=== PATIENT | female | born 1995 | race Caucasian/White ===

== ENCOUNTER → 2020-01-31 12:11 | Outpatient (CLI) | payer BC, SELFPAY ==
[2020-01-31 14:08] LABS: Hematocrit 45.3 % (37-47); Hemoglobin 14.6 g/dL (12.0-15.0); Mean Corp Hgb Conc 32.2 g/dL (32-36); Mean Corpuscular Hgb 28.2 pg (27.0-32.0); Mean Corpuscular Volume 87.6 fL (81-99); Mean Platelet Vol. 10.7 fl (6.2-12.0); Platelet Count 358 K/mm3 (150-450); RBC Distribution Width CV 11.7 % (11.6-14.6); RBC Distribution Width SD 37.4 fl (35.1-43.9); Red Blood Count 5.17 M/mm3 (4.2-5.4); White Blood Count 8.2 K/mm3 (4.4-11.0)
[2020-01-31 14:34] LABS: ALB/GLOB Ratio 1.1 RATIO (0.9-2.4); AST(SGOT) 19 U/L (15-37); Alanine Aminotransfer ALT/SGPT 30 U/L (13-56); Albumin, Serum 3.9 g/dL (3.2-5.0); Alkaline Phosphatase 112 U/L (45-117); Anion Gap 7 (5-15); BUN 16 mg/dL (7-18); BUN/Creat Ratio 21.1 RATIO (10-20); Chloride 108 mmol/L (98-107); Cholesterol 179 mg/dL (200); Creatinine, Serum 0.76 mg/dL (0.55-1.02); EST Glomerular Filtration Rate 100 mL/min (>60); Est Glom Filt Rate - Afr Amer 121 mL/min (>60); Globulin 3.7 g/dL (2.2-4.2); Glucose 90 mg/dL (74-106); High Density Lipoprotein 44 mg/dL; Potassium 4.1 mmol/L (3.5-5.1); Protein, Total 7.6 g/dL (6.4-8.2); Sodium Level 139 mmol/L (136-145); Thyroid Stim Hormone (TSH) 2.23 uIU/mL (0.358-3.74); Triglycerides 155 mg/dL; Very Low Density Lipoprotein 31 mg/dL (5-40)
== END ==
PROVIDERS: PCP Nurse Practitioner Primary Care; Referring Provider Family Medicine; Visit Provider Family Medicine
DX: N92.1 Excessive and frequent menstruation with irregular cycle (principal); E88.81 Metabolic syndrome and other insulin resistance
CPT/HCPCS: 36415; 80053; 80061; 84443; 85027

== ENCOUNTER → 2021-07-30 09:56 | Outpatient (CLI) | payer OTHER, SELFPAY ==
[2021-07-30 11:27] LABS: Cholesterol 162 mg/dL (200); Glucose 105 mg/dL (74-106); High Density Lipoprotein 45 mg/dL; Thyroid Stim Hormone (TSH) 2.03 uIU/mL (0.358-3.74); Triglycerides 247 mg/dL; Very Low Density Lipoprotein 49 mg/dL (5-40)
== END ==
PROVIDERS: PCP Nurse Practitioner Primary Care; Referring Provider Nurse Practitioner Primary Care; Visit Provider Nurse Practitioner Primary Care
DX: Z00.00 Encounter for general adult medical examination without abnormal findings (principal); R63.5 Abnormal weight gain
CPT/HCPCS: 36415; 80061; 82947; 84443

== ENCOUNTER 2021-12-02 17:00 | Outpatient (RCR) | payer OTHER, SELFPAY | END 2021-12-02 23:59 | LOC: NS 17:00 | PROVIDERS: PCP Nurse Practitioner Primary Care; Referring Provider Nurse Practitioner Primary Care; Visit Provider Nurse Practitioner Primary Care | DX: Z71.3 Dietary counseling and surveillance (principal); E66.9 Obesity, unspecified; Z68.41 Body mass index [BMI] 40.0-44.9, adult | CPT/HCPCS: 97802; 97803 ==

== ENCOUNTER 2021-12-30 10:00 | Outpatient (RCR) | payer OTHER, SELFPAY | END 2022-01-02 23:59 | LOC: NS 10:00 | PROVIDERS: PCP Nurse Practitioner Primary Care; Referring Provider Nurse Practitioner Primary Care; Visit Provider Nurse Practitioner Primary Care | DX: Z71.3 Dietary counseling and surveillance (principal); E66.9 Obesity, unspecified; Z68.41 Body mass index [BMI] 40.0-44.9, adult | CPT/HCPCS: 97803 ==

== ENCOUNTER → 2022-07-30 | Outpatient (CLI) | payer OTHER, SELFPAY ==
[2022-08-01 11:09] LABS: Chlamydia By Nucleic Acid AMP Negative (Negative)
[2022-08-01 14:55] LABS: Gonococcus By Nucleic Acid AMP Negative (Negative)
[2022-08-14 16:01] LABS: HPV Reflexed? NOT INDICATED
== END | disposition home or self-care (01) ==
LOC: LABSPEC 11:07
PROVIDERS: PCP Nurse Practitioner Primary Care; Visit Provider Student in an Organized Health Care Education/Training Program
DX: Z12.4 Encounter for screening for malignant neoplasm of cervix (principal); Z11.3 Encounter for screening for infections with a predominantly sexual mode of transmission
CPT/HCPCS: 87491; 87591; 88175; G0145

== ENCOUNTER → 2024-02-15 | Outpatient (CLI) | payer OTHER, SELFPAY ==
[2024-02-15 09:31] LABS: Absolute Lymphocyte Count 3.69 X10^3/uL (0.83-4.51); Absolute Neutrophil Count 6.8 X10^3/uL (2.0-7.7); Basophil# 0.08 X10^3/uL; Basophil% 0.7 % (0-1); Eosinophils% 2.6 % (0-5); Hemoglobin 15.1 g/dL (12.0-15.0); Lymphocyte # 3.69 X10^3/ul (0.83-4.51); Mean Corp Hgb Conc 32.1 g/dL (32-36); Mean Corpuscular Hgb 28.2 pg (27.0-32.0); Mean Corpuscular Volume 87.7 fL (81-99); Monocyte# 0.56 X10^3/uL; Monocyte% 4.9 % (0-10); NRBC Flagged by Analyzer 0 % (0-5); Neutrophil # 6.82 X10^3/uL (2.7-7.7); Neutrophil % 59.1 % (47-70); Platelet Count 351 K/mm3 (150-450); RBC Distribution Width CV 11.8 % (11.6-14.6); RBC Distribution Width SD 37.3 fl (35.1-43.9); Red Blood Count 5.36 M/mm3 (4.2-5.4); White Blood Count 11.5 K/mm3 (4.4-11.0)
[2024-02-15 10:12] LABS: AST(SGOT) 16 U/L (15-37); Alanine Aminotransfer ALT/SGPT 25 U/L (13-56); Albumin, Serum 3.9 g/dL (3.2-5.0); Alkaline Phosphatase 110 U/L (45-117); Anion Gap 7 (5-15); BUN 13 mg/dL (7-18); BUN/Creat Ratio 18.3 RATIO (10-20); Calcium,Total 9.1 mg/dL (8.5-10.1); Chloride 106 mmol/L (98-107); Cholesterol 191 mg/dL (200); Creatinine, Serum 0.71 mg/dL (0.55-1.02); EST Glomerular Filtration Rate 104 mL/min (>60); Est Glom Filt Rate - Afr Amer 126 mL/min (>60); Glucose 104 mg/dL (74-106); High Density Lipoprotein 49 mg/dL; Potassium 4.2 mmol/L (3.5-5.1); Protein, Total 7.9 g/dL (6.4-8.2); Sodium Level 136 mmol/L (136-145); Thyroid Stim Hormone (TSH) 1.57 uIU/mL (0.358-3.74); Triglycerides 250 mg/dL; Very Low Density Lipoprotein 50 mg/dL (5-40)
[2024-02-15 17:30] LABS: Vitamin B12 368 pg/mL (211-911); Vitamin D,25 Hydroxy 32.2 ng/mL
[2024-02-19 10:09] LABS: Deamidated Gliadin IgA 21 units (0-19); Deamidated Gliadin IgG 5 units (0-19); Endomysial Antibody IgA Negative (Negative); Immunoglobulin A 110 mg/dL (87-352); Testosterone, Free 2.09 ng/dL (0.10-0.85); Testosterone, Total 55 ng/dL (13-71); t-Transglutaminase IgA <2 U/mL (0-3)
== END | disposition home or self-care (01) ==
PROVIDERS: PCP Nurse Practitioner; Referring Provider Nurse Practitioner; Visit Provider Nurse Practitioner
DX: Z00.00 Encounter for general adult medical examination without abnormal findings (principal); N92.6 Irregular menstruation, unspecified; L65.9 Nonscarring hair loss, unspecified; K58.9 Irritable bowel syndrome, unspecified
CPT/HCPCS: 36415; 80053; 80061; 82306; 82607; 82627; 82784; 83516; 84402; 84403; 84439; 84443; 85025; 86255; 82626

== ENCOUNTER → 2024-03-21 | Outpatient (CLI) | payer OTHER, SELFPAY ==
[2024-03-21 13:07] LABS: hCG Titer Quant., Serum 3 mIU/mL (1-3)
== END | disposition home or self-care (01) ==
LOC: LAB 12:14
PROVIDERS: PCP Nurse Practitioner; Referring Provider Obstetrics & Gynecology; Visit Provider Obstetrics & Gynecology
DX: Z34.90 Encounter for supervision of normal pregnancy, unspecified, unspecified trimester (principal); N92.6 Irregular menstruation, unspecified; Z3A.00 Weeks of gestation of pregnancy not specified
CPT/HCPCS: 36415; 84702

== ENCOUNTER → 2024-03-23 | Outpatient (CLI) | payer OTHER, SELFPAY ==
[2024-03-23 13:42] LABS: hCG Titer Quant., Serum < 1 mIU/mL (1-3)
== END | disposition home or self-care (01) ==
LOC: LAB 11:41
PROVIDERS: PCP Nurse Practitioner; Visit Provider Obstetrics & Gynecology
DX: Z34.90 Encounter for supervision of normal pregnancy, unspecified, unspecified trimester (principal)
CPT/HCPCS: 36415; 84702

== ENCOUNTER → 2024-04-11 | Outpatient (CLI) | payer OTHER, SELFPAY ==
[2024-04-11 16:53] LABS: Hemoglobin A1c 5.3 % (3.8-5.6)
[2024-04-13 04:07] LABS: PROGESTERONE <0.1 ng/mL (.)
== END | disposition home or self-care (01) ==
LOC: LAB 14:45
PROVIDERS: PCP Nurse Practitioner; Referring Provider Nurse Practitioner Women's Health; Visit Provider Nurse Practitioner Women's Health
DX: E28.2 Polycystic ovarian syndrome (principal)
CPT/HCPCS: 36415; 83036; 84144

== ENCOUNTER → 2024-06-16 | Outpatient (CLI) | payer OTHER, SELFPAY ==
[2024-06-16 10:13] LABS: hCG Titer Quant., Serum 2396 mIU/mL (1-3)
== END | disposition home or self-care (01) ==
PROVIDERS: PCP Nurse Practitioner; Referring Provider Nurse Practitioner Women's Health; Visit Provider Nurse Practitioner Women's Health
DX: N92.6 Irregular menstruation, unspecified (principal)
CPT/HCPCS: 36415; 84702

== ENCOUNTER → 2024-06-22 | Outpatient (CLI) | payer OTHER, SELFPAY ==
[2024-06-22 13:15] LABS: hCG Titer Quant., Serum 9986 mIU/mL (1-3)
== END | disposition home or self-care (01) ==
LOC: LAB 11:58
PROVIDERS: PCP Nurse Practitioner; Referring Provider Nurse Practitioner Women's Health; Visit Provider Nurse Practitioner Women's Health
DX: N97.9 Female infertility, unspecified (principal); N91.2 Amenorrhea, unspecified
CPT/HCPCS: 36415; 84443; 84702

== ENCOUNTER → 2024-07-04 | Outpatient (CLI) | payer OTHER, SELFPAY ==
[2024-07-07 06:10] LABS: Chlamydia By Nucleic Acid AMP Negative (Negative); Gonococcus By Nucleic Acid AMP Negative (Negative)
== END | disposition home or self-care (01) ==
LOC: LABSPEC 17:05
PROVIDERS: Referring Provider Obstetrics & Gynecology; Visit Provider Obstetrics & Gynecology
DX: O99.210 Obesity complicating pregnancy, unspecified trimester (principal); Z3A.00 Weeks of gestation of pregnancy not specified
CPT/HCPCS: 87086; 87491; 87591

== ENCOUNTER → 2024-08-01 | Outpatient (CLI) | payer OTHER, SELFPAY ==
[2024-08-01 15:38] LABS: Absolute Lymphocyte Count 3.77 X10^3/uL (0.83-4.51); Absolute Neutrophil Count 7.2 X10^3/uL (2.0-7.7); Basophil# 0.06 X10^3/uL; Basophil% 0.5 % (0-1); Eosinophil# 0.17 X10^3/uL; Eosinophils% 1.4 % (0-5); Hematocrit 37.3 % (37-47); Hemoglobin 12.3 g/dL (12.0-15.0); Lymphocyte # 3.77 X10^3/ul (0.83-4.51); Lymphocyte % 31.3 % (19-41); Mean Corpuscular Hgb 27.7 pg (27.0-32.0); Mean Platelet Vol. 11.1 fl (6.2-12.0); Monocyte# 0.79 X10^3/uL; Monocyte% 6.6 % (0-10); NRBC Flagged by Analyzer 0 % (0-5); Neutrophil # 7.19 X10^3/uL (2.7-7.7); Neutrophil % 59.7 % (47-70); Platelet Count 342 K/mm3 (150-450); RBC Distribution Width CV 11.7 % (11.6-14.6); RBC Distribution Width SD 35.6 fl (35.1-43.9); Red Blood Count 4.44 M/mm3 (4.2-5.4)
[2024-08-01 15:53] LABS: Erythrocyte Sedimentation Rate 15 mm/hr (0-30)
[2024-08-01 16:09] LABS: AST(SGOT) 6 U/L (15-37); Alanine Aminotransfer ALT/SGPT 17 U/L (13-56); Albumin, Serum 3.6 g/dL (3.2-5.0); Alkaline Phosphatase 74 U/L (45-117); Anion Gap 11 (5-15); BUN 9 mg/dL (7-18); BUN/Creat Ratio 15.8 RATIO (10-20); CRP 7.41 mg/L (0.0-3.0); Chloride 105 mmol/L (98-107); Creatinine, Serum 0.57 mg/dL (0.55-1.02); EST Glomerular Filtration Rate 134 mL/min (>60); Est Glom Filt Rate - Afr Amer 163 mL/min (>60); Globulin 3.7 g/dL (2.2-4.2); Glucose 67 mg/dL (74-106); LDH 147 U/L (84-246); Potassium 3.5 mmol/L (3.5-5.1); Protein, Total 7.3 g/dL (6.4-8.2); Sodium Level 137 mmol/L (136-145)
[2024-08-01 16:47] LABS: HIV - WCH Non-Reactive (Nonreactive); Hepatitis B Surface Antigen Non-Reactive (Nonreactive); Hepatitis C Antibody Non-Reactive (Nonreactive); Rubella IgG Reactive (Nonreactive); Syphilis Antibodies Non-reactive
--- OUTSIDE RECORDS SUMMARY | 2024-08-01 17:14 | XMS RPT_ITS | CCD ---
Author Organization [facility] Care Team Providers Care Hotel Staff Member Name Role Phone Jonathan Red Unavailable Unavailable Kumar Peace Unavailable Unavailable Problems Problem Classification Problem Date Documented Da te Episodic/Chronic Acute and chronic tonsillitis (1 source) Chronic tonsillitis Onset: 09-16-2017 Chronic Unclassified (1 source) Unknown / UNK(Unknown) Onset: 09-16-2017 Results Test Name Value Interpretation Reference Range Facility [facility] 05-05-[address] Positive [facility] Comment on above: Result Comment: This immune status assay detects antibody to Varicella Zostervirus. Interpret results in conjunction with clinical history. Positive: Reactive for antibodies to Varicella IgG. If clinically indicated, order Varicella IGM to rule out recent infection. Equivocal: Equivocal for antibodies to Varicella IgG. Suggest repeat testing in 10-14 days. Negative: Non-reactive for antibodies to Varicella IgG.Sera will be held 4-6 weeks if further testing is required. Performed By: #### H BSAB, VARIS ####[place] [address] HBSABon 05-04-2018 Hep B Surf Ab 0.0 mIU/mL [facility] Comment on above: Result Comment: Anti-HBs Interpretation: 0 to <5.0 mIU/mL Negative Patient is considered to be not immune to infection with HBV. >/= 5.0 and <12.0 mIU/mL Equivocal Unable to determine if anti-HBs is present at levels consistent with immunity. Patient's immune status should be further assessed by considering other clinical information or retesting another sample drawn at a later time. >/= 12.0 mIU/mL Positive Patient is considered to be immune to infection with HBV. It has not been determined what the clinical significance is for values greater than or equal to 12.0 mIU/mL, other than the individual is considered to be immune to HBV infection. Performed By: #### H BSAB, VARIS ####[place] [address] Bella 09-16-2017 OPERATIVE REPORT Normal [facility] [place] DATE OF SERVICE: 09/16/2017PREOPERATIVE DIAGNOSIS: Chronic tonsillitis.POSTOPERATIVE DIAGNOSIS: Chronic tonsillitis.OPERATION: Tonsillectomy.SURGEON: Jonathan Red MDANESTHESIA: General endotracheal.INDICATION: The patient is a 22-year-old with a history of chronic tonsillitisrefractory to appropriate treatment, presents for surgery.OPERATIVE FINDINGS: The patient had 3+ cryptic tonsils.PROCEDURE: The patient was brought to the operating theater and placed in the supineposition on the operating room table and general endotracheal anesthesia was induced.The patient was placed in the Tamara position. A Samantha-Duncan mouth gag was insertedand provided excellent exposure. The soft palate was palpated and there was noclefting. The tonsillar pillars were injected with a total of 5 mL of 0.25% plainMarcaine. The tonsils were then resected in a superior to inferior fashion along theplane of the tonsillar capsule using the Bovie suction cauterization device.Excellent hemostasis was maintained throughout by cauterizing blood vessels as theywere encountered. The patient tolerated the procedure well without complication.Estimated blood loss was 10 mL. The patient was allowed to awaken, was extubated,and was transferred to recovery in stable condition. Alexandro Red [facility]ka/[id number]: 09/16/2017 07:57DT: 09/16/2017 08:31SSI File#: [id number] #: [id number]/Reviewed by09/17/17 0706 [id number] [facility] PATIENT NAME: BALTAZAR BLANCO [id number] Meyer [facility] REC #: [id number], [place] [address] DATE:DISCHARGE DATE:OPERATIVE REPORT ATTENDING PHY: Jonathan Red MD [facility] [place] SURGon 09-16-2017 SURG Patient: BALTAZAR BLANCO L SPECIMEN: [id number] Collection Date: 09/16/17 Received: 09/16/17 Status: ROLO Anderson DrInocencia: Jonathan Red MD Ph# Othr. Dr.: Kumar Peace Material for Examination: A LEFT AND RIGHT TONSIL PRE-OP DIAGNOSIS: CHRONIC TONSILLITIS POST-OP DIAGNOSIS: SAME SURGICAL PROCEDURE: TONSILLECTOMY DIAGNOSIS A. Bilateral tonsils; tonsillectomy: Enlarged bilateral tonsils with lymphoid follicular hyperplasia.GROSS DESCRIPTION The specimen is received in formalin labeled with the patient's name, ID, and designatedleft and right tonsils, are 2 chacon-pink oval shaped portions of tissue grossly consistentwith tonsils, 3.0 x 2.5 x 2.0 cm and 3.5 x 2.6 x 1.8 cm. Each has a focally pitted surface.Cut section reveals chacon-pink crypts. No additional tissue is identified. Representativesections are submitted in cassettes A1 and A2.MICROSCOPIC DESCRIPTION Two Altaf stained slides examined.COPIES TO: Kumar Peace Darrell R MDSigned Verified/Reviewed by DAKOTA CHEN 09/17/17 This dictation was created using voice recognition software. Phonetic and/or minor grammatical errors may exist. [facility] NAME: BALTAZAR BLANCO Pathology and Laboratory Medicine UNIT#: [id number] LOC: [facility] Telephone Operator Chief: Sherry Mcdonnell M.D. [id number] ROOM/BED: [facility] : 89 AGE/SEX: 22/F [place].Jonathan Simeon MD END OF REPORT Normal [facility] URINE PREGNANCYon 09-16-2017 UR HCG QUAL Negative Normal NEGATIVE [facility] Comment on above: Order Comment: Dexter: M Performed By: #### L [id number] ####[facility] [id number] [place], [place] [address]Qq# [phone] UR SPEC GRAV 1.021 Normal 1.005-1.03 0 [facility] Comment on above: Order Comment: Dexter: M Performed By: #### L [id number] ####[facility] [id number] [place], [place] [address]Oy# [phone] Encounters Encounter Date Encounter Type Care Provider Facility Start: 09-16-2017 Evaluation and manag ement of inpatient Jonathan Red Facility:[facility] Payers Date Payer Category Payer Unknown [id number] Summary Purpose Family History No Family History Records FoundNo Family History Records Found Advance Directives No Advanced Directives Records FoundNo Advanced Directives Records Found Additional Source Comments INFORMATION SOURCE (unrecogn ized section and content) DATE CREATED AUTHOR 03/30/2018 [facility]ter [place] DATE CREATED AUTHOR AUTHOR'S ORGANIZ ATION 05/05/2018 [facility] FOR RECORDS PERTAINING TO PATIENTS WHO ARE OR HAVE BEEN ENROLLED IN A CHEMICAL DEPENDENCY/SUBSTANCEABUSE PROGRAM, SOME INFORMATION MAY BE OMITTED. This clinical summary was aggregated from multiple sources. Caution should be exercised in using it in the provision of clinical care. This summary normalizes information from multiple sources, and as a consequence, information in this document may materially change the coding, format and clinical context of patient data. In addition, data may be omitted in some cases. CLINICAL DECISIONS SHOULD BE BASED ON THE PRIMARY CLINICAL RECORDS. [facility]. provides no warranty or guarantee of the accuracy or completeness of information in this document.
[2024-08-06 16:08] LABS: ACCA 8 units (0-90); ALCA 16 units (0-60); AMCA 37 units (0-100); Albumin 3.7 g/dL (2.9-4.4); Alpha-1-Globulins 0.3 g/dL (0.0-0.4); Alpha-2-Globulins 0.8 g/dL (0.4-1.0); Cytoplasmic Ab (C-ANCA) <1:20 titer (Neg:<1:20); Endomysial Antibody IgA Negative (Negative); Gamma Globulin 0.7 g/dL (0.4-1.8); Immunoglobulin A 87 mg/dL (87-352); Immunoglobulin E 12 IU/mL (6-495); Immunoglobulin G 791 mg/dL (586-1602); Immunoglobulin M 77 mg/dL (26-217); PROEL- TOTAL PROTEIN 6.6 g/dL (6.0-8.5); Perinuclear Ab (P-ANCA) <1:20 titer (Neg:<1:20); gASCA 4 units (0-50); t-Transglutaminase IgA <2 U/mL (0-3)
[2024-08-07 08:07] LABS: Anti-Centromere B Ab <0.2 AI (0.0-0.9); Anti-Chromatin <0.2 AI (0.0-0.9); Anti-Jo <0.2 AI (0.0-0.9); Anti-Scleroderma-70 AB <0.2 AI (0.0-0.9); Anti-dsDNA Ab 1 IU/mL (0-9); Beef <0.10 kU/L (Class 0); Chocolate <0.10 kU/L (Class 0); Codfish <0.10 kU/L (Class 0); Corn <0.10 kU/L (Class 0); Egg, Whole <0.10 kU/L (Class 0); Milk (Cow) <0.10 kU/L (Class 0); Mussels <0.10 kU/L (Class 0); Peanut <0.10 kU/L (Class 0); Pork <0.10 kU/L (Class 0); RNP Ab <0.2 AI (0.0-0.9); SJOGREN'S Anti-SS-A test < 0.2 AI (0.0-0.9); SJOGREN'S Anti-SS-B test < 0.2 AI (0.0-0.9); Salmon <0.10 kU/L (Class 0); Shrimp <0.10 kU/L (Class 0); Smith Ab <0.2 AI (0.0-0.9); Soybean <0.10 kU/L (Class 0); Tuna <0.10 kU/L (Class 0); Wheat <0.10 kU/L (Class 0)
== END | disposition home or self-care (01) ==
LOC: LAB 13:37
PROVIDERS: Obstetrics & Gynecology; PCP Nurse Practitioner
DX: O99.619 Diseases of the digestive system complicating pregnancy, unspecified trimester (principal); K58.0 Irritable bowel syndrome with diarrhea; O99.210 Obesity complicating pregnancy, unspecified trimester; Z3A.00 Weeks of gestation of pregnancy not specified
CPT/HCPCS: 36415; 80053; 82784; 82785; 83036; 83516; 83615; 84165; 85025; 85652; 86003; 86005; 86036; 86037; 86140; 86225; 86235; 86255; 86334; 86671; 86703; 86762; 86780; 86803; 86850; 86900; 86901; 87340

== ENCOUNTER → 2024-09-23 | Outpatient (CLI) | payer OTHER, SELFPAY ==
--- NOTE | 2024-09-23 08:02 | US_ITS ---
EXAM: US SECOND OR THIRD TRIMESTER , DETAILED ANATOMIC EXAMINATION CLINICAL INDICATION: anatomy TECHNIQUE: Real-time obstetrical ultrasound of the maternal pelvis and a second or third trimester with image documentation and detailed anatomic examination. COMPARISON: No relevant prior studies available. FINDINGS: FETUS: Single live intrauterine . HEART RATE: heart rate: 145 bpm. HEART RHYTHM: Normal. PRESENTATION: Cephalic. PLACENTA: Placenta is anterior with no previa or other abnormality. Central placenta cord insertion. AMNIOTIC FLUID: The amount of amniotic fluid is within normal limits for the gestational age. OSBALDO not measured. ANATOMY: Normal sonographic appearance of the intracranial structures, facial structures, four-chamber heart, diaphragm, stomach, abdominal wall, cord insertion, three-vessel cord, kidneys, bladder, spine, upper and lower extremities. BIOMETRICS GESTATIONAL AGE: Gestational age by ultrasound: 19 weeks 5 days, ALAYNA 02/12/2025. Gestational age by LMP: 20 weeks 6 days, ALAYNA 02/04/2025. ALAYNA: See above. EFW: Estimated weight: 348 g. BPD: 4.6 cm, 20 weeks 0 days. HC: 17.5 cm, 20 weeks 0 days. AC: 13.4 cm, 20 weeks 4 days. FL: 3.3 cm, 20 weeks 1 day. MATERNAL: UTERUS: Unremarkable. No myometrial mass. CERVIX: Cervix measures 4.5 cm in length. ADNEXA: Unremarkable. No mass. FREE FLUID: No free fluid. US/OB Anatomy w/ Transvaginal IMPRESSION: Single live intrauterine measuring 19 weeks 5 days with no significant abnormalities identified. Unremarkable anatomic survey. Electronically Signed: Daryl Cummings MD at 0:08 EST ,
== END | disposition home or self-care (01) ==
LOC: OPUS 08:02
PROVIDERS: PCP Nurse Practitioner; Referring Provider Obstetrics & Gynecology; Visit Provider Obstetrics & Gynecology
DX: Z34.90 Encounter for supervision of normal pregnancy, unspecified, unspecified trimester (principal)
CPT/HCPCS: 76805; 76817

== ENCOUNTER → 2024-10-24 | Outpatient (CLI) | payer OTHER, SELFPAY ==
[2024-10-24 17:10] LABS: Protein, Urine (Random) < 6.0 mg/dL (<11.9)
== END | disposition home or self-care (01) ==
PROVIDERS: PCP Nurse Practitioner; Referring Provider Advanced Practice Midwife; Visit Provider Advanced Practice Midwife
DX: R03.0 Elevated blood-pressure reading, without diagnosis of hypertension (principal)
CPT/HCPCS: 82570; 84156

== ENCOUNTER → 2024-10-24 | Outpatient (CLI) | payer OTHER, SELFPAY ==
[2024-10-24 12:28] LABS: Absolute Lymphocyte Count 2.91 X10^3/uL (0.83-4.51); Absolute Neutrophil Count 10.3 X10^3/uL (2.0-7.7); Basophil# 0.08 X10^3/uL; Basophil% 0.6 % (0-1); Eosinophil# 0.12 X10^3/uL; Eosinophils% 0.8 % (0-5); Hematocrit 39.8 % (37-47); Hemoglobin 12.9 g/dL (12.0-15.0); Lymphocyte # 2.91 X10^3/ul (0.83-4.51); Lymphocyte % 20.2 % (19-41); Mean Corp Hgb Conc 32.4 g/dL (32-36); Mean Corpuscular Hgb 28.1 pg (27.0-32.0); Mean Corpuscular Volume 86.7 fL (81-99); Mean Platelet Vol. 10.5 fl (6.2-12.0); Monocyte# 0.75 X10^3/uL; Monocyte% 5.2 % (0-10); NRBC Flagged by Analyzer 0 % (0-5); Neutrophil # 10.34 X10^3/uL (2.7-7.7); Neutrophil % 71.9 % (47-70); Platelet Count 318 K/mm3 (150-450); RBC Distribution Width CV 12.5 % (11.6-14.6); RBC Distribution Width SD 39.3 fl (35.1-43.9); Red Blood Count 4.59 M/mm3 (4.2-5.4); White Blood Count 14.4 K/mm3 (4.4-11.0)
[2024-10-24 13:13] LABS: ALB/GLOB Ratio 0.8 RATIO (0.9-2.4); AST(SGOT) 8 U/L (15-37); Alanine Aminotransfer ALT/SGPT 12 U/L (13-56); Albumin, Serum 3.3 g/dL (3.2-5.0); Alkaline Phosphatase 85 U/L (45-117); Anion Gap 6 (5-15); BUN 7 mg/dL (7-18); BUN/Creat Ratio 14.4 RATIO (10-20); Calcium,Total 9.3 mg/dL (8.5-10.1); Chloride 107 mmol/L (98-107); Creatinine, Serum 0.49 mg/dL (0.55-1.02); EST Glomerular Filtration Rate 161 mL/min (>60); Est Glom Filt Rate - Afr Amer 194 mL/min (>60); Globulin 3.9 g/dL (2.2-4.2); Glucose 78 mg/dL (74-106); Potassium 3.8 mmol/L (3.5-5.1); Protein, Total 7.2 g/dL (6.4-8.2); Sodium Level 137 mmol/L (136-145)
[2024-10-24 13:33] LABS: Syphilis Antibodies Non-reactive
== END | disposition home or self-care (01) ==
LOC: BWCLAB 12:04
PROVIDERS: Obstetrics & Gynecology; PCP Nurse Practitioner; Referring Provider Advanced Practice Midwife; Visit Provider Advanced Practice Midwife
DX: O26.899 Other specified pregnancy related conditions, unspecified trimester (principal); R03.0 Elevated blood-pressure reading, without diagnosis of hypertension; Z3A.00 Weeks of gestation of pregnancy not specified
CPT/HCPCS: 36415; 80053; 85025; 86780

== ENCOUNTER → 2024-11-15 | Outpatient (CLI) | payer OTHER, SELFPAY ==
[2024-11-15 12:40] LABS: Absolute Lymphocyte Count 2.26 X10^3/uL (0.83-4.51); Absolute Neutrophil Count 8.6 X10^3/uL (2.0-7.7); Basophil# 0.05 X10^3/uL; Basophil% 0.4 % (0-1); Eosinophil# 0.13 X10^3/uL; Eosinophils% 1.1 % (0-5); Hematocrit 36.9 % (37-47); Hemoglobin 12.2 g/dL (12.0-15.0); Lymphocyte # 2.26 X10^3/ul (0.83-4.51); Lymphocyte % 18.6 % (19-41); Mean Corp Hgb Conc 33.1 g/dL (32-36); Mean Corpuscular Volume 84.8 fL (81-99); Monocyte# 0.62 X10^3/uL; Monocyte% 5.1 % (0-10); NRBC Flagged by Analyzer 0 % (0-5); Neutrophil # 8.62 X10^3/uL (2.7-7.7); Neutrophil % 71.1 % (47-70); Platelet Count 303 K/mm3 (150-450); RBC Distribution Width CV 12.7 % (11.6-14.6); RBC Distribution Width SD 38.8 fl (35.1-43.9); Red Blood Count 4.35 M/mm3 (4.2-5.4); White Blood Count 12.1 K/mm3 (4.4-11.0)
[2024-11-15 13:56] LABS: Glucose Challenge Gest 1H 50g 141 mg/dL (70-140)
[2024-11-15 15:49] LABS: Syphilis Antibodies Non-reactive
[2024-11-16 03:22] LABS: HIV - WCH Non-Reactive (Nonreactive)
== END | disposition home or self-care (01) ==
LOC: LAB 10:26
PROVIDERS: Nurse Practitioner Women's Health; Referring Provider Obstetrics & Gynecology; Visit Provider Obstetrics & Gynecology
DX: O09.90 Supervision of high risk pregnancy, unspecified, unspecified trimester (principal); Z3A.00 Weeks of gestation of pregnancy not specified; Z13.1 Encounter for screening for diabetes mellitus
CPT/HCPCS: 36415; 82950; 85025; 86703; 86780

== ENCOUNTER → 2024-11-21 | Outpatient (CLI) | payer OTHER, SELFPAY ==
[2024-11-21 07:47] LABS: Glucose GTT-Gestation. Fasting 92 mg/dL (<105)
[2024-11-21 08:33] LABS: Glucose GTT-Gestational 1 Hr 190 mg/dL (<190)
[2024-11-21 10:19] LABS: Glucose GTT-Gestational 2 Hr 118 mg/dL (<165)
[2024-11-21 10:30] LABS: Glucose GTT-Gestational 3 Hr 57 L (<145)
== END | disposition home or self-care (01) ==
PROVIDERS: Referring Provider Obstetrics & Gynecology; Visit Provider Obstetrics & Gynecology
DX: O99.810 Abnormal glucose complicating pregnancy (principal); Z3A.00 Weeks of gestation of pregnancy not specified
CPT/HCPCS: 36415; 82951; 82952

== ENCOUNTER → 2024-11-28 | Outpatient (CLI) | payer OTHER, SELFPAY ==
[2024-11-28 09:45] LABS: Absolute Lymphocyte Count 2.48 X10^3/uL (0.83-4.51); Absolute Neutrophil Count 9.7 X10^3/uL (2.0-7.7); Basophil# 0.04 X10^3/uL; Basophil% 0.3 % (0-1); Eosinophil# 0.09 X10^3/uL; Eosinophils% 0.7 % (0-5); Hematocrit 38.9 % (37-47); Hemoglobin 12.5 g/dL (12.0-15.0); Lymphocyte # 2.48 X10^3/ul (0.83-4.51); Lymphocyte % 18.8 % (19-41); Mean Corp Hgb Conc 32.1 g/dL (32-36); Mean Corpuscular Volume 87.2 fL (81-99); Mean Platelet Vol. 10.8 fl (6.2-12.0); Monocyte# 0.65 X10^3/uL; Monocyte% 4.9 % (0-10); NRBC Flagged by Analyzer 0 % (0-5); Neutrophil # 9.73 X10^3/uL (2.7-7.7); Neutrophil % 73.9 % (47-70); Platelet Count 292 K/mm3 (150-450); RBC Distribution Width CV 12.8 % (11.6-14.6); RBC Distribution Width SD 40.5 fl (35.1-43.9); Red Blood Count 4.46 M/mm3 (4.2-5.4); White Blood Count 13.2 K/mm3 (4.4-11.0)
[2024-11-28 10:03] LABS: ALB/GLOB Ratio 0.7 RATIO (0.9-2.4); AST(SGOT) 12 U/L (15-37); Alanine Aminotransfer ALT/SGPT 13 U/L (13-56); Albumin, Serum 3.1 g/dL (3.2-5.0); Alkaline Phosphatase 93 U/L (45-117); Anion Gap 8 (5-15); BUN 7 mg/dL (7-18); Calcium,Total 9.5 mg/dL (8.5-10.1); Chloride 104 mmol/L (98-107); EST Glomerular Filtration Rate 106 mL/min (>60); Est Glom Filt Rate - Afr Amer 128 mL/min (>60); Globulin 4.2 g/dL (2.2-4.2); Glucose 90 mg/dL (74-106); Potassium 4.5 mmol/L (3.5-5.1); Protein, Total 7.3 g/dL (6.4-8.2); Sodium Level 138 mmol/L (136-145)
[2024-11-28 10:19] LABS: Protein, Urine (Random) 20.4 mg/dL (<11.9); Protein:Creat Ratio 185 mg/g CRE (0-200)
== END | disposition home or self-care (01) ==
LOC: BWCLAB 09:23
PROVIDERS: Referring Provider Obstetrics & Gynecology; Visit Provider Obstetrics & Gynecology
DX: R03.0 Elevated blood-pressure reading, without diagnosis of hypertension (principal)
CPT/HCPCS: 36415; 80053; 82570; 84156; 85025

== ENCOUNTER 2024-12-13 09:25 | Outpatient (CLI) | payer OTHER, SELFPAY ==
[2024-12-13] VITALS (14 sets, daily range): BP systolic 127–150; BP diastolic 60–88; PULSE 88–116; RESP 16; TEMP 37; O2SAT 98; BMI 42.8
--- NOTE | 2024-12-13 09:56 | OB.TRI.HP_ITS ---
HPI - General HPI Narrative BALTAZAR BLANCO, is a 29 y/o @ 32 weeks 3 days who presents to L&D due to finding today on ultrasound of oligohydramnios. The overall percentile is normal at 18 and AC is 20gth%. She denies loss of fluid or contractions. Her blood pressure is slightly elevated, however she is crying and upset due to the news. Plan given to nurse to obtain PIH labs, ROM +, start fluids, and celestone. FINDINGS Number: 1 Position: Vertex Placental Position: Anterior Placental Abnormalities: None. DIMENSIONS: Biparietal Diameter: 7.6 cm: 30 weeks and 2 days: 3rd percentile/ Head Circumference: 28 cm: 30 weeks and 5 days: 0.8 percentile/ Abdominal Circumference: 27.3 cm: 31 weeks and 3 days: 20 percentile/ Femur Length: 6.2 cm: 32 weeks and 2 days: 34 percentile/ ESTIMATED WEIGHT: 1795 g plus/minus 269 g ESTIMATED WEIGHT PERCENTILE (24+ weeks): 18 ESTIMATED GESTATIONAL AGE: Baseline: 32 weeks and 3 days By Ultrasound: 31 weeks and 0 days ESTIMATED DATE OF DELIVERY: Baseline: February 04, 2025 By Ultrasound: February 14, 2025 BIOPHYSICAL ASSESSMENT: Amniotic Fluid Volume: Decreased Amniotic Fluid Index: 4.3 (8-24 cm normal range) Cardiac Motion: 145 beats per minute (average) Trunk and Limb Motion: Present. MATERNAL ANATOMY: Adnexa: Neither maternal ovary is successfully identified. US/OB Limited With Biometrics IMPRESSION: Single live intrauterine gestation with a mean gestational age of 31 weeks. Decreased amniotic fluid as well as amniotic fluid index. IUGR should be ruled out. The results were communicated to the referring physician. Maternal Data Information ALAYNA Calculator Estimated Delivery Date Method Current WG Current Estimate 02/04/25 LMP (Certain) 32w 3d Other Estimates 02/09/25 Ultrasound #1 31w 5d PFSH PFSH Medical History Irritable bowel syndrome Irregular menses Chemical Early stage of Asthma Home Medications ?Medication ?Instructions ?Recorded ?Last Taken ?Type aspirin 81 mg tablet,delayed 81 mg PO DAILY 12/13/24 U nknown History release doxylamine succinate 25 mg tablet 25 mg PO QHS PRN sle ep 12/13/24 12/12/24 History (Unisom (doxylamine)) omega-3 900 mg-dha 360 mg-epa 455 2 cap PO DAILY 12/1312/12/24 History mg-fish oil 1,000 mg capsule (Fish Oil) vit no.95-ferrous 1 tab PO DAILY 12/13/24 Unk nown History fumarate 28 mg-folic acid 800 mcg tablet ( Formula) Allergy/AdvReac Type Severity Reaction Status Date / Time No Known Allergies Allergy Verified 12/13/24 10:26 Family History Grandmother Breast cancer Paternal Alzheimer's dementia Maternal Father High cholesterol TIA (transient ischemic attack) Grandfather Parkinsons disease Paternal Surgical History S/P tonsillectomy Social History adopted: No household members: spouse current occupational status: employed current occupation: [employer] pets and animals: Yes pets and animals: dog(s) history of recent travel: Yes ([place] in september) out of state: No out of country: Yes sexually active: Yes Smoking Status: Never smoker alcohol intake: current alcohol intake frequency: other details: once a month - Not while substance use type: does not use well-balanced diet: about half the time caffeine: Yes Type: coffee Number of servings: 1 eating out: 1-3 times/week during the past year weight has: remained stable what type of physical activity do you participate in: walking frequency: 1-2 times per week duration: 30-45 minutes/day yossi/samaritan: Tenriism seatbelt use: always do you feel safe at home: Yes additional social history: - Soraida History 2 Elective abortions Hx Para 0 Spontaneous abortions 1 Hx # Term Pregnancies Ectopic pregnancies Hx # Pregnancies Multiple births # of living children 0 Past Pregnancies Del. Date Name GA/Weeks Outcome Route Bth Weight Infant Gen Labor Lgth Anesthesia Del Locatn Provider FOB 03/21/24 chemical Visit Details Expected Delivery Route/Plan Labor Preferences- CB/BF classes: encouraged labor support person: Soraida labor intervention preferences: [] pain management options preferred: epidural cut cord/dad catch: yes : yes PP control planned: discussed discussed possible routes of delivery and associated risks: [] special requests: [] Plans Covid status: [] Flu vaccine: [] Tdap vaccine: [] Rhogam: na LARC form signed: yes Problem list reviewed and updated with the most current plan of care details and appropriate orders placed. Relevant counseling for the gestational age provided. Continue routine care and follow up unless otherwise noted in visit notes/problem list details OB Flowsheet Initial Weight: Not Recorded Date -?-?-?-?-?-?-?-?-?-?-?-?- EGA Weight BP Urine Prot -?-?-?-?-?-?-?-?-?-?-?-?- Glucose FHR FuHt Pres Dilation -?-?-?-?-?-?-?-?-?-?-?-?- Effaced St Visit Note 07/04/24 -?-?-?-?-?-?-?-?-?-?-?-?- 9w 2d 300 lb 4 oz 136/94 -?-?-?-?-?-?-?-?-?-?-?-?- 171 -?-?-?-?-?-?-?-?-?-?-?-?- JV- CRL 1.89 and off slightly from LMP however, unable to capture the entire CRL so will not chanege the due date. rpt scan next visit. declines NIPT. patient works here. 08/04/24 -?-?-?-?-?-?-?-?-?-?-?--?- 13w 5d 292 lb 139/75 Negative -?-?-?-?-?-?-?-?-?-?-?-?- Negative 150 -?-?-?-?-?-?-?-?-?-?-?-?- SM- no vb crmapi ng 08/29/24 -?-?-?-?-?-?-?-?-?-?-?-?- 17w 2d 292 lb 134/82 Negative -?-?-?-?-?-?-?-?-?-?-?-?- Negative 160 -?-?-?-?-?-?-?-?-?-?-?-?- SM- no vb crmapi ng 09/26/24 -?-?-?-?-?-?-?-?-?-?-?-?- 21w 2d 296 lb 137/83 Negative -?-?-?-?-?-?-?-?-?-?-?-?- Negative 145 -?-?-?-?-?-?-?-?-?-?-?-?- SM- no vb lof go od fm 10/24/24 -?-?-?-?-?-?-?-?-?-?-?-?- 25w 2d 303 lb 2 oz 142/92 139/83 Negative -?-?-?-?-?-?-?-?-?-?-?-?- Negative 155 -?-?-?-?-?-?-?-?-?-?-?-?- KW- no vb/lof/ct x. elsi 28 week labs next week. Elevated BP today may need to start htn med if continue to be elevated. baseline pre e labs today KW- no vb/lof/ctx. elsi 2 8 week labs next visit. Elevated BP today may need to start htn med if continue to be elevated. baseline pre e labs today 11/15/24 -?-?-?-?-?-?-?-?-?-?-?-?- 28w 3d 306 lb 6 oz 130/74 Nega tive -?-?-?-?-?-?-?-?-?-?-?-?- Negative 146 29 -?-?-?-?-?-?-?-?-?-?-?-?- -No VB, LOF. G samuel . Denies concerns. 28 wk labs. [facility] 11/28/24 -?-?-?-?-?-?-?-?-?-?-?-?- 30w 2d 308 lb 135/89 -?-?-?-?-?-?-?-?-?-?-?-?- 155 31 -?-?-?-?-?-?-?-?-?-?-?-?- KW- no vb/crampi ng. good fm. Has had ALBERT all weekend. Took BP at work and was elevated. Pre e labs sent. second BP was patients normal pressures. denies BV/dizziness, RUQ pain or swelling 12/02/24 -?-?-?-?-?-?-?-?-?-?-?-?- 30w 6d 311 lb 6 oz 137/85 Nega tive -?-?-?-?-?-?-?-?-?-?-?-?- Negative 145 31 -?-?-?-?-?-?-?-?-?-?-?-?- KW- no vb/lof/ct x. good fm. headache is better. labs reviewed. 12/13/24 -?-?-?-?-?-?-?-?-?-?-?-?- 32w 3d 309 lb 6 oz 149/89 -?-?-?-?-?-?-?-?-?-?-?-?- -?-?-?-?-?-?-?-?-?-?-?-?- Phone call from US with oligohydramnios and IUGR. To for further eval with Dr Oliva Assessment & Plan (1) Oligohydramnios: QUALIFIERS: Fetus number: single or unspecified fetus Trimester: third trimester Qualified Code(s): O41.03X0 - Oligohydramnios, third trimester, not applicable or unspecified (2) Abnormal glucose in , antepartum: COMMENT: nl 3 hour (3) Elevated BP without diagnosis of hypertension: COMMENT: 10/24/24 Pre E labs nl (4) Obesity affecting : QUALIFIERS: Trimester: third trimester Obesity type affecting : unspecified obesity Qualified Code(s): O99.213 - Obesity complicating , third trimester COMMENT: BMI 41 HgbA1c nl. plan weekly NSTs after 34 and growth US 32 and 36. (5) Supervision of high-risk : QUALIFIERS: Trimester: third trimester Qualified Code(s): O09.93 - Supervision of high risk , unspecified, third trimester COMMENT: PRR, , ALAYNA 02/04/25, Soraida (6) : QUALIFIERS: Weeks of gestation: 32 weeks Qualified Code(s): Z3A.32 - 32 weeks gestation of COMMENT: discussed NIPT, ntd, & carrier testing- declined. nl anatomy PLAN: Plan plan is to observe over night tonight with IV hydration. give second dose of celestone tomorrow at 24 hour annie and repeat the OSBALDO tomorrow if still low, will consult with MFM.
[2024-12-13] MEDS: Lactated Ringers 1,000 ML 999 ML IV (10:15)
[2024-12-13 10:39] LABS: Absolute Lymphocyte Count 2.02 X10^3/uL (0.83-4.51); Absolute Neutrophil Count 8.9 X10^3/uL (2.0-7.7); Basophil# 0.06 X10^3/uL; Basophil% 0.5 % (0-1); Eosinophils% 0.9 % (0-5); Hematocrit 37.2 % (37-47); Hemoglobin 12.4 g/dL (12.0-15.0); Lymphocyte # 2.02 X10^3/ul (0.83-4.51); Lymphocyte % 17.3 % (19-41); Mean Corp Hgb Conc 33.3 g/dL (32-36); Mean Corpuscular Hgb 28.2 pg (27.0-32.0); Mean Corpuscular Volume 84.7 fL (81-99); Mean Platelet Vol. 10.7 fl (6.2-12.0); Monocyte# 0.48 X10^3/uL; Monocyte% 4.1 % (0-10); NRBC Flagged by Analyzer 0 % (0-5); Neutrophil # 8.87 X10^3/uL (2.7-7.7); Neutrophil % 75.8 % (47-70); Platelet Count 288 K/mm3 (150-450); RBC Distribution Width CV 12.9 % (11.6-14.6); RBC Distribution Width SD 39.8 fl (35.1-43.9); Red Blood Count 4.39 M/mm3 (4.2-5.4); White Blood Count 11.7 K/mm3 (4.4-11.0)
[2024-12-13] MEDS: Betamethasone/Betamethasone 30 MG/5 ML Vial 12 MG IM (10:46)
[2024-12-13 11:00] LABS: ROM Internal Control Test YES-OK TO RESULT pt. (Internal QC); ROM Patient Test Negative (Negative); Record Kit Lot#, ROM+ K2871
[2024-12-13 11:47] LABS: Protein, Urine (Random) 10.5 mg/dL (0.0-12.0); Protein:Creat Ratio 165 mg/g CRE (0-200)
[2024-12-13 11:52] LABS: Syphilis Antibodies Nonreactive (Nonreactive)
[2024-12-13 12:01] LABS: Creatinine, Serum 0.46 mg/dL (0.70-1.20); EST Glomerular Filtration Rate 133 (>60); Estimated Creatinine Clearance 282.41 ml/min (50-250)
[2024-12-13] MEDS: Acetaminophen 500 MG Tablet 1000 MG PO (13:09)
[2024-12-13 15:10] LABS: ALB/GLOB Ratio 1.4 RATIO (0.9-2.4); AST(SGOT) 12 U/L (<=31); Alanine Aminotransfer ALT/SGPT 9 U/L (<=34); Alkaline Phosphatase 99 U/L (35-104); Anion Gap 16 (5-15); BUN 8 mg/dL (4-19); Calcium,Total 9.2 mg/dL (7.6-11.0); Carbon Dioxide 17.7 mmol/L (21.0-32.0); Chloride 103 mmol/L (98-108); Creatinine, Serum 0.58 mg/dL (0.70-1.20); EST Glomerular Filtration Rate 126 (>60); Estimated Creatinine Clearance 223.98 ml/min (50-250); Globulin 2.9 g/dL (2.2-4.2); Glucose 113 mg/dL (70-99); Potassium 3.7 mmol/L (3.3-5.1); Protein, Total 6.9 g/dL (5.9-8.4); Sodium Level 136 mmol/L (133-145); Total Bilirubin < 0.15 mg/dL (0.00-1.30)
--- NOTE | 2024-12-14 06:30 | US_ITS ---
PROCEDURE: OB LIMITED (NO BIOMETRICS) REASON FOR EXAM: Oligohydramnios. COMPARISON: Comparison is made with prior study dated December 13, 2024. FINDINGS Number: 1 Position: Vertex Placental Position: Anterior and not low-lying. Placental Abnormalities: None. BIOPHYSICAL ASSESSMENT: Amniotic Fluid Volume: Oligohydramnios. Small pocket of fluid is seen in the left lower quadrant. Amniotic fluid index measures 2.6 cm. Amniotic Fluid Index: 2.6 cm (8-24 cm normal range) Cardiac Motion: 140 beats per minute (average) US/OB Limited (No Biometrics) IMPRESSION: Oligohydramnios. Amniotic fluid index measures 2.6 cm. The results were communicated to the referring physician. Reading Location: [place] [address]
[2024-12-14 06:37] VITALS: BP 139/77; PULSE 108; RESP 16; TEMP 37.1; O2SAT 98
[2024-12-14 06:38] VITALS: PULSE 107; O2SAT 98
[2024-12-14 06:39] VITALS: BP 139/77; PULSE 105
[2024-12-14 07:54] VITALS: BP 125/56; PULSE 96
--- NOTE | 2024-12-14 10:15 | US_ITS ---
PROCEDURE: BIOPHYSICAL PROF W/O NON STRES REASON FOR EXAM: OLIGO TECHNIQUE: Biophysical profile was obtained. COMPARISON: Comparison is made with prior study done yesterday. FINDINGS: position: Cephalic heart rate: 164 beats per minute Largest fluid pocket measures 3.18 cm: Amniotic Fluid index: 4.8 Biophysical profile: Breathing movements: 2 Gross body movements: 2 tone: 2 amniotic fluid volume: 0 Total score: 6/8 US/Biophysical Prof W/O Non Stres IMPRESSION: Biophysical profile score of 6/8 Oligohydramnios. Reading Location: [facility]
[2024-12-14] MEDS: Betamethasone/Betamethasone 30 MG/5 ML Vial 12 MG IM (10:19)
[2024-12-14 10:24] VITALS: BP 134/70; PULSE 101
[2024-12-14] MEDS: Lactated Ringers 1,000 ML 999 ML IV (11:50)
== END 2024-12-14 12:57 | disposition home or self-care (01) ==
LOC: WPOUT 09:30 → WP 09:30
PROVIDERS: PCP Nurse Practitioner; Referring Provider Obstetrics & Gynecology; Visit Provider Obstetrics & Gynecology
DX: O41.03X0 Oligohydramnios, third trimester, not applicable or unspecified (principal); Z3A.32 32 weeks gestation of pregnancy; O99.810 Abnormal glucose complicating pregnancy; O99.891 Other specified diseases and conditions complicating pregnancy; R03.0 Elevated blood-pressure reading, without diagnosis of hypertension; O99.213 Obesity complicating pregnancy, third trimester; O09.93 Supervision of high risk pregnancy, unspecified, third trimester
CPT/HCPCS: 96372; 96360; 96361; 36415; 59025; 59050; 76815; 76819; 80053; 82565; 82570; 84112; 84156; 85025; 86780; 86850; 86900; 86901; 99221; G0378; J0702

== ENCOUNTER → 2024-12-13 | Outpatient (CLI) | payer OTHER, SELFPAY ==
--- NOTE | 2024-12-13 07:59 | US_ITS ---
PROCEDURE: OB LIMITED WITH BIOMETRICS REASON FOR EXAM: GROWTH COMPARISON: Comparison is made with prior study dated September 23, 2024. FINDINGS Number: 1 Position: Vertex Placental Position: Anterior Placental Abnormalities: None. DIMENSIONS: Biparietal Diameter: 7.6 cm: 30 weeks and 2 days: 3rd percentile/ Head Circumference: 28 cm: 30 weeks and 5 days: 0.8 percentile/ Abdominal Circumference: 27.3 cm: 31 weeks and 3 days: 20 percentile/ Femur Length: 6.2 cm: 32 weeks and 2 days: 34 percentile/ ESTIMATED WEIGHT: 1795 g plus/minus 269 g ESTIMATED WEIGHT PERCENTILE (24+ weeks): 18 ESTIMATED GESTATIONAL AGE: Baseline: 32 weeks and 3 days By Ultrasound: 31 weeks and 0 days ESTIMATED DATE OF DELIVERY: Baseline: February 04, 2025 By Ultrasound: February 14, 2025 BIOPHYSICAL ASSESSMENT: Amniotic Fluid Volume: Decreased Amniotic Fluid Index: 4.3 (8-24 cm normal range) Cardiac Motion: 145 beats per minute (average) Trunk and Limb Motion: Present. MATERNAL ANATOMY: Adnexa: Neither maternal ovary is successfully identified. US/OB Limited With Biometrics IMPRESSION: Single live intrauterine gestation with a mean gestational age of 31 weeks. Decreased amniotic fluid as well as amniotic fluid index. IUGR should be ruled out. The results were communicated to the referring physician. Reading Location: [place] [address]
== END | disposition home or self-care (01) ==
PROVIDERS: PCP Nurse Practitioner; Referring Provider Obstetrics & Gynecology; Visit Provider Obstetrics & Gynecology
DX: O99.213 Obesity complicating pregnancy, third trimester (principal); Z3A.32 32 weeks gestation of pregnancy
CPT/HCPCS: 76816

== ENCOUNTER 2024-12-20 11:59 | Outpatient (CLI) | payer OTHER, SELFPAY ==
--- NOTE | 2024-12-20 12:02 | US_ITS ---
EXAM: US Second or Third Trimester , Transabdominal CLINICAL INDICATION: WELL BEING TECHNIQUE: Real-time transabdominal obstetrical ultrasound of the maternal pelvis and a second or third trimester with image documentation. COMPARISON: No relevant prior studies available. FINDINGS: FETUS: age 33 weeks and 3 days gestation. GENDER: Female gender. HEART RATE: heart rate 147 beats per minute. PRESENTATION: Cephalic presentation. PLACENTA: Placenta is not low lying anterior. No abruption. AMNIOTIC FLUID: OSBALDO 7.7. movement 0. Gross body movement 2. tone 0. Amniotic fluid 2. BPP 4/8. FREE FLUID: Largest pocket fluid is 3.2 cm. US/Biophysical Prof W/O Non Stres IMPRESSION: BPP 4/8. Reading Location: [facility]
[2024-12-20 13:08] VITALS: BP 110/67; PULSE 110; RESP 18; TEMP 36.3; O2SAT 97
[2024-12-20 13:33] VITALS: BMI 42.8
--- NOTE | 2024-12-20 16:41 | OB.TRI.HP_ITS ---
HPI - General HPI Narrative BALTAZAR BLANCO, is a 29 y/o @ 33 weeks 3 days who presents to L&D after was found to have a biophysical profile of 4/8. NST is reactive and she is being admitted for observation and continuous monitoring with the plan to repeat the bpp tomorrow. Maternal Data Information ALAYNA Calculator Estimated Delivery Date Method Current WG Current Estimate 02/04/25 LMP (Certain) 33w 3d Other Estimates 02/09/25 Ultrasound #1 32w 5d PFSH [facility], [facility] Medical History Irritable bowel syndrome Irregular menses Chemical Early stage of Asthma Home Medications ?Medication ?Instructions ?Recorded ?Last Taken ?Type aspirin 81 mg tablet,delayed 81 mg PO DAILY 12/13/24 0 12/19/24 10:00 History release omega-3 900 mg-dha 360 mg-epa 455 2 cap PO DAILY 12/1312/12/24 History mg-fish oil 1,000 mg capsule (Fish Oil) vit no.95-ferrous 1 tab PO DAILY 12/13/24 10:00 History fumarate 28 mg-folic acid 800 mcg tablet ( Formula) Allergy/AdvReac Type Severity Reaction Status Date / Time No Known Allergies Allergy Verified 12/20/24 13:33 Family History Grandmother Breast cancer Paternal Alzheimer's dementia Maternal Father High cholesterol TIA (transient ischemic attack) Grandfather Parkinsons disease Paternal Surgical History S/P tonsillectomy Social History adopted: No household members: spouse current occupational status: employed current occupation: [employer] pets and animals: Yes pets and animals: dog(s) history of recent travel: Yes ([place] in september) out of state: No out of country: Yes sexually active: Yes Smoking Status: Never smoker alcohol intake: current alcohol intake frequency: other details: once a month - Not while substance use type: does not use well-balanced diet: about half the time caffeine: Yes Type: coffee Number of servings: 1 eating out: 1-3 times/week during the past year weight has: remained stable what type of physical activity do you participate in: walking frequency: 1-2 times per week duration: 30-45 minutes/day yossi/yazidi: Episcopal seatbelt use: always do you feel safe at home: Yes additional social history: - Soraida History 2 Elective abortions Hx Para 0 Spontaneous abortions 1 Hx # Term Pregnancies Ectopic pregnancies Hx # Pregnancies Multiple births # of living children 0 Past Pregnancies Del. Date Name GA/Weeks Outcome Route Bth Weight Infant Gen Labor Lgth Anesthesia Del Locatn Provider FOB 03/21/24 chemical Visit Details Expected Delivery Route/Plan Labor Preferences- CB/BF classes: encouraged labor support person: Soraida labor intervention preferences: [] pain management options preferred: epidural cut cord/dad catch: yes : yes PP control planned: discussed discussed possible routes of delivery and associated risks: [] special requests: [] Plans Covid status: [] Flu vaccine: [] Tdap vaccine: [] Rhogam: na LARC form signed: yes Problem list reviewed and updated with the most current plan of care details and appropriate orders placed. Relevant counseling for the gestational age provided. Continue routine care and follow up unless otherwise noted in visit notes/problem list details OB Flowsheet Initial Weight: Not Recorded Date -?-?-?-?-?-?-?-?-?-?-?-?- EGA Weight BP Urine Prot -?-?-?-?-?-?-?-?-?-?-?-?- Glucose FHR FuHt Pres Dilation -?-?-?-?-?-?-?-?-?-?-?-?- Effaced St Visit Note 07/04/24 -?-?-?-?-?-?-?-?-?-?-?-?- 9w 2d 300 lb 4 oz 136/94 -?-?-?-?-?-?-?-?-?-?-?-?- 171 -?-?-?-?-?-?-?-?-?-?-?-?- JV- CRL 1.89 and off slightly from LMP however, unable to capture the entire CRL so will not chanege the due date. rpt scan next visit. declines NIPT. patient works here. 08/04/24 -?-?-?-?-?-?-?-?-?-?-?-?- 13w 5d 292 lb 139/75 Negative -?-?-?-?-?-?-?-?-?-?-?-?- Negative 150 -?-?-?-?-?-?-?-?-?-?-?-?- SM- no vb crmapi ng 08/29/24 -?-?-?-?-?-?-?-?-?-?-?-?- 17w 2d 292 lb 134/82 Negative -?-?-?-?-?--?-?-?-?-?-?-?- Negative 160 -?-?-?-?-?-?-?-?-?-?-?-?- SM- no vb crmapi 09/26/24 -?-?-?-?-?-?-?-?-?-?-?-?- 21w 2d 296 lb 137/83 Negative -?-?-?-?-?-?-?-?-?-?-?-?- Negative 145 -?-?-?-?-?-?-?-?-?-?-?-?- SM- no vb lof go od fm 10/24/24 -?-?-?-?-?-?-?-?-?-?-?-?- 25w 2d 303 lb 2 oz 142/92 139/83 Negative -?-?-?-?-?-?-?-?-?-?-?-?- Negative 155 -?-?-?-?-?-?-?-?-?-?-?-?- KW- no vb/lof/ct x. good fm 28 week labs next week. Elevated BP today may need to start htn med if continue to be elevated. baseline pre e labs today KW- no vb/lof/ctx. good fm 2 8 week labs next visit. Elevated BP today may need to start htn med if continue to be elevated. baseline pre e labs today 11/15/24 -?-?-?-?-?-?-?-?-?-?-?-?- 28w 3d 306 lb 6 oz 130/74 Nega tive -?-?-?-?-?-?-?-?-?-?-?-?- Negative 146 29 -?-?-?-?-?-?-?-?-?-?-?-?- MH-No VB, LOF. G ood FM. Denies concerns. 28 wk labs. [facility] 11/28/24 -?-?-?-?-?-?-?-?-?-?-?-?- 30w 2d 308 lb 135/89 -?-?-?-?-?-?-?-?-?-?-?-?- 155 31 -?-?-?-?-?-?-?-?-?-?-?-?- KW- no vb/crampi ng. good fm. Has had ALBERT all weekend. Took BP at work and was elevated. Pre e labs sent. second BP was patients normal pressures. denies BV/dizziness, RUQ pain or swelling 12/02/24 -?-?-?-?-?-?-?-?-?-?-?-?- 30w 6d 311 lb 6 oz 137/85 Nega tive -?-?-?-?-?-?-?-?-?-?-?-?- Negative 145 31 -?-?-?-?-?-?-?-?-?-?-?-?- KW- no vb/lof/ct x. good fm. headache is better. labs reviewed. 12/13/24 -?-?-?-?-?-?-?-?-?-?-?-?- 32w 3d 309 lb 6 oz 149/89 -?-?-?-?-?-?-?-?-?-?-?-?- -?-?-?-?-?-?-?-?-?-?-?-?- [place] with oligohydramnios and IUGR. To for further eval with Dr Pérez Constitutional Constitutional: Reports systems reviewed and no addt'l complaints, except as documented Gastrointestinal Gastrointestinal: Denies bloating, constipation, cramping, diarrhea, nausea or vomiting Genitourinary Genitourinary: Reports other Details: Denies vaginal odor, vaginal bleeding, or vaginal discharge ; Denies difficulty urinating or flank pain Physical Exam HEENT normocephalic Resp normal respiratory effort and normal air movement no CVA tenderness Extremity normal to inspection General Extremity: edema bilateral (trace ) NST FHR Rate Baby A Baseline: 150 Variability:: Moderate Accelerations:: 15 x 15 Decelerations:: None NST Reactive:: Yes FHR Category:: Category I Assessment & Plan (1) Abnormal test: COMMENT: bpp 01/10- admit over night for continuous monitoring and repeat the bpp in the morning. OSBALDO now 7 (2) Oligohydramnios: QUALIFIERS: Fetus number: single or unspecified fetus Trimester: third trimester Qualified Code(s): O41.03X0 - Oligohydramnios, third trimester, not applicable or unspecified (3) Abnormal glucose in , antepartum: COMMENT: nl 3 hour (4) Elevated BP without diagnosis of hypertension: COMMENT: 10/24/24 Pre E labs nl (5) Obesity affecting : QUALIFIERS: Trimester: third trimester Obesity type affecting : unspecified obesity Qualified Code(s): O99.213 - Obesity complicating , third trimester COMMENT: BMI 41 HgbA1c nl. plan weekly NSTs after 34 and growth US 32 and 36. (6) Supervision of high-risk : QUALIFIERS: Trimester: third trimester Qualified Code(s): O09.93 - Supervision of high risk , unspecified, third trimester COMMENT: PRR, , ALAYNA 02/04/25, Soraida (7) : QUALIFIERS: Weeks of gestation: 32 weeks Qualified Code(s): Z3A.32 - 32 weeks gestation of COMMENT: discussed NIPT, ntd, & carrier testing- declined. nl anatomy Charges/Coding Multi Select Codes Visit Charges Office Visit/Consults: 19864 OV L3 Est 20min Urinary/Genital Urinary/Genital CPT Codes: 70725-99 non-stress test Interp
[2024-12-20 19:25] VITALS: BP 146/76; PULSE 99; RESP 16; TEMP 36; O2SAT 97
[2024-12-20 23:43] VITALS: RESP 16; TEMP 36.5
[2024-12-20 23:44] VITALS: BP 128/60; PULSE 97; O2SAT 97
[2024-12-21 04:21] VITALS: BP 110/53; PULSE 97; RESP 16; TEMP 35.9; O2SAT 96
--- NOTE | 2024-12-21 08:00 | US_ITS ---
PROCEDURE: BIOPHYSICAL PROF W/O NON STRES REASON FOR EXAM: OLIGO, PRIOR 4/8 BPP ON 12/20/24 TECHNIQUE: Biophysical profile examination was performed. COMPARISON: Comparison is made with prior study done on December 20, 2024. FINDINGS: age by previous ultrasound: 32 weeks and 1 day position: Cephalic heart rate: 145 beats per minute Largest amniotic fluid pocket: 4.3 cm Amniotic fluid index: 7.44 Placenta location: Anterior and not low-lying. Biophysical profile: Breathing movements 0 Gross body movements: 2 tone: 2 Amniotic fluid volume: 2 Total score: 6/8 US/Biophysical Prof W/O Non Stres IMPRESSION: Biophysical profile score: 6/8 Reading Location: [facility]
[2024-12-21 08:47] VITALS: BP 115/56; PULSE 94; RESP 16; TEMP 36.3
--- NOTE | 2024-12-21 10:05 | OB.TRI.HP_ITS ---
HPI - General HPI Narrative no vb lof goo dfm n oreuglar ctx ovenright, repea tbpp today Maternal Data Information ALAYNA Calculator Estimated Delivery Date Method Current WG Current Estimate 02/04/25 LMP (Certain) 33w 4d Other Estimates 02/09/25 Ultrasound #1 32w 6d PFSH PFS Medical History Irritable bowel syndrome Irregular menses Chemical Early stage of Asthma Home Medications ?Medication ?Instructions ?Recorded ?Last Taken ?Type aspirin 81 mg tablet,delayed 81 mg PO DAILY 12/13/24 0 12/19/24 10:00 History release omega-3 900 mg-dha 360 mg-epa 455 2 cap PO DAILY 12/1312/12/24 History mg-fish oil 1,000 mg capsule (Fish Oil) vit no.95-ferrous 1 tab PO DAILY 12/13/24 10:00 History fumarate 28 mg-folic acid 800 mcg tablet ( Formula) Allergy/AdvReac Type Severity Reaction Status Date / Time No Known Allergies Allergy Verified 12/20/24 13:33 Family History Grandmother Breast cancer Paternal Alzheimer's dementia Maternal Father High cholesterol TIA (transient ischemic attack) Grandfather Parkinsons disease Paternal Surgical History S/P tonsillectomy Social History adopted: No household members: spouse current occupational status: employed current occupation: [employer] pets and animals: Yes pets and animals: dog(s) history of recent travel: Yes ([place] in september) out of state: No out of country: Yes sexually active: Yes Smoking Status: Never smoker alcohol intake: current alcohol intake frequency: other details: once a month - Not while substance use type: does not use well-balanced diet: about half the time caffeine: Yes Type: coffee Number of servings: 1 eating out: 1-3 times/week during the past year weight has: remained stable what type of physical activity do you participate in: walking frequency: 1-2 times per week duration: 30-45 minutes/day yossi/synagogue: Mosque seatbelt use: always do you feel safe at home: Yes additional social history: - Soraida History 2 Elective abortions Hx Para 0 Spontaneous abortions 1 Hx # Term Pregnancies Ectopic pregnancies Hx # Pregnancies Multiple births # of living children 0 Past Pregnancies Del. Date Name GA/Weeks Outcome Route Bth Weight Gen Labor Lgth Anesthesia Del Neda Provider FOB 03/21/24 chemical Visit Details Expected Delivery Route/Plan Labor Preferences- CB/BF classes: encouraged labor support person: Soraida labor intervention preferences: [] pain management options preferred: epidural cut cord/dad catch: yes : yes PP control planned: discussed discussed possible routes of delivery and associated risks: [] special requests: [] Plans Covid status: [] Flu vaccine: [] Tdap vaccine: [] Rhogam: na LARC form signed: yes Problem list reviewed and updated with the most current plan of care details and appropriate orders placed. Relevant counseling for the gestational age provided. Continue routine care and follow up unless otherwise noted in visit notes/problem list details OB Flowsheet Initial Weight: Not Recorded Date -?-?-?-?-?-?-?-?-?-?-?-?- EGA Weight BP Urine Prot -?-?-?-?-?-?-?-?-?--?-?-?- Glucose FHR FuHt Pres Dilation -?-?-?-?-?-?-?-?-?-?-?-?- Effaced St Visit Note 07/04/24 -?-?-?-?-?-?-?-?-?-?-?-?- 9w 2d 300 lb 4 oz 136/94 -?-?-?-?-?-?-?-?-?-?-?-?- 171 -?-?-?-?-?-?-?-?-?-?-?-?- JV- CRL 1.89 and off slightly from LMP however, unable to capture the entire CRL so will not chanege the due date. rpt scan next visit. declines NIPT. patient works here. 08/04/24 -?-?-?-?-?-?-?-?-?-?-?-?- 13w 5d 292 lb 139/75 Negative -?-?-?-?-?-?-?-?-?-?-?-?- Negative 150 -?-?-?-?-?-?-?-?-?-?-?-?- SM- no vb crmapi 08/29/24 -?-?-?-?-?-?-?-?-?-?-?-?- 17w 2d 292 lb 134/82 Negative -?-?-?-?-?-?-?-?-?-?-?-?- Negative 160 -?-?-?-?-?-?-?-?-?-?-?-?- SM- no vb crmapi 09/26/24 -?-?-?-?-?-?-?-?-?-?-?-?- 21w 2d 296 lb 137/83 Negative -?-?-?-?-?-?-?-?-?-?-?-?- Negative 145 -?-?-?-?-?-?-?-?-?-?-?-?- SM- no vb lof go od fm 10/24/24 -?-?-?-?-?-?-?-?-?-?-?-?- 25w 2d 303 lb 2 oz 142/92 139/83 Negative -?-?-?-?-?-?-?-?-?-?-?-?- Negative 155 -?-?-?-?-?-?-?-?-?-?-?-?- KW- no vb/lof/ct x. good fm 28 week labs next week. Elevated BP today may need to start htn med if continue to be elevated. baseline pre e labs today KW- no vb/lof/ctx. good fm 2 8 week labs next visit. Elevated BP today may need to start htn med if continue to be elevated. baseline pre e labs today 11/15/24 -?-?-?-?-?-?-?-?-?-?-?-?- 28w 3d 306 lb 6 oz 130/74 Nega tive -?-?-?-?-?-?-?-?-?-?-?-?- Negative 146 29 -?-?-?-?-?-?-?-?-?-?-?-?- MH-No VB, LOF. G ood FM. Denies concerns. 28 wk labs. [facility] 11/28/24 -?-?-?-?-?-?-?-?-?-?-?-?- 30w 2d 308 lb 135/89 -?-?-?-?-?-?-?-?-?-?-?-?- 155 31 -?-?-?-?-?-?-?-?-?-?-?-?- KW- no vb/crampi ng. good fm. Has had ALBERT all weekend. Took BP at work and was elevated. Pre e labs sent. second BP was patients normal pressures. denies BV/dizziness, RUQ pain or swelling 12/02/24 -?-?-?-?-?-?-?-?-?-?-?-?- 30w 6d 311 lb 6 oz 137/85 Nega tive -?-?-?-?-?-?-?-?-?-?-?-?- Negative 145 31 -?-?-?-?-?-?-?-?-?-?-?-?- KW- no vb/lof/ct x. good fm. headache is better. labs reviewed. 12/13/24 -?-?-?-?-?-?-?-?-?-?-?-?- 32w 3d 309 lb 6 oz 149/89 -?-?-?-?-?-?-?-?-?-?-?-?- -?-?-?-?-?-?-?-?-?-?-?-?- [place] with oligohydramnios and IUGR. To for further eval with Dr Pérez Constitutional Constitutional: Reports systems reviewed and no addt'l complaints, except as documented Gastrointestinal Gastrointestinal: Denies bloating, constipation, cramping, diarrhea, nausea or vomiting Genitourinary Genitourinary: Reports other Details: Denies vaginal odor, vaginal bleeding, or vaginal discharge ; Denies difficulty urinating or flank pain Physical Exam HEENT normocephalic Resp normal respiratory effort and normal air movement no CVA tenderness Extremity normal to inspection General Extremity: edema bilateral (trace ) NST FHR Rate Baby A Baseline: 150 Variability:: Moderate Accelerations:: 15 x 15 Decelerations:: None NST Reactive:: Yes FHR Category:: Category I Assessment & Plan (1) Abnormal test: COMMENT: initial bpp 6/10 no 8/10 2 off for breathing, reassuring tracing overnight (2) Oligohydramnios: QUALIFIERS: Fetus number: single or unspecified fetus Trimester: third trimester Qualified Code(s): O41.03X0 - Oligohydramnios, third trimester, not applicable or unspecified (3) Abnormal glucose in , antepartum: COMMENT: nl 3 hour (4) Elevated BP without diagnosis of hypertension: COMMENT: 10/24/24 Pre E labs nl (5) Obesity affecting : QUALIFIERS: Obesity type affecting : unspecified obesity Trimester: third trimester Qualified Code(s): O99.213 - Obesity complicating , third trimester COMMENT: BMI 41 HgbA1c nl. plan weekly NSTs after 34 and growth US 32 and 36. (6) Supervision of high-risk : QUALIFIERS: Trimester: third trimester Qualified Code(s): O09.93 - Supervision of high risk , unspecified, third trimester COMMENT: PRR, , ALAYNA 02/04/25, Soraida (7) : QUALIFIERS: Weeks of gestation: 32 weeks Qualified Code(s): Z3A.32 - 32 weeks gestation of COMMENT: discussed NIPT, ntd, & carrier testing- declined. nl anatomy PLAN: Plan reassuring testing, dafne arriola counts fu in office end of the week Charges/Coding Multi Select Codes Visit Charges Office Visit/Consults: 62013 OV L3 Est 20min Urinary/Genital Urinary/Genital CPT Codes: 11375-47 non-stress test Interp
== END 2024-12-21 10:10 | disposition home or self-care (01) ==
LOC: US 12:00 → WPOUT 13:01 → WP 13:04
PROVIDERS: PCP Nurse Practitioner; Referring Provider Obstetrics & Gynecology; Visit Provider Obstetrics & Gynecology
DX: O28.9 Unspecified abnormal findings on antenatal screening of mother (principal); Z3A.33 33 weeks gestation of pregnancy
CPT/HCPCS: 59025; 59050; 76819; 99221; G0378

== ENCOUNTER → 2024-12-23 | Outpatient (CLI) | payer OTHER, SELFPAY ==
--- NOTE | 2024-12-23 12:35 | US_ITS ---
EXAM: BIOPHYSICAL PROF W/O NON STRES (USBIOWO) 12/23/2024 CLINICAL HISTORY: WELL BEING. Reportedly 33 weeks and 6 days by previously established dates with ALAYNA 02/04/2025. COMPARISON: 12/21/2024 TECHNIQUE: A limited transabdominal obstetrical ultrasound was performed to determine biophysical profile. FINDINGS: A single intrauterine gestational sac is identified. Breathing movement: 2 Gross Body movement: 2 Tone: 2 Qualitative Amniotic Fluid: 2 Amniotic Fluid Index: 12 (normal 5-25), deepest vertical pocket 3.7 (normal 2-8). presentation: Cephalic. heart rate: Present, 158 bpm. Placenta: Anterior. US/Biophysical Prof W/O Non Stres IMPRESSION: 1. Biophysical Profile Score of 8 out of a possible 8. 2. Additional description as above. Reading Location: [id number]
== END | disposition home or self-care (01) ==
LOC: US 12:34
PROVIDERS: PCP Nurse Practitioner; Referring Provider Obstetrics & Gynecology; Visit Provider Obstetrics & Gynecology
DX: O41.03X0 Oligohydramnios, third trimester, not applicable or unspecified (principal); O09.93 Supervision of high risk pregnancy, unspecified, third trimester; Z3A.00 Weeks of gestation of pregnancy not specified
CPT/HCPCS: 76819

== ENCOUNTER 2024-12-27 12:16 | Outpatient (CLI) | payer OTHER, SELFPAY ==
--- NOTE | 2024-12-27 12:30 | US_ITS ---
EXAM: US biophysical prof without nonstress CLINICAL HISTORY: well-being COMPARISON: 12/23/2024 TECHNIQUE: Limited OB US for biophysical prof without nonstress FINDINGS: Single live intrauterine age by LMP 34 weeks 3 days, ALAYNA by LMP 02/04/2025. Presentation is cephalic. heart rate 160 beats per minute. OSBALDO 5.4 cm at the lower limits, previously 12 cm. Largest fluid pocket 5.4 cm, previously 3.7 cm. Anterior grade 2 placenta. Not low-lying. Breathing movements: 2/2 Gross body movements: 2/2 tone: 2/2 Amniotic fluid volume: 2/2 US/Biophysical Prof W/O Non Stres IMPRESSION: Single live intrauterine as above. Amniotic fluid now is at the lowe r limits at 5.4 cm, previously 12 cm. Biophysical profile 05/12. Reading Location: [id number]
[2024-12-27 14:21] VITALS: BP 130/66; PULSE 106
[2024-12-27 14:22] VITALS: PULSE 88; O2SAT 98
[2024-12-27 14:23] VITALS: RESP 15; TEMP 37.7; O2SAT 98
--- NOTE | 2024-12-27 14:48 | OB.TRI.HP_ITS ---
HPI - General HPI Narrative BALTAZAR BLANCO, is a 29 F who presents to L&D for an nst due to finding of oligohydramnios (deepest pocket of 5.35 cm.) She denies loss of fluid, vaginal bleeding, or dec fm. Maternal Data Information ALAYNA Calculator Estimated Delivery Date Method Current WG Current Estimate 02/04/25 LMP (Certain) 34w 3d Other Estimates 02/09/25 Ultrasound #1 33w 5d PFSH PFSH Medical History Irritable bowel syndrome Irregular menses Chemical Early stage of Asthma Home Medications ?Medication ?Instructions ?Recorded ?Last Taken ?Type aspirin 81 mg tablet,delayed 81 mg PO DAILY 12/13/24 0 12/19/24 10:00 History release omega-3 900 mg-dha 360 mg-epa 455 2 cap PO DAILY 12/1312/12/24 History mg-fish oil 1,000 mg capsule (Fish Oil) vit no.95-ferrous 1 tab PO DAILY 12/13/24 10:00 History fumarate 28 mg-folic acid 800 mcg tablet ( Formula) Allergy/AdvReac Type Severity Reaction Status Date / Time No Known Allergies Allergy Verified 12/20/24 13:33 Family History Grandmother Breast cancer Paternal Alzheimer's dementia Maternal Father High cholesterol TIA (transient ischemic attack) Grandfather Parkinsons disease Paternal Surgical History S/P tonsillectomy Social History adopted: No household members: spouse current occupational status: employed current occupation: [employer] pets and animals: Yes pets and animals: dog(s) history of recent travel: Yes ([place] in september) out of state: No out of country: Yes sexually active: Yes Smoking Status: Never smoker alcohol intake: current alcohol intake frequency: other details: once a month - Not while substance use type: does not use well-balanced diet: about half the time caffeine: Yes Type: coffee Number of servings: 1 eating out: 1-3 times/week during the past year weight has: remained stable what type of physical activity do you participate in: walking frequency: 1-2 times per week duration: 30-45 minutes/day yossi/gnosticism: Gnosticism seatbelt use: always do you feel safe at home: Yes additional social history: - Soraida History 2 Elective abortions Hx Para 0 Spontaneous abortions 1 Hx # Term Pregnancies Ectopic pregnancies Hx # Pregnancies Multiple births # of living children 0 Past Pregnancies Del. Date Name GA/Weeks Outcome Route Bth Weight [facility] Visit Details Expected Delivery Route/Plan Labor Preferences- CB/BF classes: encouraged labor support person: Soraida labor intervention preferences: [] pain management options preferred: epidural cut cord/dad catch: yes : yes PP control planned: discussed discussed possible routes of delivery and associated risks: [] special requests: [] Plans Covid status: [] Flu vaccine: [] Tdap vaccine: [] Rhogam: na LARC form signed: yes Problem list reviewed and updated with the most current plan of care details and appropriate orders placed. Relevant counseling for the gestational age provided. Continue routine care and follow up unless otherwise noted in visit notes/problem list details OB Flowsheet Initial Weight: Not Recorded Date -?-?-?-?-?-?-?-?-?-?-?-?- EGA Weight BP Urine Prot -?-?-?-?-?-?-?-?-?-?-?-?- Glucose FHR FuHt Pres Dilation -?-?-?-?-?-?-?-?-?-?-?-?- Effaced St Visit Note 07/04/24 -?-?-?-?-?-?-?-?-?-?-?-?- 9w 2d 300 lb 4 oz 136/94 -?-?-?-?-?-?-?-?-?-?-?-?- 171 -?-?-?-?-?-?-?-?-?-?-?-?- JV- CRL 1.89 and off slightly from LMP however, unable to capture the entire CRL so will not chanege the due date. rpt scan next visit. declines NIPT. patient works here. 08/04/24 -?-?-?-?-?-?-?-?-?-?-?-?- 13w 5d 292 lb 139/75 Negative -?-?-?-?-?-?-?-?-?-?-?-?- Negative 150 -?-?-?-?-?-?-?-?-?-?-?-?- SM- no vb crmapi 08/29/24 -?-?-?-?-?-?-?-?-?-?-?-?- 17w 2d 292 lb 134/82 Negative -?-?-?-?-?-?-?-?-?-?-?-?- Negative 160 -?-?-?-?-?-?-?-?-?-?-?-?- SM- no vb crmapi 09/26/24 -?-?-?-?-?-?-?-?-?-?-?-?- 21w 2d 296 lb 137/83 Negative -?-?-?-?-?-?-?-?-?-?-?-?- Negative 145 -?-?-?-?-?-?-?-?-?-?-?-?- SM- no vb lof go od fm 10/24/24 -?-?-?-?-?-?-?-?-?-?-?-?- 25w 2d 303 lb 2 oz 142/92 139/83 Negative -?-?-?-?-?-?-?-?-?-?-?-?- Negative 155 -?-?-?-?-?-?-?-?-?-?-?-?- KW- no vb/lof/ct x. good fm 28 week labs next week. Elevated BP today may need to start htn med if continue to be elevated. baseline pre e labs today KW- no vb/lof/ctx. good fm 2 8 week labs next visit. Elevated BP today may need to start htn med if continue to be elevated. baseline pre e labs today 11/15/24 -?-?-?-?-?-?-?-?-?-?-?-?- 28w 3d 306 lb 6 oz 130/74 Nega tive -?-?-?-?-?-?-?-?-?-?-?-?- Negative 146 29 -?-?-?-?-?-?-?-?-?-?-?-?- MH-No VB, LOF. G ood FM. Denies concerns. 28 wk labs. [facility] 11/28/24 -?-?-?-?-?-?-?-?-?-?-?-?- 30w 2d 308 lb 135/89 -?-?-?-?-?-?-?-?-?-?-?-?- 155 31 -?-?-?-?-?-?-?-?-?-?-?-?- KW- no vb/crampi ng. good fm. Has had ALBERT all weekend. Took BP at work and was elevated. Pre e labs sent. second BP was patients normal pressures. denies BV/dizziness, RUQ pain or swelling 12/02/24 -?-?-?-?-?-?-?-?-?-?-?-?- 30w 6d 311 lb 6 oz 137/85 Nega tive -?-?-?-?-?-?-?-?-?-?-?-?- Negative 145 31 -?-?-?-?-?-?-?-?-?-?-?-?- KW- no vb/lof/ct x. good fm. headache is better. labs reviewed. 12/13/24 -?-?-?-?-?-?-?-?-?-?-?-?- 32w 3d 309 lb 6 oz 149/89 -?-?-?-?-?-?-?-?-?-?-?-?- -?-?-?-?-?-?-?-?-?-?-?-?- [place] with oligohydramnios and IUGR. To for further eval with Dr Pérez Constitutional Constitutional: Reports systems reviewed and no addt'l complaints, except as documented Gastrointestinal Gastrointestinal: Denies bloating, constipation, cramping, diarrhea, nausea or vomiting Genitourinary Genitourinary: Reports other Details: Denies vaginal odor, vaginal bleeding, or vaginal discharge ; Denies difficulty urinating or flank pain Physical Exam HEENT normocephalic Resp normal respiratory effort and normal air movement no CVA tenderness Extremity normal to inspection General Extremity: edema bilateral (trace ) NST FHR Rate Baby A Baseline: 140 Variability:: Moderate Accelerations:: 15 x 15 Decelerations:: None NST Reactive:: Yes FHR Category:: Category I Assessment & Plan (1) Abnormal test: COMMENT: initial bpp 6/10 no 8/10 2 off for breathing, reassuring tracing overnight (2) Abnormal glucose in , antepartum: COMMENT: nl 3 hour (3) Oligohydramnios: QUALIFIERS: Fetus number: single or unspecified fetus Trimester: third trimester Qualified Code(s): O41.03X0 - Oligohydramnios, third trimester, not applicable or unspecified COMMENT: deliver at 36 weeks PLAN: return to office for an nst continue bpp's on tuesdays and fridays and delivery at 36 weeks (4) Elevated BP without diagnosis of hypertension: COMMENT: 10/24/24 Pre E labs nl (5) Obesity affecting : QUALIFIERS: Trimester: third trimester Obesity type affecting : unspecified obesity Qualified Code(s): O99.213 - Obesity complicating , third trimester COMMENT: BMI 41 HgbA1c nl. plan weekly NSTs after 34 and growth US 32 and 36. (6) Supervision of high-risk : QUALIFIERS: Trimester: third trimester Qualified Code(s): O09.93 - Supervision of high risk , unspecified, third trimester COMMENT: PRR, , ALAYNA 02/04/25, Soraida (7) : QUALIFIERS: Weeks of gestation: 32 weeks Qualified Code(s): Z3A.32 - 32 weeks gestation of COMMENT: discussed NIPT, ntd, & carrier testing- declined. nl anatomy Charges/Coding Multi Select Codes Visit Charges Office Visit/Consults: 98066 OV L3 Est 20min Urinary/Genital Urinary/Genital CPT Codes: 81748-81 non-stress test Interp
== END 2024-12-27 15:13 | disposition home or self-care (01) ==
LOC: OPUS 12:29 → WPOUT 13:54 → WP 13:54
PROVIDERS: PCP Nurse Practitioner; Referring Provider Obstetrics & Gynecology; Visit Provider Obstetrics & Gynecology
DX: O41.03X0 Oligohydramnios, third trimester, not applicable or unspecified (principal); O99.213 Obesity complicating pregnancy, third trimester; Z3A.32 32 weeks gestation of pregnancy
CPT/HCPCS: 59050; 76819; 99221; G0378

== ENCOUNTER → 2024-12-30 | Outpatient (CLI) | payer OTHER, SELFPAY ==
--- NOTE | 2024-12-30 11:34 | US_ITS ---
PROCEDURE: BIOPHYSICAL PROF W/O NON STRES 12/30/2024 REASON FOR EXAM: WELL BEING TECHNIQUE: biophysical profile was performed. COMPARISON: Comparison is made with prior study dated December 27, 2024. FINDINGS: position: Cephalic heart rate: 148 beats per minute Amniotic fluid: Within normal limits. Largest fluid pocket: 2.4 cm x 3.3 cm. Amniotic Fluid index: 5 5.2 cm. Placenta location: Anterior and not low-lying. Placental grade: 2 Age by LMP: 34 weeks and 6 days. Biophysical profile: Breathing movements: 2 Gross body movements: 2 tone: 2 Amniotic fluid volume: 2 Total score: 8/8 US/Biophysical Prof W/O Non Stres IMPRESSION: biophysical profile score of 8/8. Reading Location: [id number]
== END | disposition home or self-care (01) ==
LOC: US 11:33
PROVIDERS: PCP Nurse Practitioner; Referring Provider Obstetrics & Gynecology; Visit Provider Obstetrics & Gynecology
DX: O41.03X0 Oligohydramnios, third trimester, not applicable or unspecified (principal); O09.93 Supervision of high risk pregnancy, unspecified, third trimester; Z3A.00 Weeks of gestation of pregnancy not specified
CPT/HCPCS: 76819; 87081

== ENCOUNTER → 2025-01-03 | Outpatient (CLI) | payer OTHER, SELFPAY ==
--- NOTE | 2025-01-03 12:33 | US_ITS ---
PROCEDURE: BIOPHYSICAL PROF W/O NON STRES 01/03/2025 REASON FOR EXAM: WELL BEING TECHNIQUE: Biophysical profile examination was performed. COMPARISON: Comparison is made with prior study dated December 22, 2024. FINDINGS: position: Cephalic heart rate: 158 beats per minute. Amniotic fluid: Within normal limits. Largest fluid pocket: 4.4 cm. Amniotic fluid index 8 Placenta location is anterior and not low-lying. Placental grade: 2 Biophysical profile: Breathing movements: 2 Gross body movements: 2 tone: 2 amniotic fluid volume: 2 Total score: 8/8 US/Biophysical Prof W/O Non Stres IMPRESSION: Biophysical profile score of 8/8 Reading Location: [facility]
== END | disposition home or self-care (01) ==
LOC: OPUS 12:32
PROVIDERS: PCP Nurse Practitioner; Referring Provider Obstetrics & Gynecology; Visit Provider Obstetrics & Gynecology
DX: O41.03X0 Oligohydramnios, third trimester, not applicable or unspecified (principal); O09.93 Supervision of high risk pregnancy, unspecified, third trimester; Z3A.00 Weeks of gestation of pregnancy not specified
CPT/HCPCS: 76819

== ENCOUNTER 2025-01-06 09:01 | Outpatient (CLI) | payer OTHER, SELFPAY ==
--- NOTE | 2025-01-06 09:04 | US_ITS ---
PROCEDURE: BIOPHYSICAL PROF W/O NON STRES 01/06/2025 REASON FOR EXAM: WELL BEING TECHNIQUE: Biophysical profile. COMPARISON: Comparison is made with prior study dated January 03, 2025. FINDINGS: position: Cephalic heart rate: 152 beats per minute Amniotic fluid: Oligohydramnios. Largest fluid pocket: 2.9 cm Amniotic fluid index: 5.52 Placenta location: Anterior and not low-lying. Placental grade 2 Age by LMP: 35 weeks and 5 days. Biophysical profile: Breathing movements: 0 Gross body movements: 2 tone: 2 amniotic fluid volume: 2 Total score: 6/8. US/Biophysical Prof W/O Non Stres IMPRESSION: Biophysical profile score of 6/8. Results were called to the referring physici an. Reading Location: [facility]
[2025-01-06 10:23] VITALS: BMI 43.7
[2025-01-06 10:34] VITALS: BP 140/73; PULSE 93; RESP 17; TEMP 36.6
[2025-01-06 10:35] VITALS: O2SAT 99
--- NOTE | 2025-01-06 10:39 | OB.TRI.HP_ITS ---
HPI - General General Chief Complaint: abnormal test HPI Narrative BALTAZAR BLANCO, is a 29 F who presents at 35.6 for 6/8 BPP 2 off for breathing. known oligohydramnios, Maternal Data Information ALAYNA Calculator Estimated Delivery Date Method Current WG Current Estimate 02/04/25 LMP (Certain) 35w 6d Other Estimates 02/09/25 Ultrasound #1 35w 1d Final ALAYNA: 01/06/25 Gestational age: 35.6 PFSH PFSH Medical History Irritable bowel syndrome Irregular menses Chemical Early stage of Asthma Home Medications ?Medication ?Instructions ?Recorded ?Last Taken ?Type aspirin 81 mg tablet,delayed 81 mg PO DAILY 12/13/24 0 01/04/25 History release vit no.95-ferrous 1 tab PO DAILY 12/13/2412/27 History fumarate 28 mg-folic acid 800 mcg tablet ( Formula) Allergy/AdvReac Type Severity Reaction Status Date / Time No Known Allergies Allergy Verified 01/06/25 10:28 Family History Grandmother Breast cancer Paternal Alzheimer's dementia Maternal Father High cholesterol TIA (transient ischemic attack) Grandfather Parkinsons disease Paternal Surgical History S/P tonsillectomy Social History adopted: No household members: spouse current occupational status: employed current occupation: [employer] pets and animals: Yes pets and animals: dog(s) history of recent travel: Yes ([place] in september) out of state: No out of country: Yes sexually active: Yes Smoking Status: Never smoker alcohol intake: current alcohol intake frequency: other details: once a month - Not while substance use type: does not use well-balanced diet: about half the time caffeine: Yes Type: coffee Number of servings: 1 eating out: 1-3 times/week during the past year weight has: remained stable what type of physical activity do you participate in: walking frequency: 1-2 times per week duration: 30-45 minutes/day yossi/mormonism: Yazidism seatbelt use: always do you feel safe at home: Yes additional social history: - Kameryn History 2 Elective abortions Hx Para 0 Spontaneous abortions 1 Hx # Term Pregnancies Ectopic pregnancies Hx # Pregnancies Multiple births # of living children 0 Past Pregnancies Del. Date Name GA/Weeks Outcome Route Bth Weight Infant Gen Labor Lgth Anesthesia Del Neda Provider FOB 03/21/24 chemical Visit Details Expected Delivery Route/Plan Labor Preferences- CB/BF classes: encouraged labor support person: Soraida labor intervention preferences: [] pain management options preferred: epidural cut cord/dad catch: yes : yes PP control planned: discussed discussed possible routes of delivery and associated risks: [] special requests: [] Plans Covid status: [] Flu vaccine: [] Tdap vaccine: [] Rhogam: na LARC form signed: yes Problem list reviewed and updated with the most current plan of care details and appropriate orders placed. Relevant counseling for the gestational age provided. Continue routine care and follow up unless otherwise noted in visit notes/problem list details OB Flowsheet Initial Weight: Not Recorded Date -?-?-?-?-?-?-?-?-?-?-?-?- EGA Weight BP Urine Prot -?-?-?-?-?-?-?-?-?-?-?-?- Glucose FHR FuHt Pres Dilation -?-?-?-?-?-?-?-?-?-?-?-?- Effaced St Visit Note 07/04/24 -?-?-?-?-?-?-?-?-?-?-?-?- 9w 2d 300 lb 4 oz 136/94 -?-?-?-?-?-?-?-?-?-?-?-?- 171 -?-?-?-?-?-?-?-?-?-?-?-?- JV- CRL 1.89 and off slightly from LMP however, unable to capture the entire CRL so will not chanege the due date. rpt scan next visit. declines NIPT. patient works here. 08/04/24 -?-?-?-?-?-?-?-?-?-?-?-?- 13w 5d 292 lb 139/75 Negative -?-?-?-?-?-?-?-?-?-?-?-?- Negative 150 -?-?-?-?-?-?-?-?-?-?-?-?- SM- no vb crmapi ng 08/29/24 -?-?-?-?-?-?-?-?-?-?-?-?- 17w 2d 292 lb 134/82 Negative -?-?-?-?-?-?-?-?-?-?-?-?- Negative 160 -?-?-?-?-?-?-?-?-?-?-?-?- SM- no vb crmapi ng 09/26/24 -?-?-?-?-?-?-?-?-?-?-?-?- 21w 2d 296 lb 137/83 Negative -?-?-?-?-?-?-?-?-?-?-?-?- Negative 145 -?-?-?-?-?-?-?-?-?-?-?-?- SM- no vb lof go od fm 10/24/24 -?-?-?-?-?-?-?-?-?-?-?-?- 25w 2d 303 lb 2 oz 142/92 139/83 Negative -?-?-?-?-?-?-?-?-?-?-?-?- Negative 155 -?-?-?-?-?-?-?-?-?-?-?-?- KW- no vb/lof/ct x. good 28 week labs next week. Elevated BP today may need to start htn med if continue to be elevated. baseline pre e labs today KW- no vb/lof/ctx. good 2 8 week labs next visit. Elevated BP today may need to start htn med if continue to be elevated. baseline pre e labs today 11/15/24 -?-?-?-?-?-?-?-?-?-?-?-?- 28w 3d 306 lb 6 oz 130/74 Nega tive -?-?-?-?-?-?-?-?-?-?-?-?- Negative 146 29 -?-?-?-?-?-?-?-?-?-?-?-?- MH-No VB, LOF. G ood FM. Denies concerns[facility]?-?-?-?-?-?-?-?-?-?-?-?- 30w 2d 308 lb 135/89 -?-?-?-?-?-?-?-?-?-?-?-?- 155 31 -?-?-?-?-?-?-?-?-?-?-?-?- KW- no vb/crampi ng. good fm. Has had ALBERT all weekend. Took BP at work and was elevated. Pre e labs sent. second BP was patients normal pressures. denies BV/dizziness, RUQ pain or swelling 12/02/24 -?-?-?-?-?-?-?-?-?-?-?-?- 30w 6d 311 lb 6 oz 137/85 Nega tive -?-?-?-?-?-?-?-?-?-?-?-?- Negative 145 31 -?-?-?-?-?-?-?-?-?-?-?-?- KW- no vb/lof/ct x. good fm. headache is better. labs reviewed. 12/13/24 -?-?-?-?-?-?-?-?-?-?-?-?- 32w 3d 309 lb 6 oz 149/89 -?-?-?-?-?-?-?-?-?-?-?-?- -?-?-?-?-?-?-?-?-?-?-?-?- Phone call from [place] with oligohydramnios and IUGR. To for further eval with Dr Oliva 12/29/24 -?-?-?-?-?-?-?-?-?-?-?-?- 34w 5d 310 lb 2 oz 134/76 Nega tive -?-?-?-?-?-?-?-?-?-?-?-?- Negative 150 -?-?-?-?-?-?-?-?-?-?-?-?- MH-NST only reac tive. Has BPP tomorrow 12/30/24 -?-?-?-?-?-?-?-?-?-?-?-?- 34w 6d 310 lb 8 oz 139/84 Nega tive -?-?-?-?-?-?-?-?-?-?-?-?- Negative 155 -?-?-?-?-?-?-?-?-?-?-?-?- JV- oligo persis ts. planning 36 week IOL. continue close monitoring. bpp was technically 8/8 due to osbaldo of 5.22 and normal movement, tone, etc. JV- oligo persists. planning 36 week IOL. GBS collected. continue close monitoring. bpp was technically 8/8 due to osbaldo of 5.22 and normal movement, tone, etc. 01/02/25 -?-?-?-?-?-?-?-?-?-?-?-?- 35w 2d 312 lb 8 oz 124/75 Nega tive -?-?-?-?-?-?-?-?-?-?-?-?- Negative 145 Cephalic 0 -?-?-?-?-?-?-?-?-?-?-?-?- KW- reactive NST . good fm. BPPs tues and fri this week. IOL for sat at 7pm. Physical Exam Const alert, oriented x3 and no apparent distress Resp normal respiratory effort, normal air movement, no retractions and no use of accessory muscles GI soft to palpation and non-tender Inspection: Palpation: soft Rectal Exam: deferred Extremity normal to inspection and full ROM NST FHR Rate Baby A Baseline: 130 Variability:: Moderate Accelerations:: 15 x 15 Decelerations:: None NST Reactive:: Yes FHR Category:: Category I Assessment & Plan (1) Abnormal test: COMMENT: initial bpp 6/10 no 8/10 2 off for breathing, reassuring tracing. plans iol tomorrow. PLAN: Plan Patient presents for triage evaluation secondary to 6/8 BPP, reactive nst. OSBALDO 5.5 today on us with MVP>2. FHT: Moderate variability reactive no decelerations category I tracing [place]: irreg Contractions Assessment and plan: Reactive NST, reassuring maternal and status patient discharged to home to follow-up tomorrow for IOL. See problem list details for additional plan information. c/w Dr. caballero concures with plan of care Charges/Coding Visit Charges Office Visits / Consults: 09179 OV L3 Est 20min Procedures Urinary/Genital 52xxx-59xxx: 52128-25 non-stress test Interp
== END 2025-01-06 11:02 | disposition home or self-care (01) ==
LOC: OPUS 09:01 → WPOUT 10:22 → WP 10:22
PROVIDERS: PCP Nurse Practitioner; Referring Provider Registered Nurse; Visit Provider Registered Nurse
DX: O41.03X0 Oligohydramnios, third trimester, not applicable or unspecified (principal); Z3A.35 35 weeks gestation of pregnancy
CPT/HCPCS: 59025; 59050; 76819; 99221; G0378

== ENCOUNTER 2025-01-07 19:17 | Inpatient (IN) | payer OTHER, SELFPAY ==
[2025-01-07 19:28] VITALS: PULSE 117; O2SAT 97
[2025-01-07 19:32] VITALS: BP 139/80; PULSE 118; RESP 16; TEMP 37.1
[2025-01-07 19:47] VITALS: BMI 44.0
[2025-01-07 20:19] LABS: Absolute Lymphocyte Count 2.61 X10^3/uL (0.83-4.51); Absolute Neutrophil Count 8.2 X10^3/uL (2.0-7.7); Basophil# 0.04 X10^3/uL; Basophil% 0.3 % (0-1); Eosinophil# 0.23 X10^3/uL; Eosinophils% 1.9 % (0-5); Hemoglobin 11.7 g/dL (12.0-15.0); Lymphocyte # 2.61 X10^3/ul (0.83-4.51); Lymphocyte % 21.6 % (19-41); Mean Corp Hgb Conc 33.4 g/dL (32-36); Mean Corpuscular Hgb 28.2 pg (27.0-32.0); Mean Corpuscular Volume 84.3 fL (81-99); Mean Platelet Vol. 12.4 fl (6.2-12.0); Monocyte# 0.92 X10^3/uL; Monocyte% 7.6 % (0-10); NRBC Flagged by Analyzer 0 % (0-5); Neutrophil # 8.19 X10^3/uL (2.7-7.7); Neutrophil % 67.6 % (47-70); POSITIVE COUNT YES; Platelet Count 173 K/mm3 (150-450); RBC Distribution Width CV 13.2 % (11.6-14.6); RBC Distribution Width SD 40.1 fl (35.1-43.9); Red Blood Count 4.15 M/mm3 (4.2-5.4); White Blood Count 12.1 K/mm3 (4.4-11.0)
[2025-01-07 20:37] LABS: Differential Indicated SCAN CRITERIA MET
[2025-01-07 20:38] LABS: Platelet Estimate ADEQUATE (ADEQ); Red Cell Morphology NORM C+C NORMAL (NORM C&C)
[2025-01-07 20:50] LABS: Syphilis Antibodies Nonreactive (Nonreactive)
[2025-01-07] MEDS: miSOPROStol 25 MCG TABLET VAGINAL (21:25)
[2025-01-07 21:29] VITALS: RESP 16; TEMP 36.9
[2025-01-07 21:30] VITALS: BP 172/81; PULSE 95
[2025-01-07 21:32] VITALS: BP 128/71; PULSE 100
[2025-01-08] VITALS (8 sets, daily range): BP systolic 118–157; BP diastolic 54–90; PULSE 90–106; RESP 14–16; TEMP 36.2–36.6; O2SAT 90–98
[2025-01-08] MEDS: miSOPROStol 25 MCG TABLET VAGINAL ×4 (01:47→14:42)
--- NOTE | 2025-01-08 08:10 | HP.PCM.OB_ITS ---
HPI - General General Date of Admission: 01/07/25 Date of Service: 01/07/25 HPI Narrative BALTAZAR BLANCO, is a 29 F who presents at 36 weeks for IOL secondary to known oligohydramnios, OSBALDO yesterday 5.5. Maternal Data Information ALAYNA Calculator Estimated Delivery Date Method Current WG Current Estimate 02/04/25 LMP (Certain) 36w 1d Other Estimates 02/09/25 Ultrasound #1 35w 3d PFSH PFS Medical History (Updated 01/08/25 @ 08:19 by Bella Berumen CNM) PCOS (polycystic ovarian syndrome) Oligohydramnios Chemical Early stage of Asthma Irritable bowel syndrome Irregular menses Home Medications ?Medication ?Instructions ?Recorded ?Last Taken ?Type aspirin 81 mg tablet,delayed 81 mg PO DAILY 12/13/24 01/04/25 History release vit no.95-ferrous 1 tab PO DAILY 01/05/25 History fumarate 28 mg-folic acid 800 mcg tablet ( Formula) Allergy/AdvReac Type Severity Reaction Status Date / Time No Known Allergies Allergy Verified 01/07/25 20:05 Family History Grandmother Breast cancer Paternal Alzheimer's dementia Maternal Father High cholesterol TIA (transient ischemic attack) Grandfather Parkinsons disease Paternal Surgical History S/P tonsillectomy Social History adopted: No household members: spouse current occupational status: employed current occupation: [employer] pets and animals: Yes pets and animals: dog(s) history of recent travel: Yes ([place] in september) out of state: No out of country: Yes sexually active: Yes Smoking Status: Never smoker alcohol intake: current alcohol intake frequency: other details: once a month - Not while substance use type: does not use well-balanced diet: about half the time caffeine: Yes Type: coffee Number of servings: 1 eating out: 1-3 times/week during the past year weight has: remained stable what type of physical activity do you participate in: walking frequency: 1-2 times per week duration: 30-45 minutes/day yossi/samaritan: Jewish seatbelt use: always do you feel safe at home: Yes additional social history: - Soraida History 2 Elective abortions Hx Para 0 Spontaneous abortions 1 Hx # Term Pregnancies Ectopic pregnancies Hx # Pregnancies Multiple births # of living children 0 Past Pregnancies Del. Date Name GA/Weeks Outcome Route Bth Weight Infant Gen Labor Lgth Anesthesia Del Chologulshan Provider FOB 03/21/24 chemical Visit Details Expected Delivery Route/Plan Labor Preferences- CB/BF classes: encouraged labor support person: Soraida labor intervention preferences: [] pain management options preferred: epidural cut cord/dad catch: yes : yes PP control planned: discussed discussed possible routes of delivery and associated risks: [] special requests: [] Plans Covid status: [] Flu vaccine: [] Tdap vaccine: [] Rhogam: na LARC form signed: yes Problem list reviewed and updated with the most current plan of care details and appropriate orders placed. Relevant counseling for the gestational age provided. Continue routine care and follow up unless otherwise noted in visit notes/problem list details OB Flowsheet Initial Weight: Not Recorded Date -?-?-?-?-?-?-?-?-?-?-?-?- EGA Weight BP Urine Prot -?-?-?-?-?-?-?-?-?-?-?-?- Glucose FHR FuHt Pres Dilation -?-?-?-?-?-?-?-?-?-?-?-?- Effaced St Visit Note 07/04/24 -?-?-?-?-?-?-?-?-?-?-?-?- 9w 2d 300 lb 4 oz 136/94 -?-?-?-?-?-?-?-?-?-?-?-?- 171 -?-?-?-?-?-?-?-?-?-?-?-?- JV- CRL 1.89 and off slightly from LMP however, unable to capture the entire CRL so will not chanege the due date. rpt scan next visit. declines NIPT. patient works here. 08/04/24 -?-?-?-?-?-?-?-?-?-?-?-?- 13w 5d 292 lb 139/75 Negative -?-?-?-?-?-?-?-?-?-?-?-?- Negative 150 -?-?-?-?-?-?-?-?-?-?-?-?- SM- no vb crmapi ng 08/29/24 -?-?-?-?-?-?-?-?-?-?-?-?- 17w 2d 292 lb 134/82 Negative -?-?-?-?-?-?-?-?-?-?-?-?- Negative 160 -?-?-?-?-?-?-?-?-?-?-?-?- SM- no vb crmapi ng 09/26/24 -?-?-?-?-?-?-?-?-?-?-?-?- 21w 2d 296 lb 137/83 Negative -?-?-?-?-?-?-?-?-?-?-?-?- Negative 145 -?-?-?-?-?-?-?-?-?-?-?-?- SM- no vb lof go od fm 10/24/24 -?-?-?-?-?-?-?-?-?-?-?-?- 25w 2d 303 lb 2 oz 142/92 139/83 Negative -?-?-?-?-?-?-?-?-?-?-?-?- Negative 155 -?-?-?-?-?-?-?-?-?-?-?-?- KW- no vb/lof/ct x. good fm 28 week labs next week. Elevated BP today may need to start htn med if continue to be elevated. baseline pre e labs today KW- no vb/lof/ctx. good fm 2 8 week labs next visit. Elevated BP today may need to start htn med if continue to be elevated. baseline pre e labs today 11/15/24 -?-?-?-?-?-?-?-?-?-?-?-?- 28w 3d 306 lb 6 oz 130/74 Nega tive -?-?-?-?-?-?-?-?-?-?-?-?- Negative 146 29 -?-?-?-?-?-?-?-?-?-?-?-?- MH-No VB, LOF. G ood FM. Denies concerns. 28 wk labs. [facility] 11/28/24 -?-?-?-?-?-?-?-?-?-?-?-?- 30w 2d 308 lb 135/89 -?-?-?-?-?-?-?-?-?-?-?-?- 155 31 -?-?-?-?-?-?-?-?-?-?-?-?- KW- no vb/crampi ng. good fm. Has had ALBERT all weekend. Took BP at work and was elevated. Pre e labs sent. second BP was patients normal pressures. denies BV/dizziness, RUQ pain or swelling 12/02/24 -?-?-?-?-?-?-?-?-?-?-?-?- 30w 6d 311 lb 6 oz 137/85 Nega tive -?-?-?-?-?-?-?-?-?-?-?-?- Negative 145 31 -?-?-?-?-?-?-?-?-?-?-?-?- KW- no vb/lof/ct x. good fm. headache is better. labs reviewed. 12/13/24 -?-?-?-?-?-?-?-?-?-?-?-?- 32w 3d 309 lb 6 oz 149/89 -?-?-?-?-?-?-?-?-?-?-?-?- -?-?-?-?-?-?-?-?-?-?-?-?- [place] with oligohydramnios and IUGR. To for further eval with Dr Oliva 12/29/24 -?-?-?-?-?-?-?-?-?-?-?-?- 34w 5d 310 lb 2 oz 134/76 Nega tive -?-?-?-?-?-?-?-?-?-?-?-?- Negative 150 -?-?-?-?-?-?-?-?-?-?-?-?- MH-NST only reac tive. Has BPP tomorrow 12/30/24 -?-?-?-?-?-?-?-?-?-?-?-?- 34w 6d 310 lb 8 oz 139/84 Nega tive -?-?-?-?-?-?-?-?-?-?-?-?- Negative 155 -?-?-?-?-?-?-?-?-?-?-?-?- JV- oligo persis ts. planning 36 week IOL. continue close monitoring. bpp was technically 8/8 due to osbaldo of 5.22 and normal movement, tone, etc. JV- oligo persists. planning 36 week IOL. GBS collected. continue close monitoring. bpp was technically 8/8 due to osbaldo of 5.22 and normal movement, tone, etc. 01/02/25 -?-?-?-?-?-?-?-?-?-?-?-?- 35w 2d 312 lb 8 oz 124/75 Nega tive -?-?-?-?-?-?-?-?-?-?-?-?- Negative 145 Cephalic 0 -?-?-?-?-?-?-?-?-?-?-?-?- KW- reactive NST . good fm. BPPs tues and fri this week. IOL for sat at 7pm. NST FHR Rate Baby A Baseline: 150 Variability:: Moderate Accelerations:: 15 x 15 Decelerations:: None NST Reactive:: Yes FHR Category:: Category I Vital Signs Vital Signs Vital Signs: 01/07/25 19:28 01/07/25 19:28 01/07/25 19:32 Temperature Temperature Source Pulse Rate 117 H Respiratory Rate Blood Pressure 139/80 H BP Systolic 139 BP Diastolic 80 Pulse Ox 97 01/07/25 19:32 01/07/25 19:32 01/07/25 19:32 Temperature Temperature Source Temporal Pulse Rate 118 H Respiratory Rate 16 Blood Pressure BP Systolic BP Diastolic Pulse Ox 01/07/25 19:32 01/07/25 21:29 01/07/25 21:29 Temperature 98.8 F Temperature Source Temporal Pulse Rate Respiratory Rate 16 Blood Pressure BP Systolic BP Diastolic Pulse Ox 01/07/25 21:29 01/07/25 21:30 01/07/25 21:30 Temperature 98.4 F Temperature Source Pulse Rate 95 Respiratory Rate Blood Pressure 172/81 H BP Systolic 172 BP Diastolic 81 Pulse Ox 01/07/25 21:32 01/07/25 21:32 01/08/25 01:47 Temperature Temperature Source Pulse Rate 100 Respiratory Rate Blood Pressure 128/71 H 133/59 H BP Systolic 128 133 BP Diastolic 71 59 Pulse Ox 01/08/25 01:47 01/08/25 01:47 01/08/25 01:47 Temperature 97.8 F Temperature Source Temporal Pulse Rate 91 Respiratory Rate Blood Pressure BP Systolic BP Diastolic Pulse Ox 01/08/25 05:53 01/08/25 05:53 01/08/25 05:53 Temperature Temperature Source Temporal Pulse Rate 90 Respiratory Rate Blood Pressure 121/54 H BP Systolic 121 BP Diastolic 54 Pulse Ox 01/08/25 05:53 01/08/25 05:53 01/08/25 07:19 Temperature 97.7 F L Temperature Source Pulse Rate Respiratory Rate 16 Blood Pressure BP Systolic BP Diastolic Pulse Ox 90 01/08/25 07:19 01/08/25 07:19 01/08/25 07:19 Temperature Temperature Source Pulse Rate 91 Respiratory Rate Blood Pressure 119/68 BP Systolic 119 BP Diastolic 68 Pulse Ox 98 Weight Weight: 316 lb Body Mass Index (BMI) 44.0 Physical Exam Const alert, oriented x3 and no apparent distress General Appearance: cooperative, comfortable and well kempt Orientation / Consciousness: awake and oriented to person Exam Limitations: no limitations HEENT normocephalic Neck full ROM Chest inspection of chest normal Resp normal respiratory effort, normal air movement and no retractions Effort and Inspection: able to speak in complete sentences and symmetric chest movement Cardio regular rate Peripheral Pulses: pulses 2+ throughout GI normal to inspection, nondistended, normoactive bowel sounds Inspection: gravid no CVA tenderness and appearance of the vagina normal External Female Exam: normal appearance of the urethra; Negative for external lesion OB / External & Speculum: external exam normal Manual OB Exam: estimated gestational size appropriate and presentation cephalic Uterus Palpation: Negative for uterus tender Extremity normal to inspection Skin no rashes or lesions noted Neuro deep tendon reflexes 2+ bilaterally and gait normal Motor Exam: strength 5/5 throughout and clonus absent Psych Activity / Motor Behavior: appropriate eye contact Speech: normal speech Labs Labs Labs: Blood Type AB POSITIVE Antibody Screen NEGATIVE Hct 35.0 % (37-47) L Hgb 11.7 g/dL (12.0-15.0) L Obstetrics Ultrasound Syphilis Total Ab Nonreactive (Nonreactive) Rubella IgG Antibody Reactive (Nonreactive) Hep Bs Antigen Non-Reactive (Nonreactive) Hepatitis C Antibody Non-Reactive (Nonreactive) Chlamydia DNA (FIORDALIZA) Negative (Negative) N.gonorrhoeae DNA (FIORDALIZA) Negative (Negative) HIV 1&2 Antibody Non-Reactive (Nonreactive) Glucose 1 Hr 50 gm 141 mg/dL (70-140) H Gest Glucose Tolerance MG/DL Assessment & Plan (1) Oligohydramnios: QUALIFIERS: Fetus number: single or unspecified fetus Trimester: third trimester Qualified Code(s): O41.03X0 - Oligohydramnios, third trimester, not applicable or unspecified COMMENT: deliver at 36 weeks (2) Obesity affecting : QUALIFIERS: Trimester: third trimester Obesity type affecting : unspecified obesity Qualified Code(s): O99.213 - Obesity complicating , third trimester COMMENT: BMI 41 HgbA1c nl. plan weekly NSTs after 34 and growth US 32 and 36. (3) Supervision of high-risk : QUALIFIERS: Trimester: third trimester Qualified Code(s): O09.93 - Supervision of high risk , unspecified, third trimester COMMENT: PRR, , ALAYNA 02/04/25, Soraida (4) : QUALIFIERS: Weeks of gestation: 35 weeks Qualified Code(s): Z3A.35 - 35 weeks gestation of COMMENT: discussed NIPT, ntd, & carrier testing- declined. nl anatomy (5) Encounter for induction of labor: COMMENT: cytotec, plan kennedy bulb/pit once able PLAN: Plan Patient presents IOL, plan management for with cytotec/pitocin/AROM. Pain management: plans epidural. GBS negative. Management of any complications: none I have reviewed the [facility] and made any clinically relevant updates. updated on admission, exam and poc. agrees with care.
--- NOTE | 2025-01-08 14:16 | PCM.PN.CNM ---
Subjective Subjective occ cramping with cytotec but not uncomfortable. Objective Data Objective Data Vital Signs: Vital Signs Temp Pulse Resp BP Pulse Ox 97.3 F L 98 14 127/59 H 97 01/08/25 10:26 01/08/25 10:27 01/08/25 10:26 01/08/25 10:27 01/08/25 10:26 Weight: 316 lb Body Mass Index (BMI) 44.0 Lab / Micro Data 01/07/25 19:50 Labs: Laboratory Results - last 24 hr 01/07/25 19:50: WBC 12.1 H, RBC 4.15 L, Hgb 11.7 L, Hct 35.0 L, MCV 84.3, MCH 28.2, MCHC 33.4, RDW Std Deviation 40.1, RDW Coeff of Nori 13.2, Plt Count 173, MPV 12.4 H, Immature Gran % (Auto) 1.000 H, Neut % (Auto) 67.6, Lymph % (Auto) 21.6, [place] % (Auto) 7.6, Eos % (Auto) 1.9, Baso % (Auto) 0.3, Absolute Neuts (auto) 8.2 H, Absolute Lymphs (auto) 2.61, Nucleated RBC % 0, Platelet Estimate ADEQUATE, RBC Morphology NORM C+C, Syphilis Total Ab Nonreactive, Blood Type AB POSITIVE, Antibody Screen NEGATIVE Physical Exam Const alert and oriented x3 Resp normal respiratory effort and normal air movement GI normal to inspection, nondistended, normoactive bowel sounds Manual OB Exam: presentation cephalic, dilated 0.5, effaced 20-30, station -3 and other posterior Skin no rashes or lesions noted NST FHR Rate Baby A Baseline: 150 Variability:: Moderate Accelerations:: 15 x 15 Decelerations:: None NST Reactive:: Yes FHR Category:: Category I Uterine Activity:: q4 Assessment & Plan (1) Encounter for induction of labor: COMMENT: cytotec, plan kennedy bulb/pit once able (2) Oligohydramnios: QUALIFIERS: Fetus number: single or unspecified fetus Trimester: third trimester Qualified Code(s): O41.03X0 - Oligohydramnios, third trimester, not applicable or unspecified COMMENT: deliver at 36 weeks PLAN: Plan called to bedside to confirm presentation as monitoring baby has changed to LUQ. bedside ultrasound confirms vertex presentation. current tracing: FHT: Moderate variability reactive no decelerations category I tracing [place]: q3 Contractions reviewed tracing abnormalities since last note: A/P: continue cytotec per protocol plan kennedy once able
[2025-01-08] MEDS: 0.9% Saline Lock 10 ML Syringe IV (14:42)
[2025-01-08] MEDS: miSOPROStol 50 MCG TABLET VAGINAL (20:09)
--- NOTE | 2025-01-08 22:54 | PCM.PN.BLA ---
Progress Note fb placed without difficulty 1-2 cm dilated fht cat I
[2025-01-08] MEDS: 0.9% Normal Saline Single 100 ML IV.SOLN. INTRA-UTER (23:03)
[2025-01-09] VITALS (55 sets, daily range): BP systolic 108–173; BP diastolic 52–104; PULSE 85–127; RESP 16–18; TEMP 36.1–37.1; O2SAT 97–99
[2025-01-09] MEDS: Lactated Ringers 1,000 ML 50 ML IV (03:07)
[2025-01-09] MEDS: Oxytocin 15 Units/NS 250ml 15 UNITS/250 ML IV.SOLN 2 UNITS IV (03:07)
--- NOTE | 2025-01-09 07:58 | PCM.PN.BLA ---
Progress Note Coping well with contractions-desires epidural when painful current tracing: FHT: 145 Moderate variability reactive no decelerations category I tracing, fse placed with ROM [place]: 2-3 minute Contractions IUPC inserted with AROM Membranes:AROM at 0750- clear SVE:5/70/-2 A/P: Continue with position changes Titrate pitocin per protocol Epidural per anesthesia GBS neg Anticipate Dr Priest aware of above assessment and agrees with plan of care Assessment & Plan Assessment/Plan (1) Encounter for induction of labor: (2) Abnormal test: (3) Oligohydramnios: QUALIFIERS: Fetus number: single or unspecified fetus Trimester: third trimester Qualified Code(s): O41.03X0 - Oligohydramnios, third trimester, not applicable or unspecified (4) Abnormal glucose in , antepartum: (5) Elevated BP without diagnosis of hypertension: (6) Obesity affecting : QUALIFIERS: Trimester: third trimester Obesity type affecting : unspecified obesity Qualified Code(s): O99.213 - Obesity complicating , third trimester (7) Supervision of high-risk : QUALIFIERS: Trimester: third trimester Qualified Code(s): O09.93 - Supervision of high risk , unspecified, third trimester (8) : QUALIFIERS: Weeks of gestation: 35 weeks Qualified Code(s): Z3A.35 - 35 weeks gestation of Multi Select Codes Urinary/Genital Urinary/Genital CPT Codes: No Charge
[2025-01-09] MEDS: Lactated Ringers 1,000 ML 999 ML IV (08:30)
[2025-01-09] MEDS: fentaNYL-bupivacaine (epidural) 100 ML BAG EPIDURAL ×2 (09:16→13:06)
[2025-01-09] MEDS: LACTATED RINGERS 500 ML 999 ML IV (10:22)
[2025-01-09] MEDS: Amnioinfusion- 0.9% NS 1,000 ML IV.SOLN. 1 ML INTRA-UTER (11:00)
--- NOTE | 2025-01-09 12:19 | PN_ITS ---
Progress Note comfortable with epidural current tracing: FHT: 140 Moderate variability reactive occasional late/variable decelerations category II tracing [place]: 3-4 minute Contractions Membranes:remains clear SVE:/ reviewed tracing abnormalities since last note: collaboration with Dr Oliva at this time for Cat II FHT tracing. A/P: Continue with position changes Titrate pitocin per protocol Epidural per anesthesia GBS neg Anticipate Dr Priest aware of above assessment and agrees with plan of care Multi Select Codes Urinary/Genital Urinary/Genital CPT Codes: No Charge
[2025-01-09] MEDS: Lactated Ringers 1,000 ML 200 ML IV (14:27)
--- NOTE | 2025-01-09 16:00 | OB.VAGDELI_ITS ---
Assessment & Plan (1) Vaginal delivery: COMMENT: KW IOL 36.2 Oligo Girl Rajan (2) Encounter for induction of labor: COMMENT: cytotec, plan kennedy bulb/pit once able (3) Abnormal test: COMMENT: initial bpp 6/10 no 8/10 2 off for breathing, reassuring tracing. plans iol tomorrow. (4) Oligohydramnios: QUALIFIERS: Fetus number: single or unspecified fetus Trimester: third trimester Qualified Code(s): O41.03X0 - Oligohydramnios, third trimester, not applicable or unspecified COMMENT: deliver at 36 weeks (5) Abnormal glucose in , antepartum: COMMENT: nl 3 hour (6) Elevated BP without diagnosis of hypertension: COMMENT: 10/24/24 Pre E labs nl (7) Obesity affecting : QUALIFIERS: Trimester: third trimester Obesity type affecting : unspecified obesity Qualified Code(s): O99.213 - Obesity complicating , third trimester COMMENT: BMI 41 HgbA1c nl. plan weekly NSTs after 34 and growth US 32 and 36. (8) Supervision of high-risk : QUALIFIERS: Trimester: third trimester Qualified Code(s): O09.93 - Supervision of high risk , unspecified, third trimester COMMENT: PRR, , ALAYNA 02/04/25, Soraida (9) : QUALIFIERS: Weeks of gestation: 35 weeks Qualified Code(s): Z3A.35 - 35 weeks gestation of COMMENT: discussed NIPT, ntd, & carrier testing- declined. nl anatomy Maternal Data Information ALAYNA Calculator Estimated Delivery Date Method Current WG Current Estimate 02/04/25 LMP (Certain) 36w 2d Other Estimates 02/09/25 Ultrasound #1 35w 4d Final ALAYNA: 02/04/25 Final ALAYNA Source: US >20 weeks Gestational age: 36.2 Vaginal Delivery Maternal Presentation Maternal Presentation: Medically Indicated Induction Maternal Presentation: Presented to unit for induction of labor for persistent oligohydramnios. Cytotec/kennedy bulb/pitocin/AROM. Type of Induction: Pitocin, Kennedy Bulb and Cytotec Medical Reason for Induction: Compromise: list: (oligohydramnios) Vaginal Delivery Information Procedure Performed: Spontaneous Vaginal Delivery Surgeon/Practitioner: Sariah Cobb Date of Procedure: 01/09/25 Pre-Procedure Diagnosis: see problem list Post-Procedure Diagnosis: same Type of anesthesia: Epidural Estimated Blood Loss: 200 Time of Delivery: 15:40 Findings Description of procedure: Progressed well to 10cm dilated and made steady progress with effective maternal pushing. Delivered the head in LOP presentation. The head was delivered atraumatically and a loose nuchal cord was identified and delivered through. The anterior and posterior shoulders delivered without complication followed by the rest of the infant and the infant was placed on the maternal abdomen. Delayed cord clamping was employed for approximately 2 minutes. Cord was clamped and cut and gentle traction was applied to the cord and the placenta delivered spontaneously. Immediately following, it was noted to be intact with a 3 vessel cord. Uterine bleeding stable. The perineum and vagina were inspected and noted to have a small second degree laceration which was repaired with 3-0 Vicryl in the usual fashion. EBL was 200cc. Patient and tolerated delivery well. Apgars 8/9. Placenta sent for pathology. Dr Espinosa notified of vaginal delivery and orders reviewed. Physician agrees with current plan of care. Presentation: Vertex Amniotic Membrane Rupture Type: Artificial Amniotic Fluid Description: Clear Placental Delivery Description: Spontaneous Placenta Disposition: [facility] Specimen collected: No Cord Vessel Description: 3 Vessels Cord Entanglement: Around neck x 1, loose Cord Gases: ABG and VBG A Gender: Female (1 minute): 8 (5 minute): 9 Delayed Cord Clamping: Yes Community Services Coordinator physical ther: No Post Vaginal Deli Medications given after delivery: IV Pitocin Episiotomy Description: None Laceration: 2nd degree Complication Complications: No Multi Select Codes Urinary/Genital Urinary/Genital CPT Codes: 35304 Vaginal Delivery [facility]
--- NOTE | 2025-01-09 16:06 | DCINST_ITS ---
Discharge Instructions Diet Discharge Diet: No restrictions DC O2, CPAP, BIPAP needs Home O2 Discharge instructions: No Dressing / Incision Discharge Activity: Return to Normal Activity May resume sexual activity in: 6-8 weeks Dressing / Incision Call your doctor if you observe: Fever of 101 or Higher, Coldness, Increased Pain, Numbness or Tingling, Change in Color, Inability to urinate, Inability to have a bowel movement, Using more than 1 pad per hour, Shortness of breath, Dizziness, Fainting spells, Swelling in the ankles, Chest pain, Increased p alpitations (irregular heartbeat), Calf discomfort and Uncontrolled pain Follow Up Care Please Follow Up With: Sariah Cobb CNM When: Please call the office to schedule your follow up appointment in 6 weeks. If you had high blood pressure please call to schedule an appointment in 2 weeks. Test Results: Test results from this visit will be discussed in further detail at your follow- up appointment, if applicable. Discharge Plan Admission Admit Date/Time: 01/07/25 19:17 Attending Provider: Sariah Cobb Primary Care Provider: Chelita Cosby Discharge Orders/Prescriptions Prescriptions: No Action PNV cmb#95-ferrous fumarate-FA [ Formula] 28 mg iron- 800 mcg tablet 1 tab PO DAILY aspirin 81 mg tablet,delayed release (DR/EC) 81 mg PO DAILY Referrals / Follow Up: Chelita Cosby NP-C [Primary Care Provider] -
[2025-01-09] MEDS: Oxytocin 15 Units/NS 250ml 15 UNITS/250 ML IV.SOLN 83 UNITS IV (16:16)
--- NOTE | 2025-01-09 17:35 | PLAC_PTH ---
PATIENT: BALTAZAR BLANCO LOC: [facility] U#:[id number] AGE/SX: 29/F ROOM: WP015 RE01/07/[address]: Sariah Cobb CNM : 1995 BED: 1 DIS: 01/11/2025 SPEC #: [id number] RECD: 01/10/25 08:41 STATUS: ROLO REJake #: [id number] OXANA: 01/09/25 17:[address]: Sariah Cobb DEPT: SURGICAL PATHOLOGY RECD BY: Jesús Ponce ENTERED: 01/10/25 08:41 SP TYPE: PLACENTA OTHR DR: Chelita Cosby, CAKE CUTTER MACHINE-Se Tissues: A - Placenta, NOS Procedures: Surgery Specimen Level V HEADER OPERATION: Delivery PRE-OP DIAGNOSIS: Oligohydramnios TISSUE SUBMITTED: A- Placenta MICROSCOPIC DIAGNOSIS A. Elizondo placenta (434 grams): * Three vessel umbilical cord without acute inflammation. * Unremarkable membranes. * Mature chorionic villi with early acute chorionitis (inflammation of the chorionic plate). MICROSCOPIC DESCRIPTION Slides are reviewed. GROSS DESCRIPTION A. Received in formalin in a container labeled with the patient's name, date of , and with no further designation is a 20.0 x 12.5 x 2.0 cm elizondo and discoid placenta with a trimmed weight of 434 g. The white-flannery, eccentrically located umbilical cord exhibits 3 vessels and is 45 cm in length by 1 cm in diameter. The flannery-upton membranes are partially stripped with a 100% marginal insertion point. The surface is blue-upton with prominent vasculature. The maternal surface displays red-flannery cotyledons that appear complete with a moderate amount of easily removed blood clot material. Serial sections reveal spongy, red-flannery cut surfaces. Roller Skates Assembler sections:A1. Umbilical cord and membrane rollA2. Full-thickness sectionA 3. Full-thickness sectionA4. Full-thickness section [facility] 01-10-2025 CPT:00580
[2025-01-09 17:36] LABS: Pathology Specimen OB SEE PATHOLOGY REPORT
[2025-01-09] MEDS: Ibuprofen 600 MG Tablet PO (23:31)
[2025-01-10] MEDS: Acetaminophen 500 MG Tablet 1000 MG PO ×2 (03:10→16:22)
[2025-01-10 03:57] VITALS: BP 119/55; PULSE 90; RESP 16; TEMP 36.6
[2025-01-10 07:47] VITALS: BP 98/51; PULSE 89
[2025-01-10 07:52] VITALS: BP 98/51; PULSE 89; RESP 16; TEMP 36.1
--- NOTE | 2025-01-10 12:57 | PN.OBGYN_ITS ---
Subjective Subjective Patient doing well without complaints. Tolerating PO. Ambulating and voiding without difficulty. feeding well. Denies chest pain, shortness of breath, calf pain/swelling, fevers, chills, lightheadedness. Objective Data Objective Data Vital Signs: Vital Signs Temp Pulse Resp BP Pulse Ox O2 Del Method 97.0 F L 89 16 98/51 L 97 Room Air 01/10/25 07:52 01/10/25 07:52 01/10/25 07:52 01/10/25 07:52 01/09/25 16:00 01/10/25 07:52 Oxygen Delivery Method Room Air Weight: 316 lb Body Mass Index (BMI) 44.0 Intake & Output: Intake and Output for Last 24 Hours 01/08/25 01/09/25 01/10/25 23:59 23:59 23:59 Intake Total 2742.57 / 2742.57 Output Total 600 / 600 Balance 2142.57 / 2142.57 Lab / Micro Data 01/07/25 19:50 ROS Constitutional Constitutional: Reports systems reviewed and no addt'l complaints, except as documented Cardiovascular Cardiovascular: Reports systems reviewed and no addt'l complaints, except as documented Respiratory/Chest Respiratory/Chest: Reports systems reviewed and no addt'l complaints, except as documented Gastrointestinal Gastrointestinal: Reports systems reviewed and no addt'l complaints, except as documented Physical Exam Const alert, oriented x3 and no apparent distress HEENT Head and Scalp: atraumatic Resp normal respiratory effort GI soft to palpation and non-tender Bimanual Exam - Vag & Uterus: uterus non-tender Uterus Palpation: uterus fundus firm (below Umbilicus) Assessment & Plan (1) Vaginal delivery: COMMENT: KW IOL 36.2 [place] [facility] PLAN: Plan s/p PPD # 1 1. routine post delivery care 2. breast feeding- support given 3. rh positive 4. rubella immune
[2025-01-10 13:11] VITALS: BP 113/57; PULSE 100; PULSE 99; RESP 16; O2SAT 98; O2SAT 99
[2025-01-10] MEDS: Ibuprofen 600 MG Tablet PO ×2 (13:13→21:07)
[2025-01-10 19:57] VITALS: BP 143/75; PULSE 94; PULSE 97; RESP 16; TEMP 36.4; O2SAT 98
[2025-01-11 01:02] VITALS: BP 144/73; BP 155/79; PULSE 105; PULSE 94; RESP 16; TEMP 36.4; O2SAT 98
[2025-01-11 01:03] VITALS: BP 144/73; PULSE 93
[2025-01-11 08:02] VITALS: BP 136/83; PULSE 90; RESP 17; TEMP 36.6
--- NOTE | 2025-01-11 08:13 | PN.OBGYN_ITS ---
Subjective Subjective Patient doing well without complaints. Tolerating PO. Ambulating and voiding without difficulty. Feeding well. Denies chest pain, shortness of breath, calf pain/swelling, fevers, chills, lightheadedness. Objective Data Objective Data Vital Signs: Vital Signs Temp Pulse Resp BP Pulse Ox O2 Del Method 97.9 F 90 17 136/83 H 98 Room Air 01/11/25 08:02 01/11/25 08:02 01/11/25 08:02 01/11/25 08:02 01/11/25 01:02 01/11/25 08:02 Oxygen Delivery Method Room Air Weight: 316 lb Body Mass Index (BMI) 44.0 Intake & Output: Intake and Output for Last 24 Hours 01/09/25 01/10/25 01/11/25 23:59 23:59 23:59 Intake Total 2742.57 / 2742.57 Output Total 600 / 600 Balance 2142.57 / 2142.57 Lab / Micro Data 01/07/25 19:50 Physical Exam Const alert and oriented x3 HEENT normocephalic Eyes PERRL Neck full ROM Resp normal respiratory effort GI soft to palpation GI Narrative: FF below U Assessment & Plan (1) Vaginal delivery: COMMENT: KW IOL 36.2 [place] [facility] PLAN: Plan s/p PPD # 1 1. routine post delivery care 2. breast feeding- support given 3. rh positive 4. rubella immune 5. home today
--- NOTE | 2025-01-17 10:56 | NURSING ---
Follow up phone call made, patient states she is doing well. Denies any headaches, visual changes, or baby blues. Patient states she is trying to latch the baby a few times a day but mostly pumping and feeding. Pumping every 2-3 hours. States bleeding is getting better and is not a lot. Denies any questions or concerns at this time.
== END 2025-01-11 12:45 | disposition home or self-care (01) | DRG 805 ==
PROVIDERS: Registered Nurse; Admitting Provider Advanced Practice Midwife; PCP Nurse Practitioner; Visit Provider Advanced Practice Midwife
DX: O41.03X0 Oligohydramnios, third trimester, not applicable or unspecified (principal); Z37.0 Single live birth; O60.14X0 Preterm labor third trimester with preterm delivery third trimester, not applicable or unspecified; O99.214 Obesity complicating childbirth; O69.81X0 Labor and delivery complicated by cord around neck, without compression, not applicable or unspecified; O70.1 Second degree perineal laceration during delivery; O26.893 Other specified pregnancy related conditions, third trimester; R03.0 Elevated blood-pressure reading, without diagnosis of hypertension; O76 Abnormality in fetal heart rate and rhythm complicating labor and delivery; Z3A.36 36 weeks gestation of pregnancy; Z79.82 Long term (current) use of aspirin
CPT/HCPCS: 59025; 59050; 85025; 86780; 86850; 86900; 86901; 88307; 99221; A4216; G0378

== ENCOUNTER → 2025-05-02 | Outpatient (CLI) | payer OTHER, SELFPAY | END | disposition home or self-care (01) | LOC: LABSPEC 12:14 | PROVIDERS: PCP Nurse Practitioner; Visit Provider Nurse Practitioner Women's Health | DX: N89.8 Other specified noninflammatory disorders of vagina (principal) | CPT/HCPCS: 87070; 87205 ==

== ENCOUNTER → 2025-07-07 | Outpatient (CLI) | payer OTHER, SELFPAY ==
--- NOTE | 2025-07-07 07:32 | US_ITS ---
PROCEDURE: ABDOMEN LIMITED 07/07/2025 REASON FOR EXAM: UPPER ABD PAIN TECHNIQUE: Procedure Code: USABDL Modality: US Procedure: ABDOMEN LIMITED COMPARISON: None FINDINGS: Liver: Diffusely echogenic suggesting fatty infiltration. Hepatomegaly. The liver measures 19.5 cm. Focal fatty sparing adjacent to the gallbladder fossa. Gallbladder: There is a 1 cm x 0.7 cm x 0.6 cm calculus adherent to the gallbladder wall. Findings suggestive of adenomyomatosis of the gallbladder. Common bile duct: Normal measuring 5.2 mm. . Pancreas: Visualized portions are unremarkable. The distal body and tail are obscured by bowel gas. Other: Visualized portions of the right kidney are unremarkable. No right upper quadrant ascites. US/Abdomen Limited IMPRESSION: Hepatomegaly and fatty infiltration of the liver. Solitary gallstone adherent to the gallbladder wall suggestive of adenomyomatos is. Reading Location: [id number]
--- OUTSIDE RECORDS SUMMARY | 2025-07-07 07:35 | XMS RPT_ITS | CCD ---
Author Organization [facility] Care Team Providers Care Supervisor Television Chassis Repair Name Role Phone Jonathan Red Unavailable Unavailable Kumar Peace Unavailable Unavailable John SEASONING MIXER, SEASONING MIXER-C Ara Primary Care Provider [phone] John SEASONING MIXER, SEASONING MIXER-C Ara Referring Provider [phone] Dr. Kumar Nixon Attending Provider Unavailable Primary Care Provider UnavailTHELMA Abraham Admitting Unavailable THELMA TA Attending Unavailable PATEL DIAZ Consulting Unavailable BELKIS PACHECO Referring Unavailable Harjeet SEASONING MIXER-C, Clarissa Primary Care Provider Harjeet SEASONING MIXER-C, Clarissa Referring Provider [phone] Dr. Belkis Pacheco MD Attending Provider Dr. Belkis Pacheco MD Referring Provider [phone] Sariah Cobb CNM Attending Provider [phone] Sariah Cobb CNM Referring Provider [phone] CLARISSA COSBY Primary Care Provider Chary CASTLE-CKavya Attending Provider HARJEET CLARISSA Primary Care Provider UnavailDr. Nenita Miranda DO Attending Provider Dr. Nenita Oliva DO Referring Provider Harjeet SEASONING MIXER-C, Clarissa Primary Care Provider Harjeet SEASONING MIXER-C, Clarissa Referring Provider [phone] Dr. Belkis Pacheco MD Attending Provider Stefania JARRELL, Dr. Tamayo Referring Provider [phone] Sariah Cobb CNM Attending Provider [phone] Sariah Cobb CNM Referring Provider [phone] FERULLO, CLARISSA Primary Care Provider [phone] [place] SEASONING MIXER-C, Kavya Attending Provider [facility] James Kwok [facility], Dr. Gutierres Attending Provider James Kwok DO, Dr. Gutierres Referring Provider James Kwok DO, Dr. Gutierres Other Provider [phone] Stefania JARRELL, Dr. Tamayo Other Provider [phone] Ferullo SEASONING MIXER-C, Clarissa Primary Care Provider Stefania JARRELL, Dr. Tamayo Attending Provider Ferullo SEASONING MIXER-C, Clarissa Referring Provider [phone] Ata CNM, Bella Attending Provider Berumen CNM, Bella Referring Provider Berumen CNM, Bella Other Provider [phone] Berumen CNM, Bella Admit Provider [phone] Sariah Cobb CNM Admit Provider [phone] Berumen CNM, Bella Admit Provider Reza ROSALESM, Sariah Other Provider Ferullo SEASONING MIXER-C, Clraissa Primary Care Provider Ferullo SEASONING MIXER-C, Clarissa Referring Provider [phone] Stefania JARRELL, Dr. Tamayo Attending Provider Dr. Belkis Pacheco MD Referring Provider Ferullo SEASONING MIXER-C, Clarissa Primary Care Provider Ferullo SEASONING MIXER-C, Clarissa Referring Provider [phone] Sariah Cobb CNM Attending Provider Stefania JARRELL, Dr. Tamayo Attending Provider Stefania JARRELL, Dr. Tamayo Referring Provider Stefania JARRELL, Dr. Tamayo Other Provider [phone] Chary SEASONING MIXER-C, Kavya Attending Provider [phone] Ferullo SEASONING MIXER-C, Clarissa Primary Care Provider Reza CNM, Sariah Attending Provider [phone] Ata CNM, Bella Attending Provider [phone] Ata CNM, Bella Other Provider [phone] Stefania JARRELL, Dr. Tamayo Attending Provider Stefania JARRELL, Dr. Tamayo Referring Provider [phone] Stefania JARRELL, Dr. Tamayo Other Provider [phone] Ferullo SEASONING MIXER-C, Clarissa Referring Provider [phone] Bella Berumen Attending Unavailable Ata, Bella Referring Unavailable DeweyanthonyBelkis Consulting Unavailable Ferullo, Clarissa Primary Care Unavailable Vande Velde, Nenita Referring Unavailabl e Ferullo, Clarissa Primary Care Unavailable Vande Velde, Nenita Attending Unavailabl e Marcanthony, Belkis Referring Unavailable Marcanthony, Belkis Attending Unavailable Ferullo, Clarissa Primary Care Unavailable Marcanthony, Belkis Referring Unavailable Vande Velde, Nenita Attending Unavailabl e Ferullo, Clarissa Primary Care Unavailable Sariah Cobb Admitting Unavailable Sariah Cobb Attending Unavailable Ferullo, Clarissa Primary Care Unavailable Marcanthony, Belkis Referring Unavailable Marcanthony, Belkis Attending Unavailable Ferullo, Clarissa Primary Care Unavailable Marcanthony, Belkis Referring Unavailable Marcanthony, Belkis Attending Unavailable Ferullo, Clarissa Primary Care Unavailable Ferullo, Clarissa Primary Care Unavailable Marcanthony, Belkis Attending Unavailable Marcanthony, Belkis Referring Unavailable Vande Velde, Nenita Attending Unavailabl e Vande Velde, Nenita Referring Unavailabl e Marcanthony, Belkis Referring Unavailable Marcanthony, Belkis Attending Unavailable Ferullo, Clarissa Primary Care Unavailable JONES, ERNESTO Primary Care Unavailable Marcanthony, Belkis Attending Unavailable MarcanthonyBelkis Referring Unavailable Sariah Cobb Referring Unavailable Sariah Cobb Attending Unavailable Ferullo, Clarissa Primary Care Unavailable Sariah Cobb Referring Unavailable Sariah Cobb Attending Unavailable Ferullo, Clarissa Primary Care Unavailable CharyKavya Attending Unavailable Ferullo, Clarissa Primary Care Unavailable Vande Velde, Nenita Referring Unavailabl e Vande Velde, Nenita Attending Unavailabl e Ferullo, Clarissa Primary Care Unavailable Marcanthony, Belkis Attending Unavailable Marcanthony, Belkis Referring Unavailable Pierre, Latisha Referring Unavailable Ferullo, Clarissa Primary Care Unavailable Christy Pierreher Attending Unavailable Marcanthony, Belkis Referring Unavailable Marcanthony, Belkis Attending Unavailable Ferullo, Clarissa Primary Care Unavailable Marcanthony, Belkis Referring Unavailable Marcanthony, Belkis Attending Unavailable Ferullo, Clarissa Primary Care Unavailable Marcanthony, Belkis Referring Unavailable Marcanthony, Belkis Attending Unavailable Ferullo, Clarissa Primary Care Unavailable JONES, ERNESTO Primary Care Unavailable DeweyanthBelkis farris Attending Unavailable MarcanthonyBelkis Referring Unavailable Ferullo, Clarissa Referring Unavailable Sariah Cobb Attending Unavailable Ferullo, Clarissa Primary Care Unavailable CharyKavya Attending Unavailable Ferullo, Clarissa Primary Care Unavailable Ferullo, Clarissa Referring Unavailable SalemKavya Attending Unavailable Ferullo, Clarissa Primary Care Unavailable Ferullo, Clarissa Referring Unavailable Ferullo, Clarissa Primary Care Unavailable Vande Nenita Kwok Attending Unavailabl e Ferullo, Clarissa Referring Unavailable Ferullo, Clarissa Referring Unavailable Vande Nenita Kwok Attending Unavailabl e Sariah Cobb Attending Unavailable Ferullo, Clarissa Primary Care Unavailable Ferullo, Clarissa Referring Unavailable Ferullo, Clarissa Referring Unavailable Ferullo, Clarissa Primary Care Unavailable SalemKavya Attending Unavailable Ferullo, Clarissa Referring Unavailable Sariah Cobb Attending Unavailable Ferullo, Clarissa Primary Care Unavailable Ferullo, Clarissa Primary Care Unavailable MarcanthonyBelkis Attending Unavailable Ferullo, Clarissa Referring Unavailable Ferullo, Clarissa Primary Care Unavailable Ferullo, Clarissa Referring Unavailable MarcBelkis hanks Attending Unavailable Sariah Cobb Consulting Unavailable Sariah Cobb Admitting Unavailable Ferullo, Clarissa Primary Care Unavailable Marcanthony, Belkis Attending Unavailable Sariah Cobb Attending Unavailable Berumen, Bella Consulting Unavailable Berumen, Bella Admitting Unavailable Vande Velde, Nenita Consulting Unavailabl e Ferullo, Clarissa Primary Care Unavailable MarcBelkis hanks Referring Unavailable Belkis Pacheco Attending Unavailable Vande Velde, Nenita Consulting Unavailabl e Ferullo, Clarissa Primary Care Unavailable Vande Rissa, Nenita Attending Unavailabl e Belkis Pacheco Referring Unavailable BerumenBella Attending Unavailable Kavya Diez Attending Unavailable Ferullo, Clarissa Primary Care Unavailable Belkis Pacheco Consulting Unavailable Marcanthony, Belkis Referring Unavailable Vande Velde, Nenita Consulting Unavailabl e Vande Velde, Nenita Referring Unavailabl e Vande Velde, Nenita Attending Unavailabl e Ferullo, Clarissa Primary Care Unavailable Ferullo, Clarissa Primary Care Unavailable James Kwok, Nenita Attending Unavailabl e Belkis Pacheco Consulting Unavailable Belkis Pacheco Referring Unavailable Berumen, Bella Referring Unavailable Berumen, Bella Attending Unavailable Ferullo, Clarissa Primary Care Unavailable Belkis Pacheco Consulting Unavailable Berumen, Bella Consulting Unavailable Kavya Diez Attending Unavailable Latisha Pierre Attending Unavailable Ferullo, Clarissa Referring Unavailable JONES, ERNESTO Primary Care Unavailable Kavya Diez Attending Unavailable Ferullo, Clarissa Referring Unavailable Sariah Cobb Attending Unavailable Sariah Cobb Attending Unavailable JONES, ENRESTO Primary Care Unavailable Ferullo, Clarissa Referring Unavailable Kirsten Rossi Referring Unavailable Ferullo, Clarissa Primary Care Unavailable EduardoKirsten Lawson Attending Unavailable Ferullo, Clarissa Primary Care Unavailable Belkis Pacheco Attending Unavailable Ferullo, Clarissa Referring Unavailable Medications Current Medications Medication Drug Class(es) Dates Sig (Normalized) Sig (Original) Lactobacillus Combination No.8 3 billion cell capsule (3 sources) Start: 02-20-2025 Lactobacillus Combination No.8 3 billion cell capsule Active NMA PO February 20, 2025 12:00am omega-3 acid ethyl esters (group home) 1000 mg oral capsule (2 sources) omega-3 acid eth yl esters (Lovaza) 1 g capsule Take 1 g by mouth daily. Active 27-1 MG tablet (2 sources) take 1 tablet by mouth once daily 27-1 MG tablet Take 1 tablet by mouth daily. Active Completed/Discontinued Medications Medication Drug Class(es) Dates Sig (Normalized) Sig (Original) acetaminophen 325 mg oral tablet (2 sources) Start: 12-14-2024 End: 12-16-2024 take 1 tablet by mouth every four hours as needed for pain 650 mg, Oral, Every 4 hours PRN, mild pain (1-3), Fever GREATER than 100.5 F (38 C), Starting on Thu12/14/24 at 1445, Maximum dose of acetaminophen is 4000 mg from all sources in 24 hours. aspirin 81 mg delayed release oral tablet (16 sources) Platelet Aggregation Inhibitor, Nonsteroidal Anti-inflammatory Drug Start: 12-14-2024 End: 12-16-2024 take 162 mg by mouth once daily 162 mg, Oral, Daily, First dose on Thu12/14/24 at 1515, Do not crush, chew, or split. Start: 12-13-2024 End: 02-20-2025 take 1 tablet by mouth once daily Aspirin 81 mg tablet,delayed release (DR/EC) Discontinued 81 mg PO DAILY December 13, 2024 12:00am February 20, 2025 10:51am calcium chloride 0.0014 meq/ml / potassium chloride 0.004 meq/ml / sodium chloride 0.103 meq/ml / sodium lactate 0.028 meq/ml injectable solution (2 sources) Start: 12-14-2024 End: 12-15-2024 take 75 mL intravenously every hour 75 mL/hr, IntraVENous, Continuous, Starting on Thu12/14/24 at 1600 cholecalciferol 0.125 mg oral capsule (13 sources) Vitamin D Start: 04-11-2024 End: 12-13-2024 take 1 capsule by mouth once daily Cholecalciferol (Vitamin D3) 125 mcg (5,000 unit) capsule Discontinued 125 ug PO DAILY April 11, 2024 12:00am December 13, 2024 10:30am dicloxacillin 500 mg oral capsule (3 sources) Penicillin-class Antibacterial Start: 01-28-2025 End: 02-02-2025 take 1 capsule by mouth every six hours Dicloxacillin 500 mg capsule Discontinued 500 mg PO EVERY 6 HOURS 20 5 0 January 28, 2025 12:00am February 01, 2025 12:00am February 02, 2025 12:10am doxylamine succinate 25 mg oral tablet (12 sources) Start: 12-13-2024 End: 12-20-2024 take 1 tablet by mouth at bedtime as needed Doxylamine Succinate (Unisom (Doxylamine)) 25 mg tablet Discontinued 25 mg PO AT BEDTIME as needed for sleep December 13, 2024 12:00am December 20, 2024 1:33pm takes 1/2 tab lidocaine 0.04 mg/mg medicated patch (2 sources) Antiarrhythmic, Amide Local Anesthetic Start: 12-14-2024 End: 12-16-2024 apply 1 dose transdermal route once daily, then apply 1 dose transdermal route every twelve hours 1 patch, TransDERmal, Administer over 12 Hours, Daily, First dose on Thu12/14/24 at 1615, Apply patch to affected area. Patch may remain in place for up to 12 hours in any 24 hour period. yonatan cedillo multivitamin (13 sources) Start: 02-01-2024 End: 12-13-2024 yonatan cedillo multivitamin Discontinued PO February 01, 2024 12:00am December 13, 2024 10:27am one daily in the AM Start: 02-01-2024 yonatan cedillo mult ivitamin Active PO January 31, 2024 11:00pm one daily in the AM Yonatan Cedillo Vitamin (13 sources) Start: 02-01-2024 End: 12-13-2024 Yonatan Cedillo Vitamin Discontinued PO February 01, 2024 12:00am December 13, 2024 10:27am one daily in the morning Start: 02-01-2024 Yonatan Cedillo Pren atal Vitamin Active PO January 31, 2024 11:00pm one daily in the morning medroxyPROGESTERone acetate 10 mg oral tablet (13 sources) Progestin Start: 04-27-2024 End: 05-07-2024 take 1 tablet by mouth once daily Medroxyprogesterone 10 mg tablet Discontinued 10 mg PO daily 10 10 0 April 27, 2024 12:00am May 06, 2024 12:00am May 07, 2024 12:08am metFORMIN hydrochloride 500 mg oral tablet (13 sources) Biguanide Start: 04-19-2024 End: 12-13-2024 take 1 tablet by mouth three times daily Metformin 500 mg tablet Discontinued 500 mg PO THREE TIMES A DAY 45 3 April 19, 2024 12:00am December 13, 2024 10:29am metroNIDAZOLE (1 source) Nitroimidazole Antimicrobial Start: 05-02-2025 End: 05-07-2025 Metronidazole 0.75 % (37.5mg/5 gram) gel Discontinued 1 NMA VAGINAL DAILY 70 5 0 May 02, 2025 12:00am May 06, 2025 12:00am May 07, 2025 12:08am multimineral Yonatan Cedillo (13 sources) Start: 02-01-2024 End: 12-13-2024 multimineral Yonatan Cedillo Discontinued PO February 01, 2024 12:00am December 13, 2024 10:27am one daily at night Start: 02-01-2024 multimineral Johan Cedillo Active PO January 31, 2024 11:00pm one daily at night [place] 3-Plt-Qrr-Fish Oil (Fi sh Oil) 900 mg-360 mg- 455 mg-1,000 mg capsule (12 sources) Start: 12-13-2024 End: 01-06-2025 [place] 7-Gie-Way-Fish Oil (Fi sh Oil) 900 mg-360 mg- 455 mg-1,000 mg capsule Discontinued 2 NMA PO DAILY December 13, 2024 12:00am January 06, 2025 10:29am Start: 12-13-2024 [place] 3-Dha-Ep a-Fish Oil (Fish Oil) 900 mg-360 mg- 455 mg- 1,000 mg capsule Active 2 NMA PO DAILY December 13, 2024 12:00am ondansetron ODT (Zofran-ODT) disintegrating tablet 4 mg (2 sources) Start: 12-14-2024 End: 12-16-2024 take 1 tablet by mouth every eight hours as needed for nausea and vomiting ondansetron ODT (Zofran-ODT) disintegrating tablet 4 mg Pnv Cmb#95-Ferrous Fumarate-Fa ( Formula) 28 mg iron- 800 mcg tablet (12 sources) Start: 12-13-2024 End: 02-20-2025 Pnv Cmb#95-Ferrous Fumarate-Fa ( Formula) 28 mg iron- 800 mcg tablet Discontinued 1 {tbl} PO DAILY December 13, 2024 12:00am February 20, 2025 10:51am Start: 12-13-2024 End: 02-20-2025 Pnv Cmb#95-Ferrous Fumarate- Fa ( Formula) 28 mg iron- 800 mcg tablet Discontinued 1 {tbl} PO DAILY December 13, 2024 12:00am February 20, 2025 10:51am Start: 12-13-2024 Pnv Cmb#95-Leanna ina Fumarate-Fa ( Formula) 28 mg iron- 800 mcg tablet Active 1 {tbl} PO DAILY December 13, 2024 12:00am vitamin tablet (2 sources) Start: 12-14-2024 End: 12-16-2024 take 1 tablet by mouth once daily 1 tablet, Oral, Daily, First dose on Thu12/14/24 at 1515 promethazine hydrochloride 12.5 mg oral tablet (13 sources) Phenothiazine Start: 07-20-2024 End: 12-13-2024 take 1 tablet by mouth every six hours as needed for nausea and vomiting Promethazine 12.5 mg tablet Discontinued 12.5 mg PO EVERY 6 HOURS as needed for nausea and vomiting 30 July 20, 2024 12:00am December 13, 2024 10:28am rifAXIMin 550 mg oral tablet (13 sources) Rifamycin Antibacterial Start: 07-15-2024 End: 08-29-2024 take 1 tablet by mouth three times daily Rifaximin 550 mg tablet Discontinued 550 mg PO THREE TIMES A DAY 42 July 15, 2024 12:00am August 29, 2024 2:44pm IBS-D 5 ml sodium chloride 9 mg/ml injection (6 sources) Start: 12-14-2024 End: 12-16-2024 10 mL, IntraVENous, Every 12 hours scheduled (2 times per day), First dose on Thu12/14/24 at 2100 Start: 12-14-2024 End: 12-16-2024 Start: 12-14-2024 End: 12-16-2024 Problems Active Problems Problem Classification Problem Date Documented Da te Episodic/Chronic Abdominal pain (1 source) Upper abdominal pain, unspecified; Translations: [Upper abdominal pain, unspecified] Onset: 06-28-2025 Episodic Acute and chronic tonsillitis (1 source) Chronic tonsillitis Onset: 09-16-2017 Chronic Menstrual disorders (13 sources) Irregular periods; Translations: [Irregular menstruation, unspecified] 07-04-2024 Chronic Other circulatory disease (20 sources) Elevated blood-pressure reading without diagnosis of hypertension; Translations: [Elevated blood-pressure reading, without diagnosis of hypertension] 11-15-2024 Episodic Comment on above: 10/24/24 Pre E labs n l Other complications of (20 sources) Maternal obesity complicating , childbirth and the puerperium, antepartum; Translations: [Obesity complicating , unspecified trimester] 11-15-2024 Chronic Comment on above: BMI [address] an weekly NSTs after 34 and growth US 32 and 36. Other complications of (2 sources) Obesity complicating , unspecified trimester; Translations: [Obesity complicating , unspecified trimester] Onset: 10-24-2024 Chronic Other complications of (2 sources) Obesity complicating , third trimester; Translations: [Obesity complicating , third trimester] Onset: 01-02-2025 Chronic Other complications of (20 sources) High risk ; Translations: [Supervision of high risk , unspecified, unspecified trimester] 11-15-2024 Episodic Comment on above: PRR, , ALAYNA 02/04, Soraida Other complications of (20 sources) data - finding; Translations: [Unspecified abnormal findings on screening of mother] 12-20-2024 Episodic Comment on above: bpp 4/8- admit over night for continuous monitoring and repeat the bpp in the morning. RAMSEY now 7 initial bpp 6/10 no 8/10 2 off for breathing, reassuring tracing overnight initial bpp 6/10 no 8/10 2 off for breathing, reassuring tracing. plans iol tomorrow. Other endocrine disorders (13 sources) Polycystic ovary syndrome; Translations: [Polycystic ovarian syndrome] 08-04-2024 Chronic Other female genital disorders (2 sources) Vaginal odor; Translations: [Other specified noninflammatory disorders of vagina] 05-02-2025 Episodic Other female genital disorders (1 source) Other specified noninflammatory disorders of vagina; Translations: [Other specified noninflammatory disorders of vagina] Onset: 05-08-2025 Episodic Other gastrointestinal disorders (13 sources) Irritable bowel syndrome with diarrhea; Translations: [Irritable bowel syndrome with diarrhea] 08-04-2024 Chronic Other gastrointestinal disorders (13 sources) Irritable bowel syndrome; Translations: [Irritable bowel syndrome without diarrhea] 08-04-2024 Chronic Comment on above: diarrhea, food rando m diarrhea couple times a daycramping Other gastrointestinal disorders (1 source) Irritable bowel syndrome with diarrhea; Translations: [Irritable bowel syndrome with diarrhea] Onset: 07-15-2024 Chronic Other nutritional; endocrine; and metabolic disorders (13 sources) Obesity; Translations: [Obesity, unspecified] 06-28-2024 Chronic Other skin disorders (13 sources) Loss of hair; Translations: [Nonscarring hair loss, unspecified] 08-04-2024 Episodic Residual codes; unclassified (13 sources) Family history of breast cancer; Translations: [Family history of malignant neoplasm of breast] 08-04-2024 Episodic Comment on above: Paternal Grandmother Unclassified (1 source) Unknown / UNK(Unknown) Onset: 09-16-2017 Past or Other Problems Problem Classification Problem Date Documented Da te Episodic/Chronic Diabetes or abnormal glucose tolerance complicating ; childbirth; or the puerperium (20 sources) Impaired glucose tolerance in ; Translations: [Abnormal glucose complicating ] Onset: 01-02-2025 11-21-2024 Episodic Comment on above: nl 3 hour Other circulatory disease (2 sources) Elevated blood-pressure reading, without diagnosis of hypertension; Translations: [Elevated blood-pressure reading, without diagnosis of hypertension] Onset: 01-02-2025 Episodic Other complications of (2 sources) Supervision of high risk , unspecified, third trimester; Translations: [Supervision of high risk , unspecified, third trimester] Onset: 12-30-2024 Episodic Other complications of (2 sources) Unspecified abnormal findings on screening of mother; Translations: [Unspecified abnormal findings on screening of mother] Onset: 12-30-2024 Episodic Other complications of (1 source) Other abnormal findings on screening of mother; Translations: [Other abnormal findings on screening of mother] Onset: 01-13-2025 Episodic Other complications of (1 source) Supervision of high risk , unspecified, unspecified trimester; Translations: [Supervision of high risk , unspecified, unspecified trimester] Onset: 11-30-2024 Episodic Other complications of (1 source) Other specified related conditions, unspecified trimester; Translations: [Other specified related conditions, unspecified trimester] Onset: 11-13-2024 Episodic Other complications of (1 source) Diseases of the digestive system complicating , unspecified trimester; Translations: [Diseases of the digestive system complicating , unspecified trimester] Onset: 08-21-2024 Episodic Other and delivery including normal (20 sources) Early stage of ; Translations: [Encounter for supervision of normal , unspecified, unspecified trimester] Onset: 10-20-2024 06-21-2024 Episodic Comment on above: LMP 04/30/24. HCG shelby nt today. Rpt 1 week when returns from vacation discussed NIPT, ntd, & carrier testing- declined. nl anatomy cytotec, plan modi bulb/pit once able KW IOL 36[facility] Polyhydramnios and other problems of amniotic cavity (20 sources) Oligohydramnios; Translations: [Oligohydramnios, third trimester, not applicable or unspecified] Onset: 12-14-2024 12-15-2024 Episodic Comment on above: deliver at 36 weeks Residual codes; unclassified (1 source) 35 weeks gestation of ; Translations: [35 weeks gestation of ] Onset: 01-18-2025 Episodic Residual codes; unclassified (1 source) 34 weeks gestation of ; Translations: [34 weeks gestation of ] Onset: 12-30-2024 Episodic Residual codes; unclassified (1 source) 32 weeks gestation of ; Translations: [32 weeks gestation of ] Onset: 01-02-2025 Episodic Residual codes; unclassified (1 source) 30 weeks gestation of ; Translations: [30 weeks gestation of ] Onset: 12-02-2024 Episodic Residual codes; unclassified (1 source) 25 weeks gestation of ; Translations: [25 weeks gestation of ] Onset: 10-24-2024 Episodic Residual codes; unclassified (1 source) 21 weeks gestation of ; Translations: [21 weeks gestation of ] Onset: 09-26-2024 Episodic Residual codes; unclassified (1 source) 17 weeks gestation of ; Translations: [17 weeks gestation of ] Onset: 08-29-2024 Episodic Results Test Name Value Interpretation Reference Range Facility Genital Culture Comprehensiv ramos 05-04-2025 VAC Reason for Exam: vag inal discharge No yeast, Neisseria or beta-hemolytic Streptococcus isolated. G. vaginalis (Presumptive) Amount Growth 3+ Normal [facility] Comment on above: Performed By: #### M 100.3200, M100.1999 ####[facility] [id number] [place], [place], [id number] Genital cultureOrdered By: Johan Diez on 05-02-2025 Source specific culture G. vaginalis (Presumptive) Abnormal [facility] Gram Stainon 05-02-2025 GS Reason for Exam: vag inal discharge Gram Stain 4+ Gram variable marino No Gram negative diplococci 1+ Clue Cells Score = 8 Interpretation: 0-3 Normal, 4-6 Intermediate, 7-10 Positive BV Normal [facility] Comment on above: Performed By: #### M 100.3200, M100.1999 ####[facility] [id number] 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 Spec OB SEE PATHOLOGY REPORT Normal [facility] Comment on above: Order Comment: Inter face Comments:Placenta to lab for studiesSend Results To: LabSend Specimen For (Specify): Studies @ [facility] Lab:RoutineTime of Procedure: 1540Date of Procedure: 01/09/25Reason specimen being sent to pathology (Hx/complications):oligohydramniosType of specimen: PlacentaType of procedure performed: Other Result Comment: Spec imen submitted to Anatomical Pathology Department fortesting. Performed By: #### L 350.1800 ####[facility] [address] [place], [place], [phone] Surgery Specimen Level Von 0 01-09-2025 Surgery Specimen Level V Normal [facility] Comment on above: Performed By: #### P SUV ####[facility] [address] [place], [place], [phone] H AND P Exam - OB/GYNon -0 H&P Exam - SUPERANNUATION CLERK Normal [facility] Absolute lymphocyte countOrd ered By: Bella Berumen on 01-07-2025 Lymphocytes Auto (Unsp spec) [#/Vol] 2.61 10*3/uL 0.83-4.51 [facility] Absolute neutrophil countOrd ered By: Bellaivy Berumen on 01-07-2025 Neutrophils (Bld) [#/Vol] 8.2 10*3/uL High 2.0-7.7 [facility] Automated lymphocyte count a s percentage of total leukocytesOrdered By: Bella Berumen on 01-07-2025 Lymphocytes/100 WBC Auto (Unsp spec) 21.6 % 19-41 [facility] Basophil percentageOrdered B y: Bella Berumen on 01-07-2025 Basophils/100 WBC (Bld) 0.3 % 0-1 [facility] CBC W/Diff, Automatedon -0 PLT EST ADEQUATE Normal ADEQ [facility] Comment on above: Performed By: #### L 100.0100, BTS ####[facility] [address] [place], [place], [phone] RED CELL MORPH NORM C+C Normal NORM C C [facility] Comment on above: Performed By: #### L 100.0100, BTS ####[facility] [address] [place], [address] Eosinophil percentageOrdered By: Bella Berumen on 01-07-2025 Eosinophils/100 WBC (Bld) 1.9 % 0-5 [facility] Erythrocyte distribution wid th (RBC) [Ratio]Ordered By: Bella Berumen on 01-07-2025 Erythrocyte distribution width (RBC) [Entitic vol] 40.1 fL 35.1-43.9 [facility] Erythrocyte distribution wid th ratioOrdered By: Bella Berumen on 01-07-2025 Erythrocyte distribution width (RBC) [Ratio] 13.2 % 11.6-14.6 [facility] Erythrocyte distribution wid th standard deviationOrdered By: Bella Berumen on 01-07-2025 Erythrocyte distribution width (RBC) [Ratio] 40.1 fl 35.1-43.9 [facility] Erythrocyte morphology asses smentOrdered By: Bella Berumen on 01-07-2025 RBC morphology finding Nom (Bld) NORM C+C NORMAL NORM C&C [facility] Hematocrit Auto (Bld) [Volum e fraction]Ordered By: Bella Berumen on 01-07-2025 Hematocrit (Bld) [Volume fraction] 35.0 % Low 37-47 [facility] Hemoglobin measurementOrdere d By: Bella Berumen on 01-07-2025 Hemoglobin (Bld) [Mass/Vol] 11.7 g/dL Low 12.0-15.0 [facility] Immature granulocytes/100 WB C Auto (Bld)Ordered By: Bella Berumen on 01-07-2025 Immature granulocytes/100 WBC (Bld) 1.000 % High 0.0-0.9 [facility] Comment on above: IG% - Immature Granu locytes (promyelocytes, myelocytes and metamyelocytes) > 1% indicates that a LEFT SHIFT is Present. Lymphocytes Auto (Unsp spec) [#/Vol]Ordered By: Bella Berumen on 01-07-2025 Lymphocytes (Bld) [#/Vol] 2.61 10*3/uL 0.83-4.51 [facility] Lymphocytes/100 WBC Auto (Un sp spec)Ordered By: Bella Berumen on 01-07-2025 Lymphocytes/100 WBC (Bld) 21.6 % 19-41 [facility] MCV (mean corpuscular volume ) determinationOrdered By: Bella Berumen on 01-07-2025 MCV (RBC) [Entitic vol] 84.3 fL 81-99 [facility] Mean corpuscular hemoglobin (MCH) determinationOrdered By: Bella Berumen on 01-07-2025 MCH (RBC) [Entitic mass] 28.2 pg 27.0-32.0 [facility] Mean corpuscular hemoglobin concentration (MCHC) determinationOrdered By: Bella Berumen on 01-07-2025 MCHC (RBC) [Mass/Vol] 33.4 g/dL 32-36 [facility] Mean platelet volume determi nationOrdered By: Bella Berumen on 01-07-2025 Platelet mean volume (Bld) [Entitic vol] 12.4 fL High 6.2-12.0 [facility] Monocyte percentageOrdered B y: Bella Berumen on 01-07-2025 Monocytes/100 WBC (Bld) 7.6 % 0-10 [facility] Neutrophil percentageOrdered By: Bella Berumen on 01-07-2025 Neutrophils/100 WBC (Bld) 67.6 % 47-70 [facility] Nucleated red blood cell per centageOrdered By: Bella Berumen on 01-07-2025 Nucleated RBC/100 WBC (Bld) [Ratio] 0 % 0-5 [facility] Platelet countOrdered By: Sarah Berumen on 01-07-2025 Platelets (Bld) [#/Vol] 173 10*3/uL 150-450 [facility] Platelet estimateOrdered By: Bella Berumen on 01-07-2025 Platelets LM Ql (Bld) ADEQUATE ADEQ [facility] Platelets LM Ql (Bld)Ordered By: Bella Berumen on 01-07-2025 Platelet Estimate [facility] RBC Auto (Bld) [#/Vol]Ordere d By: Bella Berumen on 01-07-2025 RBC (Bld) [#/Vol] 4.15 10*6/uL Low 4.2-5.[address] [facility] RBC morphology finding Nom ( Bld)Ordered By: Bella Berumen on 01-07-2025 Red Blood Cell Morphology NORM C+C NORMAL NORM C&C [facility] Syphilis Antibodieson 2024 Syphilis Abs Non-Reactive Normal Nonreactive [facility] Comment on above: Performed By: #### L 509.8002 ####[facility] [address] [place], [place], [phone] T. pallidum abOrdered By: Sarah Berumen on 01-07-2025 Syphilis Total Antibody Non-Reactive Nonreactive [facility] Type AND Screenon 01-07-2025 Ab SCREEN GEL Negative Normal [facility] Comment on above: Order Comment: Labor Performed By: #### L 100.0100, BTS ####[facility] [address] [place], [place], [phone] White blood cell (WBC) count Ordered By: Bella Berumen on 01-07-2025 WBC (Bld) [#/Vol] 12.1 10*3/uL High 4.4-11.[address] [facility] Biophysical Prof W/O Non Str eson 01-06-2025 Biophysical Prof W/O Non Stres Normal [facility] OB Triage Physician Noteon 0 01-06-2025 OB Triage Physician Note Normal [facility] Biophysical Prof W/O Non Str eson 01-03-2025 Biophysical Prof W/O Non Stres Normal [facility] Laboratory - Chemistry and C hemistry - challengeOrdered By: Sariah Cobb on 01-02-2025 Glucose Ql (U) Negative [facility] Laboratory - UrinalysisOrder ed By: Sariah Cobb on 01-02-2025 Protein Ql (U) Negative [facility] [employer]aire[employer] Office Visit Reporton 01-02-2025 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 B) on 01-02-2025 ANGELITA Group B Beta Streptococcus is not isolated. Normal [facility] Comment on above: Performed By: #### M 100.3400 ####[facility] [address] 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 [facility] Group B Streptococcus Culture Group B Beta Streptococcus is not isolated. 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 Office Visit Report Normal [facility] Biophysical Prof W/O Non Str eson 12-27-2024 Biophysical Prof W/O Non Stres Normal [facility] OB Triage Physician Noteon 0 12-27-2024 OB Triage Physician Note Normal [facility] Biophysical Prof W/O Non Str eson 12-23-2024 Biophysical Prof W/O Non Stres Normal [facility] Biophysical Prof W/O Non Str eson 12-21-2024 Biophysical Prof W/O Non Stres Normal [facility] OB Triage Physician Noteon 0 12-21-2024 OB Triage Physician Note Normal [facility] Biophysical Prof W/O Non Str eson 12-20-2024 Biophysical Prof W/O Non Stres Normal [facility] OB Triage Physician Noteon 0 12-20-2024 OB Triage Physician Note Normal [facility] Bacteria identified Cx Nom ( U)Ordered By: Batsheva Melgar on 12-16-2024 Interpretation and review of laboratory results Normal [facility] Biophysical profile.anthony dy movement USon 12-16-2024 1. Tse live intrauterine at 32w 6d. 2. The amniotic fluid index is 5.7cm, which is within normal limits. 3. [facility] 05/12. RECOMMENDATIONS Follow up as clinically indicated. Ultrasound is not diagnostic for aneuploidy and will not detect all structural abnormalities, even if multiple exams are performed during a given . Normal ultrasound findings do not guarantee normal outcomes. [facility] OBSTETRICS REPORT (Signed Final 12/16/2024 02:07 pm) PATIENT INFO: ID #: [id number] : [birth year] (29 yrs)(F) Name: BALTAZAR BLANCO Visit Date: 12/16/2024 09:00 am PERFORMED BY: Attending: Vianca Howell DO FACOG Performed By: Tracey Burk Referred By: THELMA TA DO Location: [facility] IP Visit Type: Inpatient - Hospital SERVICE(S) PROVIDED: RUBÉN w/damaris NST 87288 INDICATIONS: Oligohydramnios Obesity VITAL SIGNS: Weight (lb): 309 Height: 5'11 BMI: 43.09 EVALUATION: Num Of Fetuses: 1 Heart Rate(bpm): 163 Cardiac Activity: Regular rhythm Lie: Longitudinal Presentation: Cephalic Placenta: Anterior Amniotic Fluid RAMSEY FV: Within normal limits RAMSEY Sum(cm) %Tile Largest Pocket(cm) 5.7 < 3 3.2 RUQ(cm) RLQ(cm) LUQ(cm) LLQ(cm) 3.2 2.5 0 0 Comment: 2x2 present BIOPHYSICAL EVALUATION: Amniotic F.V: Within normal limits F. Tone: Observed F. Movement: Observed Score: 05/12 F. Breathing: Observed BIOMETRY: GESTATIONAL AGE: Clinical ALAYNA: 32w 6d ALAYNA: 02/04/25 Best: 32w 6d Det. By: Clinical ALAYNA ALAYNA: 02/04/25 Vianca Howell DO, FACOG Electronically Signed Final Report 12/16/2024 02:07 pm [facility] Vianca Howell DO - 12/16/2024 OBSTETRICS REPORT (Signed Final 12/16/2024 02:07 pm) PATIENT INFO: ID #: [id number] : [birth year] (29 yrs)(F) Name: BALTAZAR BLNACO Visit Date: 12/16/2024 09:00 am PERFORMED BY: Attending: Vianca Howell DO, FACOG Performed By: Tracey Burk Referred By: THELMA TA DO Location: [facility] IP Visit Type: Inpatient - Hospital SERVICE(S) PROVIDED: RUBÉN w/out NST 91506 INDICATIONS: Oligohydramnios Obesity VITAL SIGNS: Weight (lb): 309 Height: 5'11 BMI: 43.09 EVALUATION: Num Of Fetuses: 1 Heart Rate(bpm): 163 Cardiac Activity: Regular rhythm Lie: Longitudinal Presentation: Cephalic Placenta: Anterior Amniotic Fluid RAMSEY FV: Within normal limits RAMSEY Sum(cm) %Tile Largest Pocket(cm) 5.7 < 3 3.2 RUQ(cm) RLQ(cm) LUQ(cm) LLQ(cm) 3.2 2.5 0 0 Comment: 2x2 present BIOPHYSICAL EVALUATION: Amniotic F.V: Within normal limits F. Tone: Observed F. Movement: Observed Score: 8/8 F. Breathing: Observed BIOMETRY: GESTATIONAL AGE: Clinical ALAYNA: 32w 6d ALAYNA: 02/04/25 Best: 32w 6d Det. By: Clinical ALAYNA ALAYNA: 02/04/25 Vianca Howell DO, FACOG Electronically Signed Final Report 12/16/2024 02:07 pm IMPRESSION: 1. Tse live intrauterine at 32w 6d. 2. The amniotic fluid index is 5.7cm, which is within normal limits. 3. [facility] 05/12. RECOMMENDATIONS Follow up as clinically indicated. Ultrasound is not diagnostic for aneuploidy and will not detect all structural abnormalities, even if multiple exams are performed during a given . Normal ultrasound findings do not guarantee normal outcomes. [facility] Radiology Study observation (narrative) [facility] Laboratory - Microbiology an d Antimicrobial susceptibilityOrdered By: Batsheva Melgar on 12-16-2024 Bacteria identified Cx Nom (U) Normal urogenital sriram present [facility] Progress Noteon 12-16-2024 Progress Note Nutrition rescreen completed. Chart reviewed. Patient to be monitored and followed by the diet orthotics technician. MICHELLE Dinero Normal [facility] Progress Note ----- ----- Attestation signed by Vianca Howell DO at 12/16/2024 4:42 PM Hospital Care (Present): I was present with the [facility] resident during my history and exam. I discussed the case with the resident and agree with the findings and plan as documented in the resident's note. 29 y.o. yo at 32w6d hospital day 2 with: Patient Active Problem List Diagnosis Oligohydramnios, third trimester, not applicable or unspecified Hx CHTN, one mild range since admission, the rest were <140/90. Medication not indicated at this time. Improved RAMSEY 5.7cm, DVP 3.2cm. FHR tracing reassuring. Recommend outpt management with twice weekly testing including RAMSEY, daily kick counts. Return precautions reviewed (DVP < 2cm, LOF, VB, decreased movement). Chart review and preparation: 10 minutes. Face to face: 10 minutes. Documentation and care coordination: 10 minutes. Total time spent on patient care today: 30 minutes. ----- Maternal Medicine Service Resident Progress Note 12/16/2024 6:30 AM 12/14/2024 Hospital Day: 3 Baltazar Muhammadadelaida, 29 y.o. 32w6d Patient has been seen and examined. Pt doing well with no complaints this am. Positive movement Positive vaginal bleeding Positive LOF Negative Contractions Vitals: 12/15/24 0900 12/15/24 1212 12/15/24 1617 12/15/242021 BP: 129/61 115/62 122/71 Pulse: 80 98 80 83 Resp: 18 18 17 Temp: 36.6 ?C (97.8 ?F) 36.3 ?C (97.4 ?F) 36.7 ?C (98 ?F) TempSrc: Temporal Temporal Oral SpO2: 97% 97% Weight: Height: FHT: 150, moderate variability Accels: present Decels: absent Contractions: none Physical Exam: Gen: NAD, resting comfortably in bed HEENT: Normocephalic, Atraumatic Resp: No increased WOB, no respiratory distress Card: Regular rate Medications: Current Facility-Administered Medications Medication Dose Route Frequency Provider Last Rate Last Admin acetaminophen (Tylenol) tablet 650 mg 650 mg Oral q4h PRN Lucy Eller DO 650 mg at 12/14/24 1628 aspirin EC tablet 162 mg 162 mg Oral Daily Lucy Nwagwu, DO 162 mg at 12/15/24927 Lidocaine 4 % patch 1 patch 1 patch TransDERmal Daily Lucy Nwagwu, DO 1 patch at 12/15/24927 ondansetron ODT (Zofran-ODT) disintegrating tablet 4 mg 4 mg Oral q8h PRN Lucy Artwu, DO Or ondansetron (Zofran) injection 4 mg 4 mg IntraVENous q6h PRN Lucy Artwu, DO vitamin tablet 1 tablet Oral Daily Lucy Nwagwu, DO 1 tablet at 12/15/24927 sodium chloride 0.9 % infusion 5-250 mL/hr IntraVENous PRN Lucy Artwu, DO sodium chloride 0.9% (NS) flush 10 mL 10 mL IntraVENous 2 times per day Lucy Srinivasanu, DO 10 mL at 12/15/242021 sodium chloride 0.9% (NS) flush 10 mL 10 mL IntraVENous PRN Lucy Artwu, DO Assessment/Plan: Baltazar Blanco is a 29 y.o. female 32w6d Oligohydramnios - Transported from OSH secondary to new onset oligohydramnios - Patient was noted to have RAMSEY of 4.0 with negative ROM exam on 12/13 - Patient then had repeat RAMSEY 12/14 noted to have RAMSEY 2.6cm - Growth (12/13): 1795g +/- 269g , RAMSEY 4.3 - BPP (12/14): BPP 6/8 off for fluid. RAMSEY 4.8; Repeat RAMSEY 2.6cm - Repeat ROM exam in triage noted to be negative for pooling, ferning, and nitrazine - Patient admitted for Oligohydramnios - Growth/Anatomy/BPP (12/15): 1893 gm 4 lb 3 oz 38 % 46%, RAMSEY 4.9, DVP 2.8cm - S/P BMZ for lung protection on 12/13-12/14 - Plan for repeat RAMSEY this AM - Monitoring 1hr TID - NICU consult placed cHTN - Several elevated Bps upon review of appt before 20 weeks - BP mild range on 12/13 - Baseline PreE labs obtained on 12/13 WNL - PReE labs negative on admission - BP NT overnight - Asymptomatic Abnormal Glucose - Failed 1 hr, passed 3 hr Hx PCOS - Was on metformin, currently not taking Asthma - Childhood - No history of hospitalizations or intubations Maternal Obesity - BMI 42 - SCDs ordered IUP @ 32w6d - Dating by 9w2 US - Cephalic on 12/14 - Monitoring:CEFM - Diet:General - BMZ x2 on 12/12 - 12/13 Further plan pending d/w attending. Lucy Eller DO 12/16/2024, 6:30 AM [facility] BIOP[facility]ICAL PROFILE WO NON STRESS TESTINGon 12-16-2024 US BIOPHYSICAL PROFILE WO NON STRESS TESTING OBSTETRICS REPORT (Signed Final 12/16/2024 02:07 pm) PATIENT INFO: ID #: [id number] : [birth year] (29 yrs)(F) Name: BATLAZAR BLANCO Visit Date: 12/16/2024 09:00 am PERFORMED BY: Attending: Vianca Howell DO FACOG Performed By: Tracey Burk Referred By: THELMA TA DO Location: [facility] IP Visit Type: Inpatient - Hospital SERVICE(S) PROVIDED: RUBÉN w/out NST 35664 INDICATIONS: Oligohydramnios Obesity VITAL SIGNS: Weight (lb): 309 Height: 5'11 BMI: 43.09 EVALUATION: Num Of Fetuses: 1 Heart Rate(bpm): 163 Cardiac Activity: Regular rhythm Lie: Longitudinal Presentation: Cephalic Placenta: Anterior Amniotic Fluid RAMSEY FV: Within normal limits RAMSEY Sum(cm) %Tile Largest Pocket(cm) 5.7 < 3 3.2 RUQ(cm) RLQ(cm) LUQ(cm) LLQ(cm) 3.2 2.5 0 0 Comment: 2x2 present BIOPHYSICAL EVALUATION: Amniotic F.V: Within normal limits F. Tone: Observed F. Movement: Observed Score: 8/8 F. Breathing: Observed BIOMETRY: GESTATIONAL AGE: Clinical ALAYNA: 32w 6d ALAYNA: 02/04/25 Best: 32w 6d Det. By: Clinical ALAYNA ALAYNA: 02/04/25 Vianca Howell DO, FACOG Electronically Signed Final Report 12/16/2024 02:07 pm IMPRESSION: 1. Tse live intrauterine at 32w 6d. 2. The amniotic fluid index is 5.7cm, which is within normal limits. 3. [facility] 05/12. RECOMMENDATIONS Follow up as clinically indicated. Ultrasound is not diagnostic for aneuploidy and will not detect all structural abnormalities, even if multiple exams are performed during a given . Normal ultrasound findings do not guarantee normal outcomes. Normal [facility] [id number] 12-15-2024 [id number] Date: 12/15/2024 Name: Baltazar Blanco : 1995 [facility] Information [place] Patient Information Primary Caregiver: Self Accompanied by/Relationship: S/O;Family Marital Status: Support System: SO/Family Muslim/Cultural Factors: Yarsani Activities of Daily Living Communication: See demographics Living Arrangements Current Residence: Private residence Lives With: S/O; Family Support System: S/O; Family Income Information Income Source: Employed Financial Resource Strain How hard is it for you to pay for the very basics like food, housing, medical care and heating? N/A Housing Stability In the last 12 months, was there a time when you did not have a steady place to sleep or slept in a custodial (including now)? No Transportation Needs Has the lack of Transportation kept you from medical appointments? No In the past 12 months, has the lack of transportation kept you from meetings, work, or from getting things needed for daily living? No Food Insecurity Within the past 12 months, have you worried that your food would run out before you got the money to buy more? No Stress Do you feel stress - tense, restless, nervous, or anxious, or unable to sleep at night because you mind is troubled all the time? Mood stable Referral To Financial Resources: N/A Community Resources: PNU folder given upon admission to PNU Unit Social Work: N/A CLP: N/A Medical Information 29 year old admitted for oligohydramnios at 32/4 weeks. Transport Chronic hypertension Discharge Plan Home or Community Resources: PNU Admission folder given upon admission to unit Equipment: N/A Education Given: PNU admit folder and see Education Tab Additional Information: N/A Mental Health Services: N/A Developmental Delay: N/A Children's Services: N/A [facility] No Panel Informationon 12-15 1. Tse live intrauterine at 32w 5d. 2. The estimated weight (EFW) is 1893 grams, which is at the 38% for this gestational age. The AC measures at 46%. Normal HC within 2SD of the mean. 3. Oligohydramnios with amniotic fluid index of 4.9cm. Normal DVP 2.8cm. 4. BPP 8/8 . RECOMMENDATIONS See inpatient chart. Repeat RAMSEY tomorrow. Ultrasound is not diagnostic for aneuploidy and will not detect all structural abnormalities, even if multiple exams are performed during a given . Normal ultrasound findings do not guarantee normal outcomes. [facility] OBSTETRICS REPORT (Signed Final 12/15/2024 11:16 am) PATIENT INFO: ID #: [id number] : [birth year] (29 yrs)(F) Name: BALTAZAR BLANCO Visit Date: 12/15/2024 09:50 am PERFORMED BY: Attending: Vianca Howell DO FACOG Performed By: Bhavya Howell RDNJ Referred By: THELMA TA DO Location: [facility] IP Visit Type: Inpatient - Hospital SERVICE(S) PROVIDED: US Level II complete (Targeted OB) 24713 BPP w/out NST 47835 INDICATIONS: Oligohydramnios, third trimester O41.03X0 Maternal obesity, third trimester O99.213 VITAL SIGNS: Weight (lb): 309 Height: 5'11 BMI: 43.09 EVALUATION: Num Of Fetuses: 1 Heart Rate(bpm): 147 Cardiac Activity: Regular rhythm Lie: Longitudinal Presentation: Cephalic Placenta: Anterior Amniotic Fluid RAMSEY FV: Oligohydramnios RAMSEY Sum(cm) %Tile Largest Pocket(cm) 4.9 < 3 2.8 RUQ(cm) RLQ(cm) LUQ(cm) LLQ(cm) 0 2.8 0 2.1 BIOPHYSICAL EVALUATION: Amniotic F.V: Within normal limits F. Tone: Observed F. Movement: Observed Score: 05/12 F. Breathing: Observed BIOMETRY: BPD: 74.7 mm G.Age: 30w 0d < 1 % OFD: 103.1 mm HC: 284.1 mm G.Age: 31w 1d 1 % AC: 285.6 mm G.Age: 32w 4d 46 % FL: 61.9 mm G.Age: 32w 1d 22 % HUM: 56.6 mm G.Age: 32w 6d 60 % LV: 5.87 mm TIB: 56.6 mm G.Age: 33w 1d 68 % CI: 72.5 % 70 - 86 FL/HC: 21.8 % 19.9 - 21.5 HC/AC: 0.99 0.96 - 1.11 FL/BPD: 82.9 % 71 - 87 FL/AC: 21.7 % 20 - 24 Est. FW: 1893 gm 4 lb 3 oz 38 % GESTATIONAL AGE: Clinical ALAYNA: 32w 5d ALAYNA: 02/04/25 U/S Today: 31w 3d ALAYNA: 02/13/25 Best: 32w 5d Det. By: Clinical ALAYNA ALAYNA: 02/04/25 TARGETED ANATOMY: Central Nervous System Calvarium/Cranial V.: Normal appearance Intracranial Alexsandra: Normal appearance Cavum: Normal appearance Parenchyma: Normal appearance Lateral Ventricles: Normal appearance Choroid Plexus: Normal appearance Cereb./Vermis: Normal appearance Cisterna Magna: Normal appearance Corpus Callosum: Normal appearance Midline Falx: Normal appearance Spine Cervical: Suboptimal views Thoracic: Suboptimal views Lumbar: Suboptimal views Sacral: Suboptimal views Shape/Curvature: Suboptimal views Head/Neck Face: Normal appearance Lips: Suboptimal views Neck: Suboptimal views Nuchal Fold: Suboptimal views Nasal Bone: Suboptimal views Palate: Suboptimal views Profile: Suboptimal views Orbits/Eyes: Normal appearance Mandible: Suboptimal views Maxilla: Suboptimal views Thorax Thoracic Contour: Normal appearance Lungs: Normal appearance 4 Chamber View: Suboptimal views Cardiac Activity: Normal Cardiac Rhythm: Normal Cardiac Situs: Normal appearance Rt Outflow Tract: Normal appearance Lt Outflow Tract: Normal appearance Aortic Arch: Suboptimal views Ductal Arch: Suboptimal views SVC: Suboptimal Views Interventr. Septum: Suboptimal views Cardiac Ridott: Suboptimal views Diaphragm: Normal appearance 3 Vessel View: Suboptimal views 3 V Trachea View: Suboptimal views IVC: (more content not included)... [facility] Vianca Howell DO - 12/15/2024 OBSTETRICS REPORT (Signed Final 12/15/2024 11:16 am) PATIENT INFO: ID #: [id number] : [birth year] (29 yrs)(F) Name: BALTAZAR BLANCO Visit Date: 12/15/2024 09:50 am PERFORMED BY: Attending: Vianca Howell DO, FACOG Performed By: Bhavya Howell RDMS Referred By: THELMA TA DO Location: [facility] IP Visit Type: Inpatient - Hospital SERVICE(S) PROVIDED: Level II complete (Targeted OB) 66421 BPP w/out NST 04673 INDICATIONS: Oligohydramnios, third trimester O41.03X0 Maternal obesity, third trimester O99.213 VITAL SIGNS: Weight (lb): 309 Height: 5'11 BMI: 43.09 EVALUATION: Num Of Fetuses: 1 Heart Rate(bpm): 147 Cardiac Activity: Regular rhythm Lie: Longitudinal Presentation: Cephalic Placenta: Anterior Amniotic Fluid RAMSEY FV: Oligohydramnios RAMSEY Sum(cm) %Tile Largest Pocket(cm) 4.9 < 3 2.8 RUQ(cm) RLQ(cm) LUQ(cm) LLQ(cm) 0 2.8 0 2.1 BIOPHYSICAL EVALUATION: Amniotic F.V: Within normal limits F. Tone: Observed F. Movement: Observed Score: 8/8 F. Breathing: Observed BIOMETRY: BPD: 74.7 mm G.Age: 30w 0d < 1 % OFD: 103.1 mm HC: 284.1 mm G.Age: 31w 1d 1 % AC: 285.6 mm G.Age: 32w 4d 46 % FL: 61.9 mm G.Age: 32w 1d 22 % HUM: 56.6 mm G.Age: 32w 6d 60 % LV: 5.87 mm TIB: 56.6 mm G.Age: 33w 1d 68 % CI: 72.5 % 70 - 86 FL/HC: 21.8 % 19.9 - 21.5 HC/AC: 0.99 0.96 - 1.11 FL/BPD: 82.9 % 71 - 87 FL/AC: 21.7 % 20 - 24 Est. FW: 1893 gm 4 lb 3 oz 38 % GESTATIONAL AGE: Clinical ALAYNA: 32w 5d ALAYNA: 02/04/25 U/S Today: 31w 3d ALAYNA: 02/13/25 Best: 32w 5d Det. By: Clinical ALAYNA ALAYNA: 02/04/25 TARGETED ANATOMY: Central Nervous System Calvarium/Cranial V.: Normal appearance Intracranial Alexsandra: Normal appearance Cavum: Normal appearance Parenchyma: Normal appearance Lateral Ventricles: Normal appearance Choroid Plexus: Normal appearance Cereb./Vermis: Normal appearance Cisterna Magna: Normal appearance Corpus Callosum: Normal appearance Midline Falx: Normal appearance Spine Cervical: Suboptimal views Thoracic: Suboptimal views Lumbar: Suboptimal views Sacral: Suboptimal views Shape/Curvature: Suboptimal views Head/Neck Face: Normal appearance Lips: Suboptimal views Neck: Suboptimal views Nuchal Fold: Suboptimal views Nasal Bone: Suboptimal views Palate: Suboptimal views Profile: Suboptimal views Orbits/Eyes: Normal appearance Mandible: Suboptimal views Maxilla: Suboptimal views Thorax Thoracic Contour: Normal appearance Lungs: Normal appearance 4 Chamber View: Suboptimal views Cardiac Activity: Normal Cardiac Rhythm: Normal Cardiac Situs: Normal appearance Rt Outflow Tract: Normal appearance Lt Outflow Tract: Normal appearance Aortic Arch: Suboptimal views Ductal Arch: Suboptimal views SVC: Suboptimal Views Interventr. Septum: Suboptimal views Cardiac Ridott: Suboptimal views Diaphragm: Normal appearance 3 Vessel View: Suboptimal views 3 V Trachea View: Suboptimal views IVC: Suboptimal View Crossing: Suboptimal views Abdomen Ventral Wall: Normal appearance Cord Insertion: Normal appearance Situs: Normal appearance Stomach: Normal appearance Liver: Normal appearance Gallbladder: Normal appearance Lt Kidney: Normal appearance Rt Kidney: Normal appearance Bladder: Normal appearance Bowel: Normal appearance Extremities Lt Humerus: Suboptimal views Rt Humerus: Normal appearance Lt Forearm: Suboptimal views Rt Forearm: Normal appearance Lt Hand: Normal appearance Rt Hand: Suboptimal views Lt Femur: Normal appearance Rt Femur: Normal appearance Lt Lower Leg: Normal appearance Rt Lower Leg: Normal appearance Lt Foot: Suboptimal views Rt Foot: Suboptimal views Other Umbilical Cord: Normal 3-vessel Genitalia: Suboptimal views Comment: Renal arteries - Normal appearance Bilateral ankles - Sub-optimal views (more content not included)... [facility] Study observation (narrative) [facility] Progress Noteon 12-15-2024 Progress Note ----- ----- Attestation signed by Vianca Howell DO at 12/15/2024 4:23 PM Hospital Care (Present): I was present with the [facility] resident during my history and exam. I discussed the case with the resident and agree with the findings and plan as documented in the resident's note. 29 y.o. yo at 32w5d hospital day 1 with: Patient Active Problem List Diagnosis Oligohydramnios, third trimester, not applicable or unspecified DVP> 2 cm. FHR reassuring. Plan for 1 hour FHR TID. Repeat RAMSEY tomorrow. If DVP > 2 cm and FHR remains reassuring, plan to dc to home with twice weekly outpt follow-up. IF no 2cm DVP or FHR concerns, will continue inpt management. Chart review and preparation: 10 minutes. Face to face: 13 minutes. Documentation and care coordination: 10 minutes. Total time spent on patient care today: 33 minutes. ----- Maternal Medicine Service Resident Progress Note 12/15/2024 6:19 AM 12/14/2024 Hospital Day: 2 Baltazar Francis, 29 y.o. 32w5d Patient has been seen and examined. Pt is doing well this AM with no concerns. Positive movement Negative vaginal bleeding Negative LOF Negative Contractions Vitals: 12/14/24202812/14/24 2100 12/14/24 2200 12/14/24 2300 BP: 133/70 Pulse: 88 93 88 85 Resp: 16 Temp: 37.2 ?C (99 ?F) TempSrc: Temporal SpO2: 100% Weight: Height: Tracing reviewed from 9065-9370 FHT: 140, moderate variability Accels: present Decels: absent Contractions: none Physical Exam: Gen: NAD HEENT: Normocephalic, Atraumatic, EOMI, MMM Resp: Equal chest rise bilaterally Abd: soft, gravid, NTND, no rebound, no guarding. No fundal tenderness Ext: No LE edema, no calf tenderness or swelling Medications: Current Facility-Administered Medications Medication Dose Route Frequency Provider Last Rate Last Admin acetaminophen (Tylenol) tablet 650 mg 650 mg Oral q4h PRN Lucy Nwnelsonwu, DO 650 mg at 12/14/24 1628 aspirin EC tablet 162 mg 162 mg Oral Daily Lucy Nwnelsonwu, DO 162 mg at 12/14/24 1628 lactated Ringer's infusion 75 mL/hr IntraVENous Continuous Lucy Srinivasanu, DO 75 mL/hr at 12/14/24 1658 75 mL/hr at 12/14/24 1658 Lidocaine 4 % patch 1 patch 1 patch TransDERmal Daily Lucy Nwagwu, DO 1 patch at 12/14/24 1629 ondansetron ODT (Zofran-ODT) disintegrating tablet 4 mg 4 mg Oral q8h PRN Lucy Artwu, DO Or ondansetron (Zofran) injection 4 mg 4 mg IntraVENous q6h PRN Lucy Nwagwu, DO vitamin tablet 1 tablet Oral Daily Lucy Nwagwu, DO 1 tablet at 12/14/24 1627 sodium chloride 0.9 % infusion 5-250 mL/hr IntraVENous PRN Lucy Artwu, DO sodium chloride 0.9% (NS) flush 10 mL 10 mL IntraVENous 2 times per day Lucy Srinivasanu, DO sodium chloride 0.9% (NS) flush 10 mL 10 mL IntraVENous PRN Lucy Artwu, DO Assessment/Plan: Baltazar Blanco is a 29 y.o. female 32w5d Oligohydramnios - Transported from OSH secondary to new onset oligohydramnios - Patient was noted to have RAMSEY of 4.0 with negative ROM exam on 12/13 - Patient then had repeat RAMSEY 12/14 noted to have RAMSEY 2.6cm - Growth (12/13): 1795g +/- 269g , RAMSEY 4.3 - BPP (12/14): BPP 6/8 off for fluid. RAMSEY 4.8; Repeat RAMSEY 2.6cm - Repeat ROM exam in triage noted to be negative for pooling, ferning, and nitrazine - Patient admitted for Oligohydramnios - Plan for formal anatomy, growth, BPP on 12/15 - Patient to be on CEFM; consider descalating this AM - S/P BMZ for lung protection on 12/13-12/14 - NICU consult placed cHTN - Several elevated Bps upon review of appt before 20 weeks - BP mild range on 12/13 - Baseline PreE labs obtained on 12/13 WNL - PReE labs negative on admission - BP NT overnight - Asymptomatic Abnormal Glucose - Failed 1 hr, passed 3 hr Hx PCOS - Was on metformin, currently not taking Asthma - Childhood - No history of hospitalizations or intubations Maternal Obesity - BMI 42 - SCDs ordered IUP @ 32w5d - Dating by 9w2d US - Cephalic on 12/14 - Monitoring:CEFM - Diet:General - BMZ x2 on 12/12 - 12/13 Further plan pending d/w attending. Sasha Barcenas DO 12/15/2024, 6:19 AM Normal [facility] [employer] [facility] S. agalactiae DNA FIORDALIZA+probe Ql (Unsp spec)on 12-15-2024 Group B Strep Screen Not detected Not Detected [facility] Interpretation and review of laboratory results Normal [facility] Methodology: real-ti me PCR [facility] US BIOPHYSICAL PROFILE WO NON STRESS TESTINGon 12-15-2024 US BIOPHYSICAL PROFILE WO NON STRESS TESTING OBSTETRICS REPORT (Signed Final 12/15/2024 11:16 am) PATIENT INFO: ID #: [id number] : [birth year] (29 yrs)(F) Name: BALTAZAR BLANCO Visit Date: 12/15/2024 09:50 am PERFORMED BY: Attending: Vianca Howell DO FACOG Performed By: Bhavya Howell RDMS Referred By: THELMA TA DO Location: [facility] IP Visit Type: Inpatient - Hospital SERVICE(S) PROVIDED: Level II complete (Targeted OB) 93673 BPP w/out NST 35449 INDICATIONS: Oligohydramnios, third trimester O41.03X0 Maternal obesity, third trimester O99.213 VITAL SIGNS: Weight (lb): 309 Height: 5'11 BMI: 43.09 EVALUATION: Num Of Fetuses: 1 Heart Rate(bpm): 147 Cardiac Activity: Regular rhythm Lie: Longitudinal Presentation: Cephalic Placenta: Anterior Amniotic Fluid RAMSEY FV: Oligohydramnios RAMSEY Sum(cm) %Tile Largest Pocket(cm) 4.9 < 3 2.8 RUQ(cm) RLQ(cm) LUQ(cm) LLQ(cm) 0 2.8 0 2.1 BIOPHYSICAL EVALUATION: Amniotic F.V: Within normal limits F. Tone: Observed F. Movement: Observed Score: 8/8 F. Breathing: Observed BIOMETRY: BPD: 74.7 mm G.Age: 30w 0d < 1 % OFD: 103.1 mm HC: 284.1 mm G.Age: 31w 1d 1 % AC: 285.6 mm G.Age: 32w 4d 46 % FL: 61.9 mm G.Age: 32w 1d 22 % HUM: 56.6 mm G.Age: 32w 6d 60 % LV: 5.87 mm TIB: 56.6 mm G.Age: 33w 1d 68 % CI: 72.5 % 70 - 86 FL/HC: 21.8 % 19.9 - 21.5 HC/AC: 0.99 0.96 - 1.11 FL/BPD: 82.9 % 71 - 87 FL/AC: 21.7 % 20 - 24 Est. FW: 1893 gm 4 lb 3 oz 38 % GESTATIONAL AGE: Clinical ALAYNA: 32w 5d ALAYNA: 02/04/25 U/S Today: 31w 3d ALAYNA: 02/13/25 Best: 32w 5d Det. By: Clinical ALAYNA ALAYNA: 02/04/25 TARGETED ANATOMY: Central Nervous System Calvarium/Cranial V.: Normal appearance Intracranial Alexsandra: Normal appearance Cavum: Normal appearance Parenchyma: Normal appearance Lateral Ventricles: Normal appearance Choroid Plexus: Normal appearance Cereb./Vermis: Normal appearance Cisterna Magna: Normal appearance Corpus Callosum: Normal appearance Midline Falx: Normal appearance Spine Cervical: Suboptimal views Thoracic: Suboptimal views Lumbar: Suboptimal views Sacral: Suboptimal views Shape/Curvature: Suboptimal views Head/Neck Face: Normal appearance Lips: Suboptimal views Neck: Suboptimal views Nuchal Fold: Suboptimal views Nasal Bone: Suboptimal views Palate: Suboptimal views Profile: Suboptimal views Orbits/Eyes: Normal appearance Mandible: Suboptimal views Maxilla: Suboptimal views Thorax Thoracic Contour: Normal appearance Lungs: Normal appearance 4 Chamber View: Suboptimal views Cardiac Activity: Normal Cardiac Rhythm: Normal Cardiac Situs: Normal appearance Rt Outflow Tract: Normal appearance Lt Outflow Tract: Normal appearance Aortic Arch: Suboptimal views Ductal Arch: Suboptimal views SVC: Suboptimal Views Interventr. Septum: Suboptimal views Cardiac Ridott: Suboptimal views Diaphragm: Normal appearance 3 Vessel View: Suboptimal views 3 V Trachea View: Suboptimal views IVC: Suboptimal View Crossing: Suboptimal views Abdomen Ventral Wall: Normal appearance Cord Insertion: Normal appearance Situs: Normal appearance Stomach: Normal appearance Liver: Normal appearance Gallbladder: Normal appearance Lt Kidney: Normal appearance Rt Kidney: Normal appearance Bladder: Normal appearance Bowel: Normal appearance Extremities Lt Humerus: Suboptimal views Rt Humerus: Normal appearance Lt Forearm: Suboptimal views Rt Forearm: Normal appearance Lt Hand: Normal appearance Rt Hand: Suboptimal views Lt Femur: Normal appearance Rt Femur: Normal appearance Lt Lower Leg: Normal appearance Rt Lower Leg: Normal appearance Lt Foot: Suboptimal views Rt Foot: Suboptimal views Other Umbilical Cord: Normal 3-vessel Genitalia: Suboptimal views Comment: Renal arteries - Normal appearance Bilateral ankles - Sub-optimal views Vianca Howell DO, FACOG Electronically Signed Final Report 12/15/2024 11:16 am -- (more content not included)... [facility] US OB DETAIL ANATOMY T RANSABDOMINALon 12-15-2024 US OB DETAIL ANATOMY TRANSABDOMINAL OBSTETRICS REPORT (Signed Final 12/15/2024 11:16 am) PATIENT INFO: ID #: [id number] : [birth year] (29 yrs)(F) Name: BALTAZAR BLANCO Visit Date: 12/15/2024 09:50 am PERFORMED BY: Attending: Vianca Howell DO FACOG Performed By: Bhavya Howell RDMS Referred By: THELMA TA DO Location: [facility] IP Visit Type: Inpatient - Hospital SERVICE(S) PROVIDED: Level II complete (Targeted OB) 90334 BP w/out NST 12396 INDICATIONS: Oligohydramnios, third trimester O41.03X0 Maternal obesity, third trimester O99.213 VITAL SIGNS: Weight (lb): 309 Height: 5'11 BMI: 43.09 EVALUATION: Num Of Fetuses: 1 Heart Rate(bpm): 147 Cardiac Activity: Regular rhythm Lie: Longitudinal Presentation: Cephalic Placenta: Anterior Amniotic Fluid RAMSEY FV: Oligohydramnios RAMSEY Sum(cm) %Tile Largest Pocket(cm) 4.9 < 3 2.8 RUQ(cm) RLQ(cm) LUQ(cm) LLQ(cm) 0 2.8 0 2.1 BIOPHYSICAL EVALUATION: Amniotic F.V: Within normal limits F. Tone: Observed F. Movement: Observed Score: 05/12 F. Breathing: Observed BIOMETRY: BPD: 74.7 mm G.Age: 30w 0d < 1 % OFD: 103.1 mm HC: 284.1 mm G.Age: 31w 1d 1 % AC: 285.6 mm G.Age: 32w 4d 46 % FL: 61.9 mm G.Age: 32w 1d 22 % HUM: 56.6 mm G.Age: 32w 6d 60 % LV: 5.87 mm TIB: 56.6 mm G.Age: 33w 1d 68 % CI: 72.5 % 70 - 86 FL/HC: 21.8 % 19.9 - 21.5 HC/AC: 0.99 0.96 - 1.11 FL/BPD: 82.9 % 71 - 87 FL/AC: 21.7 % 20 - 24 Est. FW: 1893 gm 4 lb 3 oz 38 % GESTATIONAL AGE: Clinical ALAYNA: 32w 5d ALAYNA: 02/04/25 U/S Today: 31w 3d ALAYNA: 02/13/25 Best: 32w 5d Det. By: Clinical ALAYNA ALAYNA: 02/04/25 TARGETED ANATOMY: Central Nervous System Calvarium/Cranial V.: Normal appearance Intracranial Alexsandra: Normal appearance Cavum: Normal appearance Parenchyma: Normal appearance Lateral Ventricles: Normal appearance Choroid Plexus: Normal appearance Cereb./Vermis: Normal appearance Cisterna Magna: Normal appearance Corpus Callosum: Normal appearance Midline Falx: Normal appearance Spine Cervical: Suboptimal views Thoracic: Suboptimal views Lumbar: Suboptimal views Sacral: Suboptimal views Shape/Curvature: Suboptimal views Head/Neck Face: Normal appearance Lips: Suboptimal views Neck: Suboptimal views Nuchal Fold: Suboptimal views Nasal Bone: Suboptimal views Palate: Suboptimal views Profile: Suboptimal views Orbits/Eyes: Normal appearance Mandible: Suboptimal views Maxilla: Suboptimal views Thorax Thoracic Contour: Normal appearance Lungs: Normal appearance 4 Chamber View: Suboptimal views Cardiac Activity: Normal Cardiac Rhythm: Normal Cardiac Situs: Normal appearance Rt Outflow Tract: Normal appearance Lt Outflow Tract: Normal appearance Aortic Arch: Suboptimal views Ductal Arch: Suboptimal views SVC: Suboptimal Views Interventr. Septum: Suboptimal views Cardiac Ridott: Suboptimal views Diaphragm: Normal appearance 3 Vessel View: Suboptimal views 3 V Trachea View: Suboptimal views IVC: Suboptimal View Crossing: Suboptimal views Abdomen Ventral Wall: Normal appearance Cord Insertion: Normal appearance Situs: Normal appearance Stomach: Normal appearance Liver: Normal appearance Gallbladder: Normal appearance Lt Kidney: Normal appearance Rt Kidney: Normal appearance Bladder: Normal appearance Bowel: Normal appearance Extremities Lt Humerus: Suboptimal views Rt Humerus: Normal appearance Lt Forearm: Suboptimal views Rt Forearm: Normal appearance Lt Hand: Normal appearance Rt Hand: Suboptimal views Lt Femur: Normal appearance Rt Femur: Normal appearance Lt Lower Leg: Normal appearance Rt Lower Leg: Normal appearance Lt Foot: Suboptimal views Rt Foot: Suboptimal views Other Umbilical Cord: Normal 3-vessel Genitalia: Suboptimal views Comment: Renal arteries - Normal appearance Bilateral ankles - Sub-optimal views Vianca Howell DO, FACOG Electronically Signed Final Report 12/15/2024 11:16 am -- (more content not included)... Normal [facility] ABO and Rh group Confirm Nom (Bld)on 12-14-2024 ABO group Nom (Bld) AB [facility] D Ag Ql (RBC) Positive [facility] BLOOD TYPE AND SCREEN GELon 12-14-2024 ABO GROUPING AB Normal [facility] Comment on above: Order Comment: HOLD. Specimen is valid for 3 days - nurse to verify valid specimen Performed By: #### L [id number] ####Accessioner: BERENICE CRAIG ([id number])[facility] ([address] RH TYPE IN BLOOD Positive Normal [facility] Comment on above: Order Comment: HOLD. Specimen is valid for 3 days - nurse to verify valid specimen Performed By: #### L [id number] ####Accessioner: BERENICE CRAIG ([id number])[facility] BLOOD [facility] ([facility])[address] [place] [address] Bacterial vaginosis and vagi nitis rRNA panel Probe (Vag fld)on 12-14-2024 Bacterial vaginosis Ql (Vag fld) [Interp] Detected Abnormal Not Detected [facility] C. glabrata DNA FIORDALIZA+probe Ql (Vag fld) Not detected Not Detected [facility] Himanshu sp DNA FIORDALIZA+probe Ql (Vag fld) Not detected Not Detected [facility] Interpretation and review of laboratory results Abnormal [facility] T. vaginalis DNA FIORDALIZA+probe Ql (Vag fld) Not detected Not Detected [facility] Methodology: real-ti me PCR A negative result does not preclude a possible infection. This assay can detect the Himanshu species C. albicans, C. tropicalis, C. parapsilosis, and C. dubliniensis but does not differentiate among them. The assay also detects C. glabrata and C. krusei, but does not differentiate between them. Results should be interpreted in conjunction with other clinical data. This test has not been validated for use with specimens collected by patients at home. This test is intended for medical purposes only and is not valid for the evaluation of suspected sexual abuse or for other forensic purposes. [facility] Biophysical Prof W/O Non Str eson 12-14-2024 Biophysical Prof W/O Non Stres Normal [facility] Blood type and Crossmatch pa meghana (Bld)on 12-14-2024 ABO group Nom (Bld) AB [facility] Blood group antibody screen GEL Ql Negative [facility] D Ag Ql (RBC) Positive [facility] CBC (HEMOGRAM)on 12-14-2024 Erythrocyte distribution width (RBC) [Ratio] 12.9 % Normal 11.5-15.0 [facility] Comment on above: Performed By: #### L [id number] ####Accessioner: BERENICE CRAIG ([id number])[address] Hematocrit (Bld) [Volume fraction] 32.8 % Low 35.0-47.0 [facility] Comment on above: Performed By: #### L [id number] ####Accessioner: BERENICE CRAIG ([id number])[address] Hemoglobin (Bld) [Mass/Vol] 11.0 g/dL Low 11.7-16.0 [facility] Comment on above: Performed By: #### L [id number] ####Accessioner: BERENICE CRAIG ([id number])[facility])[address] [place] [address] MCH (RBC) [Entitic mass] 28.1 pg Normal 26.0-34.0 [facility] Comment on above: Performed By: #### L [id number] ####Accessioner: BERENICE CRAIG ([id number])[facility] ([facility])[address] [place] [address] MCHC 33.5 % Normal 30.5-36.0 [facility] Comment on above: Performed By: #### L [id number] ####Accessioner: BERENICE CRAIG ([id number])[facility] ([facility])[address] [place] [address] MCV (RBC) [Entitic vol] 83.7 fL Normal 77.0-99.0 [facility] Comment on above: Performed By: #### L [id number] ####Accessioner: BERENICE CRAIG ([id number])[facility])[address] [place] [address] Platelet mean volume (Bld) [Entitic vol] 11.1 fL Normal 9.0-12.7 [facility] Comment on above: Performed By: #### L [id number] ####Accessioner: BERENICE CRAIG ([id number])[facility] ([facility])[address] [place] [address] Platelets (Bld) [#/Vol] 272 10*3/uL Normal 140-440 [facility] Comment on above: Performed By: #### L [id number] ####Accessioner: BERENICE CRAIG ([id number])[facility])[address] [place] [address] RBC (Bld) [#/Vol] 3.92 10*6/uL Normal 3.80-5.20 [facility] Comment on above: Performed By: #### L [id number] ####Accessioner: BERENICE CRAIG ([id number])[facility])[address] [place] [address] WBC (Bld) [#/Vol] 15.5 10*3/uL High 3.6-10.7 [facility] Comment on above: Performed By: #### L [id number] ####Accessioner: BERENICE CRAIG ([id number])[facility] ([facility])[address] [place] [address] CBC panel Auto (Bld)on 12-14 Erythrocyte distribution width (RBC) [Ratio] 12.9 % 11.5 - 15.0 % [facility] Hematocrit (Bld) [Volume fraction] 32.8 % Low 35.0 - 47.0 % [facility] Hemoglobin (Bld) [Mass/Vol] 11 g/dL Low 11.7 - 16.0 g/dL [facility] Interpretation and review of laboratory results Abnormal [facility] MCH (RBC) [Entitic mass] 28.1 pg 26.0 - 34.0 pg [facility] MCHC (RBC) [Mass/Vol] 33.5 % 30.5 - 36.0 % [facility] MCV (RBC) [Entitic vol] 83.7 fL 77.0 - 99.0 fL [facility] Platelet mean volume (Bld) [Entitic vol] 11.1 fL 9.0 - 12.7 fL [facility] Platelets (Bld) [#/Vol] 272 10*3/uL 140 - 440 10*3/uL [facility] RBC (Bld) [#/Vol] 3.92 10*6/uL 3.80 - 5.2 0 10*6/uL [facility] WBC (Bld) [#/Vol] 15.5 10*3/uL High 3.6 - 10.7 10*3/uL [facility] CHLAMYDIA/GONORRHEAon 2024 CHLAMYDIA/GONORRHEA NEISSERIA GONORRHOEA E DNA PROBE Reference Not Detected Not Detected CHLAMYDIA TRACHOMATIS DNA PROBE Reference Not Detected Not Detected ORDER COMMENTS: Methodology: real-time PCR This test is intended for medical purposes only and is not intended for the evaluation of suspected sexual abuse or for other forensic purposes. In certain contexts, culture may be required to meet applicable laws and regulations for diagnosis of C. trachomatis and N. gonorrhoeae infections. Per 2014 CDC recommmendations, this test does not include confirmation of positive results by an alternative nucleic acid target. A negative result does not exclude the possibility of infection. A result of invalid indicates that a new specimen should be collected if clinically indicated. Normal [facility] Comment on above: Performed By: #### L [id number], [id number] #### Accessioner: BERENICE CRAIG ([id number]) [facility]) [address] [place] [address] COMPREHENSIVE METABOLIC PANE Esvin 12-14-2024 Albumin [Mass/Vol] 3.2 g/dL Low 3.5-5.0 [facility] Comment on above: Performed By: #### L [id number] ####Accessioner: BERENICE CRAIG ([id number])[facility] ([facility])[address] [place] [address] ALP [Catalytic activity/Vol] 85 U/L Normal 40-150 [facility] Comment on above: Performed By: #### L [id number] ####Accessioner: BERENICE CRAIG ([id number])[facility])[address] [place] [address] ALT [Catalytic activity/Vol] 8 U/L Normal <30 [facility] Comment on above: Performed By: #### L [id number] ####Accessioner: BERENICE CRAIG ([id number])[facility] ([facility])[address] [place] [address] Anion gap [Moles/Vol] 9 mmol/L Normal 3-13 [facility] Comment on above: Performed By: #### L AB17 ####Accessioner: BERENICE CRAIG ([id number])[facility])[address] [place] [address] AST [Catalytic activity/Vol] 13 U/L Normal <34 [facility] Comment on above: Performed By: #### L [id number] ####Accessioner: BERENICE CRAIG ([id number])[facility])[address] [place] [address] Bilirubin [Mass/Vol] 0.1 mg/dL Normal <1.2 [facility] Comment on above: Performed By: #### L AB17 ####Accessioner: BERENICE CRAIG ([id number])[facility] [place] [address] Calcium [Mass/Vol] 8.8 mg/dL Normal 8.4-10.2 [facility] Comment on above: Performed By: #### L AB17 ####Accessioner: BERENICE CRAIG ([id number])[facility] [place] [address] Chloride [Moles/Vol] 108 mmol/L High 98-107 [facility] Comment on above: Performed By: #### L AB17 ####Accessioner: BERENICE CRAIG ([id number])[facility] ([facility])[address] [place] [address] CO2 [Moles/Vol] 19 mmol/L Low 22-29 [facility] Comment on above: Performed By: #### L AB17 ####Accessioner: BERENICE CRAIG ([id number])[facility] ([facility])[address] [place] [address] Creatinine [Mass/Vol] 0.58 mg/dL Normal 0.57-1.11 [facility] Comment on above: Performed By: #### L AB17 ####Accessioner: BERENICE CRAIG ([id number])[facility])[address] [place] [address] GLOMERULAR FILTRATION RATE ML/MIN/1.73 SQ M.PREDICTED >90.0 Normal >60.0 [facility] Comment on above: Result Comment: Calc ulation based on the Chronic Kidney Disease Epidemiology Collaboration (CKD-EPI) equation refit without adjustment for race Performed By: #### L AB17 ####Accessioner: BERENICE CRAIG ([id number])[facility] ([facility])[address] [place] [address] [place] Glucose [Mass/Vol] 130 mg/dL High 74-100 [facility] Comment on above: Performed By: #### L AB17 ####Accessioner: BERENICE CRAIG ([id number])[facility] ([facility])[address] [place] [address] Potassium [Moles/Vol] 3.8 mmol/L Normal 3.5-5.1 [facility] Comment on above: Result Comment: [facility] potassium values may be up to 0.5 mmol/L lower than serum values. Performed By: #### L AB17 ####Accessioner: BERENICE CRAIG ([id number])[facility] ([facility])[address] [place] [address] Protein [Mass/Vol] 6.2 g/dL Low 6.4-8.3 [facility] Comment on above: Performed By: #### L AB17 ####Accessioner: BERENICE CRAIG ([id number])[facility])[address] [place] [address] Sodium [Moles/Vol] 136 mmol/L Normal 136-145 [facility] Comment on above: Performed By: #### L AB17 ####Accessioner: BERENICE CRAIG ([id number])[facility])[address] [place] [address] Urea nitrogen [Mass/Vol] 9 mg/dL Normal 8-21 [facility] Comment on above: Performed By: #### L AB17 ####Accessioner: BERENICE CRAIG ([id number])[facility])[address] [place] [address] CREATININE, URINE, RANDOMon 12-14-2024 CREATININE, URINE 66.5 mg/dL Normal 47.0-110.0 [facility] Comment on above: Result Comment: LYNDA Bain COMMENTS: Concentration is based on a daily urine output of 1.5 L. Performed By: #### L [id number], [id number] ####Accessioner: BERENICE CRAIG ([id number])[facility])[address] [place] [address] Comprehensive metabolic 1998 panelon 12-14-2024 Albumin [Mass/Vol] 3.2 g/dL Low 3.5 - 5.0 g/dL [facility] ALP [Catalytic activity/Vol] 85 U/L 40 - 150 U/L [facility] ALT [Catalytic activity/Vol] 8 U/L NINF - 30 U/L [facility] Anion gap [Moles/Vol] 9 mmol/L 3 - 13 mmol/L [facility] AST [Catalytic activity/Vol] 13 U/L NINF - 34 U/L [facility] Bilirubin [Mass/Vol] 0.1 mg/dL NINF - 1.2 mg/dL [facility] Calcium [Mass/Vol] 8.8 mg/dL 8.4 - 10. 2 mg/dL [facility] Chloride [Moles/Vol] 108 mmol/L High 98 - 10 7 mmol/L [facility] CO2 [Moles/Vol] 19 mmol/L Low 22 - 29 mmol/L [facility] Creatinine [Mass/Vol] 0.58 mg/dL 0.57 - 1.11 mg/dL [facility] GFR/1.73 sq M.predicted (S/P/Bld) [Vol rate/Area] - PINF [facility] Comment on above: Calculation based on the Chronic Kidney Disease Epidemiology Collaboration (CKD-EPI) equation refit without adjustment for race Glucose [Mass/Vol] 130 mg/dL High 74 - 100 mg/dL [facility] Interpretation and review of laboratory results Abnormal [facility] Potassium [Moles/Vol] 3.8 mmol/L 3.5 - 5.1 mmol/L [facility] Comment on above: Plasma potassium yovany ues may be up to 0.5 mmol/L lower than serum values. Protein [Mass/Vol] 6.2 g/dL Low 6.4 - 8.3 g/dL [facility] Sodium [Moles/Vol] 136 mmol/L 136 - 145 mmol/L [facility] Urea nitrogen [Mass/Vol] 9 mg/dL 8 - 21 mg/dL [facility] Creatinine (U) [Mass/Vol]on 12-14-2024 Concentration is bas ed on a daily urine output of 1.5 L. [facility] GROUP B STREP SCREEN BY PCRo n 12-14-2024 GROUP B STREP SCREEN BY PCR GROUP B STREP SCREEN BY PCR Reference Not Detected Not Detected ORDER COMMENTS: Methodology: real-time PCR Normal [facility] Comment on above: Performed By: #### L [id number] ####Accessioner: BERENICE CRAIG ([id number])[facility] ([address] Laboratory - Urinalysison Protein (U) [Mass/Vol] 12 mg/dL NINF - 14 mg/dL [facility] N. gonorrhoeae DNA FIORDALIZA+probe Ql (Cervical mucus)on 12-14-2024 C. trachomatis DNA FIORDALIZA+probe Ql (Unsp spec) Not detected Not Detected [facility] Interpretation and review of laboratory results Normal [facility] N gonorrhoeae, DNA Probe Not detected Not Detected [facility] Methodology: real-ti me PCR This test is intended for medical purposes only and is not intended for the evaluation of suspected sexual abuse or for other forensic purposes. In certain contexts, culture may be required to meet applicable laws and regulations for diagnosis of C. trachomatis and N. gonorrhoeae infections. Per 2014 CDC recommmendations, this test does not include confirmation of positive results by an alternative nucleic acid target. A negative result does not exclude the possibility of infection. A result of invalid indicates that a new specimen should be collected if clinically indicated. [facility] No Panel Informationon 12-14 Extra Tube Hold for add-ons. [facility] Comment on above: Auto resulted. [facility] CREATININE, URINE 66.5 mg/dL 47.0 - 110 .0 mg/dL [facility] Interpretation and review of laboratory results Normal [facility] FERN PATTERN Fern pattern absent [facility] Interpretation and review of laboratory results Normal [facility] Interpretation and review of laboratory results Normal [facility] Nitrazine Paper Test POC Negative [facility] POC Nitrazine Lot Number [id number] [facility] OB Limited (No Biometrics)on 12-14-2024 OB Limited (No Biometrics) Normal [facility] PROTEIN, URINE, RANDOMon Protein (U) [Mass/Vol] 12 mg/dL Normal <14 [facility] Comment on above: Performed By: #### L [id number], [id number] ####Accessioner: BERENICE CRAIG ([id number])[facility] ([facility])[address] [place] [address] Progress Noteon 12-14-2024 Progress Note Department of Obstet rics and Gynecology Labor and Delivery Triage Note CHIEF COMPLAINT: Oligo HISTORY OF PRESENT ILLNESS: The patient is a 30 y.o. 32w4d. OB History 1 Para Term AB Living SAB IAB Ectopic Multiple Live Births Patient seen in triage for Oligohydramnios diagnosed on 12/13. Patient sent in for a direct admit. She was seen in OB triage first to rule out PPROM. Denies ongoing leakage of fluid, DFM, vaginal bleeding. Estimated Due Date: Estimated Date of Delivery: 02/04/25 REVIEW OF SYSTEMS: Pertinent items are noted in HPI. APPEARANCE: Pain: no PHYSICAL EXAM: Vital Signs: VS wnl-reviewed/Respirations normal effort Vitals: 12/14/24 1427 BP: 117/79 Pulse: 100 Resp: 16 Temp: 37 ?C (98.6 ?F) TempSrc: Oral SpO2: 97% Weight: (!) 309 lb (140 kg) Height: 5' 11 (1.803 m) Speculum Exam: no pooling of fluid seen, Nitrizine test is negative, Ferning test is negative heart rate: Category I Cervix: visually closed Membranes: Intact BSUS: vertex presentation IMPRESSION: Oligohydramnios DISCUSSED WITH C PROVIDER: Dr. Howell DISPOSITION: Admit to L&D [facility] T. vaginalis DNA FIORDALIZA+probe Q l (Genital specimen)on 12-14-2024 Interpretation and review of laboratory results Normal [facility] Trichomonas vaginalis Not detected Not Detected [facility] Methodology: real-ti me PCR A negative result does not completely rule out infection with T. vaginalis. Results should be interpreted in conjunction with other clinical data. This test has not been validated for use with self-collected vaginal swab specimens from patients. This test is intended for medical purposes only and is not intended for the evaluation of suspected sexual abuse or for other forensic purposes. [facility] TRICHOMONAS VAGINALIS PCRon 12-14-2024 TRICHOMONAS VAGINALIS PCR TRICHOMONAS VAGINALIS PCR Reference Not Detected Not Detected ORDER COMMENTS: Methodology: real-time PCR A negative result does not completely rule out infection with T. vaginalis. Results should be interpreted in conjunction with other clinical data. This test has not been validated for use with self-collected vaginal swab specimens from patients. This test is intended for medical purposes only and is not intended for the evaluation of suspected sexual abuse or for other forensic purposes. Normal [facility] Comment on above: Performed By: #### L [id number], [id number] #### Accessioner: BERENICE CRAIG ([id number]) [facility]) [address] [place] [address] URINE CULTUREon 12-14-2024 Bacteria identified Cx Nom (U) URINE CULTURE Reference Normal urogenital sriram present [ S = SUSCEPTIBLE R = RESISTANT I = INTERMEDIATE S-DD = Susceptible-dose dependent NS = Non-susceptible NO = No Interpretation ] Normal [facility] Comment on above: Performed By: #### L [id number] ####Accessioner: BERENICE CRAIG ([id number])[facility])[address] [place] [address] VAGINITIS PANEL MVP PCRon VAGINITIS PANEL MVP PCR BACTERIAL VAGINOSIS MVP PCR (A) Reference Detected Not Detected HIMANSHU SPP MVP PCR Reference Not Detected Not Detected HIMANSHU GLABRATA/KRUSEI MVP PCR Reference Not Detected Not Detected TRICHOMONAS VAGINALIS MVP PCR Reference Not Detected Not Detected ORDER COMMENTS: Methodology: real-time PCR A negative result does not preclude a possible infection. This assay can detect the Himanshu species C. albicans, C. tropicalis, C. parapsilosis, and C. dubliniensis but does not differentiate among them. The assay also detects C. glabrata and C. krusei, but does not differentiate between them. Results should be interpreted in conjunction with other clinical data. This test has not been validated for use with specimens collected by patients at home. This test is intended for medical purposes only and is not valid for the evaluation of suspected sexual abuse or for other forensic purposes. Normal [facility] Comment on above: Performed By: #### L [id number] ####Accessioner: BERENICE CRAIG ([id number])[facility])[address] [place] [address] (ROM) Rupture Of Membraneson 12-13-2024 ROM Negative Normal Negative [facility] Comment on above: Result Comment: Amni otic fluid not present indicates No Rupture of FetalMembranes at time of specimen collection. Performed By: #### L 205.1000 ####[facility] [address] [place], [address] Absolute lymphocyte countOrd ered By: Nenita Kwok on 12-13-2024 Lymphocytes Auto (Unsp spec) [#/Vol] 2.02 10*3/uL 0.83-4.51 [facility] Absolute neutrophil countOrd ered By: Nenita Kwok on 12-13-2024 Neutrophils (Bld) [#/Vol] 8.9 10*3/uL High 2.0-7.7 [facility] Anion gap in Serum or Plasma Ordered By: Nenita Kwok on 12-13-2024 Anion gap [Moles/Vol] 16 mmol/L High 5-15 [facility] Automated lymphocyte count a s percentage of total leukocytesOrdered By: Nenita Kwok on 12-13-2024 Lymphocytes/100 WBC Auto (Unsp spec) 17.3 % Low 19-41 [facility] BUN/creatinine ratioOrdered By: Nenita Kwok on 12-13-2024 Urea nitrogen/Creatinine [Mass ratio] 14.0 mg/mg 10-20 [facility] Basophil percentageOrdered B y: Nenita Kwok on 12-13-2024 Basophils/100 WBC (Bld) 0.5 % 0-1 [facility] Bilirubin, totalOrdered By: Nenita Kwok on 12-13-2024 Bilirubin [Mass/Vol] mg/dL 0.00-1.30 [facility] CBC W/Diff, Automatedon 12-03 Absolute Lymph 2.02 X10 3/uL Normal 0.83-4.51 [facility] Comment on above: Performed By: #### L 100.0100, BTS ####[facility] [address] [place], [address] Absolute Neut 8.9 X10 3/uL High 2.0-7.7 [facility] Comment on above: Performed By: #### L 100.0100, BTS ####[facility] [address] [place], [address] Basophils/100 WBC (Bld) 0.5 % Normal 0-1 [facility] Comment on above: Performed By: #### L 100.0100, BTS ####[facility] [address] [place], [address] Eosinophils/100 WBC (Bld) 0.9 % Normal 0-5 [facility] Comment on above: Performed By: #### L 100.0100, BTS ####[facility] [address] [place], [address] Erythrocyte distribution width (RBC) [Ratio] 12.9 % Normal 11.6-14.6 [facility] Comment on above: Performed By: #### L 100.0100, BTS ####[facility] [address] [place], [address] Hematocrit (Bld) [Volume fraction] 37.2 % Normal 37-47 [facility] Comment on above: Performed By: #### L 100.0100, BTS ####[facility] [address] [place], [address] Hemoglobin (Bld) [Mass/Vol] 12.4 g/dL Normal 12.0-15.0 [facility] Comment on above: Performed By: #### L 100.0100, BTS ####[facility] [address] [place], [address] IG% 1.400 High 0.0-0.9 [facility] Comment on above: Result Comment: IG% - Immature Granulocytes (promyelocytes, myelocytes andmetamyelocytes) > 1% indicates that a LEFT SHIFT is Present. Performed By: #### L 100.0100, BTS ####[facility] [address] [place], [address] Lymphocytes/100 WBC (Bld) 17.3 % Low 19-41 [facility] Comment on above: Performed By: #### L 100.0100, BTS ####[facility] [address] [place], [address] MCH (RBC) [Entitic mass] 28.2 pg Normal 27.0-32.0 [facility] Comment on above: Performed By: #### L 100.0100, BTS ####[facility] [address] [place], [address] MCHC (RBC) [Mass/Vol] 33.3 g/dL Normal 32-36 [facility] Comment on above: Performed By: #### L 100.0100, BTS ####[facility] [address] [place], [address] MCV (RBC) [Entitic vol] 84.7 fL Normal 81-99 [facility] Comment on above: Performed By: #### L 100.0100, BTS ####[facility] [address] [place], [address] Monocytes/100 WBC (Bld) 4.1 % Normal 0-10 [facility] Comment on above: Performed By: #### L 100.0100, BTS ####[facility] [address] [place], [address] Neutrophils/100 WBC (Bld) 75.8 % High 47-70 [facility] Comment on above: Performed By: #### L 100.0100, BTS ####[facility] [address] [place], [address] Nucleated RBC (Bld) [#/Vol] 0 10*3/uL Normal 0-5 [facility] Comment on above: Performed By: #### L 100.0100, BTS ####[facility] [address] [place], [address] Platelet mean volume (Bld) [Entitic vol] 10.7 fL Normal 6.2-12.0 [facility] Comment on above: Performed By: #### L 100.0100, BTS ####[facility] [address] [place], [address] Platelets (Bld) [#/Vol] 288 10*3/uL Normal 150-450 [facility] Comment on above: Performed By: #### L 100.0100, BTS ####[facility] [address] [place], [address] RBC (Bld) [#/Vol] 4.39 10*6/uL Normal 4.2-5.[address] [facility] Comment on above: Performed By: #### L 100.0100, BTS ####[facility] [address] [place], [address] RDW SD 39.8 fl Normal 35.1-43.9 [facility] Comment on above: Performed By: #### L 100.0100, BTS ####[facility] [address] [place], [address] WBC (Bld) [#/Vol] 11.7 10*3/uL High 4.4-11.[address] [facility] Comment on above: Performed By: #### L 100.0100, BTS ####[facility] [address] [place], [address] Carbon dioxide, total [Moles /volume] in Central venous bloodOrdered By: Nenita Kwok on 12-13-2024 CO2 [Moles/Vol] 17.7 mmol/L Low 21.0-32.0 [facility] Chloride assayOrdered By: Adalid Kwok on 12-13-2024 Chloride [Moles/Vol] 103 mmol/L 98-108 [facility] Comprehensive Metabolic Prof ilon 12-13-2024 Albumin [Mass/Vol] 4.0 g/dL Normal 3.5-5.0 [facility] Comment on above: Performed By: #### L 500.4050 ####[facility] [address] [place], [address] Albumin/Globulin [Mass ratio] 1.4 {ratio} Normal 0.9-2.4 [facility] Comment on above: Performed By: #### L 500.4050 ####[facility] [address] [place], [address] ALK PHOS 99 U/L Normal 35-104 [facility] Comment on above: Performed By: #### L 500.4050 ####[facility] [address] [place], [address] ALT [Catalytic activity/Vol] 9 U/L Normal <=34 [facility] Comment on above: Performed By: #### L 500.4050 ####[facility] [address] [place], [address] AST [Catalytic activity/Vol] 12 U/L Normal <=31 [facility] Comment on above: Performed By: #### L 500.4050 ####[facility] [address] [place], [address] BUN/CRE 14.0 RATIO Normal 10-20 [facility] Comment on above: Performed By: #### L 500.4050 ####[facility] [address] [place], [address] Calcium [Mass/Vol] 9.2 mg/dL Normal 7.6-11.0 [facility] Comment on above: Performed By: #### L 500.4050 ####[facility] [address] [place], [address] Chloride [Moles/Vol] 103 mmol/L Normal 98-108 [facility] Comment on above: Performed By: #### L 500.4050 ####[facility] [address] [place], [address] CO2 [Moles/Vol] 17.7 mmol/L Low 21.0-32.0 [facility] Comment on above: Performed By: #### L 500.4050 ####[facility] [address] [place], [address] Creatinine [Mass/Vol] 0.58 mg/dL Low 0.70-1.20 [facility] Comment on above: Performed By: #### L 500.4050 ####[facility] [address] [place], [address] ECRCL 223.98 ml/min Normal 50-250 [facility] Comment on above: Performed By: #### L 500.4050 ####[facility] [address] [place], [address] GAP 16 High 5-15 [facility] Comment on above: Performed By: #### L 500.4050 ####[facility] [address] [place], [address] GFR/1.73 sq M.predicted among non-blacks MDRD (S/P/Bld) [Vol rate/Area] 126 mL/min/{1.73_m2} Normal >60 [facility] Comment on above: Result Comment: mL/m in/1.73m2 CKD-EPI Creatinine Equation (2020) Performed By: #### L 500.4050 ####[facility] [address] [place], [address] Globulin (S) [Mass/Vol] 2.9 g/dL Normal 2.2-4.2 [facility] Comment on above: Performed By: #### L 500.4050 ####[facility] [address] [place], [address] Glucose [Mass/Vol] 113 mg/dL High 70-99 [facility] Comment on above: Performed By: #### L 500.4050 ####[facility] [address] [place], [address] Potassium [Moles/Vol] 3.7 mmol/L Normal 3.3-5.1 [facility] Comment on above: Performed By: #### L 500.4050 ####[facility] [address] [place], [address] Sodium [Moles/Vol] 136 mmol/L Normal 133-145 [facility] Comment on above: Performed By: #### L 500.4050 ####[facility] [address] [place], [address] T BILI < 0.15 Normal 0.00-1.30 [facility] Comment on above: Performed By: #### L 500.4050 ####[facility] [address] [place], [address] T PROT 6.9 g/dL Normal 5.9-8.4 [facility] Comment on above: Performed By: #### L 500.4050 ####[facility] [address] [place], [address] Urea nitrogen [Mass/Vol] 8 mg/dL Normal 4-19 [facility] Comment on above: Performed By: #### L 500.4050 ####[facility] [address] [place], [address] Creatinine Unsp time (U) [Ma ss/Vol]Ordered By: Nenita Kwok on 12-13-2024 Creatinine (U) [Mass/Vol] 63.80 mg/dL 28-217 [facility] Eosinophil percentageOrdered By: Nenita Kwok on 12-13-2024 Eosinophils/100 WBC (Bld) 0.9 % 0-5 [facility] Erythrocyte distribution wid th ratioOrdered By: Nenita Kwok on 12-13-2024 Erythrocyte distribution width (RBC) [Ratio] 12.9 % 11.6-14.6 [facility] Erythrocyte distribution wid th standard deviationOrdered By: Nenita Kwok on 12-13-2024 Erythrocyte distribution width (RBC) [Entitic vol] 39.8 fL 35.1-43.9 [facility] Erythrocyte distribution width (RBC) [Ratio] 39.8 fl 35.1-43.9 [facility] Estimation of creatinine sarah beth aranceOrdered By: Nenita Kwok on 12-13-2024 Estimated Creatinine Clearance Calc 223.98 ml/min 50-250 [facility] GFR/1.73 sq M.predicted israel g non-blacks MDRD (S/P/Bld) [Vol rate/Area]Ordered By: Nenita Kwok on 12-13-2024 Estimated GFR (MDRD) Non-Af Amer 126 >60 [facility] Comment on above: mL/min/1.73m2 CKD-EP I Creatinine Equation (2020) Glomerular filtration rate ( GFR) estimation/1.73 sq m using serum, plasma, or whole bOrdered By: Nenita Kwok on 12-13-2024 GFR/1.73 sq M.predicted among non-blacks MDRD (S/P/Bld) [Vol rate/Area] 126 mL/min/{1.73_m2} >60 [facility] Comment on above: mL/min/1.73m2 CKD-EP I Creatinine Equation (2020) Hematocrit Auto (Bld) [Volum e fraction]Ordered By: Nenita Kwok on 12-13-2024 Hematocrit (Bld) [Volume fraction] 37.2 % 37-47 [facility] Hemoglobin measurementOrdere d By: Nenita Kwok on 12-13-2024 Hemoglobin (Bld) [Mass/Vol] 12.4 g/dL 12.0-15.0 [facility] Immature granulocytes/100 WB C Auto (Bld)Ordered By: Nenita Kwok on 12-13-2024 Immature granulocytes/100 WBC (Bld) 1.400 % High 0.0-0.9 [facility] Comment on above: IG% - Immature Granu locytes (promyelocytes, myelocytes and metamyelocytes) > 1% indicates that a LEFT SHIFT is Present. L509.8002on 12-13-2024 Syphilis Abs Non-Reactive Normal Nonreactive [facility] Comment on above: Performed By: #### L 501.1105, L509.8002 ####[facility] [address] [place], [address] Laboratory - Chemistry and C hemistry - challengeOrdered By: Nenita Kwok on 12-13-2024 AST [Catalytic activity/Vol] 12 U/L <32 [facility] Lymphocytes Auto (Unsp spec) [#/Vol]Ordered By: Nenita Kwok on 12-13-2024 Lymphocytes (Bld) [#/Vol] 2.02 10*3/uL 0.83-4.51 [facility] Lymphocytes/100 WBC Auto (Un sp spec)Ordered By: Nenita Kwok on 12-13-2024 Lymphocytes/100 WBC (Bld) 17.3 % Low 19-41 [facility] MCV (mean corpuscular volume ) determinationOrdered By: Nenita Kwok on 12-13-2024 MCV (RBC) [Entitic vol] 84.7 fL 81-99 [facility] Mean corpuscular hemoglobin (MCH) determinationOrdered By: Nenita Kwok on 12-13-2024 MCH (RBC) [Entitic mass] 28.2 pg 27.0-32.0 [facility] Mean corpuscular hemoglobin concentration (MCHC) determinationOrdered By: Nenita Kwok on 12-13-2024 MCHC (RBC) [Mass/Vol] 33.3 g/dL 32-36 [facility] Mean platelet volume determi nationOrdered By: Nenita Kwok on 12-13-2024 Platelet mean volume (Bld) [Entitic vol] 10.7 fL 6.2-12.0 [facility] Monocyte percentageOrdered B y: Nenita Kwok on 12-13-2024 Monocytes/100 WBC (Bld) 4.1 % 0-10 [facility] Neutrophil percentageOrdered By: Nenita Kwok on 12-13-2024 Neutrophils/100 WBC (Bld) 75.8 % High 47-70 [facility] Nucleated red blood cell per centageOrdered By: Nenita Kwok on 12-13-2024 Nucleated RBC/100 WBC (Bld) [Ratio] 0 % 0-5 [facility] OB Limited With Biometricson 12-13-2024 OB Limited With Biometrics Normal [facility] OB Triage Physician Noteon 0 3-11-2025 OB Triage Physician Note Normal [facility] [employer] Office Visit Reporton 12-13-2024 [employer] Office Visit Report Normal [facility] Platelet countOrdered By: Adalid Kwok on 12-13-2024 Platelets (Bld) [#/Vol] 288 10*3/uL 150-450 [facility] Potassium (Unsp spec) [Mass/ Vol]Ordered By: Nenita Kwok on 12-13-2024 Potassium [Moles/Vol] 3.7 mmol/L 3.3-5.1 [facility] Potassium measurement (mass/ volume)Ordered By: Nenita Kwok on 12-13-2024 Potassium (Unsp spec) [Mass/Vol] 3.7 mmol/L 3.3-5.1 [facility] Protein+Creatinine Ratio,Uri neon 12-13-2024 PROT:CRE RATIO 165 mg/g CRE Normal 0-200 [facility] Comment on above: Performed By: #### L 501.0900 ####[facility] [address] [place], [address] UR CREAT 63.80 mg/dL Normal -217 [facility] Comment on above: Performed By: #### L 501.0900 ####[facility] [address] [place], [address] Protein/Creatinine (U) [Mass ratio]Ordered By: Nenita Kwok on 12-13-2024 Urine Protein/Creatinine Ratio 165 mg/g CRE 0-200 [facility] RBC Auto (Bld) [#/Vol]Ordere d By: Nenita Kwok on 12-13-2024 RBC (Bld) [#/Vol] 4.39 10*6/uL 4.2-5.[address] [facility] Random urine creatinine rowena urement (mass/volume)Ordered By: Nenita Kwok on 12-13-2024 Creatinine Unsp time (U) [Mass/Vol] 63.80 mg/dL 28-217 [facility] Serum Creatinine AND GFRon 0 12-13-2024 Creatinine [Mass/Vol] 0.46 mg/dL Low 0.70-1.20 [facility] Comment on above: Performed By: #### L 501.1105, L509.8002 ####[facility] [address] [place], [place], [address] ECRCL 282.41 ml/min High 50-250 [facility] Comment on above: Performed By: #### L 501.1105, L509.8002 ####[facility] [address] [place], [place], [id number] GFR/1.73 sq M.predicted among non-blacks MDRD (S/P/Bld) [Vol rate/Area] 133 mL/min/{1.73_m2} Normal >60 [facility] Comment on above: Result Comment: mL/m in/1.73m2 CKD-EPI Creatinine Equation (2020) Performed By: #### L 501.1105, L509.8002 ####[facility] [address] [place], [place], [address] Serum creatinine measurement (mass/volume)Ordered By: Nenita Kwok on 12-13-2024 Creatinine [Mass/Vol] 0.58 mg/dL Low 0.70-1.20 [facility] Serum globulin measurementOr dered By: Nenita Kwok on 12-13-2024 Globulin (S) [Mass/Vol] 2.9 g/dL 2.2-4.2 [facility] Serum glucose measurement (m ass/volume)Ordered By: Nenita Kwok on 12-13-2024 Glucose [Mass/Vol] 113 mg/dL High 70-99 [facility] Serum or plasma alanine simon otransferase (ALT) measurementOrdered By: Nenita Kwok on 12-13-2024 ALT [Catalytic activity/Vol] 9 U/L <35 [facility] Serum or plasma albumin rowena urement (mass/volume)Ordered By: Nenita Kwok on 12-13-2024 Albumin [Mass/Vol] 4.0 g/dL 3.5-5.0 [facility] Serum or plasma albumin/glob ulin mass ratioOrdered By: Nenita Kwok on 12-13-2024 Albumin/Globulin [Mass ratio] 1.4 {ratio} 0.9-2.4 [facility] Serum or plasma alkaline boris sphatase measurementOrdered By: Nenita Kwok on 12-13-2024 ALP [Catalytic activity/Vol] 99 U/L 35-104 [facility] Serum or plasma calcium rowena urement (mass/volume)Ordered By: Nenita Kwok on 12-13-2024 Calcium [Mass/Vol] 9.2 mg/dL 7.6-11.0 [facility] Serum or plasma urea nitroge n measurement (mass/volume)Ordered By: Nenita Kwok on 12-13-2024 Urea nitrogen [Mass/Vol] 8 mg/dL 4-19 [facility] Sodium levelOrdered By: Summer Kwok on 12-13-2024 Sodium [Moles/Vol] 136 mmol/L 133-145 [facility] T. pallidum abOrdered By: Adalid Kwok on 12-13-2024 Syphilis Total Antibody Non-Reactive Nonreactive [facility] Testing for ruptured membran esOrdered By: Nenita Kwok on 12-13-2024 Vaginal Amniotic Fluid Detection Negative Negative [facility] Comment on above: Amniotic fluid not p resent indicates No Rupture of FetalMembranes at time of specimen collection. Total proteinOrdered By: Melissa Kwok on 12-13-2024 Protein [Mass/Vol] 6.9 g/dL 5.9-8.4 [facility] Type AND Screenon 12-13-2024 ABO and Rh group Nom (Bld) Blood group AB Rh(D) positive Normal [facility] Comment on above: Order Comment: SC-SE CTION Performed By: #### L 100.0100, BTS ####[facility] [address] [place], [place], [id number] Urine protein measurement (m ass/volume)Ordered By: Nenita Kwok on 12-13-2024 Protein (U) [Mass/Vol] 10.5 mg/dL Normal 0.0-12.0 [facility] Comment on above: Performed By: #### L 501.0900 ####[facility] [address] [place], [address] Urine protein/creatinine mas s ratioOrdered By: Nenita Kwok on 12-13-2024 Protein/Creatinine (U) [Mass ratio] 165 mg/g CRE 0-200 [facility] White blood cell (WBC) count Ordered By: Nenita Kwok on 12-13-2024 WBC (Bld) [#/Vol] 11.7 10*3/uL High 4.4-11.[address] [facility] Laboratory - Chemistry and C hemistry - challengeOrdered By: Sariah Cobb on 12-02-2024 Glucose Ql (U) Negative [facility] Laboratory - UrinalysisOrder ed By: Sariah Cobb on 12-02-2024 Protein Ql (U) Negative [facility] [employer] Office Visit Reporton 12-02-2024 [employer] Office Visit Report Normal [facility] Absolute lymphocyte countOrd ered By: Nenita Kwok on 11-28-2024 Lymphocytes Auto (Unsp spec) [#/Vol] 2.48 10*3/uL 0.83-4.51 [facility] Absolute neutrophil countOrd ered By: Nenita Kwok on 11-28-2024 Neutrophils (Bld) [#/Vol] 9.7 10*3/uL High 2.0-7.7 [facility] Albumin to globulin ratioOrd ered By: Nenita Kwok on 11-28-2024 Albumin/Globulin [Mass ratio] 0.7 {ratio} Low 0.9-2.4 [facility] Automated lymphocyte count a s percentage of total leukocytesOrdered By: Nenita Kwok on 11-28-2024 Lymphocytes/100 WBC Auto (Unsp spec) 18.8 % Low 19-41 [facility] Basophil percentageOrdered B y: Nenita Kwok on 11-28-2024 Basophils/100 WBC (Bld) 0.3 % 0-1 [facility] Bilirubin, totalOrdered By: Nenita Kwok on 11-28-2024 Bilirubin [Mass/Vol] 0.10 mg/dL Low 0.20-1.00 [facility] Comment on above: For patients on eltr ombopag therapy, use of Dimension [place] TBIL is not recommended. Blood urea nitrogen (BUN)/cr eatinine ratioOrdered By: Nenita Kwok on 11-28-2024 Urea nitrogen/Creatinine [Mass ratio] 10.0 mg/mg 10-20 [facility] CBC W/Diff, Automatedon 11-06 Absolute Lymph 2.48 X10 3/uL Normal 0.83-4.51 [facility] Comment on above: Performed By: #### L 501.0900, L500.4050, L100.0100 ####[facility] [address] [place], [address] Absolute Neut 9.7 X10 3/uL High 2.0-7.7 [facility] Comment on above: Performed By: #### L 501.0900, L500.4050, L100.0100 ####[facility] [address] [place], [address] Basophils/100 WBC (Bld) 0.3 % Normal 0-1 [facility] Comment on above: Performed By: #### L 501.0900, L500.4050, L100.0100 ####[facility] [address] [place], [address] Eosinophils/100 WBC (Bld) 0.7 % Normal 0-5 [facility] Comment on above: Performed By: #### L 501.0900, L500.4050, L100.0100 ####[facility] [address] [place], [address] Erythrocyte distribution width (RBC) [Ratio] 12.8 % Normal 11.6-14.6 [facility] Comment on above: Performed By: #### L 501.0900, L500.4050, L100.0100 ####[facility] [address] [place], [address] Hematocrit (Bld) [Volume fraction] 38.9 % Normal 37-47 [facility] Comment on above: Performed By: #### L 501.0900, L500.4050, L100.0100 ####[facility] [address] [place], [address] Hemoglobin (Bld) [Mass/Vol] 12.5 g/dL Normal 12.0-15.0 [facility] Comment on above: Performed By: #### L 501.0900, L500.4050, L100.0100 ####[facility] [address] [place], [address] IG% 1.400 High 0.0-0.9 [facility] Comment on above: Result Comment: IG% - Immature Granulocytes (promyelocytes, myelocytes andmetamyelocytes) > 1% indicates that a LEFT SHIFT is Present. Performed By: #### L 501.0900, L500.4050, L100.0100 ####[facility] [address] [place], [address] Lymphocytes/100 WBC (Bld) 18.8 % Low 19-41 [facility] Comment on above: Performed By: #### L 501.0900, L500.4050, L100.0100 ####[facility] [address] [place], [address] MCH (RBC) [Entitic mass] 28.0 pg Normal 27.0-32.0 [facility] Comment on above: Performed By: #### L 501.0900, L500.4050, L100.0100 ####[facility] [address] [place], [address] MCHC (RBC) [Mass/Vol] 32.1 g/dL Normal 32-36 [facility] Comment on above: Performed By: #### L 501.0900, L500.4050, L100.0100 ####[facility] [address] [place], [address] MCV (RBC) [Entitic vol] 87.2 fL Normal 81-99 [facility] Comment on above: Performed By: #### L 501.0900, L500.4050, L100.0100 ####[facility] [address] [place], [address] Monocytes/100 WBC (Bld) 4.9 % Normal 0-10 [facility] Comment on above: Performed By: #### L 501.0900, L500.4050, L100.0100 ####[facility] [address] [place], [address] Neutrophils/100 WBC (Bld) 73.9 % High 47-70 [facility] Comment on above: Performed By: #### L 501.0900, L500.4050, L100.0100 ####[facility] [address] [place], [address] Nucleated RBC (Bld) [#/Vol] 0 10*3/uL Normal 0-5 [facility] Comment on above: Performed By: #### L 501.0900, L500.4050, L100.0100 ####[facility] [address] [place], [address] Platelet mean volume (Bld) [Entitic vol] 10.8 fL Normal 6.2-12.0 [facility] Comment on above: Performed By: #### L 501.0900, L500.4050, L100.0100 ####[facility] [address] [place], [address] Platelets (Bld) [#/Vol] 292 10*3/uL Normal 150-450 [facility] Comment on above: Performed By: #### L 501.0900, L500.4050, L100.0100 ####[facility] [address] [place], [address] RBC (Bld) [#/Vol] 4.46 10*6/uL Normal 4.2-5.[address] [facility] Comment on above: Performed By: #### L 501.0900, L500.4050, L100.0100 ####[facility] [address] [place], [address] RDW SD 40.5 fl Normal 35.1-43.9 [facility] Comment on above: Performed By: #### L 501.0900, L500.4050, L100.0100 ####[facility] [address] [place], [address] WBC (Bld) [#/Vol] 13.2 10*3/uL High 4.4-11.[address] [facility] Comment on above: Performed By: #### L 501.0900, L500.4050, L100.0100 ####[facility] [address] [place], [address] Carbon dioxide measurementOr dered By: Nenita Kwok on 11-28-2024 CO2 [Moles/Vol] 26.0 mmol/L 21.0-32.0 [facility] Chloride measurementOrdered By: Nenita Kwok on 11-28-2024 Chloride [Moles/Vol] 104 mmol/L 98-107 [facility] Comprehensive Metabolic Prof ilon 11-28-2024 Albumin [Mass/Vol] 3.1 g/dL Low 3.2-5.0 [facility] Comment on above: Performed By: #### L 501.0900, L500.4050, L100.0100 ####[facility] [address] [place], [address] Albumin/Globulin [Mass ratio] 0.7 {ratio} Low 0.9-2.4 [facility] Comment on above: Performed By: #### L 501.0900, L500.4050, L100.0100 ####[facility] [address] [place], [address] ALK P 93 U/L Normal 45-117 [facility] Comment on above: Performed By: #### L 501.0900, L500.4050, L100.0100 ####[facility] [address] [place], [address] ALT [Catalytic activity/Vol] 13 U/L Normal 13-56 [facility] Comment on above: Performed By: #### L 501.0900, L500.4050, L100.0100 ####[facility] [address] [place], [address] AST [Catalytic activity/Vol] 12 U/L Low 15-37 [facility] Comment on above: Performed By: #### L 501.0900, L500.4050, L100.0100 ####[facility] [address] [place], [address] Bilirubin [Mass/Vol] 0.10 mg/dL Low 0.20-1.00 [facility] Comment on above: Result Comment: For patients on eltrombopag therapy, use of Dimension [place] TBIL is not recommended. Performed By: #### L 501.0900, L500.4050, L100.0100 ####[facility] [address] [place], [address] BUN/CRE 10.0 RATIO Normal 10-20 [facility] Comment on above: Performed By: #### L 501.0900, L500.4050, L100.0100 ####[facility] [address] [place], [address] CA,Total 9.5 mg/dL Normal 8.5-10.1 [facility] Comment on above: Performed By: #### L 501.0900, L500.4050, L100.0100 ####[facility] [address] [place], [address] Chloride [Moles/Vol] 104 mmol/L Normal 98-107 [facility] Comment on above: Performed By: #### L 501.0900, L500.4050, L100.0100 ####[facility] [address] [place], [address] CO2 [Moles/Vol] 26.0 mmol/L Normal 21.0-32.0 [facility] Comment on above: Performed By: #### L 501.0900, L500.4050, L100.0100 ####[facility] [address] [place], [address] Creatinine [Mass/Vol] 0.70 mg/dL Normal 0.55-1.02 [facility] Comment on above: Result Comment: The validity of the calculated GFR GFRAA in patients over70 years has not been determined. Clinical correlation isessential. Performed By: #### L 501.0900, L500.4050, L100.0100 ####[facility] [address] [place], [address] EST GFR - AA 128 mL/min Normal >60 [facility] Comment on above: Result Comment: Afri can Mexican GFR Calc Performed By: #### L 501.0900, L500.4050, L100.0100 ####[facility] [address] [place], [address] GAP 8 Normal 5-15 [facility] Comment on above: Performed By: #### L 501.0900, L500.4050, L100.0100 ####[facility] [address] [place], [address] GFR/1.73 sq M.predicted among non-blacks MDRD (S/P/Bld) [Vol rate/Area] 106 mL/min/{1.73_m2} Normal >60 [facility] Comment on above: Result Comment: Non- GFR Calc Performed By: #### L 501.0900, L500.4050, L100.0100 ####[facility] [address] [place], [address] Globulin (S) [Mass/Vol] 4.2 g/dL Normal 2.2-4.2 [facility] Comment on above: Performed By: #### L 501.0900, L500.4050, L100.0100 ####[facility] [address] [place], [address] Glucose [Mass/Vol] 90 mg/dL Normal 74-106 [facility] Comment on above: Performed By: #### L 501.0900, L500.4050, L100.0100 ####[facility] [address] [place], [address] Potassium [Moles/Vol] 4.5 mmol/L Normal 3.5-5.1 [facility] Comment on above: Performed By: #### L 501.0900, L500.4050, L100.0100 ####[facility] [address] [place], [address] Sodium [Moles/Vol] 138 mmol/L Normal 136-145 [facility] Comment on above: Performed By: #### L 501.0900, L500.4050, L100.0100 ####[facility] [address] [place], [address] T PROT 7.3 g/dL Normal 6.4-8.2 [facility] Comment on above: Performed By: #### L 501.0900, L500.4050, L100.0100 ####[facility] [address] [place], [address] Urea nitrogen [Mass/Vol] 7 mg/dL Normal 7-18 [facility] Comment on above: Performed By: #### L 501.0900, L500.4050, L100.0100 ####[facility] [address] [place], [address] Eosinophil percentageOrdered By: Nenita Kwok on 11-28-2024 Eosinophils/100 WBC (Bld) 0.7 % 0-5 [facility] Erythrocyte distribution wid th ratioOrdered By: Nenita Kwok on 11-28-2024 Erythrocyte distribution width (RBC) [Ratio] 12.8 % 11.6-14.6 [facility] Erythrocyte distribution wid th standard deviationOrdered By: Nenita Kwok on 11-28-2024 Erythrocyte distribution width (RBC) [Entitic vol] 40.5 fL 35.1-43.9 [facility] Erythrocyte distribution width (RBC) [Ratio] 40.5 fl 35.1-43.9 [facility] Estimated glomerular filtrat ion rate (GFR) AmericanOrdered By: Nenita Kwok on 11-28-2024 Estimated GFR (MDRD) Amer 128 mL/min >60 [facility] Comment on above: GFR Calc Glomerular filtration rate ( GFR) estimationOrdered By: Nenita Kwok on 11-28-2024 Estimated GFR (MDRD) Non-Af Amer 106 mL/min >60 [facility] Comment on above: Non- GFR Calc GFR/1.73 sq M.predicted among non-blacks MDRD (S/P/Bld) [Vol rate/Area] 106 mL/min/{1.73_m2} >60 [facility] Comment on above: Non- GFR Calc Glucose measurementOrdered B y: Nenita Kwok on 11-28-2024 Glucose [Mass/Vol] 90 mg/dL 74-106 [facility] Hematocrit Auto (Bld) [Volum e fraction]Ordered By: Nenita Kwok on 11-28-2024 Hematocrit (Bld) [Volume fraction] 38.9 % 37-47 [facility] Hemoglobin measurementOrdere d By: Nenita Kwok on 11-28-2024 Hemoglobin (Bld) [Mass/Vol] 12.5 g/dL 12.0-15.0 [facility] Immature granulocytes/100 WB C Auto (Bld)Ordered By: Nenita Kwok on 11-28-2024 Immature granulocytes/100 WBC (Bld) 1.400 % High 0.0-0.9 [facility] Comment on above: IG% - Immature Granu locytes (promyelocytes, myelocytes and metamyelocytes) > 1% indicates that a LEFT SHIFT is Present. Laboratory - Chemistry and C hemistry - challengeOrdered By: Nenita Kwok on 11-28-2024 AST [Catalytic activity/Vol] 12 U/L Low 15-37 [facility] Lymphocytes Auto (Unsp spec) [#/Vol]Ordered By: Nenita Kwok on 11-28-2024 Lymphocytes (Bld) [#/Vol] 2.48 10*3/uL 0.83-4.51 [facility] Lymphocytes/100 WBC Auto (Un sp spec)Ordered By: Nenita Kwok on 11-28-2024 Lymphocytes/100 WBC (Bld) 18.8 % Low 19-41 [facility] MCV (mean corpuscular volume ) determinationOrdered By: Nenita Kwok on 11-28-2024 MCV (RBC) [Entitic vol] 87.2 fL 81-99 [facility] Mean corpuscular hemoglobin (MCH) determinationOrdered By: Nenita Kwok on 11-28-2024 MCH (RBC) [Entitic mass] 28.0 pg 27.0-32.0 [facility] Mean corpuscular hemoglobin concentration (MCHC) determinationOrdered By: Nenita Kwok on 11-28-2024 MCHC (RBC) [Mass/Vol] 32.1 g/dL 32-36 [facility] Mean platelet volume determi nationOrdered By: Nenita Kwok on 11-28-2024 Platelet mean volume (Bld) [Entitic vol] 10.8 fL 6.2-12.0 [facility] Monocyte percentageOrdered B y: Nenita Kwok on 11-28-2024 Monocytes/100 WBC (Bld) 4.9 % 0-10 [facility] Neutrophil percentageOrdered By: Nenita Kwok on 11-28-2024 Neutrophils/100 WBC (Bld) 73.9 % High 47-70 [facility] Nucleated red blood cell per centageOrdered By: Nenita Kwok on 11-28-2024 Nucleated RBC/100 WBC (Bld) [Ratio] 0 % 0-5 [facility] [employer] Office Visit Reporton 11-28-2024 [employer] Office Visit Report Normal [facility] Platelet countOrdered By: Adalid Kwok on 11-28-2024 Platelets (Bld) [#/Vol] 292 10*3/uL 150-450 [facility] Potassium measurementOrdered By: Nenita Kwok on 11-28-2024 Potassium [Moles/Vol] 4.5 mmol/L 3.5-5.1 [facility] Protein+Creatinine Ratio,Uri neon 11-28-2024 PROT:CRE RATIO 185 mg/g CRE Normal 0-200 [facility] Comment on above: Performed By: #### L 501.0900, L500.4050, L100.0100 ####[facility] [address] [place], [address] Protein (U) [Mass/Vol] 20.4 mg/dL High <11.9 [facility] Comment on above: Performed By: #### L 501.0900, L500.4050, L100.0100 ####[facility] [address] [place], [address] UR CREAT 110.00 mg/dL Normal NO RANGE EST. [facility] Comment on above: Performed By: #### L 501.0900, L500.4050, L100.0100 ####[facility] [address] [place], [address] Protein/Creatinine (U) [Mass ratio]Ordered By: Nenita Kwok on 11-28-2024 Urine Protein/Creatinine Ratio 185 mg/g CRE 0-200 [facility] RBC Auto (Bld) [#/Vol]Ordere d By: Nenita Kwok on 11-28-2024 RBC (Bld) [#/Vol] 4.46 10*6/uL 4.2-5.[address] [facility] Random urine protein measure mentOrdered By: Nenita Kwok on 11-28-2024 Protein (U) [Mass/Vol] 20.4 mg/dL High 0.0-11.8 [facility] Serum anion gap measurementO rdered By: Nenita Kwok on 11-28-2024 Anion gap [Moles/Vol] 8 mmol/L 5-15 [facility] Serum globulin measurementOr dered By: Nenita Kwok on 11-28-2024 Globulin (S) [Mass/Vol] 4.2 g/dL 2.2-4.2 [facility] Serum or plasma alanine simon otransferase (ALT) measurementOrdered By: Nenita Kwok on 11-28-2024 ALT [Catalytic activity/Vol] 13 U/L 13-56 [facility] Serum or plasma albumin rowena urement (mass/volume)Ordered By: Nenita Kwok on 11-28-2024 Albumin [Mass/Vol] 3.1 g/dL Low 3.2-5.0 [facility] Serum or plasma alkaline boris sphatase measurementOrdered By: Nenita Kwok on 11-28-2024 ALP [Catalytic activity/Vol] 93 U/L 45-117 [facility] Serum or plasma calcium rowena urement (mass/volume)Ordered By: Nenita Kwok on 11-28-2024 Calcium [Mass/Vol] 9.5 mg/dL 8.5-10.1 [facility] Serum or plasma creatinine m easurement (mass/volume)Ordered By: Nenita Kwok on 11-28-2024 Creatinine [Mass/Vol] 0.70 mg/dL 0.55-1.02 [facility] Comment on above: The validity of the calculated GFR & GFRAA in patients over 70 years has not been determined. Clinical correlation is essential. Serum or plasma urea nitroge n measurement (mass/volume)Ordered By: Nenita Kwok on 11-28-2024 Urea nitrogen [Mass/Vol] 7 mg/dL 7-18 [facility] Sodium levelOrdered By: Summer Kwok on 11-28-2024 Sodium [Moles/Vol] 138 mmol/L 136-145 [facility] Total proteinOrdered By: Melissa Kwok on 11-28-2024 Protein [Mass/Vol] 7.3 g/dL 6.4-8.2 [facility] Urine creatinine measurement (mass/volume)Ordered By: Nenita Kwok on 11-28-2024 Creatinine (U) [Mass/Vol] 110.00 mg/dL NO RANGE EST. [facility] Urine protein/creatinine mas s ratioOrdered By: Nenita Kwok on 11-28-2024 Protein/Creatinine (U) [Mass ratio] 185 mg/g CRE 0-200 [facility] White blood cell (WBC) count Ordered By: Nenita Kwok on 11-28-2024 WBC (Bld) [#/Vol] 13.2 10*3/uL High 4.4-11.[address] [facility] Gestational GTT 3HR 100gon 0 11-21-2024 3HR GTT- GEST. Normal [facility] Comment on above: Order Comment: Y Result Comment: FAST ING 92 Col: 11/21/24 0705GLUCOSE TOLERANCE TEST FOR Reference Interval GESTATIONAL DIABETES Fasting <105 mg/dL 1 hour <190 mg/dl 2 hour <165 mg/dl 3 hour <145 mg/dl 1 HR GLU 190 Col: 11/21/24 0807 2 HR GLU 118 Col: 11/21/24 0909 3 HR GLU 57 Col: 11/21/24 1004 Performed By: #### L 500.4710 ####[facility] [address] [place], [address] Glucose tolerance 3 hours ge stational panelOrdered By: Belkis Pacheco on 11-21-2024 Gestational Glucose Tolerance Test See comment [facility] Comment on above: FASTING 92 Col: 11/05 04/28 0705GLUCOSE TOLERANCE TEST FOR Reference Interval GESTATIONAL DIABETES Fasting <105 mg/dL 1 hour <190 mg/dl 2 hour <165 mg/dl 3 hour <145 mg/dl 1 HR GLU 190 Col: 11/21/24 0807 2 HR GLU 118 Col: 11/21/24 0909 3 HR GLU 57 Col: 11/21/24 1004 Quantitative serum or plasma 3 hour gestational glucose tolerance panelOrdered By: Belkis Pacheco on 11-21-2024 Glucose tolerance 3 hours gestational panel See comment [facility] Comment on above: FASTING 92 Col: 11/05 04/28 0705GLUCOSE TOLERANCE TEST FOR Reference Interval GESTATIONAL DIABETES Fasting <105 mg/dL 1 hour <190 mg/dl 2 hour <165 mg/dl 3 hour <145 mg/dl 1 HR GLU 190 Col: 11/21/24 0807 2 HR GLU 118 Col: 11/21/24 0909 3 HR GLU 57 Col: 11/21/24 1004 HIV - WCHon 11-16-2024 HIV Non-Reactive Normal Nonreactive [facility] Comment on above: Performed By: #### L 501.0250, L100.0100, L3890.6005 ####[facility] [address] [place], [place], [id number] Absolute lymphocyte countOrd ered By: Belkis Pacheco on 11-15-2024 Lymphocytes Auto (Unsp spec) [#/Vol] 2.26 10*3/uL 0.83-4.51 [facility] Absolute neutrophil countOrd ered By: Belkis Pacheco on 11-15-2024 Neutrophils (Bld) [#/Vol] 8.6 10*3/uL High 2.0-7.7 [facility] Automated lymphocyte count a s percentage of total leukocytesOrdered By: Belkis Pacheco on 11-15-2024 Lymphocytes/100 WBC Auto (Unsp spec) 18.6 % Low 19-41 [facility] Basophil percentageOrdered B y: Belkis Pacheco on 11-15-2024 Basophils/100 WBC (Bld) 0.4 % 0-1 [facility] CBC W/Diff, Automatedon 11-05 Absolute Lymph 2.26 X10 3/uL Normal 0.83-4.51 [facility] Comment on above: Performed By: #### L 501.0250, L100.0100, L3890.6005 ####[facility] [address] [place], [address] Absolute Neut 8.6 X10 3/uL High 2.0-7.7 [facility] Comment on above: Performed By: #### L 501.0250, L100.0100, L3890.6005 ####[facility] [address] [place], [address] Basophils/100 WBC (Bld) 0.4 % Normal 0-1 [facility] Comment on above: Performed By: #### L 501.0250, L100.0100, L3890.6005 ####[facility] [address] [place], [address] Eosinophils/100 WBC (Bld) 1.1 % Normal 0-5 [facility] Comment on above: Performed By: #### L 501.0250, L100.0100, L3890.6005 ####[facility] [address] [place], [address] Erythrocyte distribution width (RBC) [Ratio] 12.7 % Normal 11.6-14.6 [facility] Comment on above: Performed By: #### L 501.0250, L100.0100, L3890.6005 ####[facility] [address] [place], [address] Hematocrit (Bld) [Volume fraction] 36.9 % Low 37-47 [facility] Comment on above: Performed By: #### L 501.0250, L100.0100, L3890.6005 ####[facility] [address] [place], [address] Hemoglobin (Bld) [Mass/Vol] 12.2 g/dL Normal 12.0-15.0 [facility] Comment on above: Performed By: #### L 501.0250, L100.0100, L3890.6005 ####[facility] [address] [place], [address] IG% 3.700 High 0.0-0.9 [facility] Comment on above: Result Comment: IG% - Immature Granulocytes (promyelocytes, myelocytes andmetamyelocytes) > 1% indicates that a LEFT SHIFT is Present. Performed By: #### L 501.0250, L100.0100, L3890.6005 ####[facility] [address] [place], [address] Lymphocytes/100 WBC (Bld) 18.6 % Low 19-41 [facility] Comment on above: Performed By: #### L 501.0250, L100.0100, L3890.6005 ####[facility] [address] [place], [address] MCH (RBC) [Entitic mass] 28.0 pg Normal 27.0-32.0 [facility] Comment on above: Performed By: #### L 501.0250, L100.0100, L3890.6005 ####[facility] [address] [place], [address] MCHC (RBC) [Mass/Vol] 33.1 g/dL Normal 32-36 [facility] Comment on above: Performed By: #### L 501.0250, L100.0100, L3890.6005 ####[facility] [address] [place], [address] MCV (RBC) [Entitic vol] 84.8 fL Normal 81-99 [facility] Comment on above: Performed By: #### L 501.0250, L100.0100, L3890.6005 ####[facility] [address] [place], [address] Monocytes/100 WBC (Bld) 5.1 % Normal 0-10 [facility] Comment on above: Performed By: #### L 501.0250, L100.0100, L3890.6005 ####[facility] [address] [place], [address] Neutrophils/100 WBC (Bld) 71.1 % High 47-70 [facility] Comment on above: Performed By: #### L 501.0250, L100.0100, L3890.6005 ####[facility] [address] [place], [address] Nucleated RBC (Bld) [#/Vol] 0 10*3/uL Normal 0-5 [facility] Comment on above: Performed By: #### L 501.0250, L100.0100, L3890.6005 ####[facility] [address] [place], [address] Platelet mean volume (Bld) [Entitic vol] 11.0 fL Normal 6.2-12.0 [facility] Comment on above: Performed By: #### L 501.0250, L100.0100, L3890.6005 ####[facility] [address] [place], [address] Platelets (Bld) [#/Vol] 303 10*3/uL Normal 150-450 [facility] Comment on above: Performed By: #### L 501.0250, L100.0100, L3890.6005 ####[facility] [address] [place], [address] RBC (Bld) [#/Vol] 4.35 10*6/uL Normal 4.2-5.[address] [facility] Comment on above: Performed By: #### L 501.0250, L100.0100, L3890.6005 ####[facility] [address] [place], [address] RDW SD 38.8 fl Normal 35.1-43.9 [facility] Comment on above: Performed By: #### L 501.0250, L100.0100, L3890.6005 ####[facility] [address] [place], [address] WBC (Bld) [#/Vol] 12.1 10*3/uL High 4.4-11.[address] [facility] Comment on above: Performed By: #### L 501.0250, L100.0100, L3890.6005 ####[facility] [address] [place], [place], [id number] Eosinophil percentageOrdered By: Belkis Pacheco on 11-15-2024 Eosinophils/100 WBC (Bld) 1.1 % 0-5 [facility] Erythrocyte distribution wid th ratioOrdered By: Belkis Pacheco on 11-15-2024 Erythrocyte distribution width (RBC) [Ratio] 12.7 % 11.6-14.6 [facility] Erythrocyte distribution wid th standard deviationOrdered By: Belkis Pacheco on 11-15-2024 Erythrocyte distribution width (RBC) [Entitic vol] 38.8 fL 35.1-43.9 [facility] Erythrocyte distribution width (RBC) [Ratio] 38.8 fl 35.1-43.9 [facility] Gestational diabetes screen 1-hour screen with 50g oral glucose loadOrdered By: Belkis Pacheco on 11-15-2024 Glucose 1 Hr post 50 g glucose PO [Mass/Vol] 141 mg/dL High 70-140 [facility] Glucose 1 Hr post 50 g gluco se PO [Mass/Vol]Ordered By: Belkis Pacheco on 11-15-2024 Glucose [Mass/Vol] 141 mg/dL High 70-140 [facility] Glucose Challenge Gest 1H 50 isa 11-15-2024 GLU GEST 50g 1H 141 mg/dL High 70-140 [facility] Comment on above: Performed By: #### L 501.0250, L100.0100, L3890.6005 ####[facility] [address] [place], [place], [id number] HIV 1 and HIV-2 antibody ass ay with HIV-1 p24 antigen detectionOrdered By: Belkis Pacheco on 11-15-2024 HIV 1+2 Ab+HIV1 p24 Ag IA Ql Non-Reactive Nonreactive [facility] HIV 1+2 Ab+HIV1 p24 Ag IA Ql Ordered By: Belkis Pacheco on 11-15-2024 HIV (1&2) Antibody Non-Reactive Nonreactive [facility] Hematocrit Auto (Bld) [Volum e fraction]Ordered By: Belkis Pacheco on 11-15-2024 Hematocrit (Bld) [Volume fraction] 36.9 % Low 37-47 [facility] Hemoglobin measurementOrdere d By: Belkis Pacheco on 11-15-2024 Hemoglobin (Bld) [Mass/Vol] 12.2 g/dL 12.0-15.0 [facility] Immature granulocytes/100 WB C Auto (Bld)Ordered By: Belkis Pacheco on 11-15-2024 Immature granulocytes/100 WBC (Bld) 3.700 % High 0.0-0.9 [facility] Comment on above: IG% - Immature Granu locytes (promyelocytes, myelocytes and metamyelocytes) > 1% indicates that a LEFT SHIFT is Present. L509.8000on 11-15-2024 Syphilis Abs Non-Reactive Normal [facility] Comment on above: Performed By: #### L 509.8000 ####[facility] [address] [place], [address] Laboratory - Chemistry and C hemistry - challengeOrdered By: Kavya Diez on 11-15-2024 Glucose Ql (U) Negative [facility] Laboratory - UrinalysisOrder ed By: Kavya Diez on 11-15-2024 Protein Ql (U) Negative [facility] Lymphocytes Auto (Unsp spec) [#/Vol]Ordered By: Belkis Pacheco on 11-15-2024 Lymphocytes (Bld) [#/Vol] 2.26 10*3/uL 0.83-4.51 [facility] Lymphocytes/100 WBC Auto (Un sp spec)Ordered By: Belkis Pacheco on 11-15-2024 Lymphocytes/100 WBC (Bld) 18.6 % Low 19-41 [facility] MCV (mean corpuscular volume ) determinationOrdered By: Belkis Pacheco on 11-15-2024 MCV (RBC) [Entitic vol] 84.8 fL 81-99 [facility] Mean corpuscular hemoglobin (MCH) determinationOrdered By: Belkis Pacheco on 11-15-2024 MCH (RBC) [Entitic mass] 28.0 pg 27.0-32.0 [facility] Mean corpuscular hemoglobin concentration (MCHC) determinationOrdered By: Belkis Pacheco on 11-15-2024 MCHC (RBC) [Mass/Vol] 33.1 g/dL 32-36 [facility] Mean platelet volume determi nationOrdered By: Belkis Pacheco on 11-15-2024 Platelet mean volume (Bld) [Entitic vol] 11.0 fL 6.2-12.0 [facility] Monocyte percentageOrdered B y: Belkis Pacheco on 11-15-2024 Monocytes/100 WBC (Bld) 5.1 % 0-10 [facility] Neutrophil percentageOrdered By: Belkis Pacheco on 11-15-2024 Neutrophils/100 WBC (Bld) 71.1 % High 47-70 [facility] Nucleated red blood cell per centageOrdered By: Belkis Pacheco on 11-15-2024 Nucleated RBC/100 WBC (Bld) [Ratio] 0 % 0-5 [facility] [employer] Office Visit Reporton 11-15-2024 [employer] Office Visit Report Normal [facility] Platelet countOrdered By: Pratik Pacheco on 11-15-2024 Platelets (Bld) [#/Vol] 303 10*3/uL 150-450 [facility] RBC Auto (Bld) [#/Vol]Ordere d By: Belkis Pacheco on 11-15-2024 RBC (Bld) [#/Vol] 4.35 10*6/uL 4.2-5.[address] [facility] Serum Treponema species anti body detectionOrdered By: Kavya Diez on 11-15-2024 Treponema sp Ab Ql (S) Non-Reactive [facility] Treponema sp Ab Ql (S)Ordere d By: Kavya Diez on 11-15-2024 Syphilis Total Antibody Non-Reactive [facility] White blood cell (WBC) count Ordered By: Belkis Pacheco on 11-15-2024 WBC (Bld) [#/Vol] 12.1 10*3/uL High 4.4-11.[address] [facility] Absolute lymphocyte countOrd ered By: Sariah Cobb on 10-24-2024 Lymphocytes Auto (Unsp spec) [#/Vol] 2.91 10*3/uL 0.83-4.51 [facility] Absolute neutrophil countOrd ered By: Sariah Reza on 10-24-2024 Neutrophils (Bld) [#/Vol] 10.3 10*3/uL High 2.0-7.7 [facility] Albumin to globulin ratioOrd ered By: Sariah Cobb on 10-24-2024 Albumin/Globulin [Mass ratio] 0.8 {ratio} Low 0.9-2.4 [facility] Automated lymphocyte count a s percentage of total leukocytesOrdered By: Sariah Cobb on 10-24-2024 Lymphocytes/100 WBC Auto (Unsp spec) 20.2 % - [facility] Basophil percentageOrdered B y: Sariah Cobb on 10-24-2024 Basophils/100 WBC (Bld) 0.6 % 0-1 [facility] Bilirubin, totalOrdered By: Sariah Cobb on 10-24-2024 Bilirubin [Mass/Vol] 0.20 mg/dL 0.20-1.00 [facility] Comment on above: For patients on eltr ombopag therapy, use of Dimension [place] TBIL is not recommended. Blood urea nitrogen (BUN)/cr eatinine ratioOrdered By: Sariah Cobb on 10-24-2024 Urea nitrogen/Creatinine [Mass ratio] 14.4 mg/mg 07-24 [facility] CBC W/Diff, Automatedon 10-06 Absolute Lymph 2.91 X10 3/uL Normal 0.83-4.51 [facility] Comment on above: Performed By: #### L 100.0100, L500.4050 ####[facility] [address] [place], [address] Absolute Neut 10.3 X10 3/uL High 2.0-7.7 [facility] Comment on above: Performed By: #### L 100.0100, L500.4050 ####[facility] [address] [place], [address] Basophils/100 WBC (Bld) 0.6 % Normal 0-1 [facility] Comment on above: Performed By: #### L 100.0100, L500.4050 ####[facility] [address] [place], [address] Eosinophils/100 WBC (Bld) 0.8 % Normal 0-5 [facility] Comment on above: Performed By: #### L 100.0100, L500.4050 ####[facility] [address] [place], [address] Erythrocyte distribution width (RBC) [Ratio] 12.5 % Normal 11.6-14.6 [facility] Comment on above: Performed By: #### L 100.0100, L500.4050 ####[facility] [address] [place], [address] Hematocrit (Bld) [Volume fraction] 39.8 % Normal 37-47 [facility] Comment on above: Performed By: #### L 100.0100, L500.4050 ####[facility] [address] [place], [address] Hemoglobin (Bld) [Mass/Vol] 12.9 g/dL Normal 12.0-15.0 [facility] Comment on above: Performed By: #### L 100.0100, L500.4050 ####[facility] [address] [place], [address] IG% 1.300 High 0.0-0.9 [facility] Comment on above: Result Comment: IG% - Immature Granulocytes (promyelocytes, myelocytes andmetamyelocytes) > 1% indicates that a LEFT SHIFT is Present. Performed By: #### L 100.0100, L500.4050 ####[facility] [address] [place], [address] Lymphocytes/100 WBC (Bld) 20.2 % Normal 19-41 [facility] Comment on above: Performed By: #### L 100.0100, L500.4050 ####[facility] [address] [place], [address] MCH (RBC) [Entitic mass] 28.1 pg Normal 27.0-32.0 [facility] Comment on above: Performed By: #### L 100.0100, L500.4050 ####[facility] [address] [place], [address] MCHC (RBC) [Mass/Vol] 32.4 g/dL Normal 32-36 [facility] Comment on above: Performed By: #### L 100.0100, L500.4050 ####[facility] [address] [place], [address] MCV (RBC) [Entitic vol] 86.7 fL Normal 81-99 [facility] Comment on above: Performed By: #### L 100.0100, L500.4050 ####[facility] [address] [place], [address] Monocytes/100 WBC (Bld) 5.2 % Normal 0-10 [facility] Comment on above: Performed By: #### L 100.0100, L500.4050 ####[facility] [address] [place], [address] Neutrophils/100 WBC (Bld) 71.9 % High 47-70 [facility] Comment on above: Performed By: #### L 100.0100, L500.4050 ####[facility] [address] [place], [address] Nucleated RBC (Bld) [#/Vol] 0 10*3/uL Normal 0-5 [facility] Comment on above: Performed By: #### L 100.0100, L500.4050 ####[facility] [address] [place], [address] Platelet mean volume (Bld) [Entitic vol] 10.5 fL Normal 6.2-12.0 [facility] Comment on above: Performed By: #### L 100.0100, L500.4050 ####[facility] [address] [place], [address] Platelets (Bld) [#/Vol] 318 10*3/uL Normal 150-450 [facility] Comment on above: Performed By: #### L 100.0100, L500.4050 ####[facility] [address] [place], [address] RBC (Bld) [#/Vol] 4.59 10*6/uL Normal 4.2-5.[address] [facility] Comment on above: Performed By: #### L 100.0100, L500.4050 ####[facility] [address] [place], [address] RDW SD 39.3 fl Normal 35.1-43.9 [facility] Comment on above: Performed By: #### L 100.0100, L500.4050 ####[facility] [address] [place], [address] WBC (Bld) [#/Vol] 14.4 10*3/uL High 4.4-11.[address] [facility] Comment on above: Performed By: #### L 100.0100, L500.4050 ####[facility] [address] [place], [address] Carbon dioxide measurementOr dered By: Sariah Cobb on 10-24-2024 CO2 [Moles/Vol] 24.0 mmol/L 21.0-32.0 [facility] Chloride measurementOrdered By: Sariah Cobb on 10-24-2024 Chloride [Moles/Vol] 107 mmol/L 98-107 [facility] Comprehensive Metabolic Prof ilon 10-24-2024 Albumin [Mass/Vol] 3.3 g/dL Normal 3.2-5.0 [facility] Comment on above: Performed By: #### L 100.0100, L500.4050 ####[facility] [address] [place], [address] Albumin/Globulin [Mass ratio] 0.8 {ratio} Low 0.9-2.4 [facility] Comment on above: Performed By: #### L 100.0100, L500.4050 ####[facility] [address] [place], [address] ALK P 85 U/L Normal 45-117 [facility] Comment on above: Performed By: #### L 100.0100, L500.4050 ####[facility] [address] [place], [address] ALT [Catalytic activity/Vol] 12 U/L Low 13-56 [facility] Comment on above: Performed By: #### L 100.0100, L500.4050 ####[facility] [address] [place], [address] AST [Catalytic activity/Vol] 8 U/L Low 15-37 [facility] Comment on above: Performed By: #### L 100.0100, L500.4050 ####[facility] [address] [place], [address] Bilirubin [Mass/Vol] 0.20 mg/dL Normal 0.20-1.00 [facility] Comment on above: Result Comment: For patients on eltrombopag therapy, use of Dimension [place] TBIL is not recommended. Performed By: #### L 100.0100, L500.4050 ####[facility] [address] [place], [address] BUN/CRE 14.4 RATIO Normal 10-20 [facility] Comment on above: Performed By: #### L 100.0100, L500.4050 ####[facility] [address] [place], [address] CA,Total 9.3 mg/dL Normal 8.5-10.1 [facility] Comment on above: Performed By: #### L 100.0100, L500.4050 ####[facility] [address] [place], [address] Chloride [Moles/Vol] 107 mmol/L Normal 98-107 [facility] Comment on above: Performed By: #### L 100.0100, L500.4050 ####[facility] [address] [place], [address] CO2 [Moles/Vol] 24.0 mmol/L Normal 21.0-32.0 [facility] Comment on above: Performed By: #### L 100.0100, L500.4050 ####[facility] [address] [place], [address] Creatinine [Mass/Vol] 0.49 mg/dL Low 0.55-1.02 [facility] Comment on above: Result Comment: The validity of the calculated GFR GFRAA in patients over70 years has not been determined. Clinical correlation isessential. Performed By: #### L 100.0100, L500.4050 ####[facility] [address] [place], [address] EST GFR - AA 194 mL/min Normal >60 [facility] Comment on above: Result Comment: Afri can Mexican GFR Calc Performed By: #### L 100.0100, L500.4050 ####[facility] [address] [place], [address] GAP 6 Normal 5-15 [facility] Comment on above: Performed By: #### L 100.0100, L500.4050 ####[facility] [address] [place], [address] GFR/1.73 sq M.predicted among non-blacks MDRD (S/P/Bld) [Vol rate/Area] 161 mL/min/{1.73_m2} Normal >60 [facility] Comment on above: Result Comment: Non- GFR Calc Performed By: #### L 100.0100, L500.4050 ####[facility] [address] [place], [address] Globulin (S) [Mass/Vol] 3.9 g/dL Normal 2.2-4.2 [facility] Comment on above: Performed By: #### L 100.0100, L500.4050 ####[facility] [address] [place], [address] Glucose [Mass/Vol] 78 mg/dL Normal 74-106 [facility] Comment on above: Performed By: #### L 100.0100, L500.4050 ####[facility] [address] [place], [address] Potassium [Moles/Vol] 3.8 mmol/L Normal 3.5-5.1 [facility] Comment on above: Performed By: #### L 100.0100, L500.4050 ####[facility] [address] [place], [address] Sodium [Moles/Vol] 137 mmol/L Normal 136-145 [facility] Comment on above: Performed By: #### L 100.0100, L500.4050 ####[facility] [address] [place], [address] T PROT 7.2 g/dL Normal 6.4-8.2 [facility] Comment on above: Performed By: #### L 100.0100, L500.4050 ####[facility] [address] [place], [address] Urea nitrogen [Mass/Vol] 7 mg/dL Normal 7-18 [facility] Comment on above: Performed By: #### L 100.0100, L500.4050 ####[facility] [address] [place], [address] Eosinophil percentageOrdered By: Sariah Cobb on 10-24-2024 Eosinophils/100 WBC (Bld) 0.8 % 0-5 [facility] Erythrocyte distribution wid th ratioOrdered By: Sariah Cobb on 10-24-2024 Erythrocyte distribution width (RBC) [Ratio] 12.5 % 11.6-14.6 [facility] Erythrocyte distribution wid th standard deviationOrdered By: Sariah Cobb on 10-24-2024 Erythrocyte distribution width (RBC) [Entitic vol] 39.3 fL 35.1-43.9 [facility] Erythrocyte distribution width (RBC) [Ratio] 39.3 fl 35.1-43.9 [facility] Estimated glomerular filtrat ion rate (GFR) AmericanOrdered By: Sariah Cobb on 10-24-2024 Estimated GFR (MDRD) Amer 194 mL/min >60 [facility] Comment on above: GFR Calc Glomerular filtration rate ( GFR) estimationOrdered By: Sariah Cobb on 10-24-2024 Estimated GFR (MDRD) Non-Af Amer 161 mL/min >60 [facility] Comment on above: Non- GFR Calc GFR/1.73 sq M.predicted among non-blacks MDRD (S/P/Bld) [Vol rate/Area] 161 mL/min/{1.73_m2} >60 [facility] Comment on above: Non- GFR Calc Glucose measurementOrdered B y: Sariah Cobb on 10-24-2024 Glucose [Mass/Vol] 78 mg/dL 74-106 [facility] Hematocrit Auto (Bld) [Volum e fraction]Ordered By: Sariah Cobb on 10-24-2024 Hematocrit (Bld) [Volume fraction] 39.8 % 37-47 [facility] Hemoglobin measurementOrdere d By: Sariah Cobb on 10-24-2024 Hemoglobin (Bld) [Mass/Vol] 12.9 g/dL 12.0-15.0 [facility] Immature granulocytes/100 WB C Auto (Bld)Ordered By: Sariah Cobb on 10-24-2024 Immature granulocytes/100 WBC (Bld) 1.300 % High 0.0-0.9 [facility] Comment on above: IG% - Immature Granu locytes (promyelocytes, myelocytes and metamyelocytes) > 1% indicates that a LEFT SHIFT is Present. L509.8000on 10-24-2024 Syphilis Abs Non-Reactive Normal [facility] Comment on above: Performed By: #### L 509.8000 ####[facility] [address] [place], [address] Laboratory - Chemistry and C hemistry - challengeOrdered By: Sariah oCbb on 10-24-2024 AST [Catalytic activity/Vol] 8 U/L Low 15-37 [facility] Laboratory - Chemistry and C hemistry - challengeon 10-24-2024 Glucose Ql (U) Negative [facility] Laboratory - Urinalysison Protein Ql (U) Negative [facility] Lymphocytes Auto (Unsp spec) [#/Vol]Ordered By: Sariah Cobb on 10-24-2024 Lymphocytes (Bld) [#/Vol] 2.91 10*3/uL 0.83-4.51 [facility] Lymphocytes/100 WBC Auto (Un sp spec)Ordered By: Sariah Cobb on 10-24-2024 Lymphocytes/100 WBC (Bld) 20.2 % 19-41 [facility] MCV (mean corpuscular volume ) determinationOrdered By: Sariah Cobb on 10-24-2024 MCV (RBC) [Entitic vol] 86.7 fL 81-99 [facility] Mean corpuscular hemoglobin (MCH) determinationOrdered By: Sariah Cobb on 10-24-2024 MCH (RBC) [Entitic mass] 28.1 pg 27.0-32.0 [facility] Mean corpuscular hemoglobin concentration (MCHC) determinationOrdered By: Sariah Cobb on 10-24-2024 MCHC (RBC) [Mass/Vol] 32.4 g/dL 32-36 [facility] Mean platelet volume determi nationOrdered By: Sariah Cobb on 10-24-2024 Platelet mean volume (Bld) [Entitic vol] 10.5 fL 6.2-12.0 [facility] Monocyte percentageOrdered B y: Sariah Cobb on 10-24-2024 Monocytes/100 WBC (Bld) 5.2 % 0-10 [facility] Neutrophil percentageOrdered By: Sariah Cobb on 10-24-2024 Neutrophils/100 WBC (Bld) 71.9 % High 47-70 [facility] Nucleated red blood cell per centageOrdered By: Sariah Cobb on 10-24-2024 Nucleated RBC/100 WBC (Bld) [Ratio] 0 % 0-5 [facility] [employer] Office Visit Reporton 10-24-2024 [employer] Office Visit Report Normal [facility] Platelet countOrdered By: Alvin Cobb on 10-24-2024 Platelets (Bld) [#/Vol] 318 10*3/uL 150-450 [facility] Potassium measurementOrdered By: Sariah Cobb on 10-24-2024 Potassium [Moles/Vol] 3.8 mmol/L 3.5-5.1 [facility] Protein+Creatinine Ratio,Uri neon 10-24-2024 PROT:CRE RATIO TNP Normal 0-200 [facility] Comment on above: Performed By: #### L 501.0900 ####[facility] [address] [place], [address] PROTEIN,UR.RAN. < 6.0 Normal <11.9 [facility] Comment on above: Performed By: #### L 501.0900 ####[facility] [address] [place], [address] UR CREAT 20.20 mg/dL Normal NO RANGE EST. [facility] Comment on above: Performed By: #### L 501.0900 ####[facility] [address] [place], [address] Protein/Creatinine (U) [Mass ratio]Ordered By: Sariah Cobb on 10-24-2024 Urine Protein/Creatinine Ratio TNP [facility] Comment on above: Test not performed RBC Auto (Bld) [#/Vol]Ordere d By: Sariah Cobb on 10-24-2024 RBC (Bld) [#/Vol] 4.59 10*6/uL 4.2-5.[address] [facility] Random urine protein measure mentOrdered By: Sariah Cobb on 10-24-2024 Urine Random Total Protein < 6.0 mg/dL 0.0-11.8 [facility] Serum Treponema species anti body detectionOrdered By: Belkis Pacheco on 10-24-2024 Treponema sp Ab Ql (S) Non-Reactive [facility] Serum anion gap measurementO rdered By: Sariah Cobb on 10-24-2024 Anion gap [Moles/Vol] 6 mmol/L 5-15 [facility] Serum globulin measurementOr dered By: Sariah Cobb on 10-24-2024 Globulin (S) [Mass/Vol] 3.9 g/dL 2.2-4.2 [facility] Serum or plasma alanine simon otransferase (ALT) measurementOrdered By: Sariah Cobb on 10-24-2024 ALT [Catalytic activity/Vol] 12 U/L Low 13-56 [facility] Serum or plasma albumin rowena urement (mass/volume)Ordered By: Sariah Cobb on 10-24-2024 Albumin [Mass/Vol] 3.3 g/dL 3.2-5.0 [facility] Serum or plasma alkaline boris sphatase measurementOrdered By: Sariah Cobb on 10-24-2024 ALP [Catalytic activity/Vol] 85 U/L 45-117 [facility] Serum or plasma calcium rowena urement (mass/volume)Ordered By: Sariah Cobb on 10-24-2024 Calcium [Mass/Vol] 9.3 mg/dL 8.5-10.1 [facility] Serum or plasma creatinine m easurement (mass/volume)Ordered By: Sariah Cobb on 10-24-2024 Creatinine [Mass/Vol] 0.49 mg/dL Low 0.55-1.02 [facility] Comment on above: The validity of the calculated GFR & GFRAA in patients over 70 years has not been determined. Clinical correlation is essential. Serum or plasma urea nitroge n measurement (mass/volume)Ordered By: Sariah Cobb on 10-24-2024 Urea nitrogen [Mass/Vol] 7 mg/dL 7-18 [facility] Sodium levelOrdered By: Daya Cobb on 10-24-2024 Sodium [Moles/Vol] 137 mmol/L 136-145 [facility] Total proteinOrdered By: Kaz Cobb on 10-24-2024 Protein [Mass/Vol] 7.2 g/dL 6.4-8.2 [facility] Treponema sp Ab Ql (S)Ordere d By: Belkis Pacheco on 10-24-2024 Syphilis Total Antibody Non-Reactive [facility] Urine creatinine measurement (mass/volume)Ordered By: Sariah Cobb on 10-24-2024 Creatinine (U) [Mass/Vol] 20.20 mg/dL NO RANGE EST. [facility] Urine protein/creatinine mas s ratioOrdered By: Sariah Cobb on 10-24-2024 Protein/Creatinine (U) [Mass ratio] TNP [facility] Comment on above: Test not performed White blood cell (WBC) count Ordered By: Sariah Cobb on 10-24-2024 WBC (Bld) [#/Vol] 14.4 10*3/uL High 4.4-11.[address] [facility] Laboratory - Chemistry and C hemistry - challengeon 09-26-2024 Glucose Ql (U) Negative [facility] Laboratory - Urinalysison Protein Ql (U) Negative [facility] [employer] Office Visit Reporton 09-26-2024 [employer] Office Visit Report Normal [facility] OB Anatomy w/ Transvaginalon 09-23-2024 OB Anatomy w/ Transvaginal Normal [facility] Laboratory - Chemistry and C hemistry - challengeon 08-29-2024 Glucose Ql (U) Negative [facility] Laboratory - Urinalysison Protein Ql (U) Negative [facility] [employer] Office Visit Reporton 08-29-2024 [employer] Office Visit Report Normal [facility] MICHAEL Comprehensive Panelon MICHAEL TABLE Comment Normal . [facility] Comment on above: Result Comment: Auto antibody Disease Association -------- Condition Frequency ---------Antinuclear Antibody, SLE, mixed connectiveDirect (MICHAEL-D) tissue diseases ---------dsDNA SLE 40 - 60% ---------Chromatin Drug induced SLE 90% SLE 48 - 97% ---------SSA (Ro) SLE 25 - 35% Sjogren's Syndrome 40 - 70% Lupus 100% ---------SSB (La) SLE 10% Sjogren's Syndrome 30% ---------Sm (anti-Red) SLE 15 - 30% ---------CODING QUALITY ANALYST Mixed Connective Tissue Disease 95%(U1 nRNP, SLE 30 - 50%anti-ribonucleoprotein) Polymyositis and/or Dermatomyositis 20% ---------Scl-70 (antiDNA Scleroderma (diffuse) 20 - 35%topoisomerase) Crest 13% ---------Sridevi-1 Polymyositis and/or Dermatomyositis 20 - 40% ---------Centromere B Scleroderma - Crest variant 80% Performed By: #### L 504.2610, L2100.0000, L3100.3425, L3410.2400, L5500.0550, L3100.5440, L500.4050, L501.6710, L101.9900, L3300.1200, L3200.1100 ####[facility] [address] [facility] [place], [address] ANTI-CENT B AB <0.2 Normal 0.0-0.9 [facility] Comment on above: Performed By: #### L 504.2610, L2100.0000, L3100.3425, L3410.2400, L5500.0550, L3100.5440, L500.4050, L501.6710, L101.9900, L3300.1200, L3200.1100 ####[facility] [address] [facility] [place], [address] ANTI-DNA (DS)AB 1 IU/mL Normal 0-9 [facility] Comment on above: Result Comment: Nega tive <5 Equivocal 5 - 9 Positive >9 Performed By: #### L 504.2610, L2100.0000, L3100.3425, L3410.2400, L5500.0550, L3100.5440, L500.4050, L501.6710, L101.9900, L3300.1200, L3200.1100 ####[facility] [address] [place], [address] ANTI-SRIDEVI-1 <0.2 Normal 0.0-0.9 [facility] Comment on above: Performed By: #### L 504.2610, L2100.0000, L3100.3425, L3410.2400, L5500.0550, L3100.5440, L500.4050, L501.6710, L101.9900, L3300.1200, L3200.1100 ####[facility] [address] [place], [address] ANTI-SS-A < 0.2 Normal 0.0-0.9 [facility] Comment on above: Performed By: #### L 504.2610, L2100.0000, L3100.3425, L3410.2400, L5500.0550, L3100.5440, L500.4050, L501.6710, L101.9900, L3300.1200, L3200.1100 ####[facility] [address] [facility] [place], [address] ANTI-SS-B < 0.2 Normal 0.0-0.9 [facility] Comment on above: Performed By: #### L 504.2610, L2100.0000, L3100.3425, L3410.2400, L5500.0550, L3100.5440, L500.4050, L501.6710, L101.9900, L3300.1200, L3200.1100 ####[facility] [address] [place], [address] ANTICHROMATIN <0.2 Normal 0.0-0.9 [facility] Comment on above: Performed By: #### L 504.2610, L2100.0000, L3100.3425, L3410.2400, L5500.0550, L3100.5440, L500.4050, L501.6710, L101.9900, L3300.1200, L3200.1100 ####[facility] [address] [place], [address] ANTISCLERODERM <0.2 Normal 0.0-0.9 [facility] Comment on above: Performed By: #### L 504.2610, L2100.0000, L3100.3425, L3410.2400, L5500.0550, L3100.5440, L500.4050, L501.6710, L101.9900, L3300.1200, L3200.1100 ####[facility] [address] [place], [address] CODING QUALITY ANALYST Ab <0.2 Normal 0.0-0.9 [facility] Comment on above: Performed By: #### L 504.2610, L2100.0000, L3100.3425, L3410.2400, L5500.0550, L3100.5440, L500.4050, L501.6710, L101.9900, L3300.1200, L3200.1100 ####[facility] [address] [facility] [place], [address] RED Ab <0.2 Normal 0.0-0.9 [facility] Comment on above: Performed By: #### L 504.2610, L2100.0000, L3100.3425, L3410.2400, L5500.0550, L3100.5440, L500.4050, L501.6710, L101.9900, L3300.1200, L3200.1100 ####[facility] [address] [facility] [place], [address] L5500.0550on 08-07-2024 BEEF <0.10 Normal Class 0 [facility] Comment on above: Performed By: #### L 504.2610, L2100.0000, L3100.3425, L3410.2400, L5500.0550, L3100.5440, L500.4050, L501.6710, L101.9900, L3300.1200, L3200.1100 ####[facility] [address] [place], [place], [id number] CHOCOLATE <0.10 Normal Class 0 [facility] Comment on above: Performed By: #### L 504.2610, L2100.0000, L3100.3425, L3410.2400, L5500.0550, L3100.5440, L500.4050, L501.6710, L101.9900, L3300.1200, L3200.1100 ####[facility] [address] [place], [place], [id number] CODFISH <0.10 Normal Class 0 [facility] Comment on above: Performed By: #### L 504.2610, L2100.0000, L3100.3425, L3410.2400, L5500.0550, L3100.5440, L500.4050, L501.6710, L101.9900, L3300.1200, L3200.1100 ####[facility] [address] [facility] [address] [place], [place], [id number] COMMENT Comment Normal . [facility] Comment on above: Result Comment: Kia mccarthy of Specific IgE Class Description of Class ----- < 0.10 0 Negative 0.10 - 0.31 0/I Equivocal/Low 0.32 - 0.55 I Low 0.56 - 1.40 II Moderate 1.41 - 3.90 III High 3.91 - 19.00 IV Very High 19.01 - 100.00 V Very High >100.00 Very High Performed By: #### L 504.2610, L2100.0000, L3100.3425, L3410.2400, L5500.0550, L3100.5440, L500.4050, L501.6710, L101.9900, L3300.1200, L3200.1100 ####[facility] [address] [place], [address] CORN <0.10 Normal Class 0 [facility] Comment on above: Performed By: #### L 504.2610, L2100.0000, L3100.3425, L3410.2400, L5500.0550, L3100.5440, L500.4050, L501.6710, L101.9900, L3300.1200, L3200.1100 ####[facility] [address] [place], [address] EGG, WHOLE <0.10 Normal Class 0 [facility] Comment on above: Result Comment: Perf ormed at: [facility] LabOccasion[address] [id number] Director: Farooq Souza PhD, Phone: [phone] at: [facility] [address] [id number] Director: Abdullahi Salas MD, Phone: [phone] Performed By: #### L 504.2610, L2100.0000, L3100.3425, L3410.2400, L5500.0550, L3100.5440, L500.4050, L501.6710, L101.9900, L3300.1200, L3200.1100 ####[facility] [address] [place], [address] MILK (COW) <0.10 Normal Class 0 [facility] Comment on above: Performed By: #### L 504.2610, L2100.0000, L3100.3425, L3410.2400, L5500.0550, L3100.5440, L500.4050, L501.6710, L101.9900, L3300.1200, L3200.1100 ####[facility] [address] [place], [address] MUSSELS <0.10 Normal Class 0 [facility] Comment on above: Performed By: #### L 504.2610, L2100.0000, L3100.3425, L3410.2400, L5500.0550, L3100.5440, L500.4050, L501.6710, L101.9900, L3300.1200, L3200.1100 ####[facility] [address] [place], [place], [id number] PEANUT <0.10 Normal Class 0 [facility] Comment on above: Performed By: #### L 504.2610, L2100.0000, L3100.3425, L3410.2400, L5500.0550, L3100.5440, L500.4050, L501.6710, L101.9900, L3300.1200, L3200.1100 ####[facility] [address] [place], [place], [id number] PORK <0.10 Normal Class 0 [facility] Comment on above: Performed By: #### L 504.2610, L2100.0000, L3100.3425, L3410.2400, L5500.0550, L3100.5440, L500.4050, L501.6710, L101.9900, L3300.1200, L3200.1100 ####[facility] [address] [place], [place], [phone] SALMON <0.10 Normal Class 0 [facility] Comment on above: Performed By: #### L 504.2610, L2100.0000, L3100.3425, L3410.2400, L5500.0550, L3100.5440, L500.4050, L501.6710, L101.9900, L3300.1200, L3200.1100 ####[facility] [address] [place], [place], [id number] SHRIMP <0.10 Normal Class 0 [facility] Comment on above: Performed By: #### L 504.2610, L2100.0000, L3100.3425, L3410.2400, L5500.0550, L3100.5440, L500.4050, L501.6710, L101.9900, L3300.1200, L3200.1100 ####[facility] [address] [place], [place], [id number] SOYBEAN <0.10 Normal Class 0 [facility] Comment on above: Performed By: #### L 504.2610, L2100.0000, L3100.3425, L3410.2400, L5500.0550, L3100.5440, L500.4050, L501.6710, L101.9900, L3300.1200, L3200.1100 ####[facility] [address] [place], [address] TUNA <0.10 Normal Class 0 [facility] Comment on above: Performed By: #### L 504.2610, L2100.0000, L3100.3425, L3410.2400, L5500.0550, L3100.5440, L500.4050, L501.6710, L101.9900, L3300.1200, L3200.1100 ####[facility] [address] [place], [address] WHEAT <0.10 Normal Class 0 [facility] Comment on above: Performed By: #### L 504.2610, L2100.0000, L3100.3425, L3410.2400, L5500.0550, L3100.5440, L500.4050, L501.6710, L101.9900, L3300.1200, L3200.1100 ####[facility] [address] [facility] [place], [address] ANCAon 08-06-2024 Atypical pANCA 1:20 Abnormal Neg:<1:20 [facility] Comment on above: Order Comment: N Result Comment: The atypical pANCA pattern has been observed in asignificant percentage of patients with ulcerative colitis,primary sclerosing cholangitis and autoimmune hepatitis.Performed at: [place] [id number] [place], [place] [id number] Director: Farooq Souza PhD, Phone: [phone] at: [facility] LabAngela V[address] [place], [place] [id number] Director: Abdullahi Salas MD, Phone: [phone] Performed By: #### L 504.2610, L2100.0000, L3100.3425, L3410.2400, L5500.0550, L3100.5440, L500.4050, L501.6710, L101.9900, L3300.1200, L3200.1100 ####[facility] [address] [facility] [address] [place], [place], [id number] Cytoplasmic Ab <1:20 Normal Neg:<1:20 [facility] Comment on above: Order Comment: N Performed By: #### L 504.2610, L2100.0000, L3100.3425, L3410.2400, L5500.0550, L3100.5440, L500.4050, L501.6710, L101.9900, L3300.1200, L3200.1100 ####[facility] [address] [facility] [address] [place], [place], [id number] Perinuclear Ab. <1:20 Normal Neg:<1:20 [facility] Comment on above: Order Comment: N Result Comment: The presence of positive fluorescence exhibiting P-ANCA orC-ANCA patterns alone is not specific for the diagnosis ofWegener's Granulomatosis (WG) or microscopic polyangiitis.Decisions about treatment should not be based solely onANCA IFA results. The International ANCA Group Consensusrecommends follow up testing of positive sera with both IL-3 and MPO-ANCA enzyme immunoassays. As many as 5% serumsamples are positive only by EIA. Ref. AM J Clin Bldwee2106;111:507-513. Performed By: #### L 504.2610, L2100.0000, L3100.3425, L3410.2400, L5500.0550, L3100.5440, L500.4050, L501.6710, L101.9900, L3300.1200, L3200.1100 ####[facility] [address] [place], [address] Celiac Disease Profileon ENDOMYSIAL IGA Negative Normal Negative [facility] Comment on above: Order Comment: N Performed By: #### L 504.2610, L2100.0000, L3100.3425, L3410.2400, L5500.0550, L3100.5440, L500.4050, L501.6710, L101.9900, L3300.1200, L3200.1100 ####[facility] [address] [place], [address] tTG IGA <2 Normal 0-3 [facility] Comment on above: Order Comment: N Result Comment: Nega tive 0 - 3 Weak Positive 4 - 10 Positive >10 Tissue Transglutaminase (tTG) has been identified as the endomysial antigen. Studies have demonstr- ated that endomysial IgA antibodies have over 99% specificity for gluten sensitive enteropathy. Performed By: #### L 504.2610, L2100.0000, L3100.3425, L3410.2400, L5500.0550, L3100.5440, L500.4050, L501.6710, L101.9900, L3300.1200, L3200.1100 ####[facility] [address] [place], [address] KIRAN + Protein Elect, Serumon 08-06-2024 Albumin [Mass/Vol] 3.7 g/dL Normal 2.9-4.4 [facility] Comment on above: Order Comment: N Performed By: #### L 504.2610, L2100.0000, L3100.3425, L3410.2400, L5500.0550, L3100.5440, L500.4050, L501.6710, L101.9900, L3300.1200, L3200.1100 ####[facility] [address] [place], [address] Albumin/Globulin [Mass ratio] 1.3 {ratio} Normal 0.7-1.7 [facility] Comment on above: Order Comment: N Performed By: #### L 504.2610, L2100.0000, L3100.3425, L3410.2400, L5500.0550, L3100.5440, L500.4050, L501.6710, L101.9900, L3300.1200, L3200.1100 ####[facility] [address] [place], [address] GRXOV-4-PVQD 0.3 g/dL Normal 0.0-0.4 [facility] Comment on above: Order Comment: N Performed By: #### L 504.2610, L2100.0000, L3100.3425, L3410.2400, L5500.0550, L3100.5440, L500.4050, L501.6710, L101.9900, L3300.1200, L3200.1100 ####[facility] [address] [place], [address] ITJXH-4-HUEW 0.8 g/dL Normal 0.4-1.0 [facility] Comment on above: Order Comment: N Performed By: #### L 504.2610, L2100.0000, L3100.3425, L3410.2400, L5500.0550, L3100.5440, L500.4050, L501.6710, L101.9900, L3300.1200, L3200.1100 ####[facility] [address] [place], [address](629) BETA GLOBULIN 1.0 g/dL Normal 0.7-1.3 [facility] Comment on above: Order Comment: N Performed By: #### L 504.2610, L2100.0000, L3100.3425, L3410.2400, L5500.0550, L3100.5440, L500.4050, L501.6710, L101.9900, L3300.1200, L3200.1100 ####[facility] [address] [place], [address] GAMMA GLOBULIN 0.7 g/dL Normal 0.4-1.8 [facility] Comment on above: Order Comment: N Performed By: #### L 504.2610, L2100.0000, L3100.3425, L3410.2400, L5500.0550, L3100.5440, L500.4050, L501.6710, L101.9900, L3300.1200, L3200.1100 ####[facility] [address] [place], [place], [id number](654) Globulin (S) [Mass/Vol] 2.9 g/dL Normal 2.2-3.9 [facility] Comment on above: Order Comment: N Performed By: #### L 504.2610, L2100.0000, L3100.3425, L3410.2400, L5500.0550, L3100.5440, L500.4050, L501.6710, L101.9900, L3300.1200, L3200.1100 ####[facility] [address] [place], [place], [id number]) KIRAN RESULT,S Comment Normal . [facility] Comment on above: Order Comment: N Result Comment: No m onoclonality detected. Performed By: #### L 504.2610, L2100.0000, L3100.3425, L3410.2400, L5500.0550, L3100.5440, L500.4050, L501.6710, L101.9900, L3300.1200, L3200.1100 ####[facility] [address] [place], [place], [phone](552) IMMUNOGLOB A QN 87 mg/dL Normal 87-352 [facility] Comment on above: Order Comment: N Performed By: #### L 504.2610, L2100.0000, L3100.3425, L3410.2400, L5500.0550, L3100.5440, L500.4050, L501.6710, L101.9900, L3300.1200, L3200.1100 ####[facility] [address] [place], [place], [id number] IMMUNOGLOB G QN 791 mg/dL Normal 586-1602 [facility] Comment on above: Order Comment: N Performed By: #### L 504.2610, L2100.0000, L3100.3425, L3410.2400, L5500.0550, L3100.5440, L500.4050, L501.6710, L101.9900, L3300.1200, L3200.1100 ####[facility] [address] [place], [place], [id number] IMMUNOGLOB M QN 77 mg/dL Normal 26-217 [facility] Comment on above: Order Comment: N Performed By: #### L 504.2610, L2100.0000, L3100.3425, L3410.2400, L5500.0550, L3100.5440, L500.4050, L501.6710, L101.9900, L3300.1200, L3200.1100 ####[facility] [address] [place], [place], [id number] M-Lee Not Observed Normal Not Observed [facility] Comment on above: Order Comment: N Performed By: #### L 504.2610, L2100.0000, L3100.3425, L3410.2400, L5500.0550, L3100.5440, L500.4050, L501.6710, L101.9900, L3300.1200, L3200.1100 ####[facility] [address] [place], [address] NOTE: Comment Normal . [facility] Comment on above: Order Comment: N Result Comment: Prot ein electrophoresis scan will follow via computer,mail, or dewaterer operator delivery. Performed By: #### L 504.2610, L2100.0000, L3100.3425, L3410.2400, L5500.0550, L3100.5440, L500.4050, L501.6710, L101.9900, L3300.1200, L3200.1100 ####[facility] [address] [place], [place], [id number] Protein [Mass/Vol] 6.6 g/dL Normal 6.0-8.5 [facility] Comment on above: Order Comment: N Performed By: #### L 504.2610, L2100.0000, L3100.3425, L3410.2400, L5500.0550, L3100.5440, L500.4050, L501.6710, L101.9900, L3300.1200, L3200.1100 ####[facility] [address] [place], [place], [phone] Immunoglobulins G/A/M/Ramos IMMUNOGLOB E QN 12 IU/mL Normal 6-495 [facility] Comment on above: Order Comment: N Performed By: #### L 504.2610, L2100.0000, L3100.3425, L3410.2400, L5500.0550, L3100.5440, L500.4050, L501.6710, L101.9900, L3300.1200, L3200.1100 ####[facility] [address] [place], [address] L2100.0000on 08-06-2024 ACCA 8 units Normal 0-90 [facility] Comment on above: Order Comment: N Result Comment: Nega tive: <80 Equivocal: 80-90 Positive: >90 Performed By: #### L 504.2610, L2100.0000, L3100.3425, L3410.2400, L5500.0550, L3100.5440, L500.4050, L501.6710, L101.9900, L3300.1200, L3200.1100 ####[facility] [address] [place], [address] ALCA 16 units Normal 0-60 [facility] Comment on above: Order Comment: N Result Comment: Nega tive:<55 Equivocal: 55-60 Positive: >60 Performed By: #### L 504.2610, L2100.0000, L3100.3425, L3410.2400, L5500.0550, L3100.5440, L500.4050, L501.6710, L101.9900, L3300.1200, L3200.1100 ####[facility] [address] [place], [address] AMCA 37 units Normal 0-100 [facility] Comment on above: Order Comment: N Result Comment: Nega tive: <90 Equivocal: 90-100 Positive: >100 This test was developed and its performance characteristics determined by [employer]. It has not been cleared or approved by the Food and Drug Administration. The FDA has determined that such clearance or approval is not necessary. Performed By: #### L 504.2610, L2100.0000, L3100.3425, L3410.2400, L5500.0550, L3100.5440, L500.4050, L501.6710, L101.9900, L3300.1200, L3200.1100 ####[facility] [address] [place], [address] Atypical pANCA Negative Normal Negative [facility] Comment on above: Order Comment: N Performed By: #### L 504.2610, L2100.0000, L3100.3425, L3410.2400, L5500.0550, L3100.5440, L500.4050, L501.6710, L101.9900, L3300.1200, L3200.1100 ####[facility] [address] [place], [address] COMMENT Comment Normal . [facility] Comment on above: Order Comment: N Result Comment: Dolly som is not suggestive of Inflammatory Bowel Disease Performed By: #### L 504.2610, L2100.0000, L3100.3425, L3410.2400, L5500.0550, L3100.5440, L500.4050, L501.6710, L101.9900, L3300.1200, L3200.1100 ####[facility] [address] [place], [place], [phone] Riley 4 units Normal 0-50 [facility] Comment on above: Order Comment: N Result Comment: Nega tive: <45 Equivocal: 45-50 Positive: >50 Performed By: #### L 504.2610, L2100.0000, L3100.3425, L3410.2400, L5500.0550, L3100.5440, L500.4050, L501.6710, L101.9900, L3300.1200, L3200.1100 ####[facility] [address] [place], [place], [phone] [employer] Office Visit Reporton 08-04-2024 [employer] Office Visit Report Normal [facility] CBC W/Diff, Automatedon 07-06 Absolute Lymph 3.77 X10 3/uL Normal 0.83-4.51 [facility] Comment on above: Performed By: #### L 501.9985, L3890.6100, L100.0100, L3890.6300, L509.8000, L509.4005, L3890.6005, BTS ####[facility] [address] [place], [address] Absolute Neut 7.2 X10 3/uL Normal 2.0-7.7 [facility] Comment on above: Performed By: #### L 501.9985, L3890.6100, L100.0100, L3890.6300, L509.8000, L509.4005, L3890.6005, BTS ####[facility] [address] [place], [place], [phone](097) Basophils/100 WBC (Bld) 0.5 % Normal 0-1 [facility] Comment on above: Performed By: #### L 501.9985, L3890.6100, L100.0100, L3890.6300, L509.8000, L509.4005, L3890.6005, BTS ####[facility] [address] [place], [place], [phone] Eosinophils/100 WBC (Bld) 1.4 % Normal 0-5 [facility] Comment on above: Performed By: #### L 501.9985, L3890.6100, L100.0100, L3890.6300, L509.8000, L509.4005, L3890.6005, BTS ####[facility] [address] [place], [address](222) Erythrocyte distribution width (RBC) [Ratio] 11.7 % Normal 11.6-14.6 [facility] Comment on above: Performed By: #### L 501.9985, L3890.6100, L100.0100, L3890.6300, L509.8000, L509.4005, L3890.6005, BTS ####[facility] [address] [place], [address] Hematocrit (Bld) [Volume fraction] 37.3 % Normal 37-47 [facility] Comment on above: Performed By: #### L 501.9985, L3890.6100, L100.0100, L3890.6300, L509.8000, L509.4005, L3890.6005, BTS ####[facility] [address] [place], [address](582) Hemoglobin (Bld) [Mass/Vol] 12.3 g/dL Normal 12.0-15.0 [facility] Comment on above: Performed By: #### L 501.9985, L3890.6100, L100.0100, L3890.6300, L509.8000, L509.4005, L3890.6005, BTS ####[facility] [address] [place], [address] IG% 0.500 Normal 0.0-0.9 [facility] Comment on above: Result Comment: IG% - Immature Granulocytes (promyelocytes, myelocytes andmetamyelocytes) > 1% indicates that a LEFT SHIFT is Present. Performed By: #### L 501.9985, L3890.6100, L100.0100, L3890.6300, L509.8000, L509.4005, L3890.6005, BTS ####[facility] [address] [place], [address] Lymphocytes/100 WBC (Bld) 31.3 % Normal 19-41 [facility] Comment on above: Performed By: #### L 501.9985, L3890.6100, L100.0100, L3890.6300, L509.8000, L509.4005, L3890.6005, BTS ####[facility] [address] [place], [address] MCH (RBC) [Entitic mass] 27.7 pg Normal 27.0-32.0 [facility] Comment on above: Performed By: #### L 501.9985, L3890.6100, L100.0100, L3890.6300, L509.8000, L509.4005, L3890.6005, BTS ####[facility] [address] [place], [address] MCHC (RBC) [Mass/Vol] 33.0 g/dL Normal 32-36 [facility] Comment on above: Performed By: #### L 501.9985, L3890.6100, L100.0100, L3890.6300, L509.8000, L509.4005, L3890.6005, BTS ####[facility] [address] [place], [address] MCV (RBC) [Entitic vol] 84.0 fL Normal 81-99 [facility] Comment on above: Performed By: #### L 501.9985, L3890.6100, L100.0100, L3890.6300, L509.8000, L509.4005, L3890.6005, BTS ####[facility] [address] [place], [address] Monocytes/100 WBC (Bld) 6.6 % Normal 0-10 [facility] Comment on above: Performed By: #### L 501.9985, L3890.6100, L100.0100, L3890.6300, L509.8000, L509.4005, L3890.6005, BTS ####[facility] [address] [place], [address] Neutrophils/100 WBC (Bld) 59.7 % Normal 47-70 [facility] Comment on above: Performed By: #### L 501.9985, L3890.6100, L100.0100, L3890.6300, L509.8000, L509.4005, L3890.6005, BTS ####[facility] [address] [place], [address] Nucleated RBC (Bld) [#/Vol] 0 10*3/uL Normal 0-5 [facility] Comment on above: Performed By: #### L 501.9985, L3890.6100, L100.0100, L3890.6300, L509.8000, L509.4005, L3890.6005, BTS ####[facility] [address] [place], [address] Platelet mean volume (Bld) [Entitic vol] 11.1 fL Normal 6.2-12.0 [facility] Comment on above: Performed By: #### L 501.9985, L3890.6100, L100.0100, L3890.6300, L509.8000, L509.4005, L3890.6005, BTS ####[facility] [address] [place], [address] Platelets (Bld) [#/Vol] 342 10*3/uL Normal 150-450 [facility] Comment on above: Performed By: #### L 501.9985, L3890.6100, L100.0100, L3890.6300, L509.8000, L509.4005, L3890.6005, BTS ####[facility] [address] [place], [address] RBC (Bld) [#/Vol] 4.44 10*6/uL Normal 4.2-5.[address] [facility] Comment on above: Performed By: #### L 501.9985, L3890.6100, L100.0100, L3890.6300, L509.8000, L509.4005, L3890.6005, BTS ####[facility] [address] [place], [address] RDW SD 35.6 fl Normal 35.1-43.9 [facility] Comment on above: Performed By: #### L 501.9985, L3890.6100, L100.0100, L3890.6300, L509.8000, L509.4005, L3890.6005, BTS ####[facility] [address] [place], [address] WBC (Bld) [#/Vol] 12.0 10*3/uL High 4.4-11.[address] [facility] Comment on above: Performed By: #### L 501.9985, L3890.6100, L100.0100, L3890.6300, L509.8000, L509.4005, L3890.6005, BTS ####[facility] [address] [place], [address] CRPon 08-01-2024 C-REACTIVE PROT 7.41 mg/L High 0.0-3.0 [facility] Comment on above: Order Comment: 1 Result Comment: C-Re active Protein (CRP) provides useful information for thediagnosis, therapy and monitoring of inflammatory processesand associated diseases. For the evaluation of Relative Riskfor Cardiovascular Disease, a High Sensitivity CRP (HSCRP)should be ordered. Performed By: #### L 504.2610, L2100.0000, L3100.3425, L3410.2400, L5500.0550, L3100.5440, L500.4050, L501.6710, L101.9900, L3300.1200, L3200.1100 ####[facility] [address] [place], [place], [phone] Comprehensive Metabolic Prof ilon 08-01-2024 Albumin [Mass/Vol] 3.6 g/dL Normal 3.2-5.0 [facility] Comment on above: Order Comment: 1 Performed By: #### L 504.2610, L2100.0000, L3100.3425, L3410.2400, L5500.0550, L3100.5440, L500.4050, L501.6710, L101.9900, L3300.1200, L3200.1100 ####[facility] [address] [place], [place], [phone] Albumin/Globulin [Mass ratio] 1.0 {ratio} Normal 0.9-2.4 [facility] Comment on above: Order Comment: 1 Performed By: #### L 504.2610, L2100.0000, L3100.3425, L3410.2400, L5500.0550, L3100.5440, L500.4050, L501.6710, L101.9900, L3300.1200, L3200.1100 ####[facility] [address] [place], [place], [phone] ALK P 74 U/L Normal 45-117 [facility] Comment on above: Order Comment: 1 Performed By: #### L 504.2610, L2100.0000, L3100.3425, L3410.2400, L5500.0550, L3100.5440, L500.4050, L501.6710, L101.9900, L3300.1200, L3200.1100 ####[facility] [address] [place], [place], [phone](792) ALT [Catalytic activity/Vol] 17 U/L Normal 13-56 [facility] Comment on above: Order Comment: 1 Performed By: #### L 504.2610, L2100.0000, L3100.3425, L3410.2400, L5500.0550, L3100.5440, L500.4050, L501.6710, L101.9900, L3300.1200, L3200.1100 ####[facility] [address] [place], [address] AST [Catalytic activity/Vol] 6 U/L Low 15-37 [facility] Comment on above: Order Comment: 1 Performed By: #### L 504.2610, L2100.0000, L3100.3425, L3410.2400, L5500.0550, L3100.5440, L500.4050, L501.6710, L101.9900, L3300.1200, L3200.1100 ####[facility] [address] [place], [place], [phone] Bilirubin [Mass/Vol] 0.30 mg/dL Normal 0.20-1.00 [facility] Comment on above: Order Comment: 1 Result Comment: For patients on eltrombopag therapy, use of Dimension [place] TBIL is not recommended. Performed By: #### L 504.2610, L2100.0000, L3100.3425, L3410.2400, L5500.0550, L3100.5440, L500.4050, L501.6710, L101.9900, L3300.1200, L3200.1100 ####[facility] [address] [place], [place], [phone](078) BUN/CRE 15.8 RATIO Normal 10-20 [facility] Comment on above: Order Comment: 1 Performed By: #### L 504.2610, L2100.0000, L3100.3425, L3410.2400, L5500.0550, L3100.5440, L500.4050, L501.6710, L101.9900, L3300.1200, L3200.1100 ####[facility] [address] [place], [place], [phone](889) CA,Total 9.0 mg/dL Normal 8.5-10.1 [facility] Comment on above: Order Comment: 1 Performed By: #### L 504.2610, L2100.0000, L3100.3425, L3410.2400, L5500.0550, L3100.5440, L500.4050, L501.6710, L101.9900, L3300.1200, L3200.1100 ####[facility] [address] [place], [place], [phone](991) Chloride [Moles/Vol] 105 mmol/L Normal 98-107 [facility] Comment on above: Order Comment: 1 Performed By: #### L 504.2610, L2100.0000, L3100.3425, L3410.2400, L5500.0550, L3100.5440, L500.4050, L501.6710, L101.9900, L3300.1200, L3200.1100 ####[facility] [address] [place], [address] CO2 [Moles/Vol] 21.0 mmol/L Normal 21.0-32.0 [facility] Comment on above: Order Comment: 1 Performed By: #### L 504.2610, L2100.0000, L3100.3425, L3410.2400, L5500.0550, L3100.5440, L500.4050, L501.6710, L101.9900, L3300.1200, L3200.1100 ####[facility] [address] [place], [place], [phone] Creatinine [Mass/Vol] 0.57 mg/dL Normal 0.55-1.02 [facility] Comment on above: Order Comment: 1 Result Comment: The validity of the calculated GFR GFRAA in patients over70 years has not been determined. Clinical correlation isessential. Performed By: #### L 504.2610, L2100.0000, L3100.3425, L3410.2400, L5500.0550, L3100.5440, L500.4050, L501.6710, L101.9900, L3300.1200, L3200.1100 ####[facility] [address] [facility] [place], [address] EST GFR - AA 163 mL/min Normal >60 [facility] Comment on above: Order Comment: 1 Result Comment: Afri can Mexican GFR Calc Performed By: #### L 504.2610, L2100.0000, L3100.3425, L3410.2400, L5500.0550, L3100.5440, L500.4050, L501.6710, L101.9900, L3300.1200, L3200.1100 ####[facility] [address] [facility] [address] [place], [place], [phone] GAP 11 Normal 5-15 [facility] Comment on above: Order Comment: 1 Performed By: #### L 504.2610, L2100.0000, L3100.3425, L3410.2400, L5500.0550, L3100.5440, L500.4050, L501.6710, L101.9900, L3300.1200, L3200.1100 ####[facility] [address] [facility] [place], [address] GFR/1.73 sq M.predicted among non-blacks MDRD (S/P/Bld) [Vol rate/Area] 134 mL/min/{1.73_m2} Normal >60 [facility] Comment on above: Order Comment: 1 Result Comment: Non- GFR Calc Performed By: #### L 504.2610, L2100.0000, L3100.3425, L3410.2400, L5500.0550, L3100.5440, L500.4050, L501.6710, L101.9900, L3300.1200, L3200.1100 ####[facility] [address] [place], [address] Globulin (S) [Mass/Vol] 3.7 g/dL Normal 2.2-4.2 [facility] Comment on above: Order Comment: 1 Performed By: #### L 504.2610, L2100.0000, L3100.3425, L3410.2400, L5500.0550, L3100.5440, L500.4050, L501.6710, L101.9900, L3300.1200, L3200.1100 ####[facility] [address] [place], [address] Glucose [Mass/Vol] 67 mg/dL Low 74-106 [facility] Comment on above: Order Comment: 1 Performed By: #### L 504.2610, L2100.0000, L3100.3425, L3410.2400, L5500.0550, L3100.5440, L500.4050, L501.6710, L101.9900, L3300.1200, L3200.1100 ####[facility] [address] [place], [address] Potassium [Moles/Vol] 3.5 mmol/L Normal 3.5-5.1 [facility] Comment on above: Order Comment: 1 Performed By: #### L 504.2610, L2100.0000, L3100.3425, L3410.2400, L5500.0550, L3100.5440, L500.4050, L501.6710, L101.9900, L3300.1200, L3200.1100 ####[facility] [address] [place], [address] Sodium [Moles/Vol] 137 mmol/L Normal 136-145 [facility] Comment on above: Order Comment: 1 Performed By: #### L 504.2610, L2100.0000, L3100.3425, L3410.2400, L5500.0550, L3100.5440, L500.4050, L501.6710, L101.9900, L3300.1200, L3200.1100 ####[facility] [address] [place], [place], [phone] T PROT 7.3 g/dL Normal 6.4-8.2 [facility] Comment on above: Order Comment: 1 Performed By: #### L 504.2610, L2100.0000, L3100.3425, L3410.2400, L5500.0550, L3100.5440, L500.4050, L501.6710, L101.9900, L3300.1200, L3200.1100 ####[facility] [address] [place], [place], [phone] Urea nitrogen [Mass/Vol] 9 mg/dL Normal 7-18 [facility] Comment on above: Order Comment: 1 Performed By: #### L 504.2610, L2100.0000, L3100.3425, L3410.2400, L5500.0550, L3100.5440, L500.4050, L501.6710, L101.9900, L3300.1200, L3200.1100 ####[facility] [address] [place], [place], [phone] Erythrocyte Sed Rateon 08-01 -2023 SED RATE 15 mm/hr Normal 0-30 [facility] Comment on above: Performed By: #### L 504.2610, L2100.0000, L3100.3425, L3410.2400, L5500.0550, L3100.5440, L500.4050, L501.6710, L101.9900, L3300.1200, L3200.1100 ####[facility] [address] [place], [place], [phone] HIV - WCHon 08-01-2024 HIV Non-Reactive Normal Nonreactive [facility] Comment on above: Order Comment: Reaso n for Exam: Performed By: #### L 501.9985, L3890.6100, L100.0100, L3890.6300, L509.8000, L509.4005, L3890.6005, BTS ####[facility] [address] [place], [place], [phone] Hemoglobin A1con 08-01-2024 HbA1c (Bld) [Mass fraction] 5.0 % Normal 3.8-5.6 [facility] Comment on above: Result Comment: Norm al < 5.7 % Prediabetic 5.7 - 6.4 % Diabetic >or= 6.5 % Please note range changes. Performed By: #### L 501.9985, L3890.6100, L100.0100, L3890.6300, L509.8000, L509.4005, L3890.6005, BTS ####[facility] [address] [place], [address] Hepatitis B Surface Antigeno n 08-01-2024 HEP B Surf Ag [facility] Comment on above: Order Comment: Reaso n for Exam: Performed By: #### L 501.9985, L3890.6100, L100.0100, L3890.6300, L509.8000, L509.4005, L3890.6005, BTS ####[facility] [address] [place], [address] Hepatitis C Antibodyon 08-01 Hepatitis C AB Non-Reactive Normal Nonreactive [facility] Comment on above: Order Comment: Reaso n for Exam: Result Comment: Non Reactive: < 0.8 Equivocal: >/= 0.8 to < 1.0 Reactive: >/= 1.0The CDC requires that a reactive/equivocal HCV antibodyresult be sent out for confirmation. HCV Quant by PCRtesting. Performed By: #### L 501.9985, L3890.6100, L100.0100, L3890.6300, L509.8000, L509.4005, L3890.6005, BTS ####[facility] [address] [place], [address] L509.8000on 08-01-2024 Syphilis Abs Non-Reactive Normal [facility] Comment on above: Order Comment: Reaso n for Exam: Performed By: #### L 501.9985, L3890.6100, L100.0100, L3890.6300, L509.8000, L509.4005, L3890.6005, BTS ####[facility] [address] [place], [place], [phone]) LDHon 08-01-2024 LDH 147 U/L Normal 84-246 [facility] Comment on above: Order Comment: 1 Performed By: #### L 504.2610, L2100.0000, L3100.3425, L3410.2400, L5500.0550, L3100.5440, L500.4050, L501.6710, L101.9900, L3300.1200, L3200.1100 ####[facility] [address] [place], [address] Rubella IgGon 08-01-2024 Rubella IgG Reactive Normal Nonreactive [facility] Comment on above: Order Comment: Reaso n for Exam: Result Comment: Anti body Results Interpretation of Immune Status Non Reactive Presumed Non-Immune Equivocal Equivocal Reactive Presumed Immune Performed By: #### L 501.9985, L3890.6100, L100.0100, L3890.6300, L509.8000, L509.4005, L3890.6005, BTS ####[facility] [address] [place], [place], [phone] Type AND Screenon 08-01-2024 ABO and Rh group Nom (Bld) Blood group AB Rh(D) positive Normal [facility] Comment on above: Order Comment: PN Performed By: #### L 501.9985, L3890.6100, L100.0100, L3890.6300, L509.8000, L509.4005, L3890.6005, BTS ####[facility] [address] [place], [address] Gastroenterology Visit Repor ton 07-15-2024 Gastroenterology Visit Report Normal [facility] Chlamydia/GC FIORDALIZA aptimaon CHLAMY,NUC ACID Negative Normal Negative [facility] Comment on above: Performed By: #### L 7000.1800, M100.2200 ####[facility] [address] [place], [address] GC BY NUC ACID Negative Normal Negative [facility] Comment on above: Result Comment: Perf ormed at: =G - [facility] [address] [id number] Director: Summer Campa MD, Phone: [phone] Performed By: #### L 7000.1800, M100.2200 ####[facility] [address] [place], [address] Urine Cultureon 07-05-2024 URC Culture exhibits no growth. Normal [facility] Comment on above: Performed By: #### L 7000.1800, M100.2200 ####[facility] [address] [place], [address] [employer] Office Visit Reporton 07-04-2024 [employer] Office Visit Report Normal [facility] Laboratory - Microbiology an d Antimicrobial susceptibilityon 10-11-2021 SARS-CoV-2 (COVID-19) RNA FIORDALIZA+probe Ql (Unsp spec) Not detected [facility] Work Phone: Laboratory - Microbiology an d Antimicrobial susceptibilityon 10-09-2021 SARS-CoV-2 (COVID-19) RNA FIORDALIZA+probe Ql (Unsp spec) Not detected Not Detect [facility] Work Phone: Comment on above: Normal Reference Ran ge: Not DetectedMethod:(RT-PCR) real-time reverse transcriptase PCRLuminex KORI Instrument*The Food and Drug Administration (FDA) has issued an Emergency Use Authorization (EAU) for the KORI SARS-CoV-2 Assay for the rapid detection of the virus that causes COVID-19. This test has been validated, but the FDAs independent review of this validation is pending.*Negative results do not preclude infection and should not be used as the sole basis for treatment or patient management. Optimum specimen types and timing for peak viral levels during infections caused by SARS-CoV-2 have not been determined. Collection of multiple specimens from the same patient may be necessary to detect the virus. The possibility of a false negative result should be considered if the patient has clinical presentation or has had recent exposure. No Panel Informationon 10-08 SARS-CoV-2 Antigen (Rapid) [facility] Work Phone: VARISon 05-05-[address] Positive [facility] ([place]) Comment on above: Result Comment: This immune [...] required. Performed By: #### H BSAB, VARIS ####[place] [address] HBSABon 05-04-2018 Hep B Surf Ab 0.0 mIU/mL [facility] ([place]) Comment on above: Result Comment: Anti -HBs Interpretation: 0 to <5.0 mIU/mL Negative Patient [...] to HBV infection. Performed By: #### H BRENT BLOUNT ####[place] [id number] [place] [address] 09-16-2017 OPERATIVE REPORT Normal [facility] [place] DATE OF SERVICE: 09/16/2017PREOPERATIVE DIAGNOSIS: Chronic [...] was transferred to recovery in stable condition. GLEN Hendricks/[id number]: 09/16/2017 07:57DT: 09/16/2017 08:31SSI File#: [id number] #: [id number]/Reviewed by09/17/17 0706 SMIDA1 [facility] PATIENT NAME: BALTAZAR BLANCO [id number] [facility] [address] [facility] MEDICAL REC #: [id number], [place] [address] DATE:DISCHARGE DATE:OPERATIVE REPORT ATTENDING PHY: Jonathan Red MD [facility] SURGon 09-16-2017 SURG ----- Patient: BALTAZAR BLANCO L SPECIMEN : [id number] Collection Date: 09/16/17 Received: 09/16/17 Status: ROLO Anderson DrInocencia: Jonathan Red MD Ph# Othr. : Kumar Peace Material for Examination: A LEFT [...] Phonetic and/or minor grammatical errors may exist. [facility] NAME: BALTAZAR BLANCO Pathology and Laboratory Medicine UNIT#: [id number] LOC: [facility] Accessioner: Sherry Mcdonnell M.D. ROOM/BED: [employer] [facility] : 89 AGE/SEX: 22/F ORD.Jonathan Simeon MD END OF REPORT Normal [facility] URINE PREGNANCYon 09-16-2017 UR HCG QUAL Negative Normal NEGATIVE [facility] Comment on above: Order Comment: Campu s: M Performed By: #### L [id number] ####[facility] [id number] [place], [place] [address]Xw# [phone] UR SPEC GRAV 1.021 Normal 1.005-1.030 [facility] Comment on above: Order Comment: Campu s: M Performed By: #### L [id number] ####[facility] [id number] [place], [place] [address]Jg# [phone] Vital Signs Date Time Vital Sign Value Performing Clinician Facility 05-02-2025 11:50-0400 Body height 180.34 cm Clarissa MARITNEZ Work Phone: [facility] 05-02-2025 11:42-0400 Body mass index (BMI) [Ratio] 39.4 kg/m2 Clarissa Ferullo [employer] Work Phone: [facility] 05-02-2025 11:42-0400 Body weight 128.36 kg Clarissayu Chambersullo [employer] Work Phone: [facility] 05-02-2025 11:42-0400 Diastolic blood pressure 84 mm[Hg] Clarissayu Chambersullo [employer] Work Phone: [facility] 05-02-2025 11:42-0400 Systolic blood pressure 122 mm[Hg] Clarissa Leannaullo [employer] Work Phone: [facility] 02-20-2025 10:47-0400 Body height 180.34 cm Clarissayu Chambersullo [employer] Work Phone: [facility] 02-20-2025 10:47-0400 Body mass index (BMI) [Ratio] 42.7 kg/m2 Clarissa Leannalennyo [employer] Work Phone: [facility] 02-20-2025 10:47-0400 Body weight 139.02 kg Clarissayu Chambersullo [employer] Work Phone: [facility] 02-20-2025 10:47-0400 Diastolic blood pressure 82 mm[Hg] Clarissayu Chambersullo [employer] Work Phone: [facility] 02-20-2025 10:47-0400 Systolic blood pressure 127 mm[Hg] Clarissayu Chambersullo [employer] Work Phone: [facility] 01-11-2025 08:02-0400 Body temperature 97.9 [degF] Clarissa Leannaullo [employer] Work Phone: [facility] 01-11-2025 08:02-0400 Diastolic blood pressure 83 mm[Hg] Clarissa Ferullo [employer] Work Phone: [facility] 01-11-2025 08:02-0400 Heart rate 90 /min Clarissayu Chambersullo [employer] Work Phone: [facility] 01-11-2025 08:02-0400 Respiratory rate 17 /min Calrissa Robbinso [employer] Work Phone: [facility] 01-11-2025 08:02-0400 Systolic blood pressure 136 mm[Hg] Clarissa Robbinso [employer] Work Phone: [facility] 01-11-2025 01:02-0400 SaO2% (BldA) [Mass fraction] 98 % Clarissa Robbinso [employer] Work Phone: [facility] 01-09-2025 14:29-0400 Body temperature 98.6 [degF] Clarissa Robbinso [employer] Work Phone: [facility] 01-09-2025 14:29-0400 Respiratory rate 16 /min Clarissa Robbinso [employer] Work Phone: [facility] 01-09-2025 14:29-0400 SaO2% (BldA) [Mass fraction] 99 % Clarissa Robbinso [employer] Work Phone: [facility] 01-09-2025 14:28-0400 Diastolic blood pressure 52 mm[Hg] Clarissa Robbinso [employer] Work Phone: [facility] 01-09-2025 14:28-0400 Heart rate 102 /min Clarissa Robbinso [employer] Work Phone: [facility] 01-09-2025 14:28-0400 Systolic blood pressure 109 mm[Hg] Clarissa Robbinso [employer] Work Phone: [facility] 01-07-2025 19:47-0400 Body height 180.34 cm Clarissa Chambersullo [employer] Work Phone: [facility] 01-07-2025 19:47-0400 Body mass index (BMI) [Ratio] 44 kg/m2 Clarissa Robbinso [employer] Work Phone: [facility] 01-07-2025 19:47-0400 Body weight 143.33 kg Clarissa Robbinso [employer] Work Phone: [facility] 01-06-2025 10:35-0400 SaO2% (BldA) [Mass fraction] 99 % Clarissa Robbinso [employer] Work Phone: [facility] 01-06-2025 10:34-0400 Body temperature 97.9 [degF] Clarissa Robbinso [employer] Work Phone: [facility] 01-06-2025 10:34-0400 Diastolic blood pressure 73 mm[Hg] Clarissa Robbinso [employer] Work Phone: [facility] 01-06-2025 10:34-0400 Heart rate 93 /min Clarissa Robbinso [employer] Work Phone: [facility] 01-06-2025 10:34-0400 Respiratory rate 17 /min Clarissa Robbinso [employer] Work Phone: [facility] 01-06-2025 10:34-0400 Systolic blood pressure 140 mm[Hg] Clarissa Robbinso [employer] Work Phone: [facility] 01-06-2025 10:23-0400 Body height 180.34 cm Clarissa Robbinso [employer] Work Phone: [facility] 01-06-2025 10:23-0400 Body mass index (BMI) [Ratio] 43.7 kg/m2 Clarissa Robbinso [employer] Work Phone: [facility] 01-06-2025 10:23-0400 Body weight 142.42 kg Clarissa Robbinso [employer] Work Phone: [facility] 01-02-2025 09:45-0400 Body height 180.34 cm Clarissa Robbinso [employer] Work Phone: [facility] 01-02-2025 09:45-0400 Body mass index (BMI) [Ratio] 43.5 kg/m2 Clarissa Chamberslennyo [employer] Work Phone: [facility] 01-02-2025 09:45-0400 Body weight 141.74 kg Clarissa Chamberslennyo [employer] Work Phone: [facility] 01-02-2025 09:45-0400 Diastolic blood pressure 75 mm[Hg] Clarissayu Chambersullo [employer] Work Phone: [facility] 01-02-2025 09:45-0400 Systolic blood pressure 124 mm[Hg] Clarissa Chambersullo [employer] Work Phone: [facility] 12-30-2024 13:07-0400 Body height 180.34 cm Clarissa Leannaullo [employer] Work Phone: [facility] 12-30-2024 13:05-0400 Body mass index (BMI) [Ratio] 43.2 kg/m2 Clarissayu Chambersullo [employer] Work Phone: [facility] 12-30-2024 13:05-0400 Body weight 140.84 kg Clarissayu Chambersullo [employer] Work Phone: [facility] 12-30-2024 13:05-0400 Diastolic blood pressure 84 mm[Hg] Clarissayu Chambersullo [employer] Work Phone: [facility] 12-30-2024 13:05-0400 Systolic blood pressure 139 mm[Hg] Clarissa Chambersullo [employer] Work Phone: [facility] 12-29-2024 10:06-0400 Body mass index (BMI) [Ratio] 43.2 kg/m2 Clarissayu Chambersullo [employer] Work Phone: [facility] 12-29-2024 10:06-0400 Body weight 140.67 kg Clarissayu Chambersullo [employer] Work Phone: [facility] 12-29-2024 10:06-0400 Diastolic blood pressure 76 mm[Hg] Clarissayu Chambersullo [employer] Work Phone: [facility] 12-29-2024 10:06-0400 Systolic blood pressure 134 mm[Hg] Clarissayu Chambersullo [employer] Work Phone: [facility] 12-27-2024 14:23-0400 Body temperature 99.9 [degF] Clarissa Ferullo [employer] Work Phone: [facility] 12-27-2024 14:23-0400 Respiratory rate 15 /min Clarissa Ferullo [employer] Work Phone: [facility] 12-27-2024 14:23-0400 SaO2% (BldA) [Mass fraction] 98 % Clarissa Ferullo [employer] Work Phone: [facility] 12-27-2024 14:22-0400 Heart rate 88 /min Clarissa Ferullo [employer] Work Phone: [facility] 12-27-2024 14:21-0400 Diastolic blood pressure 66 mm[Hg] Clarissa Ferullo [employer] Work Phone: [facility] 12-27-2024 14:21-0400 Systolic blood pressure 130 mm[Hg] Clarissa Ferullo [employer] Work Phone: [facility] 12-21-2024 08:47-0400 Body temperature 97.4 [degF] Clarissa Ferullo [employer] Work Phone: [facility] 12-21-2024 08:47-0400 Diastolic blood pressure 56 mm[Hg] Clarissa Ferullo [employer] Work Phone: [facility] 12-21-2024 08:47-0400 Heart rate 94 /min Clarissa Ferullo [employer] Work Phone: [facility] 12-21-2024 08:47-0400 Respiratory rate 16 /min Clarissa Ferullo [employer] Work Phone: [facility] 12-21-2024 08:47-0400 Systolic blood pressure 115 mm[Hg] Clarissa Ferullo [employer] Work Phone: [facility] 12-21-2024 04:21-0400 SaO2% (BldA) [Mass fraction] 96 % Clarissa Cosby [employer] Work Phone: [facility] 12-20-2024 13:33-0400 Body height 180.34 cm Clarissa Cosby [employer] Work Phone: [facility] 12-20-2024 13:33-0400 Body mass index (BMI) [Ratio] 42.8 kg/m2 Clarissa Cosby [employer] Work Phone: [facility] 12-20-2024 13:33-0400 Body weight 139.3 kg Clarissa Cosby [employer] Work Phone: [facility] 12-16-2024 15:55-0400 Body temperature 97.81 [degF] Thelma Goncalveshl DO Work Phone: [facility] [employer] 12-16-2024 15:55-0400 Diastolic blood pressure 74 mm[Hg] Thelma Antony DO Work Phone: [facility] [employer] 12-16-2024 15:55-0400 Heart rate 92 /min Thelma Goncalveshl DO Work Phone: [facility] [employer] 12-16-2024 15:55-0400 Respiratory rate 18 /min Thelma Goncalveshl DO Work Phone: [facility] [employer] 12-16-2024 15:55-0400 SaO2% (BldA) [Mass fraction] 98 % Thelma Antony DO Work Phone: [facility] [employer] 12-16-2024 15:55-0400 Systolic blood pressure 133 mm[Hg] Thelma Antony DO Work Phone: [facility] [employer] 12-14-2024 14:27-0400 Body height 180.3 cm Thelma Goncalveshl DO Work Phone: [facility] [employer] 12-14-2024 14:27-0400 Body mass index (BMI) [Ratio] 43.1 kg/m2 Thelma Antony DO Work Phone: [facility] [employer] 12-14-2024 14:27-0400 Body weight 140.16 kg Thelma Antony DO Work Phone: [facility] 12-14-2024 10:24-0400 Diastolic blood pressure 70 mm[Hg] Clarissa Robbinso [employer] Work Phone: [facility] 12-14-2024 10:24-0400 Heart rate 101 /min Clarissa Robbinso [employer] Work Phone: [facility] 12-14-2024 10:24-0400 Systolic blood pressure 134 mm[Hg] Clarissa Robbinso [employer] Work Phone: [facility] 12-14-2024 06:38-0400 SaO2% (BldA) [Mass fraction] 98 % Clarissa Robbinso [employer] Work Phone: [facility] 12-14-2024 06:37-0400 Body temperature 98.7 [degF] Clarissa Robbinso [employer] Work Phone: [facility] 12-14-2024 06:37-0400 Respiratory rate 16 /min Clarissa Robbinso [employer] Work Phone: [facility] 12-13-2024 10:10-0400 Body height 180.34 cm Clarissa Robbinso [employer] Work Phone: [facility] 12-13-2024 10:10-0400 Body mass index (BMI) [Ratio] 42.8 kg/m2 Clarissa Robbinso [employer] Work Phone: [facility] 12-13-2024 10:10-0400 Body weight 139.42 kg Clarissa Robbinso [employer] Work Phone: [facility] 12-13-2024 09:01-0400 Body mass index (BMI) [Ratio] 44.4 kg/m2 Clarissa Robbinso [employer] Work Phone: [facility] 12-13-2024 09:01-0400 Body weight 140.33 kg Clarissa Robbinso [employer] Work Phone: [facility] 12-13-2024 09:01-0400 Diastolic blood pressure 89 mm[Hg] Clarissa Chambersullo [employer] Work Phone: [facility] 12-13-2024 09:01-0400 Systolic blood pressure 149 mm[Hg] Clarissayu Chambersullo [employer] Work Phone: [facility] 12-02-2024 10:26-0500 Body height 177.8 cm Clarissa Leannaullo [employer] Work Phone: [facility] 12-02-2024 10:26-0500 Body mass index (BMI) [Ratio] 44.6 kg/m2 Clarissayu Chambersullo [employer] Work Phone: [facility] 12-02-2024 10:26-0500 Body weight 141.23 kg Clarissayu Chambersullo [employer] Work Phone: [facility] 12-02-2024 10:26-0500 Diastolic blood pressure 85 mm[Hg] Clarissa Leannaullo [employer] Work Phone: [facility] 12-02-2024 10:26-0500 Systolic blood pressure 137 mm[Hg] Clarissayu Chambersullo [employer] Work Phone: [facility] 11-28-2024 09:03-0500 Body mass index (BMI) [Ratio] 44.1 kg/m2 Clarissa Leannaullo [employer] Work Phone: [facility] 11-28-2024 09:03-0500 Body weight 139.7 kg Clarissa Leannaullo [employer] Work Phone: [facility] 11-28-2024 09:03-0500 Diastolic blood pressure 89 mm[Hg] Clarissa Ferullo [employer] Work Phone: [facility] 11-28-2024 09:03-0500 Systolic blood pressure 135 mm[Hg] Clarissa Ferullo [employer] Work Phone: [facility] 11-15-2024 13:39-0500 Body mass index (BMI) [Ratio] 43.9 kg/m2 Clarissa Chamberslennyo [employer] Work Phone: [facility] 11-15-2024 13:39-0500 Body weight 138.96 kg Clarissa Chamberslennyo [employer] Work Phone: [facility] 11-15-2024 13:39-0500 Diastolic blood pressure 74 mm[Hg] Clarissa Chambersullo [employer] Work Phone: [facility] 11-15-2024 13:39-0500 Systolic blood pressure 130 mm[Hg] Clarissa Chambersullo [employer] Work Phone: [facility] 10-24-2024 11:22-0500 Diastolic blood pressure 83 mm[Hg] Clarissayu Chambersullo [employer] Work Phone: [facility] 10-24-2024 11:22-0500 Systolic blood pressure 139 mm[Hg] Clarissa Chamberslennyo [employer] Work Phone: [facility] 10-24-2024 11:21-0500 Body mass index (BMI) [Ratio] 43.4 kg/m2 Clarissayu Chambersullo [employer] Work Phone: [facility] 10-24-2024 11:21-0500 Body weight 137.49 kg Clarissa Chambersullo [employer] Work Phone: [facility] 09-26-2024 10:16-0500 Body mass index (BMI) [Ratio] 42.5 kg/m2 Clarissayu Chambersullo [employer] Work Phone: [facility] 09-26-2024 10:16-0500 Body weight 134.26 kg Clarissayu Chambersullo [employer] Work Phone: [facility] 09-26-2024 10:16-0500 Diastolic blood pressure 83 mm[Hg] Clarissayu Chambersullo [employer] Work Phone: [facility] 09-26-2024 10:16-0500 Systolic blood pressure 137 mm[Hg] Clarissa Leannaullo [employer] Work Phone: [facility] 08-29-2024 13:22-0500 Body mass index (BMI) [Ratio] 41.8 kg/m2 Clarissayu Chambersshelly [employer] Work Phone: [facility] 08-29-2024 13:22-0500 Body weight 132.44 kg Clarissa Chambersshelly [employer] Work Phone: [facility] 08-29-2024 13:22-0500 Diastolic blood pressure 82 mm[Hg] Clarissayu Chambersshelly [employer] Work Phone: [facility] 08-29-2024 13:22-0500 Systolic blood pressure 134 mm[Hg] Clarissayu Chambersshelly [employer] Work Phone: [facility] 12-30-2021 16:54-0400 Body weight 133.17 kg [employer] Ara Lopez [employer] Work Phone: [facility] Work Phone: 12-02-2021 16:33-0500 Body weight 135.26 kg [employer] Ara John [employer] Work Phone: [facility] Work Phone: 11-18-2021 16:14-0500 Body height 177.8 cm [employer] Ara Lopez [employer] Work Phone: [facility] Work Phone: Encounters Encounter Date Encounter Type Care Provider Facility Start: 07-07-2025 ambulatory Kirsten Clark [facility] Faci lity:[facility] Start: 05-02-2025 End: 05-02-2025 Patient encounter procedure Kavya Diez [employer] -[facility] Work Phone: Start: 05-02-2025 End: 05-02-2025 ambulatory Clarissa Cosby [employer] Work Phone: -[facility] Start: 05-02-2025 End: 05-02-2025 ambulatory Kavya Diez Facility:[facility] Start: 02-20-2025 End: 02-20-2025 Patient encounter procedure Sariah ROSALES -[facility] Work Phone: Start: 02-20-2025 End: 02-20-2025 ambulatory Clarissa Cosby [employer] Work Phone: [facility] Work Phone: Start: 01-17-2025 ambulatory Belkis Oglesby lity:[facility] Start: 01-13-2025 ambulatory Belkis Oglesby lity:[facility] Start: 01-12-2025 ambulatory Kavya Diez Facility :[facility] Start: 01-12-2025 Non-patient / [facility] Start: 01-11-2025 Non-patient / Non-visit Kavya Strouds [employer] [facility] Start: 01-10-2025 Non-patient / Non-visit Dr. Belkis Pacheco MD -[facility] Start: 01-10-2025 ambulatory Belkis Oglesby litivy:[facility] Start: 01-09-2025 Non-patient / Non-visit Sariah Cobb [facility] Start: 01-08-2025 Non-patient / [facility] Start: 01-07-2025 ambulatory Sariah Cobb Facility :[facility] Start: 01-07-2025 End: 01-11-2025 Evaluation and management of inpatient Bella ROSALES -[facility] Work Phone: Start: 01-06-2025 ambulatory Bella Berumen Facilit y:[facility] Start: 01-06-2025 Non-patient / Non-visit Bella Berumen [facility] Start: 01-06-2025 End: 01-06-2025 Patient encounter procedure Bella Ata OBREGON -[facility] Work Phone: Start: 01-06-2025 End: 01-06-2025 ambulatory Clarissa Cosby [employer] Work Phone: [facility] Work Phone: Start: 01-03-2025 End: 01-03-2025 ambulatory Clarissayu Chambersullo [employer] Work Phone: [facility] Work Phone: Start: 01-03-2025 End: 01-03-[address] Belkis Pacheco MD -[facility] Work Phone: Start: 01-02-2025 End: 01-02-2025 Patient encounter procedure Sariah Cobb CNM -[facility] Work Phone: Start: 01-02-2025 End: 01-03-2025 ambulatory Belkis Pacheco Facility:[facility] Start: 12-30-2024 End: 12-30-[address] Nenita Oliva DO -[facility] Work Phone: Start: 12-30-2024 End: 12-30-2024 ambulatory Clarissa Leannalennyo [employer] Work Phone: [facility] Work Phone: Start: 12-30-2024 End: 12-30-[address] Belkis Pacheco MD -Ultrasound, [facility] Work Phone: Start: 12-29-2024 End: 12-29-2024 Patient encounter procedure Kavya Diez [employer] -[facility] Work Phone: Start: 12-29-2024 End: 12-30-2024 ambulatory Belkis Pacheco Facility:[facility] Start: 12-27-2024 ambulatory Clarissayu Robbinso Facility: [facility] Start: 12-27-2024 Non-patient / Non-visit Dr. Nenita Oliva DO -[facility] Start: 12-27-2024 End: 12-27-[address] Belkis Pacheco MD -[facility] Work Phone: Start: 12-27-2024 End: 12-27-2024 ambulatory Clarissayu Robbinso [employer] Work Phone: [facility] Work Phone: Start: 12-23-2024 End: 12-23-2024 ambulatory Clarissa Robbinso [employer] Work Phone: [facility] Work Phone: Start: 12-23-2024 End: 12-23-[address] Belkis Pacheco MD -Ultrasound, [facility] Work Phone: Start: 12-23-2024 End: 12-23-2024 ambulatory Belkis Pacheco Facility:[facility] Start: 12-21-2024 ambulatory Nenita Andrewsty:[facility] Start: 12-21-2024 Non-patient / Non-visit Dr. Belkis Pacheco MD -[facility] Start: 12-20-2024 ambulatory Nenita Andrewsty:[facility] Start: 12-20-2024 Non-patient / [facility] Start: 12-20-2024 End: 12-21-[address] Nenita Oliva DO -[facility] Work Phone: Start: 12-20-2024 End: 12-21-2024 ambulatory Clarissa Cosby [employer] Work Phone: [facility] Work Phone: Start: 12-14-2024 End: 12-16-2024 Evaluation and management of inpatient Thelma Ta DO Work Phone: [facility] Start: 12-13-2024 Non-patient / Non-visit Dr. Nenita Oliva DO [facility] Start: 12-13-2024 End: 12-14-[address] Nenita Chavarria, Outpatients Work Phone: Start: 12-13-2024 End: 12-14-2024 ambulatory lCarissa Cosby [employer] Work Phone: [facility] Work Phone: Start: 12-13-2024 End: 12-13-2024 ambulatory Clarissa Cosby [employer] Work Phone: [facility] Work Phone: Start: 12-13-2024 End: 12-13-[address] Belkis Pacheco MD -[facility] Work Phone: Start: 12-13-2024 End: 12-13-2024 ambulatory Clarissa Cosby Facility:[facility] Start: 12-02-2024 End: 12-02-2024 Patient encounter procedure Sariah Cobb CNM -[facility] Work Phone: Start: 12-02-2024 End: 12-02-2024 ambulatory Sariah Cobb Facility:[facility] Start: 11-28-2024 End: 11-28-2024 ambulatory Clarissa Cosyb [employer] Work Phone: [facility] Work Phone: Start: 11-28-2024 End: 11-28-2024 Patient encounter procedure Sariah Cobb CNM -[facility] Work Phone: Start: 11-28-2024 End: 11-28-2024 ambulatory Nenita Oliva Facility:[facility] Start: 11-21-2024 End: 11-21-[address] Belkis Pacheco MD -Laboratory Work Phone: Start: 11-21-2024 End: 11-21-2024 ambulatory [facility] Facility:[facility] Start: 11-15-2024 End: 11-15-2024 Patient encounter procedure Kavya Diez [employer] -[facility] Work Phone: Start: 11-15-2024 End: 11-15-2024 ambulatory [facility] Facility:[facility] Start: 11-15-2024 End: 11-15-[address] Belkis Pacheco MD -Laboratory Work Phone: Start: 11-15-2024 End: 11-15-2024 ambulatory ERNESTO JONES Facility:[facility] Start: 10-24-2024 End: 10-24-2024 Patient encounter procedure Sariah Cobb CNM -Laboratory, Specimen Work Phone: Start: 10-24-2024 End: 10-24-2024 Patient encounter procedure Sariah Cobb CNM -[facility] Work Phone: Start: 10-24-2024 End: 10-24-2024 ambulatory Sariah Cobb Facility:[facility] Start: 10-24-2024 End: 10-24-2024 ambulatory Sariah Cobb Facility:[facility] Start: 09-26-2024 End: 09-26-[address] Belkis Pacheco MD -[facility] Work Phone: Start: 09-26-2024 End: 09-26-2024 ambulatory Clarissa Cosby Facility:[facility] Start: 09-23-2024 End: 09-23-[address] Belkis Pacheco MD -[facility] Work Phone: Start: 09-23-2024 End: 09-23-2024 ambulatory Clarissa Cosby Facility:[facility] Start: 08-29-2024 End: 08-29-[address] Belkis Pacheco MD -[facility] Work Phone: Start: 08-29-2024 End: 08-29-2024 ambulatory Clarissayu Robbinso Facility:[facility] Start: 08-04-2024 End: 08-04-2024 ambulatory Clarissa Ferlennyo Facility:[facility] Start: 08-01-2024 End: 08-01-2024 ambulatory [facility] Facility:[facility] Start: 07-15-2024 End: 07-15-2024 ambulatory Latisha Pierre Facility:[facility] Start: 07-04-2024 End: 07-04-2024 ambulatory Clarissayu Robbinso Facility:[facility] Start: 07-04-2024 End: 09-30-2024 ambulatory Nenita Oliva Facility:[facility] Start: 12-30-2021 End: 01-02-2022 Discharged Recurring [employer] Ara John [employer] [facility] Start: 12-02-2021 End: 12-02-2021 Discharged Recurring [employer] Ara John [employer] [facility] Start: 10-11-2021 End: 10-11-2021 Patient encounter procedure [employer] Ara John [employer] Work Phone: [facility] Start: 10-09-2021 Registered Referred [employer] [place] sharif John [employer] Work Phone: [facility] Start: 10-09-2021 End: 10-09-2021 Patient encounter procedure [employer] Ara John [employer] Work Phone: [facility] Start: 10-08-2021 Registered Referred [employer] [place] sharif John [employer] Work Phone: [facility] [facility] Start: 09-16-2017 Evaluation and management of inpatient Jonathan Red Facility:[facility] Procedures Date Procedure Procedure Detail Performing Clinician Start: 05-02-2025 Gram stain microscopy E jesus Cosby [employer] Work Phone: Start: 05-02-2025 Source specific culture Clarissa Robbinsleno [employer] Work Phone: Start: 01-07-2025 Serologic test for syphilis Clarissa Cosby [employer] Work Phone: Start: 01-06-2025 Ultrasonography for biophysical profile without non-stress testing Clarissa Robbinsleno [employer] Work Phone: Start: 01-03-2025 Ultrasonography for biophysical profile without non-stress testing Clarissa Cosby [employer] Work Phone: Start: 12-30-2024 Beta-hemolytic Strep tococcus culture Clarissa Robbinsleno [employer] Work Phone: Start: 12-30-2024 Ultrasonography for biophysical profile without non-stress testing Clarissa Cosby [employer] Work Phone: Start: 12-27-2024 Ultrasonography for biophysical profile without non-stress testing Clarissa Cosby [employer] Work Phone: Start: 12-23-2024 Ultrasonography for biophysical profile without non-stress testing Clarissa Cosby [employer] Work Phone: Start: 12-21-2024 Ultrasonography for biophysical profile without non-stress testing Clarissa Cosby [employer] Work Phone: Start: 12-20-2024 Ultrasonography for biophysical profile without non-stress testing Clarissa Cosby [employer] Work Phone: Start: 12-16-2024 biophysical pr ofile w/o non-stress testing Lucy Eller DO Work Phone: Start: 12-15-2024 Us preg uterus w/det ail alexsandra 1st gestation Lucy Eller DO Work Phone: Start: 12-14-2024 Antibody screen THELMA TA Comment on above: Order Comment: HOLD. Specimen is valid for 3 days - nurse to verify valid specimen Performed By: #### L [id number] ####Accessioner: BERENICE CRAIG ([id number])[facility] BLOOD [facility] ([address] Start: 12-14-2024 ABO and Rh group [Ty pe] in Blood by Confirmatory method Lucy Eller DO Work Phone: Start: 12-14-2024 Blood typing serologic abo Lucy Eller DO Work Phone: Start: 12-14-2024 Comprehensive metabo lic panel Lucy Eller DO Work Phone: Start: 12-14-2024 End: 12-14-2024 Culture bacterial quanttative colony count urine Lucy Eller DO Work Phone: Start: 12-14-2024 URINE HOLD CUP Lucy Gamble wagwu DO Work Phone: Start: 12-14-2024 Bacterial vaginosis and vaginitis rRNA panel - Vaginal fluid by Probe Lucy Nwagwu DO Work Phone: Start: 12-14-2024 Fern test Lucy Nwa gwu DO Work Phone: Start: 12-14-2024 End: 12-14-2024 Ph body fluid not elsewhere specified Lucy Artwu DO Work Phone: Start: 12-14-2024 Ultrasonography for biophysical profile without non-stress testing Clarissa MARTINEZ Work Phone: Start: 12-14-2024 Ultrasonography for antepartum monitoring of fetus Clarissa MARTINEZ Work Phone: Start: 12-14-2024 Adult depression scr eening assessment Thelma Ta DO Work Phone: Start: 12-13-2024 Estimated creatinine clearance Clarissa MARTINEZ Work Phone: Start: 12-13-2024 Measurement of pH in vaginal fluid specimen using nitrazine yellow for detection of rupture of amniotic membrane Clarissa MARTINEZ Work Phone: Comment on above: Amniotic fluid not p resent indicates No Rupture of FetalMembranes at time of specimen collection. Start: 12-13-2024 Serologic test for syphilis Clarissa MARTINEZ Work Phone: Start: 12-13-2024 Ultrasound scan for growth Clarissa MARTINEZ Work Phone: Start: 11-28-2024 Measurement of renal function Clarissa MARTINEZ Work Phone: Comment on above: GFR Calc Start: 10-24-2024 Random urine protein level Clarissa MARTINEZ Work Phone: Start: 10-24-2024 Measurement of renal function Clarissa CLAUDIOC Work Phone: Comment on above: GFR Calc Start: 09-23-2024 Ultrasonography in f irst trimester Clarissa Cosby [employer] Work Phone: Start: 10-08-2021 SARS-CoV-2 Antigen (Rapid) SEASONING MIXERDeborah Lopez SEASONING MIXER Work Phone: Plan of Treatment Date Care Activity Detail Author Start: 2046 Zoster Vaccines (1 of 2) Zoster Vaccines (1 of 2) [facility] Start: 05-05-2034 DTaP/Tdap/Td Vaccines (2 - Td or Tdap) DTaP/Tdap/Td Vaccines (2 - Td or Tdap) [facility] Start: 12-14-2025 Depression Screening Depression Screening [facility] Start: 01-11-2025 Patient discharge [facility] Start: 01-09-2025 Administration of medication [facility] Start: 01-09-2025 Application of ice collar, cap or bag [facility] Start: 01-09-2025 Catheterization of vein [facility] Start: 01-09-2025 Introduction of urinary catheter [facility] Start: 01-09-2025 Measuring intake and output [facility] Start: 01-09-2025 Notification of physician [facility] Start: 01-09-2025 Procedure discontinued [facility] Start: 01-09-2025 Provision of activity privileges [facility] Start: 01-09-2025 Vital signs measurements [facility] Start: 01-09-2025 End: 01-09-2025 [facility] Start: 01-09-2025 Documentation procedure [facility] Start: 01-09-2025 [facility] Start: 01-08-2025 End: 01-09-2025 [facility] Start: 01-07-2025 acoustic stimulation test [facility] Start: 01-07-2025 Intrauterine catheterization [facility] Start: 01-07-2025 Notification of physician [facility] Start: 01-07-2025 End: 01-07-2025 [facility] Start: 01-07-2025 Admission procedure [facility] Start: 01-07-2025 Anesthesia consultation [facility] Start: 01-07-2025 Application of intermittent pneumatic compression device [facility] Start: 01-07-2025 Catheterization of vein [facility] Start: 01-07-2025 Introduction of urinary catheter [facility] Start: 01-07-2025 Obstetric monitoring [facility] Start: 01-07-2025 Oxygen therapy [facility] Start: 01-07-2025 Provision of activity privileges [facility] Start: 01-07-2025 Vital signs measurements [facility] Start: 01-07-2025 Verification routine [facility] Start: 01-06-2025 Nonstress test [facility] Start: 01-06-2025 End: 01-06-2025 Obstetric monitoring [facility] Start: 01-06-2025 Vital signs measurements [facility] Start: 01-06-2025 End: 01-06-2025 [facility] Start: 01-06-2025 Patient discharge [facility] Start: 12-30-2024 Group B Streptococcus Culture Group B Streptococcus Culture [facility] Start: 12-30-2024 Ultrasonography for biophysical profile without non-stress testing Biophysical Prof W/O Non Stres [facility] Start: 12-30-2024 Streptococcus agalactiae [Presence] in Unspecified specimen by Organism specific culture [facility] Start: 12-27-2024 Ultrasonography for biophysical profile without non-stress testing Biophysical Prof W/O Non Stres [facility] Start: 12-27-2024 Patient discharge [facility] Start: 12-20-2024 Nonstress test [facility] Start: 12-20-2024 Obstetric monitoring [facility] Start: 12-20-2024 Vital signs measurements [facility] Start: 12-20-2024 [facility] Start: 12-14-2024 Patient discharge [facility] Start: 12-13-2024 Iv infusion hydration each additional hour HYDRATE IV INFUSION ADD-ON [facility] Start: 12-13-2024 Iv infusion hydration initial 31 min-1 hour HYDRATION IV INFUSION INIT [facility] Start: 12-13-2024 Therapeutic prophylactic/dx injection subq/im THER/PROPH/DIAG INJ SC/IM [facility] Start: 12-13-2024 Vital signs measurements [facility] Start: 12-13-2024 [facility] Start: 12-13-2024 Nonstress test [facility] Start: 12-13-2024 Obstetric monitoring [facility] Start: 12-13-2024 Vital signs measurements [facility] Start: 12-13-2024 [facility] Start: 12-13-2024 Catheterization of vein [facility] Start: 06-05-2024 COVID-19 Vaccine ( season) COVID-19 Vaccine ( season) [facility] Start: 06-05-2024 Influenza vaccination Influenza Vaccine (#1) [facility] Start: 2017 Screening for malignant neoplasm of cervix Pap Smear [facility] Start: 2015 Hepatitis B Vaccines (1 of 3 - 19+ 3-dose series) Hepatitis B Vaccines (1 of 3 - 19+ 3-dose series) [facility] Start: 2015 Pneumococcal Vaccine: Pediatrics (0 to 5 Years) and At-Risk Patients (6 to 49 Years) (1 of 2 - PCV) Pneumococcal Vaccine: Pediatrics (0 to 5 Years) and At-Risk Patients (6 to 49 Years) (1 of 2 - PCV) [facility] Start: 2014 Diabetes mellitus screening Diabetes Screening [facility] Start: 2014 Hepatitis C screening Hepatitis C Screening [facility] Start: 2009 Varicella vaccination Varicella Vaccines (1 of 2 - 13+ 2-dose series) [facility] Start: 1997 MMR Vaccines (1 of 1 - Standard series) MMR Vaccines (1 of 1 - Standard series) [facility] Start: 1996 HIV screening HIV Screening [facility] Beta-hemolytic Streptococcus culture [facility] Patient Education Kick Counts ED False Labor OB Triage: Return to Hospital or Notify Physician if you Experience: [facility] Work Phone: Patient referral [facility] Work Phone: Ultrasound scan for growth [facility] Immunizations Immunization Date Immunization Notes Care Provider Saan cardenas 08-18-2024 influenza, seasonal, injectable, preservative free Clarissa Ferullo [employer] Work Phone: [facility] 05-05-2024 tetanus toxoid, redu andre diphtheria toxoid, and acellular pertussis vaccine, adsorbed Clarissa Ferullo [employer] Work Phone: [facility] 07-10-2023 influenza, injectabl e, quadrivalent, preservative free Clarissa Ferullo [employer] Work Phone: [facility] 07-10-2023 influenza virus vaccine, unspecified formulation Thelma Ta DO Work Phone: [facility] 08-11-2022 influenza, injectabl e, quadrivalent, preservative free Clarissa Ferullo [employer] Work Phone: [facility] 10-02-2021 Covid (Moderna) Clarissa Ferull o [employer] Work Phone: [facility] 09-04-2021 Covid (Moderna) Clarissa Ferull o [employer] Work Phone: [facility] 07-12-2021 influenza, injectabl e, quadrivalent, preservative free Clarissa Ferullo [employer] Work Phone: [facility] 07-12-2021 influenza, seasonal, injectable [employer] Aralee Lopez SE[employer]ONING MIXER Work Phone: [facility] Work Phone: 07-03-2020 influenza, injectabl e, quadrivalent, preservative free Clarissa Ferullo [employer] Work Phone: [facility] 07-03-2020 influenza, seasonal, injectable [employer] Ara John SE[employer]ONING MIXER Work Phone: [facility] Work Phone: 06-27-2019 influenza, injectabl e, quadrivalent, preservative free Clarissa Ferullo [employer] Work Phone: [facility] 06-27-2019 influenza, seasonal, injectable [employer] Ara Christiansburg [employer]ING [employer]ER Work Phone: [facility] Work Phone: Payers Date Payer Category Payer Self-pay [id number] 2024 Commercial Managed [facility] [place] [id number] 2024 Private Health Insurance [id number] 2016 Unknown [id number] Unknown [id number] Unknown [id number] 2.16.840.1.522318.3.579.2. 462 Unknown [id number] 2.16.840.1.980706.3.579.2. 462 Unknown [id number] 2.16.840.1.508802.3.579.2. 462 Unknown [id number] 2.16.840.1.394014.3.579.2. 462 Unknown [id number] 2.16.840.1.060256.3.579.2. 462 Unknown [id number] 2.16.840.1.908548.3.579.2. 462 Unknown [id number] 2.16.840.1.226977.3.579.2. 462 Unknown [id number] 2.16.840.1.559731.3.579.2. 462 Unknown [id number] 2.16.840.1.860979.3.579.2. 462 Unknown [id number] 2.16.840.1.059813.3.579.2. 462 Unknown [id number] 2.16.840.1.570561.3.579.2. 462 Unknown [id number] 2.16.840.1.362503.3.579.2. 462 Unknown [id number] 2.16.840.1.260417.3.579.2. 462 Unknown [id number] 2.16.840.1.268671.3.579.2. 462 Unknown [id number] 2.16.840.1.436356.3.579.2. 462 Unknown [id number] 2.16.840.1.635203.3.579.2. 462 Unknown [id number] 2.16.840.1.384064.3.579.2. 462 Unknown [id number] 2.16840.1.990400.3.579.2. 462 Unknown [id number] 2.16.840.1.997067.3.579.2. 462 Unknown [id number] 2.16.840.1.800075.3.579.2. 462 Unknown [id number] 2.16.840.1.533090.3.579.2. 462 Unknown [id number] 2.16.840.1.322951.3.579.2. 462 Unknown [id number] 2.16.840.1.686651.3.579.2. 462 Unknown [id number] 2.16.840.1.082893.3.579.2. 462 Unknown [id number] 2.16.840.1.005298.3.579.2. 462 Unknown [id number] 2.16.840.1.457633.3.579.2. 462 Unknown [id number] 2.16.840.1.949992.3.579.2. 462 Unknown [id number] 2.16.840.1.393233.3.579.2. 462 Unknown [id number] 2.16.840.1.525429.3.579.2. 462 Unknown [id number] 2.16.840.1.469217.3.579.2. 462 Unknown [id number] 2.16.840.1.675630.3.579.2. 462 Unknown [id number] 2.16.840.1.834463.3.579.2. 462 Unknown [id number] 2.16.840.1.986758.3.579.2. 462 Unknown [id number] 2.16.840.1.250821.3.579.2. 462 Unknown [id number] 2.16.840.1.705173.3.579.2. 462 Unknown [id number] 2.16.840.1.089988.3.579.2. 462 Unknown [id number] 2.16.840.1.395760.3.579.2. 462 Unknown [id number] 2.16.840.1.372786.3.579.2. 462 Unknown [id number] 2.16.840.1.219477.3.579.2. 462 Unknown [id number] 2.16.840.1.762568.3.579.2. 462 Unknown [id number] 2.16.840.1.031973.3.579.2. 462 Unknown [id number] 2.16.840.1.371933.3.579.2. 462 Unknown [id number] 2.16.840.1.103363.3.579.2. 462 Unknown [id number] 2.16.840.1.220157.3.579.2. 462 Unknown [id number] 2.16.840.1.411306.3.579.2. 462 Unknown [id number] 2.16.840.1.609836.3.579.2. 462 Unknown [id number] 2.16.840.1.901743.3.579.2. 462 Social History Date Type Detail Facility Tobacco smoking stat us NHIS Unknown if ever smoked [facility] Work Phone: Start: 1995 Sex Assigned At Female W [facility] Start: 12-14-2024 End: 01-07-2025 Tobacco smoking status NHIS Never smoked tobacco [facility] Work Phone: Start: 12-14-2024 Tobacco use and exposure Smokeless tobacco non-user [facility] Start: 12-14-2024 Alcoholic beverage intake Ex-drinker (finding) [facility] Start: 12-14-2024 End: 12-16-2024 History of Social function [facility] Start: 12-14-2024 End: 12-16-2024 [facility] Has the [employer], oil, or water company threatened to shut off services in your home in past 12Mo No [facility] How hard is it for y ou to pay for the very basics like food, housing, medical care, and heating Not hard at all [facility] Do you feel stress - tense, restless, nervous, or anxious, or unable to sleep at night because your mind is troubled all the time - these days [OSQ] Not at all [facility] (I/We) worried wheth er (my/our) food would run out before (I/we) got money to buy more. Never true [facility] Start: 05-14-2024 [facility] Start: 1995 Sex assigned at Not on file S [facility] Start: 12-14-2024 End: 01-11-2025 Sex Female (finding) [facility] Goals Date Patient Goal Desired Activity /State Functional Status Date Assessment Result Facility 01-10-2025 Functional status Activity Ability Indepe ndent [facility] Work Phone: Mental Status Date Assessment Result Facility 01-10-2025 Cognitive function Appropriate;[place] [facility] Work Phone: Clinical Notes 08-29-2024 to 05-02-2025 Note Date & Type Note Facility 05-02-2025 Progress note [facility] 02-20-2025 Progress note [facility] 01-12-2025 Note [facility] 01-11-2025 Discharge summary [facility] 01-11-2025 Progress note [facility] 01-11-2025 Progress note Note Date/Time January 11, 2025 8:15am [facility] Medical Records Department [address] [place] [address] Progress Note - OBGYN 01/11/2513 MR#: [id number] Acct: [id number] Name: BALTAZAR BLANCO ANN Rep #:[id number] : 1995 29 From: Kavya Diez SEASONING MIXER [employer]C PCP: JUAN Montilla Status:ADM IN Location: AC586-6 Subjective Subjective Patient doing well without complaints. Tolerating PO. Ambulating and voiding without difficulty. Feeding well. Denies chest pain, shortness of breath, calf pain/swelling, fevers, chills, lightheadedness. Objective Data Objective Data Vital Signs: Vital Signs Temp Pulse Resp BP Pulse Ox O2 Del Method 97.9 F 90 17 136/83 H 98 Room Air 01/11/25 08:02 01/11/25 08:02 01/11/25 08:02 01/11/25 08:02 01/11/25 01:02 01/11/25 08:02 Oxygen Delivery Method Room Air Weight: 316 lb Body Mass Index (BMI) 44.0 Intake & Output: Intake and Output for Last 24 Hours 01/09/25 01/10/25 01/11/25 23:59 23:59 23:59 Intake Total 2742.57 / 2742.57 Output Total 600 / 600 Balance 2142.57 / 2142.57 Lab / Micro Data 01/07/25 19:50 Physical Exam Const alert and oriented x3 HEENT normocephalic Eyes PERRL Neck full ROM Resp normal respiratory effort GI soft to palpation GI Narrative: FF below U Assessment & Plan (1) Vaginal delivery: COMMENT: KW IOL 36.2 [place] Girl Rajan PLAN: Plan s/p PPD # 1 1. routine post delivery care 2. breast feeding- support given 3. rh positive 4. rubella immune 5. home today 01/11/25 0815 <Electronically signed by Kavya Diez NP [employer]> Cosigner Signature (if applicable): CC: ~ Signed [facility] Work Phone: 1(921) 425-360804-09-2025 Progress note [facility] Medical Records Department [address] [place] [address] Progress Note - OBGYN 01/11/25 08 MR#: [id number] Acct: [id number] Name: BALTAZAR BLANCO ANN Rep #:[id number] : 1995 29 From: Kavya Diez NP [employer]-C PCP: Clarissa Cosby NP-C Status:ADM IN Location: [id number] Subjective Subjective Patient doing well without complaints. Tolerating PO. Ambulating and voiding without difficulty. Feeding well. Denies chest pain, shortness of breath, calf pain/swelling, fevers, chills, lightheadedness. Objective Data Objective Data Vital Signs: Vital Signs Temp Pulse Resp BP Pulse Ox O2 Del Method 97.9 F 90 17 136/83 H 98 Room Air 01/11/25 08:02 01/11/25 08:02 01/11/25 08:02 01/11/25 08:02 01/11/25 01:02 01/11/25 08:02 Oxygen Delivery Method Room Air Weight: 316 lb Body Mass Index (BMI) 44.0 Intake & Output: Intake and Output for Last 24 Hours 01/09/25 01/10/25 01/11/25 23:59 23:59 23:59 Intake Total 2742.57 / 2742.57 Output Total 600 / 600 Balance 2142.57 / 2142.57 Lab / Micro Data 01/07/25 19:50 Physical Exam Const alert and oriented x3 HEENT normocephalic Eyes PERRL Neck full ROM Resp normal respiratory effort GI soft to palpation GI Narrative: FF below U Assessment & Plan (1) Vaginal delivery: COMMENT: KW IOL 36.2 [place] Girl Rajan PLAN: Plan s/p PPD # 1 1. routine post delivery care 2. breast feeding- support given 3. rh positive 4. rubella immune 5. home today 01/11/25 0815 Cosigner Signature (if applicable): CC: ~ Signed [facility]04-09-2025 Progress note Author Belkis Pacheco [facility] Note Date/Time January 11, 2025 12:1 4am [facility] Medical Records Department [address] [place] [address] Progress Note - OBGYN 01/10/25 1257 MR#: [id number] Acct: [id number] Name: BALTAZAR BLANCO ANN Rep #:[id number] : 1995 29 From: Belkis farris MD PCP: Clarissa Cosby, SE[employer]ING MIXER-C Status:ADM IN Location: PL333-3 Subjective Subjective Patient doing well without complaints. Tolerating PO. Ambulating and voiding without difficulty. feeding well. Denies chest pain, shortness of breath,calf pain/swelling, fevers, chills, lightheadedness. Objective Data Objective Data Vital Signs: Vital Signs Temp Pulse Resp BP Pulse Ox O2 Del Method 97.0 F L 89 16 98/51 L 97 Room Air 01/10/25 07:52 01/10/25 07:52 01/10/25 07:52 01/10/25 07:52 01/09/25 16:00 01/10/25 07:52 Oxygen Delivery Method Room Air Weight: 316 lb Body Mass Index (BMI) 44.0 Intake & Output: Intake and Output for Last 24 Hours 01/08/25 01/09/25 01/10/25 23:59 23:59 23:59 Intake Total 2742.57 / 2742.57 Output Total 600 / 600 Balance 2142.57 / 2142.57 Lab / Micro Data 01/07/25 19:50 ROS Constitutional Constitutional: Reports systems reviewed and no addt'l complaints, except as documented Cardiovascular Cardiovascular: Reports systems reviewed and no addt'l complaints, except as documented Respiratory/Chest Respiratory/Chest: Reports systems reviewed and no addt'l complaints, except as documented Gastrointestinal Gastrointestinal: Reports systems reviewed and no addt'l complaints, except as documented Physical Exam Const alert, oriented x3 and no apparent distress HEENT Head and Scalp: atraumatic Resp normal respiratory effort GI soft to palpation and non-tender Bimanual Exam - Vag & Uterus: uterus non-tender Uterus Palpation: uterus fundus firm (below Umbilicus) Assessment & Plan (1) Vaginal delivery: COMMENT: KW IOL 36.2 [place] Girl Rajan PLAN: Plan s/p PPD # 1 1. routine post delivery care 2. breast feeding- support given 3. rh positive 4. rubella immune 01/11/25 0014 <Electronically signed by Belkis Pacheco MD> Cosigner Signature (if applicable): CC: ~ Signed [facility] Work Phone: 1(596) 303-657404-09-2025 Progress note [facility] Medical Records Department [address] [place] [address] Progress Note - OBGYN 01/10/25 1257 MR#: [id number] Acct: [id number] Name: BALTAZAR BLANCO ANN Rep #:[id number] : 1995 29 From: Belkis farris MD PCP: JUAN Montilla Status:ADM IN Location: [place] [address] Subjective Subjective Patient doing well without complaints. Tolerating PO. Ambulating and voiding without difficulty. infant feeding well. Denies chest pain, shortness of breath,calf pain/swelling, fevers, chills, lightheadedness. Objective Data Objective Data Vital Signs: Vital Signs Temp Pulse Resp BP Pulse Ox O2 Del Method 97.0 F L 89 16 98/51 L 97 Room Air 01/10/25 07:52 01/10/25 07:52 01/10/25 07:52 01/10/25 07:52 01/09/25 16:00 01/10/25 07:52 Oxygen Delivery Method Room Air Weight: 316 lb Body Mass Index (BMI) 44.0 Intake & Output: Intake and Output for Last 24 Hours 01/08/25 01/09/25 01/10/25 23:59 23:59 23:59 Intake Total 2742.57 / 2742.57 Output Total 600 / 600 Balance 2142.57 / 2142.57 Lab / Micro Data 01/07/25 19:50 ROS Constitutional Constitutional: Reports systems reviewed and no addt'l complaints, except as documented Cardiovascular Cardiovascular: Reports systems reviewed and no addt'l complaints, except as documented Respiratory/Chest Respiratory/Chest: Reports systems reviewed and no addt'l complaints, except as documented Gastrointestinal Gastrointestinal: Reports systems reviewed and no addt'l complaints, except as documented Physical Exam Const alert, oriented x3 and no apparent distress HEENT Head and Scalp: atraumatic Resp normal respiratory effort GI soft to palpation and non-tender Bimanual Exam - Vag & Uterus: uterus non-tender Uterus Palpation: uterus fundus firm (below Umbilicus) Assessment & Plan (1) Vaginal delivery: COMMENT: KW IOL 36.2 [place] Girl Rajan PLAN: Plan s/p PPD # 1 1. routine post delivery care 2. breast feeding- support given 3. rh positive 4. rubella immune 01/11/25 0014 Cosigner Signature (if applicable): CC: ~ Signed [facility]04-07-2025 Discharge summary Author Sariah Cobb [facility] Note Date/Time January 11, 2025 12:4 5pm [facility] Medical Records Department [address] [place] [address] Instructions for Home/Discharge Instructions 01/09/25 1606 MR#: [id number] Acct: [id number] Name: FRANCISBALTAZAR RICHARD Rep #:[id number] : 1995 29 From: Sariah Cobb CNM PCP: JUAN Montilla Status:ADM IN Discharge Instructions Diet Discharge Diet: No restrictions DC O2, CPAP, BIPAP needs Home O2 Discharge instructions: No Dressing / Incision Discharge Activity: Return to Normal Activity May resume sexual activity in: 6-8 weeks Dressing / Incision Call your doctor if you observe: Fever of 101 or Higher, Coldness, Increased Pain, Numbness or Tingling, Change in Color, Inability to urinate, Inability to have a bowel movement, Using more than 1 pad per hour, Shortness of breath, Dizziness, Fainting spells, Swelling in the ankles, Chest pain, Increased palpitations (irregular heartbeat), Calf discomfort and Uncontrolled pain Follow Up Care Please Follow Up With: Sariah Cobb CNM When: Please call the office to schedule your follow up appointment in 6 weeks. If you had high blood pressure please call to schedule an appointment in 2 weeks. Test Results: Test results from this visit will be discussed in further detail at your follow- up appointment, if applicable. Discharge Plan Admission Admit Date/Time: 01/07/25 19:17 Attending Provider: Sariah Cobb Primary Care Provider: Ferullo,Clarissa Discharge Orders/Prescriptions Prescriptions: No Action PNV cmb#95-ferrous fumarate-FA [ Formula] 28 mg iron- 800 mcg tablet 1 tab PO DAILY aspirin 81 mg tablet,delayed release (DR/EC) 81 mg PO DAILY Referrals / Follow Up: Clarissa Cosby NP-C [Primary Care Provider] - 01/09/25 1606<Electronically signed by Sariah Cobb CNM>Sariah Cobb CNM CC: JUAN Cosby ~ Signed [facility] Work Phone: 1(520) 444-159404-07-2025 Procedure note [facility] Medical Records Department [address] [place] [address] OB Vaginal Delivery 01/09/25 1600 MR#: [id number] Acct: [id number] Name: BALTAZAR BLANCO ANN Rep #:[id number] : 1995 29 From: Sariah Cobb CNM PCP: JUAN Montilla Status:ADM IN Location: [id number] Assessment & Plan (1) Vaginal delivery: COMMENT: KW IOL 36.2 Oligo Girl Rajan (2) Encounter for induction of labor: COMMENT: cytotec, plan modi bulb/pit once able (3) Abnormal test: COMMENT: initial bpp 6/10 no 8/10 2 off for breathing, reassuring tracing.plans iol tomorrow. (4) Oligohydramnios: QUALIFIERS: Fetus number: single or unspecified fetus Trimester: third trimester Qualified Code(s):O41.03X0 - Oligohydramnios, third trimester,not applicable or unspecified COMMENT: deliver at 36 weeks (5) Abnormal glucose in , antepartum: COMMENT: nl 3 hour (6) Elevated BP without diagnosis of hypertension: COMMENT: 10/24/24 Pre E labs nl (7) Obesity affecting : QUALIFIERS: Trimester: third trimester Obesity type affecting : unspecified obesity Qualified Code(s): O99.213 - Obesity complicating , third trimester COMMENT: BMI 41 HgbA1c nl. plan weekly NSTs after 34 and growth US 32 and36. (8) Supervision of high-risk : QUALIFIERS: Trimester: third trimester Qualified Code(s): O09.93 - Supervision of high risk , unspecified, third trimester COMMENT: PRR, , ALAYNA 02/04/25, Soraida (9) : QUALIFIERS: Weeks of gestation: 35 weeks Qualified Code(s): Z3A.35 - 35 weeks gestation of COMMENT: discussed NIPT, ntd, & carrier testing- declined. nl anatomy Maternal Data Information ALAYNA Calculator Estimated Delivery Date Method Current WG Current Estimate 02/04/25 LMP (Certain) 36w 2d Other Estimates 02/09/25 Ultrasound #1 35w 4d Final ALAYNA: 02/04/25 Final ALAYNA Source: US >20 weeks Gestational age: 36.2 Vaginal Delivery Maternal Presentation Maternal Presentation: Medically Indicated Induction Maternal Presentation: Presented to unit for induction of labor for persistent oligohydramnios. Cytotec/modi bulb/pitocin/AROM. Type of Induction: Pitocin, Modi Bulb and Cytotec Medical Reason for Induction: Compromise: list: (oligohydramnios) Vaginal Delivery Information Procedure Performed: Spontaneous Vaginal Delivery Surgeon/Practitioner: Sariah Cobb Date of Procedure: 01/09/25 Pre-Procedure Diagnosis: see problem list Post-Procedure Diagnosis: same Type of anesthesia: Epidural Estimated Blood Loss: 200 Time of Delivery: 15:40 Findings Description of procedure: Progressed well to 10cm dilated and made steady progress with effective maternalpushing. Delivered the head in LOP presentation. The head was delivered atraumatically and a loose nuchal cord was identified and delivered through. The anterior and posterior shoulders delivered without complication followed by the rest of the and the was placed on the maternal abdomen. Delayed cord clamping was employed for approximately 2 minutes. Cord was clamped and cut and gentle traction was applied to the cord and the placentadelivered spontaneously. Immediately following, it was notedto be intact with a3 vessel cord. Uterine bleeding stable. The perineum and vagina were inspected and noted to have a small second degree laceration which was repaired with 3-0 Vicryl in the usual fashion. EBL was 200cc. Patient and infant tolerated delivery well. Apgars 8/9. Placenta sent for pathology. Dr Espinosa notified of vaginal delivery and orders reviewed. Physician agrees with current plan of care. Presentation: Vertex Amniotic Membrane Rupture Type: Artificial Amniotic Fluid Description: Clear Placental Delivery Description: Spontaneous Placenta Disposition: [facility] Specimen collected: No Cord Vessel Description: 3 Vessels Cord Entanglement: Around neck x 1, loose Cord Gases: ABG and VBG A Gender: Female (1 minute): 8 (5 minute): 9 Delayed Cord Clamping: Yes Marble Cleaner proposal writer: No Post Vaginal Deli Medications given after delivery: IV Pitocin Episiotomy Description: None Laceration: 2nd degree Complication Complications: No Multi Select Codes Urinary/Genital Urinary/Genital CPT Codes: 41179 Vaginal Delivery global pkg 01/09/25 1606 Cosigner Signature (if applicable): CC: SABAS Cobb; SEASONING MIXER-C Clarissa Cosby~ Signed [facility]04-07-2025 Progress note Author Sariah Cobb [facility] Note Date/Time January 09, 2025 12:2 1pm [facility] Medical Records Department [address] [place] [address] Progress Note 01/09/25 1219 MR#: [id number] Acct: [id number] Name: BALTAZAR BLANCO Rep #:[id number] : 1995 29 From: Sariah Cobb CNM PCP: JUAN Montilla Status:ADM IN Location: [place] [address] Progress Note comfortable with epidural current tracing: FHT: 140 Moderate variability reactive occasional late/variable decelerations category II tracing [place]: 3-4 minute Contractions Membranes:remains clear SVE:/-1 reviewed tracing abnormalities since last note: collaboration with Dr Oliva at this time for Cat II FHT tracing. A/P: Continue with position changes Titrate pitocin per protocol Epidural per anesthesia GBS neg Anticipate Dr Espinosa aware of above assessment and agrees with plan of care Multi Select Codes Urinary/Genital Urinary/Genital CPT Codes: No Charge 01/09/25 1221 <Electronically signed by Sariah Cobb CNM> Sariah Cobb CNM Cosigner Signature (if applicable): CC: ~ Signed [facility] Work Phone: 1(561) 548-574404-07-2025 Progress note [facility] Medical Records Department [address] [place] [address] Progress Note 01/09/25 1219 MR#: [id number] Acct: [id number] Name: BALTAZAR BLANCO Rep #:[id number] : 1995 29 From: Sariah Cobb CNM PCP: JUAN Montilla Status:ADM IN Location: [address] Progress Note comfortable with epidural current tracing: FHT: 140 Moderate variability reactive occasional late/variable decelerations category II tracing [place]: 3-4 minute Contractions Membranes:remains clear SVE: reviewed tracing abnormalities since last note: collaboration with Dr Oliva at this time for Cat II FHT tracing. A/P: Continue with position changes Titrate pitocin per protocol Epidural per anesthesia GBS neg Anticipate Dr Espinosa aware of above assessment and agrees with plan of care Multi Select Codes Urinary/Genital Urinary/Genital CPT Codes: No Charge 01/09/25 1221 Sariah Cobb CNM Cosigner Signature (if applicable): CC: ~ Signed [facility]04-07-2025 Progress note Author Sariah Cobb [facility] Note Date/Time January 09, 2025 8:05 am [facility] Medical Records Department [address] [place] [address] Progress Note 01/09/25 0758 MR#: [id number] Acct: [id number] Name: BALTAZAR BLANCO ANN Rep #:[id number] : 1995 29 From: Sariah Cobb CNM PCP: JUAN Montilla Status:ADM IN Location: [place] [address] Progress Note Coping well with contractions-desires epidural when painful current tracing: FHT: 145 Moderate variability reactive no decelerations category I tracing, fse placed with ROM Newdale: 2-3 minute Contractions IUPC inserted with AROM Membranes:AROM at 0750- clear SVE:/-2 A/P: Continue with position changes Titrate pitocin per protocol Epidural per anesthesia GBS neg Anticipate Dr Espinosa aware of above assessment and agrees with plan of care Assessment & Plan Assessment/Plan (1) Encounter for induction of labor: (2) Abnormal test: (3) Oligohydramnios: QUALIFIERS: Fetus number: single or unspecified fetus Trimester: third trimester Qualified Code(s): O41.03X0 - Oligohydramnios, third trimester,not applicable or unspecified (4) Abnormal glucose in , antepartum: (5) Elevated BP without diagnosis of hypertension: (6) Obesity affecting : QUALIFIERS: Trimester: third trimester Obesity type affecting : unspecified obesity Qualified Code(s): O99.213 - Obesity complicating , third trimester (7) Supervision of high-risk : QUALIFIERS: Trimester: third trimester Qualified Code(s): O09.93 - Supervision of high risk , unspecified, third trimester (8) : QUALIFIERS: Weeks of gestation: 35 weeks Qualified Code(s): Z3A.35 - 35 weeks gestation of Multi Select Codes Urinary/Genital Urinary/Genital CPT Codes: No Charge 01/09/25 0805 <Electronically signed by Sariah Cobb CNM> Sariah Cobb CNM Cosigner Signature (if applicable): CC: ~ Signed [facility] Work Phone: 1([phone]) 330-380204-07-2025 Progress note [facility] Medical Records Department [address] [place] [address] Progress Note 01/09/25 0758 MR#: [id number] Acct: [id number] Name: BALTAZAR BLANCO ANN Rep #:[id number] : 1995 29 From: Sariah Cobb CNM PCP: JUAN Montilla Status:ADM IN [facility] Note Coping well with contractions-desires epidural when painful current tracing: FHT: 145 Moderate variability reactive no decelerations category I tracing, fse placed with ROM [place]dale: 2-3 minute Contractions IUPC inserted with AROM Membranes:AROM at 0750- clear SVE:5/70/-2 A/P: Continue with position changes Titrate pitocin per protocol Epidural per anesthesia GBS neg Anticipate Dr Espinosa aware of above assessment and agrees with plan of care Assessment & Plan Assessment/Plan (1) Encounter for induction of labor: (2) Abnormal test: (3) Oligohydramnios: QUALIFIERS: Fetus number: single or unspecified fetus Trimester: third trimester Qualified Code(s):O41.03X0 - Oligohydramnios, third trimester,not applicable or unspecified (4) Abnormal glucose in , antepartum: (5) Elevated BP without diagnosis of hypertension: (6) Obesity affecting : QUALIFIERS: Trimester: third trimester Obesity type affecting : unspecified obesity Qualified Code(s): O99.213 - Obesity complicating , third trimester (7) Supervision of high-risk : QUALIFIERS: Trimester: third trimester Qualified Code(s): O09.93 - Supervision of high risk , unspecified, third trimester (8) : QUALIFIERS: Weeks of gestation: 35 weeks Qualified Code(s): Z3A.35 - 35 weeks gestation of Multi Select Codes Urinary/Genital Urinary/Genital CPT Codes: No Charge 01/09/25 0805 Sariah Cobb CNM Cosigner Signature (if applicable): CC: ~ Signed [facility]04-07-2025 Progress note Author [facility] Note Date/Time January 11, 2025 12:4 5pm [facility] Medical Records Department [address] [place] [address] Progress Note 01/08/252253 MR#: [id number] Acct: [id number] Name: BALTAZAR BLANCO ANN Rep #:[id number] : 1995 29 From: Belkis farris MD PCP: JUAN Montilla Status:ADM IN [facility] Progress Note fb placed without difficulty 1-2 cm dilated fht cat I 01/08/252253 <Electronically signed by Belkis Pacheco MD> Belkis Pacheco MD Cosigner Signature (if applicable): CC: ~ Signed [facility] Work Phone: 1(489) 926-804304-06-2025 Progress note Author Bella Berumen [facility] Note Date/Time January 08, 2025 2:19 pm [facility] Medical Records Department [address] [place] [address] Progress Note - OBGYN 01/08/25 1416 MR#: [id number] Acct: [id number] Name: BALTAZAR BLANCO ANN Rep #:[id number] : 1995 29 From: Bella Berumen CNM PCP: JUAN Montilla Status:ADM IN [facility] Subjective Subjective occ cramping with cytotec but not uncomfortable. Objective Data Objective Data Vital Signs: Vital Signs Temp Pulse Resp BP Pulse Ox 97.3 F L 98 14 127/59 H 97 01/08/25 10:26 01/08/25 10:27 01/08/25 10:26 01/08/25 10:27 01/08/25 10:26 Weight: 316 lb Body Mass Index (BMI) 44.0 Lab / Micro Data 01/07/25 19:50 Labs: Laboratory Results - last 24 hr 01/07/25 19:50: WBC 12.1 H, RBC 4.15 L, Hgb 11.7 L, Hct 35.0 L, MCV 84.3, MCH 28.2, MCHC 33.4, RDW Std Deviation 40.1, RDW Coeff of Nori 13.2, Plt Count 173, MPV 12.4 H, Immature Gran % (Auto) 1.000 H, Neut % (Auto) 67.6, Lymph % (Auto) 21.6, [place] % (Auto) 7.6, Eos % (Auto) 1.9, Baso % (Auto) 0.3, Absolute Neuts (auto) 8.2 H, Absolute Lymphs (auto) 2.61, Nucleated RBC % 0, Platelet Estimate ADEQUATE, RBC Morphology NORM C+C, Syphilis Total Ab Nonreactive, Blood Type AB POSITIVE, Antibody Screen NEGATIVE Physical Exam Const alert and oriented x3 Resp normal respiratory effort and normal air movement GI normal to inspection, nondistended, normoactive bowel sounds Manual OB Exam: presentation cephalic, dilated 0.5, effaced 20-30, station-3 and other posterior Skin no rashes or lesions noted NST FHR Rate Baby A Baseline: 150 Variability:: Moderate Accelerations:: 15 x 15 Decelerations:: None NST Reactive:: Yes FHR Category:: Category I Uterine Activity:: q4 Assessment & Plan (1) Encounter for induction of labor: COMMENT: cytotec, plan modi bulb/pit once able (2) Oligohydramnios: QUALIFIERS: Fetus number: single or unspecified fetus Trimester: third trimester Qualified Code(s): O41.03X0 - Oligohydramnios, third trimester,not applicable or unspecified COMMENT: deliver at 36 weeks PLAN: Plan called to bedside to confirm presentation as monitoring baby has changed to LUQ.bedside ultrasound confirms vertex presentation. current tracing: FHT: Moderate variability reactive no decelerations category I tracing [place]: q3 Contractions reviewed tracing abnormalities since last note: A/P: continue cytotec per protocol plan modi once able 01/08/25 1419 <Electronically signed by Bella Berumen CNM> Cosigner Signature (if applicable): CC: ~ Signed [facility] Work Phone: 1(645) 706-196104-06-2025 Progress note [facility] Medical Records Department [address] [place] [address] Progress Note - OBGYN 01/08/25 1416 MR#: [id number] Acct: [id number] Name: BALTAZAR BLANCO ANN Rep #:[id number] : 1995 29 From: Bella Berumen CNM PCP: JUAN Montilla Status:ADM IN Location: [place] 076595-1 Subjective Subjective occ cramping with cytotec but not uncomfortable. Objective Data Objective Data Vital Signs: Vital Signs Temp Pulse Resp BP Pulse Ox 97.3 F L 98 14 127/59 H 97 01/08/25 10:26 01/08/25 10:27 01/08/25 10:26 01/08/25 10:27 01/08/25 10:26 Weight: 316 lb Body Mass Index (BMI) 44.0 Lab / Micro Data 01/07/25 19:50 Labs: Laboratory Results - last 24 hr 01/07/25 19:50: WBC 12.1 H, RBC 4.15 L, Hgb 11.7 L, Hct 35.0 L, MCV 84.3, MCH 28.2, MCHC 33.4, RDW Std Deviation 40.1, RDW Coeff of Nori 13.2, Plt Count 173, MPV 12.4 H, Immature Gran % (Auto) 1.000 H, Neut % (Auto) 67.6, Lymph % (Auto) 21.6, [place] % (Auto) 7.6, Eos % (Auto) 1.9, Baso % (Auto) 0.3, Absolute Neuts (auto) 8.2 H, Absolute Lymphs (auto) 2.61, Nucleated RBC % 0, Platelet Estimate ADEQUATE, RBC Morphology NORM C+C, Syphilis Total Ab Nonreactive, Blood Type AB POSITIVE, Antibody Screen NEGATIVE Physical Exam Const alert and oriented x3 Resp normal respiratory effort and normal air movement GI normal to inspection, nondistended, normoactive bowel sounds Manual OB Exam: presentation cephalic, dilated 0.5, effaced 20-30, station-3 and other posterior Skin no rashes or lesions noted NST FHR Rate Baby A Baseline: 150 Variability:: Moderate Accelerations:: 15 x 15 Decelerations:: None NST Reactive:: Yes FHR Category:: Category I Uterine Activity:: q4 Assessment & Plan (1) Encounter for induction of labor: COMMENT: cytotec, plan modi bulb/pit once able (2) Oligohydramnios: QUALIFIERS: Fetus number: single or unspecified fetus Trimester: third trimester Qualified Code(s):O41.03X0 - Oligohydramnios, third trimester,not applicable or unspecified COMMENT: deliver at 36 weeks PLAN: Plan called to bedside to confirm presentation as monitoring baby has changed to LUQ.bedside ultrasound confirms vertex presentation. current tracing: FHT: Moderate variability reactive no decelerations category I tracing [place]: q3 Contractions reviewed tracing abnormalities since last note: A/P: continue cytotec per protocol plan modi once able 01/08/25 1419 Cosigner Signature (if applicable): CC: ~ Signed [facility]04-06-2025 History and physical note Author Bella Berumen [facility] Note Date/Time January 08, 2025 8:19 am [facility] Medical Records Department [address] [facility] [place] [address] H&P Exam - SUPERANNUATION CLERK 01/08/25 0810 MR#: [id number] Acct: [id number] Name: AGUSTINABALTAZAR CHACON RICHARD Rep #:[id number] : 1995 29 From: Bella Berumen CNM PCP: JUAN Montilla Status:ADM IN Location: FQ791-8 HPI - General General Date of Admission: 01/07/25 Date of Service: 01/07/25 HPI Narrative BALTAZAR BLANCO, is a 29 F who presents at 36 weeks for IOL secondary to known oligohydramnios, RAMSEY yesterday 5.5. Maternal Data Information ALAYNA Calculator Estimated Delivery Date Method Current WG Current Estimate 02/04/25 LMP (Certain) 36w 1d Other Estimates 02/09/25 Ultrasound #1 35w 3d [facility] Medical History (Updated 01/08/25 @ 08:19 by Bella Berumen CNM) PCOS (polycystic ovarian syndrome) Oligohydramnios Chemical Early stage of Asthma Irritable bowel syndrome Irregular menses Home Medications ?Medication ?Instructions ?Recorded ?Last Taken ?Type aspirin 81 mg tablet,delayed 81 mg PO DAILY 12/13/24 01/04/25 History release vit no.95-ferrous 1 tab PO DAILY 01/05/25 History fumarate 28 mg-folic acid 800 mcg tablet ( Formula) Allergy/AdvReac Type Severity Reaction Status Date / Time No Known Allergies Allergy Verified 01/07/25 20:05 Family History Grandmother Breast cancer Paternal Alzheimer's dementia Maternal Father High cholesterol TIA (transient ischemic attack) Grandfather Parkinsons disease Paternal Surgical History S/P tonsillectomy Social History adopted: No household members: spouse current occupational status: employed current occupation: [employer] pets and animals: Yes pets and animals: dog(s) history of recent travel: Yes ([place] in september) out of state: No out of country: Yes sexually active: Yes Smoking Status: Never smoker alcohol intake: current alcohol intake frequency: other details: once a month - Not while substance use type: does not use well-balanced diet: about half the time caffeine: Yes Type: coffee Number of servings: 1 eating out: 1-3 times/week during the past year weight has: remained stable what type of physical activity do you participate in: walking frequency: 1-2 times per week duration: 30-45 minutes/day yossi/confucianist: Yarsani seatbelt use: always do you feel safe at home: Yes additional social history: - Keenann History 2 Elective abortions Hx Para 0 Spontaneous abortions 1 Hx # Term Pregnancies Ectopic pregnancies Hx # Pregnancies Multiple births # of living children 0 Past Pregnancies Del. Date Name GA/Weeks Outcome Route Bth Weight Gen Labor Lgth Anesthesia Del Jose De Jesusatn Provider FOB 03/21/24 chemical Visit Details Expected Delivery Route/Plan Labor Preferences- CB/BF classes: encouraged labor support person: Soraida labor intervention preferences: [] pain management options preferred: epidural cut cord/dad catch: yes : yes PP control planned: discussed discussed possible routes of delivery and associated risks: [] special requests: [] Plans Covid status: [] Flu vaccine: [] Tdap vaccine: [] Rhogam: na LARC form signed: yes Problem list reviewed and updated with the most current plan of care details and appropriate orders placed. Relevant counseling for the gestational age provided. Continue routine care and follow up unless otherwise noted in visit notes/problem list details OB Flowsheet Initial Weight: Not Recorded Date -?-?-?-?-?-?-?-?-?-?-?-?- EGA Weight BP Urine Prot -?-?-?-?-?-?-?-?-?-?-?-?- Glucose FHR FuHt Pres Dilation -?-?-?-?-?-?-?-?-?-?-?-?- Effaced St Visit Note 07/04/24 -?-?-?-?-?-?-?-?-?-?-?-?- 9w 2d 300 lb 4 oz 136/94 -?-?-?-?-?-?-?-?-?-?-?-?- 171 -?-?-?-?-?-?-?-?-?-?-?-?- JV- CRL 1.89 and off slightly from LMP however, unable to capture the entire CRL so will not chanege the due date. rpt scan next visit. declines NIPT. patient works here. 08/04/24 -?-?-?-?-?-?-?-?-?-?-?-?- 13w 5d 292 lb 139/75 Negative -?-?-?-?-?-?-?-?-?-?-?-?- Negative 150 -?-?-?-?-?-?-?-?-?-?-?-?- SM- no vb crmapi ng 08/29/24 -?-?-?-?-?-?-?-?-?-?-?-?- 17w 2d 292 lb 134/82 Negative -?-?-?-?-?-?-?-?-?-?-?-?- Negative 160 -?-?-?-?-?-?-?-?-?-?-?-?- SM- no vb crmapi ng 09/26/24 -?-?-?-?-?-?-?-?-?-?-?-?- 21w 2d 296 lb 137/83 Negative -?-?-?-?-?-?-?-?-?-?-?-?- Negative 145 -?-?-?-?-?-?-?-?-?-?-?-?- SM- no vb lof go od 10/24/24 -?-?-?-?-?-?-?-?-?-?-?-?- 25w 2d 303 lb 2 oz 142/92 139/83 Negative -?-?-?-?-?-?-?-?-?-?-?-?- Negative 155 -?-?-?-?-?-?-?-?-?-?-?-?- KW- no vb/lof/ct x. good 28 week labs next week. Elevated BP today may need to start htn med if continue to be elevated. baseline pre e labs today KW- no vb/lof/ctx. [facility] 2 8 week labs next visit. Elevated BP today may need to start htn med if continue to be elevated. baseline pre e labs today 11/15/24 -?-?-?-?-?-?-?-?-?-?-?-?- 28w 3d 306 lb 6 oz 130/74 Nega tive -?-?-?-?-?-?-?-?-?-?-?-?- Negative 146 29 -?-?-?-?-?-?-?-?-?-?-?-?- -No VB, LOF. G onani FM. Denies concerns. 28 wk labs. [facility] 11/28/24 -?-?-?-?-?-?-?-?-?-?-?-?- 30w 2d 308 lb 135/89 -?-?-?-?-?-?-?-?-?-?-?-?- 155 31 -?-?-?-?-?-?-?-?-?-?-?-?- KW- no vb/crampi ng. good fm. Has had ALBERT all weekend. Took BP at work and was elevated. Pre e labs sent. second BP was patients normal pressures. denies BV/dizziness, RUQ pain or swelling 12/02/24 -?-?-?-?-?-?-?-?-?-?-?-?- 30w 6d 311 lb 6 oz 137/85 Nega tive -?-?-?-?-?-?-?-?-?-?-?-?- Negative 145 31 -?-?-?-?-?-?-?-?-?-?-?-?- KW- no vb/lof/ct x. good fm. headache is better. labs reviewed. 12/13/24 -?-?-?-?-?-?-?-?-?-?-?-?- 32w 3d 309 lb 6 oz 149/89 -?-?-?-?-?-?-?-?-?-?-?-?- -?-?-?-?-?-?-?-?-?-?-?-?- Phone call [place] with oligohydramnios and IUGR. To for further eval with Dr Oliva 12/29/24 -?-?-?-?-?-?-?-?-?-?-?-?- 34w 5d 310 lb 2 oz 134/76 Nega tive -?-?-?-?-?-?-?-?-?-?-?-?- Negative 150 -?-?-?-?-?-?-?-?-?-?-?-?- -NST only reac tive. Has BPP tomorrow 12/30/24 -?-?-?-?-?-?-?-?-?-?-?-?- 34w 6d 310 lb 8 oz 139/84 Nega tive -?-?-?-?-?-?-?-?-?-?-?-?- Negative 155 -?-?-?-?-?-?-?-?-?-?-?-?- JV- oligo persis ts. planning 36 week IOL. continue close monitoring. bpp was technically 8/8 due to ramsey of 5.22 and normal movement, tone, etc. JV- oligo persists. planning 36 week IOL. GBS collected. continue close monitoring. bpp was technically 8/8 due to ramsey of 5.22 and normal movement, tone, etc. 01/02/25 -?-?-?-?-?-?-?-?-?-?-?-?- 35w 2d 312 lb 8 oz 124/75 Nega tive -?-?-?-?-?-?-?-?-?-?-?-?- Negative 145 Cephalic 0 -?-?-?-?-?-?-?-?-?-?-?-?- KW- reactive NST . good fm. BPPs tues and fri this week. IOL for sat at 7pm. NST FHR Rate Baby A Baseline: 150 Variability:: Moderate Accelerations:: 15 x 15 Decelerations:: None NST Reactive:: Yes FHR Category:: Category I Vital Signs Vital Signs Vital Signs: 01/07/25 19:28 01/07/25 19:28 01/07/25 19:32 Temperature Temperature Source Pulse Rate 117 H Respiratory Rate Blood Pressure 139/80 H BP Systolic 139 BP Diastolic 80 Pulse Ox 97 01/07/25 19:32 01/07/25 19:32 01/07/25 19:32 Temperature Temperature Source Temporal Pulse Rate 118 H Respiratory Rate 16 Blood Pressure BP Systolic BP Diastolic Pulse Ox 01/07/25 19:32 01/07/25 21:29 01/07/25 21:29 Temperature 98.8 F Temperature Source Temporal Pulse Rate Respiratory Rate 16 Blood Pressure BP Systolic BP Diastolic Pulse Ox 01/07/25 21:29 01/07/25 21:30 01/07/25 21:30 Temperature 98.4 F Temperature Source Pulse Rate 95 Respiratory Rate Blood Pressure 172/81 H BP Systolic 172 BP Diastolic 81 Pulse Ox 01/07/25 21:32 01/07/25 21:32 01/08/25 01:47 Temperature Temperature Source Pulse Rate 100 Respiratory Rate Blood Pressure 128/71 H 133/59 H BP Systolic 128 133 BP Diastolic 71 59 Pulse Ox 01/08/25 01:47 01/08/25 01:47 01/08/25 01:47 Temperature 97.8 F Temperature Source Temporal Pulse Rate 91 Respiratory Rate Blood Pressure BP Systolic BP Diastolic Pulse Ox 01/08/25 05:53 01/08/25 05:53 01/08/25 05:53 Temperature Temperature Source Temporal Pulse Rate 90 Respiratory Rate Blood Pressure 121/54 H BP Systolic 121 BP Diastolic 54 Pulse Ox 01/08/25 05:53 01/08/25 05:53 01/08/25 07:19 Temperature 97.7 F L Temperature Source Pulse Rate Respiratory Rate 16 Blood Pressure BP Systolic BP Diastolic Pulse Ox 90 01/08/25 07:19 01/08/25 07:19 01/08/25 07:19 Temperature Temperature Source Pulse Rate 91 Respiratory Rate Blood Pressure 119/68 BP Systolic 119 BP Diastolic 68 Pulse Ox 98 Weight Weight: 316 lb Body Mass Index (BMI) 44.0 Physical Exam Const alert, oriented x3 and no apparent distress General Appearance: cooperative, comfortable and well kempt Orientation / Consciousness: awake and oriented to person Exam Limitations: no limitations HEENT normocephalic Neck full ROM Chest inspection of chest normal Resp normal respiratory effort, normal air movement and no retractions Effort and Inspection: able to speak in complete sentences and symmetric chest movement Cardio regular rate Peripheral Pulses: pulses 2+ throughout GI normal to inspection, nondistended, normoactive bowel sounds Inspection: gravid no CVA tenderness and appearance of the vagina normal External Female Exam: normal appearance of the urethra; Negative for external lesion OB / External & Speculum: external exam normal Manual OB Exam: estimated gestational size appropriate and presentation cephalic Uterus Palpation: Negative for uterus tender Extremity normal to inspection Skin no rashes or lesions noted Neuro deep tendon reflexes 2+ bilaterally and gait normal Motor Exam: strength 5/5 throughout and clonus absent Psych Activity / Motor Behavior: appropriate eye contact Speech: normal speech Labs Labs Labs: Blood Type AB POSITIVE Antibody Screen NEGATIVE Hct 35.0 % (37-47) L Hgb 11.7 g/dL (12.0-15.0) L Obstetrics Ultrasound Syphilis Total Ab Nonreactive (Nonreactive) Rubella IgG Antibody Reactive (Nonreactive) Hep Bs Antigen Non-Reactive (Nonreactive) Hepatitis C Antibody Non-Reactive (Nonreactive) Chlamydia DNA (FIORDALIZA) Negative (Negative) N.gonorrhoeae DNA (FIORDALIZA) Negative (Negative) HIV 1&2 Antibody Non-Reactive (Nonreactive) Glucose 1 Hr 50 gm 141 mg/dL (70-140) H Gest Glucose Tolerance MG/DL Assessment & Plan (1) Oligohydramnios: QUALIFIERS: Fetus number: single or unspecified fetus Trimester: third trimester Qualified Code(s): O41.03X0 - Oligohydramnios, third trimester, not applicable or unspecified COMMENT: deliver at 36 weeks (2) Obesity affecting : QUALIFIERS: Trimester: third trimester Obesity type affecting : unspecified obesity Qualified Code(s): O99.213 - Obesity complicating , third trimester COMMENT: BMI 41 HgbA1c nl. plan weekly NSTs after 34 and growth US 32 and 36. (3) Supervision of high-risk : QUALIFIERS: Trimester: third trimester Qualified Code(s): O09.93 - Supervision of high risk , unspecified, third trimester COMMENT: PRR, , ALAYNA 02/04/25, Soraida (4) : QUALIFIERS: Weeks of gestation: 35 weeks Qualified Code(s): Z3A.35 - 35 weeks gestation of COMMENT: discussed NIPT, ntd, & carrier testing- declined. nl anatomy (5) Encounter for induction of labor: COMMENT: cytotec, plan modi bulb/pit once able PLAN: Plan Patient presents IOL, plan management for with cytotec/pitocin/AROM. Pain management: plans epidural. GBS negative. Management of any complications: none I have [facility] and made any clinically relevant updates. updated on admission, exam and poc. agrees with care. 01/08/25 0819 <Electronically signed by Bella Berumen CNM> Cosigner Signature (if applicable): CC: SABAS Berumen; SEASONING MIXER-C Clarissa Cosby~ Signed [facility] Work Phone: 1(259) 553-533704-06-2025 History and physical note [facility] Medical Records Department [address] [place] [address] H&P Exam - SUPERANNUATION CLERK 01/08/25 0810 MR#: [id number] Acct: [id number] Name: BALTAZAR BLANCO ANN Rep #:[id number] : 1995 29 From: Bella Berumen CNM PCP: JUAN Montilla Status:ADM IN Location: [facility]-5 HPI - General General Date of Admission: 01/07/25 Date of Service: 01/07/25 HPI Narrative BALTAZAR BLANCO, is a 29 F who presents at 36 weeks for IOL secondary to known oligohydramnios,RAMSEY yesterday 5.5. Maternal Data Information ALAYNA Calculator Estimated Delivery Date Method Current WG Current Estimate 02/04/25 LMP (Certain) 36w 1d Other Estimates 02/09/25 [facility]1 35w 3d [facility] Medical History (Updated 01/08/25 @ 08:19 by Bella Berumen CNM) PCOS (polycystic ovarian syndrome) Oligohydramnios Chemical Early stage of Asthma Irritable bowel syndrome Irregular menses Home Medications ?Medication ?Instructions ?Recorded ?Last Taken ?Type aspirin 81 mg tablet,delayed 81 mg PO DAILY 12/13/24 01/04/25 History release vit no.95-ferrous 1 tab PO DAILY 01/05/25 History fumarate 28 mg-folic acid 800 mcg tablet ( Formula) Allergy/AdvReac Type Severity Reaction Status Date / Time No Known Allergies Allergy Verified 01/07/25 20:05 Family History Grandmother Breast cancer Paternal Alzheimer's dementia Maternal Father High cholesterol TIA (transient ischemic attack) Grandfather Parkinsons disease Paternal Surgical History S/P tonsillectomy Social History adopted: No household members: spouse current occupational status: employed current occupation: [employer] pets and animals: Yes pets and animals: dog(s) history of recent travel: Yes ([place] in september) out of state: No out of country: Yes sexually active: Yes Smoking Status: Never smoker alcohol intake: current alcohol intake frequency: other details: once a month - Not while substance use type: does not use well-balanced diet: about half the time caffeine: Yes Type: coffee Number of servings: 1 eating out: 1-3 times/week during the past year weight has: remained stable what type of physical activity do you participate in: walking frequency: 1-2 times per week duration: 30-45 minutes/day yossi/confucianist: Yarsani seatbelt use: always do you feel safe at home: Yes additional social history: - Soraida History 2 Elective abortions Hx Para 0 Spontaneous abortions 1 Hx # Term Pregnancies Ectopic pregnancies Hx # Pregnancies Multiple births # of living children 0 Past Pregnancies Del. Date Name GA/Weeks Outcome Route Bth Weight Infant Gen Labor Lgth Anesthesia Del Loc[place]ulshan Provider FOB 03/21/24 chemical Visit Details Expected Delivery Route/Plan Labor Preferences- CB/BF classes: encouraged labor support person: Soraida labor intervention preferences: [] pain management options preferred: epidural cut cord/dad catch: yes : yes PP control planned: discussed discussed possible routes of delivery and associated risks: [] special requests: [] Plans Covid status: [] Flu vaccine: [] Tdap vaccine: [] Rhogam: na LARC form signed: yes Problem list reviewed and updated with the most current plan of care details and appropriate ordersplaced. Relevant counseling for the gestational age provided. Continue routine care and follow up unless otherwise noted in visit notes/problem list details OB Flowsheet Initial Weight: Not Recorded Date -?-?-?-?-?-?-?-?-?-?-?-?- EGA Weight BP Urine Prot -?-?-?-?-?-?-?-?-?-?-?-?- Glucose FHR FuHt Pres Dilation -?-?-?-?-?-?-?-?-?-?-?-?- Effaced St Visit Note 07/04/24 -?-?-?-?-?-?-?-?-?-?-?-?- 9w 2d 300 lb 4 oz 136/94 -?-?-?-?-?-?-?-?-?-?-?-?- 171 -?-?-?-?-?-?-?-?-?-?-?-?- JV- CRL 1.89 and off slightly from LMP however, unable to capture the entire CRL so will not chanege the due date. rpt scan next visit. declines NIPT. patient works here. 08/04/24 -?-?-?-?-?-?-?-?-?-?-?-?- 13w 5d 292 lb 139/75 Negative -?-?-?-?-?-?-?-?-?-?-?-?- Negative 150 -?-?-?-?-?-?-?-?-?-?-?-?- SM- no vb crmapi 08/29/24 -?-?-?-?-?-?-?-?-?-?-?-?- 17w 2d 292 lb 134/82 Negative -?-?-?-?-?-?-?-?-?-?-?-?- Negative 160 -?-?-?-?-?-?-?-?-?-?-?-?- SM- no vb crmapi 09/26/24 -?-?-?-?-?-?-?-?-?-?-?-?- 21w 2d 296 lb 137/83 Negative -?-?-?-?-?-?-?-?-?-?-?-?- Negative 145 -?-?-?-?-?-?-?-?-?-?-?-?- SM- no vb lof go od 10/24/24 -?-?-?-?-?-?-?-?-?-?-?-?- 25w 2d 303 lb 2 oz 142/92 139/83 Negative -?-?-?-?-?-?-?-?-?-?-?-?- Negative 155 -?-?-?-?-?-?-?-?-?-?-?-?- KW- no vb/lof/ct x. good fm 28 week labs next week. Elevated BP today may need to start htn med if continue to be elevated. baseline pre e labs today KW- no vb/lof/ctx. good fm 2 8 week labs next visit. Elevated BP today may need to start htn med if continue to be elevated. baseline pre e labs today 11/15/24 -?-?-?-?-?-?-?-?-?-?-?-?- 28w 3d 306 lb 6 oz 130/74 Nega tive -?-?-?-?-?-?-?-?-?-?-?-?- Negative 146 29 -?-?-?-?-?-?-?-?-?-?-?-?- MH-No VB, LOF. G ood FM. Denies concerns. 28 wk labs. [facility] 11/28/24 -?-?-?-?-?-?-?-?-?-?-?-?- 30w 2d 308 lb 135/89 -?-?-?-?-?-?-?-?-?-?-?-?- 155 31 -?-?-?-?-?-?-?-?-?-?-?-?- KW- no vb/crampi ng. good fm. Has had ALBERT all weekend. Took BP at work and was elevated. Pre e labs sent. second BP was patients normal pressures. denies BV/dizziness, RUQ pain or swelling 12/02/24 -?-?-?-?-?-?-?-?-?-?-?-?- 30w 6d 311 lb 6 oz 137/85 Nega tive -?-?-?-?-?-?-?-?-?-?-?-?- Negative 145 31 -?-?-?-?-?-?-?-?-?-?-?-?- KW- no vb/lof/ct x. good fm. headache is better. labs reviewed. 12/13/24 -?-?-?-?-?-?-?-?-?-?-?-?- 32w 3d 309 lb 6 oz 149/89 -?-?-?-?-?-?-?-?-?-?-?-?- -?-?-?-?-?-?-?-?-?-?-?-?- Phone call from [place] with oligohydramnios and IUGR. To for further eval with Dr Oliva 12/29/24 -?-?-?-?-?-?-?-?-?-?-?-?- 34w 5d 310 lb 2 oz 134/76 Nega tive -?-?-?-?-?-?-?-?-?-?-?-?- Negative 150 -?-?-?-?-?-?-?-?-?-?-?-?- MH-NST only reac tive. Has BPP tomorrow 12/30/24 -?-?-?-?-?-?-?-?-?-?-?-?- 34w 6d 310 lb 8 oz 139/84 Nega tive -?-?-?-?-?-?-?-?-?-?-?-?- Negative 155 -?-?-?-?-?-?-?-?-?-?-?-?- JV- oligo persis ts. planning 36 week IOL. continue close monitoring. bpp was technically 8/8 due to ramsey of 5.22 and normal movement, tone, etc. JV- oligo persists. planning 36 week IOL. GBS collected. continue close monitoring. bpp was technically 8/8 due to ramsey of 5.22 and normal movement, tone, etc. 01/02/25 -?-?-?-?-?-?-?-?-?-?-?-?- 35w 2d 312 lb 8 oz 124/75 Nega tive -?-?-?-?-?-?-?-?-?-?-?-?- Negative 145 Cephalic 0 -?-?-?-?-?-?-?-?-?-?-?-?- KW- reactive NST . good fm. BPPs tues and fri this week. IOL for sat at 7pm. NST FHR Rate Baby A Baseline: 150 Variability:: Moderate Accelerations:: 15 x 15 Decelerations:: None NST Reactive:: Yes FHR Category:: Category I Vital Signs Vital Signs Vital Signs: 04/05/25 19:28 01/07/25 19:28 01/07/25 19:32 Temperature Temperature Source Pulse Rate 117 H Respiratory Rate Blood Pressure 139/80 H BP Systolic 139 BP Diastolic 80 Pulse Ox 97 01/07/25 19:32 01/07/25 19:32 01/07/25 19:32 Temperature Temperature Source Temporal Pulse Rate 118 H Respiratory Rate 16 Blood Pressure BP Systolic BP Diastolic Pulse Ox 01/07/25 19:32 01/07/25 21:29 01/07/25 21:29 Temperature 98.8 F Temperature Source Temporal Pulse Rate Respiratory Rate 16 Blood Pressure BP Systolic BP Diastolic Pulse Ox 01/07/25 21:29 01/07/25 21:30 01/07/25 21:30 Temperature 98.4 F Temperature Source Pulse Rate 95 Respiratory Rate Blood Pressure 172/81 H BP Systolic 172 BP Diastolic 81 Pulse Ox 01/07/25 21:32 01/07/25 21:32 01/08/25 01:47 Temperature Temperature Source Pulse Rate 100 Respiratory Rate Blood Pressure 128/71 H 133/59 H BP Systolic 128 133 BP Diastolic 71 59 Pulse Ox 01/08/25 01:47 01/08/25 01:47 01/08/25 01:47 Temperature 97.8 F Temperature Source Temporal Pulse Rate 91 Respiratory Rate Blood Pressure BP Systolic BP Diastolic Pulse Ox 01/08/25 05:53 01/08/25 05:53 01/08/25 05:53 Temperature Temperature Source Temporal Pulse Rate 90 Respiratory Rate Blood Pressure 121/54 H BP Systolic 121 BP Diastolic 54 Pulse Ox 01/08/25 05:53 01/08/25 05:53 01/08/25 07:19 Temperature 97.7 F L Temperature Source Pulse Rate Respiratory Rate 16 Blood Pressure BP Systolic BP Diastolic Pulse Ox 90 01/08/25 07:19 01/08/25 07:19 01/08/25 07:19 Temperature Temperature Source Pulse Rate 91 Respiratory Rate Blood Pressure 119/68 BP Systolic 119 BP Diastolic 68 Pulse Ox 98 Weight Weight: 316 lb Body Mass Index (BMI) 44.0 Physical Exam Const alert, oriented x3 and no apparent distress General Appearance: cooperative, comfortable and well kempt Orientation / Consciousness: awake and oriented to person Exam Limitations: no limitations HEENT normocephalic Neck full ROM Chest inspection of chest normal Resp normal respiratory effort, normal air movement and no retractions Effort and Inspection: able to speak in complete sentences and symmetric chest movement Cardio regular rate Peripheral Pulses: pulses 2+ throughout GI normal to inspection, nondistended, normoactive bowel sounds Inspection: gravid no CVA tenderness and appearance of the vagina normal External Female Exam: normal appearance of the urethra; Negative for external lesion OB / External & Speculum: external exam normal Manual OB Exam: estimated gestational size appropriate and presentation cephalic Uterus Palpation: Negative for uterus tender Extremity normal to inspection Skin no rashes or lesions noted Neuro deep tendon reflexes 2+ bilaterally and gait normal Motor Exam: strength 5/5 throughout and clonus absent Psych Activity / Motor Behavior: appropriate eye contact Speech: normal speech Labs Labs Labs: Blood Type AB POSITIVE Antibody Screen NEGATIVE Hct 35.0 % (37-47) L Hgb 11.7 g/dL (12.0-15.0) L Obstetrics Ultrasound Syphilis Total Ab Nonreactive (Nonreactive) Rubella IgG Antibody Reactive (Nonreactive) Hep Bs Antigen Non-Reactive (Nonreactive) Hepatitis C Antibody Non-Reactive (Nonreactive) Chlamydia DNA (FIORDALIZA) Negative (Negative) N.gonorrhoeae DNA (FIORDALIZA) Negative (Negative) HIV 1&2 Antibody Non-Reactive (Nonreactive) Glucose 1 Hr 50 gm 141 mg/dL (70-140) H Gest Glucose Tolerance MG/DL Assessment & Plan (1) Oligohydramnios: QUALIFIERS: Fetus number: single or unspecified fetus Trimester: third trimester Qualified Code(s):O41.03X0 - Oligohydramnios, third trimester, not applicable or unspecified COMMENT: deliver at 36 weeks (2) Obesity affecting : QUALIFIERS: Trimester: third trimester Obesity type affecting : unspecified obesity Qualified Code(s): O99.213 - Obesity complicating , third trimester COMMENT: BMI 41 HgbA1c nl. plan weekly NSTs after 34 and growth US 32 and 36. (3) Supervision of high-risk : QUALIFIERS: Trimester: third trimester Qualified Code(s): O09.93 - Supervision of high risk , unspecified, third trimester COMMENT: PRR, , ALAYNA 02/04/25, Soraida (4) : QUALIFIERS: Weeks of gestation: 35 weeks Qualified Code(s): Z3A.35 - 35 weeks gestation of COMMENT: discussed NIPT, ntd, & carrier testing- declined. nl anatomy (5) Encounter for induction of labor: COMMENT: cytotec, plan modi bulb/pit once able PLAN: Plan Patient presents IOL, plan management for with cytotec/pitocin/AROM. Pain management: plans epidural. GBS negative. Management of any complications: none I have reviewed the [facility] and made any clinically relevant updates. updated on admission, exam and poc. agrees with care. 01/08/25 0819 Cosigner Signature (if applicable): CC: SABAS Berumen; SEASONING MIXER-C Clarissa Cosby~ Signed [facility]04-05-2025 Evaluation note* Diagnosis Onset Date Resolution Status Admit Date Abnormal test resolved A pri2024 7:17pm Abnormal glucose in pregnanc y, antepartum resolved January 07, 2025 7:17pm Elevated BP without diagnosi s of hypertension resolved January 07, 2025 7:17pm Encounter for induction of labor resolved January 07, 2025 7:17pm Obesity affecting resolved January 07, 2025 7:17pm Oligohydramnios resolved January 7:17pm resolved January 07 7:17pm Supervision of high-risk resolved January 07, 2025 7:17pm Vaginal delivery inactive January 7:17pm Routine Follow-Up noneact valeria February 20, 2025 10:45am Vaginal odor noneactive May 02, 025 11:40am [facility] Work Phone: 1(785) 569-687204-04-2025 History and physical note [facility] Medical Records Department [address] [place] [address] OB Triage Physician Note 01/06/25 1039 MR#: [id number] Acct: [id number] Name: BALTAZAR BLANCO ANN Rep #:[id number] : 1995 29 From: Bella Berumen CNM PCP: JUAN Montilla Status:REG CL I Y Location: [place] [id number] HPI - General General Chief Complaint: abnormal test HPI Narrative BALTAZAR BLANCO, is a 29 F who presents at 35.6 for 6/8 BPP 2 off for breathing. known oligohydramnios, Maternal Data Information ALAYNA Calculator Estimated Delivery Date Method Current WG Current Estimate 02/04/25 LMP (Certain) 35w 6d Other Estimates 02/09/25 Ultrasound #1 35w 1d Final ALAYNA: 01/06/25 Gestational age: 35.6 [facility] Medical History Irritable bowel syndrome Irregular menses Chemical Early stage of Asthma Home Medications ?Medication ?Instructions ?Recorded ?Last Taken ?Type aspirin 81 mg tablet,delayed 81 mg PO DAILY 12/13/24 0 01/04/25 History release vit no.95-ferrous 1 tab PO DAILY 12/13/2412/27 History fumarate 28 mg-folic acid 800 mcg tablet ( Formula) Allergy/AdvReac Type Severity Reaction Status Date / Time No Known Allergies Allergy Verified 01/06/25 10:28 Family History Grandmother Breast cancer Paternal Alzheimer's dementia Maternal Father High cholesterol TIA (transient ischemic attack) Grandfather Parkinsons disease Paternal Surgical History S/P tonsillectomy Social History adopted: No household members: spouse current occupational status: employed current occupation: [employer] pets and animals: Yes pets and animals: dog(s) history of recent travel: Yes ([place] in september) out of state: No out of country: Yes sexually active: Yes Smoking Status: Never smoker alcohol intake: current alcohol intake frequency: other details: once a month - Not while substance use type: does not use well-balanced diet: about half the time caffeine: Yes Type: coffee Number of servings: 1 eating out: 1-3 times/week during the past year weight has: remained stable what type of physical activity do you participate in: walking frequency: 1-2 times per week duration: 30-45 minutes/day yossi/confucianist: Yarsani seatbelt use: always do you feel safe at home: Yes additional social history: - Soraida History 2 Elective abortions Hx Para 0 Spontaneous abortions 1 Hx # Term Pregnancies Ectopic pregnancies Hx # Pregnancies Multiple births # of living children 0 Past Pregnancies Del. Date Name GA/Weeks Outcome Route Bth Weight Infant Gen Labor Lgth Anesthesia Del Neda Provider FOB 03/21/24 chemical Visit Details Expected Delivery Route/Plan Labor Preferences- CB/BF classes: encouraged labor support person: Soraida labor intervention preferences: [] pain management options preferred: epidural cut cord/dad catch: yes : yes PP control planned: discussed discussed possible routes of delivery and associated risks: [] special requests: [] Plans Covid status: [] Flu vaccine: [] Tdap vaccine: [] Rhogam: na LARC form signed: yes Problem list reviewed and updated with the most current plan of care details and appropriate ordersplaced. Relevant counseling for the gestational age provided. Continue routine care and follow up unless otherwise noted in visit notes/problem list details OB Flowsheet Initial Weight: Not Recorded Date -?-?-?-?-?-?-?-?-?-?-?-?- EGA Weight BP Urine Prot -?-?-?-?-?-?-?-?-?-?-?-?- Glucose FHR FuHt Pres Dilation -?-?-?-?-?-?-?-?-?-?-?-?- Effaced St Visit Note 07/04/24 -?-?-?-?-?-?-?-?-?-?-?-?- 9w 2d 300 lb 4 oz 136/94 -?-?-?-?-?-?-?-?-?-?-?-?- 171 -?-?-?-?-?-?-?-?-?-?-?-?- JV- CRL 1.89 and off slightly from LMP however, unable to capture the entire CRL so will not chanege the due date. rpt scan next visit. declines NIPT. patient works here. 08/04/24 -?-?-?-?-?-?-?-?-?-?-?-?- 13w 5d 292 lb 139/75 Negative -?-?-?-?-?-?-?-?-?-?-?-?- Negative 150 -?-?-?-?-?-?-?-?-?-?-?-?- SM- no vb crmapi ng 08/29/24 -?-?--?-?-?-?-?-?-?-?-?-?- 17w 2d 292 lb 134/82 Negative -?-?-?-?-?-?-?-?-?-?-?-?- Negative 160 -?-?-?-?-?-?-?-?-?-?-?-?- SM- no vb crmapi ng 09/26/24 -?-?-?-?-?-?-?-?-?-?-?-?- 21w 2d 296 lb 137/83 Negative -?-?-?-?-?-?-?-?-?-?-?-?- Negative 145 -?-?-?-?-?-?-?-?-?-?-?-?- SM- no vb lof go od 10/24/24 -?-?-?-?-?-?-?-?-?-?-?-?- 25w 2d 303 lb 2 oz 142/92 139/83 Negative -?-?-?-?-?-?-?-?-?-?-?-?- Negative 155 -?-?-?-?-?-?-?-?-?-?-?-?- KW- no vb/lof/ct x. good 28 week labs next week. Elevated BP today may need to start htn med if continue to be elevated. baseline pre e labs today KW- no vb/lof/ctx. good 2 8 week labs next visit. Elevated BP today may need to start htn med if continue to be elevated. baseline pre e labs today 11/15/24 -?-?-?-?-?-?-?-?-?-?-?-?- 28w 3d 306 lb 6 oz 130/74 Nega tive -?-?-?-?-?-?-?-?-?-?-?-?- Negative 146 29 -?-?-?-?-?-?-?-?-?-?-?-?- -No VB, LOF. G ood . Denies concerns. 28 wk labs. Larc 11/28/24 -?-?-?-?-?-?-?-?-?-?-?-?- 30w 2d 308 lb 135/89 -?-?-?-?-?-?-?-?-?-?-?-?- 155 31 -?-?-?-?-?-?-?-?-?-?-?-?- KW- no vb/crampi ng. good fm. Has had ALBERT all weekend. Took BP at work and was elevated. Pre e labs sent. second BP was patients normal pressures. denies BV/dizziness, RUQ pain or swelling 12/02/24 -?-?-?-?-?-?-?-?-?-?-?-?- 30w 6d 311 lb 6 oz 137/85 Nega tive -?-?-?-?-?-?-?-?-?-?-?-?- Negative 145 31 -?-?-?-?-?-?-?-?-?-?-?-?- KW- no vb/lof/ct x. good fm. headache is better. labs reviewed. 12/13/24 -?-?-?-?-?-?-?-?-?-?-?-?- 32w 3d 309 lb 6 oz 149/89 -?-?-?-?-?-?-?-?-?-?-?-?- -?-?-?-?-?-?-?-?-?-?-?-?- Phone call from [place] with oligohydramnios and IUGR. To for further eval with Dr Oliva 12/29/24 -?-?-?-?-?-?-?-?-?-?-?-?- 34w 5d 310 lb 2 oz 134/76 Nega tive -?-?-?-?-?-?-?-?-?-?-?-?- Negative 150 -?-?-?-?-?-?-?-?-?-?-?-?- MH-NST only reac tive. Has BPP tomorrow 12/30/24 -?-?-?-?-?-?-?-?-?-?-?-?- 34w 6d 310 lb 8 oz 139/84 Nega tive -?-?-?-?-?-?-?-?-?-?-?-?- Negative 155 -?-?-?-?-?-?-?-?-?-?-?-?- JV- oligo persis ts. planning 36 week IOL. continue close monitoring. bpp was technically 8/8 due to ramsey of 5.22 and normal movement, tone, etc. JV- oligo persists. planning 36 week IOL. GBS collected. continue close monitoring. bpp was technically 8/8 due to ramsey of 5.22 and normal movement, tone, etc. 01/02/25 -?-?-?-?-?-?-?-?-?-?-?-?- 35w 2d 312 lb 8 oz 124/75 Nega tive -?-?-?-?-?-?-?-?-?-?-?-?- Negative 145 Cephalic 0 -?-?-?-?-?-?-?-?-?-?-?-?- KW- reactive NST . good fm. BPPs tues and fri this week. IOL for sat at 7pm. Physical Exam Const alert, oriented x3 and no apparent distress Resp normal respiratory effort, normal air movement, no retractions and no use of accessory muscles GI soft to palpation and non-tender Inspection: Palpation: soft Rectal Exam: deferred Extremity normal to inspection and full ROM NST FHR Rate Baby A Baseline: 130 Variability:: Moderate Accelerations:: 15 x 15 Decelerations:: None NST Reactive:: Yes FHR Category:: Category I Assessment & Plan (1) Abnormal test: COMMENT: initial bpp 6/10 no 8/10 2 off for breathing, reassuring tracing. plans iol tomorrow. PLAN: Plan Patient presents for triage evaluation secondary to 6/8 BPP, reactive nst. RAMSEY 5.5 today on us withMVP>2. FHT: Moderate variability reactive no decelerations category I tracing [place]: irreg Contractions Assessment and plan: Reactive NST, reassuring maternal and status patient discharged to home to follow-up tomorrow for IOL. See problem list details for additional plan information. c/w Dr. pacheco concures with plan of care Charges/Coding Visit Charges Office Visits / Consults: 46740 OV L3 Est 20min Procedures Urinary/Genital 52xxx-59xxx: 53747-04 non-stress test Interp 01/06/25 1043 ns CNM> Date _ Bella Berumen CNM Cosigner Signature (if applicable): Date CC: SABAS Berumen; SEASONING MIXER-C Clarissa Cosby ~ Signed [facility]04-04-2025 Radiology Diagnostic study note [facility] Imaging Services [address], [place] [id number] Biophysical Prof W/O Non Stres MR#: [id number] Acct: [id number] Name: BALTAZAR BLANCO ANN Rep #: [id number] : 1995 F 29 From: Silvano Moreno MD PCP: JUAN Montilla Status: REG CL I Study:Biophysical Prof W/O Non Stres Date of Exam: 01/06/25 Exam# [id number] Ordering Dr: Belkis Gonzalez MD PROCEDURE: BIOPHYSICAL PROF W/O NON STRES 01/06/2025 REASON FOR EXAM: WELL BEING TECHNIQUE: Biophysical profile. COMPARISON: Comparison is made with prior study dated January 03, 2025. FINDINGS: position: Cephalic heart rate: 152 beats per minute Amniotic fluid: Oligohydramnios. Largest fluid pocket: 2.9 cm Amniotic fluid index: 5.52 Placenta location: Anterior and not low-lying. Placental grade 2 Age by LMP: 35 weeks and 5 days. Biophysical profile: Breathing movements: 0 Gross body movements: 2 tone: 2 amniotic fluid volume: 2 Total score: 6/8. US/Biophysical Prof W/O Non Stres IMPRESSION: Biophysical profile score of 6/8. Results were called to the referring physician. [facility] CC: JUAN Cosby; Dr. Belkis Pacheco MD ~ Clerical Investigator: Signed [facility]04-01-2025 Radiology Diagnostic study note [facility] Imaging Services [address], [place] [address] Biophysical Prof W/O Non Stres MR#: [id number] Acct: [id number] Name: BALTAZAR BLANCO ANN Rep #: [id number] : 1995 F 29 From: Silvano Moreno MD PCP: JUAN Montilla Status: REG CL I Study:Biophysical Prof W/O Non Stres Date of Exam: 01/03/25 Exam# [id number] Ordering Dr: Belkis Gonzalez MD PROCEDURE: BIOPHYSICAL PROF W/O NON STRES 01/03/2025 REASON FOR EXAM: WELL BEING TECHNIQUE: Biophysical profile examination was performed. COMPARISON: Comparison is made with prior study dated December 22, 2024. FINDINGS: position: Cephalic heart rate: 158 beats per minute. Amniotic fluid: Within normal limits. Largest fluid pocket: 4.4 cm. Amniotic fluid index 8 Placenta location is anterior and not low-lying. Placental grade: 2 Biophysical profile: Breathing movements: 2 Gross body movements: 2 tone: 2 amniotic fluid volume: 2 Total score: 8/8 US/Biophysical Prof W/O Non Stres IMPRESSION: Biophysical profile score of 8/8 Reading Location: [id number] CC: JUAN Cosby; Dr. Belkis Pacheco MD ~ Clerical Investigator: Signed [facility]04-01-2025 Radiology Diagnostic study note [facility] Imaging Services [address], [place] [address] Biophysical Prof W/O Non Stres MR#: [id number] Acct: [id number] Name: BALTAZAR BLANCO ANN Rep #: [id number] : 1995 F 29 From: Silvano Moreno MD PCP: JUAN Montilla Status: REG CL I Study:Biophysical Prof W/O Non Stres Date of Exam: 12/30/24 Exam# [id number] Ordering Dr: Belkis Gonzalez MD PROCEDURE: BIOPHYSICAL PROF W/O NON STRES 12/30/2024 REASON FOR EXAM: WELL BEING TECHNIQUE: biophysical profile was performed. COMPARISON: Comparison is made with prior study dated December 27, 2024. FINDINGS: position: Cephalic heart rate: 148 beats per minute Amniotic fluid: Within normal limits. Largest fluid pocket: 2.4 cm x 3.3 cm. Amniotic Fluid index: 5 5.2 cm. Placenta location: Anterior and not low-lying. Placental grade: 2 Age by LMP: 34 weeks and 6 days. Biophysical profile: Breathing movements: 2 Gross body movements: 2 tone: 2 Amniotic fluid volume: 2 Total score: 8/8 US/Biophysical Prof W/O Non Stres IMPRESSION: biophysical profile score of 8/8. Reading Location: [id number] CC: SEASONING MIXERDeborah Cosby; Dr. Belkis Pacheco MD ~ Clerical Investigator: Signed [facility]03-31-2025 Evaluation note* Diagnosis Onset Date Resolution Status Admit Date Abnormal test resolved M 2024 9:39am Abnormal glucose in pregnanc y, antepartum resolved January 02, 2025 9:39am Elevated BP without diagnosi s of hypertension resolved January 02, 2025 9:39am Obesity affecting resolved January 02, 2025 9:39am Oligohydramnios resolved December 9:39am resolved January 02 9:39am Supervision of high-risk resolved January 02, 2025 9:39am Abnormal test resolved A pril 2024 9:01am Abnormal test resolved A pril 2024 7:17pm Abnormal glucose in pregnanc y, antepartum resolved January 07, 2025 7:17pm Elevated BP without diagnosi s of hypertension resolved January 07, 2025 7:17pm Encounter for induction of labor resolved January 07, 2025 7:17pm Obesity affecting resolved January 07, 2025 7:17pm Oligohydramnios resolved January 7:17pm resolved January 07 7:17pm Supervision of high-risk resolved January 07, 2025 7:17pm Vaginal delivery inactive January 7:17pm Routine Follow-Up noneact valeria February 20, 2025 10:45am Vaginal odor noneactive May 02, 025 11:40am [place] [employer] Work Phone: 1(238) 785-448603-25-2025 History and physical note [facility] Medical Records Department [address] [place] [address] OB Triage Physician Note 12/27/24 1448 MR#: [id number] Acct: [id number] Name: BALTAZAR BLANCO ANN Rep #:[id number] : 1995 29 From: Nenita Oliva DO PCP: GONZÁLEZ MontillaC Status:REG CL I Y [facility] HPI - General HPI Narrative BALTAZAR BLANCO, is a 29 F who presents to L&D for an nst due to finding of oligohydramnios (deepest pocket of 5.35 cm.) She denies loss of fluid, vaginal bleeding, or dec fm. Maternal Data Information ALAYNA Calculator Estimated Delivery Date Method Current WG Current Estimate 02/04/25 LMP (Certain) 34w 3d Other Estimates 02/09/25 Ultrasound #1 33w 5d PFSH PFSH Medical History Irritable bowel syndrome Irregular menses Chemical Early stage of Asthma Home Medications ?Medication ?Instructions ?Recorded ?Last Taken ?Type aspirin 81 mg tablet,delayed 81 mg PO DAILY 12/13/24 0 12/19/24 10:00 History release omega-3 900 mg-dha 360 mg-epa 455 2 cap PO DAILY 12/1312/12/24 History mg-fish oil 1,000 mg capsule (Fish Oil) vit no.95-ferrous 1 tab PO DAILY 12/13/24 10:00 History fumarate 28 mg-folic acid 800 mcg tablet ( Formula) Allergy/AdvReac Type Severity Reaction Status Date / Time No Known Allergies Allergy Verified 12/20/24 13:33 Family History Grandmother Breast cancer Paternal Alzheimer's dementia Maternal Father High cholesterol TIA (transient ischemic attack) Grandfather Parkinsons disease Paternal Surgical History S/P tonsillectomy Social History adopted: No household members: spouse current occupational status: employed current occupation: [employer] pets and animals: Yes pets and animals: dog(s) history of recent travel: Yes ([place] in september) out of state: No out of country: Yes sexually active: Yes Smoking Status: Never smoker alcohol intake: current alcohol intake frequency: other details: once a month - Not while substance use type: does not use well-balanced diet: about half the time caffeine: Yes Type: coffee Number of servings: 1 eating out: 1-3 times/week during the past year weight has: remained stable what type of physical activity do you participate in: walking frequency: 1-2 times per week duration: 30-45 minutes/day yossi/confucianist: Yarsani seatbelt use: always do you feel safe at home: Yes additional social history: - Soraida History 2 Elective abortions Hx Para 0 Spontaneous abortions 1 Hx # Term Pregnancies Ectopic pregnancies Hx # Pregnancies Multiple births # of living children 0 Past Pregnancies Del. Date Name GA/Weeks Outcome Route Bth Weight Gen Labor Lgth Anesthesia Del Locatn Provider FOB 03/21/24 chemical Visit Details Expected Delivery Route/Plan Labor Preferences- CB/BF classes: encouraged labor support person: Soraida labor intervention preferences: [] pain management options preferred: epidural cut cord/dad catch: yes : yes PP control planned: discussed discussed possible routes of delivery and associated risks: [] special requests: [] Plans Covid status: [] Flu vaccine: [] Tdap vaccine: [] Rhogam: na LARC form signed: yes Problem list reviewed and updated with the most current plan of care details and appropriate ordersplaced. Relevant counseling for the gestational age provided. Continue routine care and follow up unless otherwise noted in visit notes/problem list details OB Flowsheet Initial Weight: Not Recorded Date -?-?-?-?-?-?-?-?-?-?-?-?- EGA Weight BP Urine Prot -?-?-?-?-?-?-?-?-?-?-?-?- Glucose FHR FuHt Pres Dilation -?-?-?-?-?-?-?-?-?-?-?-?- Effaced St Visit Note 07/04/24 -?-?-?-?-?-?-?-?-?-?-?-?- 9w 2d 300 lb 4 oz 136/94 -?-?-?-?-?-?-?-?-?-?-?-?- 171 -?-?-?-?-?-?-?-?-?-?-?-?- JV- CRL 1.89 and off slightly from LMP however, unable to capture the entire CRL so will not chanege the due date. rpt scan next visit. declines NIPT. patient works here. 08/04/24 -?-?-?-?-?-?-?-?-?-?-?-?- 13w 5d 292 lb 139/75 Negative -?-?-?-?-?-?-?-?-?-?-?-?- Negative 150 -?-?-?-?-?-?-?-?-?-?-?-?- SM- no vb crmapi ng 08/29/24 -?-?-?-?-?-?-?-?-?-?-?-?- 17w 2d 292 lb 134/82 Negative -?-?-?-?-?-?-?-?-?-?-?-?- Negative 160 -?-?-?-?-?-?-?-?-?-?-?-?- SM- no vb crmapi ng 09/26/24 -?-?-?-?-?-?-?-?-?-?-?-?- 21w 2d 296 lb 137/83 Negative -?-?-?-?-?-?-?-?-?-?-?-?- Negative 145 -?-?-?-?-?-?-?-?-?-?-?-?- SM- no vb lof go od fm 10/24/24 -?-?-?-?-?-?-?-?-?-?-?-?- 25w 2d 303 lb 2 oz 142/92 139/83 Negative -?-?-?-?-?-?-?-?-?-?-?-?- Negative 155 -?-?-?-?-?-?-?-?-?-?-?-?- KW- no vb/lof/ct x. [facility] 28 week labs next week. Elevated BP today may need to start htn med if continue to be elevated. baseline pre e labs today KW- no vb/lof/ctx. good 2 8 week labs next visit. Elevated BP today may need to start htn med if continue to be elevated. baseline pre e labs today 11/15/24 -?-?-?-?-?-?-?-?-?-?-?-?- 28w 3d 306 lb 6 oz 130/74 Nega tive -?-?-?-?-?-?-?-?-?-?-?-?- Negative 146 29 -?-?-?-?-?-?-?-?-?-?-?-?- -No VB, LOF. G onani . Denies concerns. 28 wk labs. [facility] 11/28/24 -?-?-?-?-?-?-?-?-?-?-?-?- 30w 2d 308 lb 135/89 -?-?-?-?-?-?-?-?-?-?-?-?- 155 31 -?-?-?-?-?-?-?-?-?-?-?-?- KW- no vb/crampi ng. elsi . Has had ALBERT all weekend. Took BP at work and was elevated. Pre e labs sent. second BP was patients normal pressures. denies BV/dizziness, RUQ pain or swelling 12/02/24 -?-?-?-?-?-?-?-?-?-?-?-?- 30w 6d 311 lb 6 oz 137/85 Nega tive -?-?-?-?-?-?-?-?-?-?-?-?- Negative 145 31 -?-?-?-?-?-?-?-?-?-?-?-?- KW- no vb/lof/ct x. good fm. headache is better. labs reviewed. 12/13/24 -?-?-?-?-?-?-?-?-?-?-?-?- 32w 3d 309 lb 6 oz 149/89 -?-?-?-?-?-?-?-?-?-?-?-?- -?-?-?-?-?-?-?-?-?-?-?-?- [place] call [place] with oligohydramnios and IUGR. To for further eval with Dr Pérez Constitutional Constitutional: Reports systems reviewed and no addt'l complaints, except as documented Gastrointestinal Gastrointestinal: Denies bloating, constipation, cramping, diarrhea, nausea or vomiting Genitourinary Genitourinary: Reports other Details: Denies vaginal odor, vaginal bleeding, or vaginal discharge ; Denies difficulty urinating or flank pain Physical Exam HEENT normocephalic Resp normal respiratory effort and normal air movement no CVA tenderness Extremity normal to inspection General Extremity: edema bilateral (trace ) NST FHR Rate Baby A Baseline: 140 Variability:: Moderate Accelerations:: 15 x 15 Decelerations:: None NST Reactive:: Yes FHR Category:: Category I Assessment & Plan (1) Abnormal test: COMMENT: initial bpp 6/10 no 8/10 2 off for breathing, reassuring tracing overnight (2) Abnormal glucose in , antepartum: COMMENT: nl 3 hour (3) Oligohydramnios: QUALIFIERS: Fetus number: single or unspecified fetus Trimester: third trimester Qualified Code(s):O41.03X0 - Oligohydramnios, third trimester, not applicable or unspecified COMMENT: deliver at 36 weeks PLAN: return to office for an nst continue bpp's on tuesdays and fridays and delivery at 36 weeks (4) Elevated BP without diagnosis of hypertension: COMMENT: 10/24/24 Pre E labs nl (5) Obesity affecting : QUALIFIERS: Trimester: third trimester Obesity type affecting : unspecified obesity Qualified Code(s): O99.213 - Obesity complicating , third trimester COMMENT: BMI 41 HgbA1c nl. plan weekly NSTs after 34 and growth US 32 and 36. (6) Supervision of high-risk : QUALIFIERS: Trimester: third trimester Qualified Code(s): O09.93 - Supervision of high risk , unspecified, third trimester COMMENT: PRR, , ALAYNA 02/04/25, Soraida (7) : QUALIFIERS: Weeks of gestation: 32 weeks Qualified Code(s): Z3A.32 - 32 weeks gestation of COMMENT: discussed NIPT, ntd, & carrier testing- declined. nl anatomy Charges/Coding Multi Select Codes Visit Charges Office Visit/Consults: 73927 OV L3 Est 20min Urinary/Genital Urinary/Genital CPT Codes: 70005-03 non-stress test Interp 12/27/24 1451 e Rissa DO> Date _ Nenita Oliva DO Cosigner Signature (if applicable): Date CC: JUAN Cosby; Dr. Nenita Oliva, DO ~ Signed [facility]03-21-2025 Radiology Diagnostic study note [facility] Imaging Services [address] [place] [address] Biophysical Prof W/O Yajaira Silva MR#: [id number] Acct: [id number] Name: BALTAZAR BLANCO ANN Rep #: [id number] : 1995 F 29 From: Kaitlin Foley MD PCP: Clarissa Cosby NP-C Status: REG CL I Study:Biophysical Prof W/O Non Stres Date of Exam: 12/23/24 Exam# [id number] Ordering Dr: Belkis Gonzalez MD EXAM: BIOPHYSICAL PROF W/O NON STRES (USBIOWO) 12/23/2024 CLINICAL HISTORY: WELL BEING. Reportedly 33 weeks and 6 days by previously established dates with ALAYNA 02/04/2025. COMPARISON: 12/21/2024 TECHNIQUE: A limited transabdominal obstetrical ultrasound was performed to determine biophysical profile. FINDINGS: A single intrauterine gestational sac is identified. Breathing movement: 2 Gross Body movement: 2 Tone: 2 Qualitative Amniotic Fluid: 2 Amniotic Fluid Index: 12 (normal 5-25), deepest vertical pocket 3.7 (normal 2-8). presentation: Cephalic. heart rate: Present, 158 bpm. Placenta: Anterior. US/Biophysical Prof W/O Non Stres IMPRESSION: 1. Biophysical Profile Score of 8 out of a possible 8. 2. Additional description as above. Reading Location: [facility] CC: SEASONING MIXER-C Clarissa Cosby; Dr. Belkis Pacheco MD ~ Clerical Investigator: Signed [facility]03-19-2025 Radiology Diagnostic study note [facility] Imaging Services [address] [place] [id number] Biophysical Prof W/O Non Stres MR#: [id number] Acct: [id number] Name: BALTAZAR BLANCO ANN Rep #: [id number] : 1995 F 29 From: Silvano Moreno MD PCP: GONZÁLEZ MontillaC Status: REG CL I Study:Biophysical Prof W/O Non Stres Date of Exam: 12/21/24 Exam# [id number] Ordering Dr: Nenita Booth DO PROCEDURE: BIOPHYSICAL PROF W/O NON STRES REASON FOR EXAM: OLIGO, PRIOR 4/8 BPP ON 12/20/24 TECHNIQUE: Biophysical profile examination was performed. COMPARISON: Comparison is made with prior study done on December 20, 2024. FINDINGS: age by previous ultrasound: 32 weeks and 1 day position: Cephalic heart rate: 145 beats per minute Largest amniotic fluid pocket: 4.3 cm Amniotic fluid index: 7.44 Placenta location: Anterior and not low-lying. Biophysical profile: Breathing movements 0 Gross body movements: 2 tone: 2 Amniotic fluid volume: 2 Total score: 6/8 US/Biophysical Prof W/O Non Stres IMPRESSION: Biophysical profile score: 6/8 Reading Location: [facility] CC: SEASONING MIXER-C Clarissa Cosby; Dr. Nenita Oliva DO ~ Clerical Investigator: Signed [facility]03-18-2025 History and physical note Author Nenita Kwok [facility] Note Date/Time December 20, 2024 4:4 5pm [facility] Medical Records Department [address] [place] [address] OB Triage Physician Note 12/20/24 1641 MR#: [id number] Acct: [id number] Name: BALTAZAR BLANCO ANN Rep #:[id number] : 1995 29 From: Nenita Oliva DO PCP: JUAN Montilla Status:REG CL I Y Location: X[facility]402-3 HPI - General HPI Narrative BALTAZAR BLANCO, is a 29 y/o @ 33 weeks 3 days who presents to L&D after wasfound to have a biophysical profile of 4/8. NST is reactive and she is being admitted for observation and continuous monitoring with the plan to repeat the bpp tomorrow. Maternal Data Information ALAYNA Calculator Estimated Delivery Date Method Current WG Current Estimate 02/04/25 LMP (Certain) 33w 3d Other Estimates 02/09/25 Ultrasound #1 32w 5d PFSH PFSH Medical History Irritable bowel syndrome Irregular menses Chemical Early stage of Asthma Home Medications ?Medication ?Instructions ?Recorded ?Last Taken ?Type aspirin 81 mg tablet,delayed 81 mg PO DAILY 12/13/24 0 12/19/24 10:00 History release omega-3 900 mg-dha 360 mg-epa 455 2 cap PO DAILY 12/1312/12/24 History mg-fish oil 1,000 mg capsule (Fish Oil) vit no.95-ferrous 1 tab PO DAILY 12/13/24 10:00 History fumarate 28 mg-folic acid 800 mcg tablet ( Formula) Allergy/AdvReac Type Severity Reaction Status Date / Time No Known Allergies Allergy Verified 12/20/24 13:33 Family History Grandmother Breast cancer Paternal Alzheimer's dementia Maternal Father High cholesterol TIA (transient ischemic attack) Grandfather Parkinsons disease Paternal Surgical History S/P tonsillectomy Social History adopted: No household members: spouse current occupational status: employed current occupation: [employer] pets and animals: Yes pets and animals: dog(s) history of recent travel: Yes ([place] in september) out of state: No out of country: Yes sexually active: Yes Smoking Status: Never smoker alcohol intake: current alcohol intake frequency: other details: once a month - Not while substance use type: does not use well-balanced diet: about half the time caffeine: Yes Type: coffee Number of servings: 1 eating out: 1-3 times/week during the past year weight has: remained stable what type of physical activity do you participate in: walking frequency: 1-2 times per week duration: 30-45 minutes/day yossi/confucianist: Yarsani seatbelt use: always do you feel safe at home: Yes additional social history: - Soraida History 2 Elective abortions Hx Para 0 Spontaneous abortions 1 Hx # Term Pregnancies Ectopic pregnancies Hx # Pregnancies Multiple births # of living children 0 Past Pregnancies Del. Date Name GA/Weeks Outcome Route Bth Weight [facility] Visit Details Expected Delivery Route/Plan Labor Preferences- CB/BF classes: encouraged labor support person: Soraida labor intervention preferences: [] pain management options preferred: epidural cut cord/dad catch: yes : yes PP control planned: discussed discussed possible routes of delivery and associated risks: [] special requests: [] Plans Covid status: [] Flu vaccine: [] Tdap vaccine: [] Rhogam: na LARC form signed: yes Problem list reviewed and updated with the most current plan of care details and appropriate orders placed. Relevant counseling for the gestational age provided. Continue routine care and follow up unless otherwise noted in visit notes/problem list details OB Flowsheet Initial Weight: Not Recorded Date -?-?-?-?-?-?-?-?-?-?-?-?- EGA Weight BP Urine Prot -?-?-?-?-?-?-?-?-?-?-?-?- Glucose FHR FuHt Pres Dilation -?-?-?-?-?-?-?-?-?-?-?-?- Effaced St Visit Note 07/04/24 -?-?-?-?-?-?-?-?-?-?-?-?- 9w 2d 300 lb 4 oz 136/94 -?-?-?--?-?-?-?-?-?-?-?-?- 171 -?-?-?-?-?-?-?-?-?-?-?-?- JV- CRL 1.89 and off slightly from LMP however, unable to capture the entire CRL so will not chanege the due date. rpt scan next visit. declines NIPT. patient works here. 08/04/24 -?-?-?-?-?-?-?-?-?-?-?-?- 13w 5d 292 lb 139/75 Negative -?-?-?-?-?-?-?-?-?-?-?-?- Negative 150 -?-?-?-?-?-?-?-?-?-?-?-?- SM- no vb crmapi ng 08/29/24 -?-?-?-?-?-?-?-?-?-?-?-?- 17w 2d 292 lb 134/82 Negative -?-?-?-?-?-?-?-?-?-?-?--?- Negative 160 -?-?-?-?-?-?-?-?-?-?-?-?- SM- no vb crmapi ng 09/26/24 -?-?-?-?-?-?-?-?-?-?-?-?- 21w 2d 296 lb 137/83 Negative -?-?-?-?-?-?-?-?-?-?-?-?- Negative 145 -?-?-?-?-?-?-?-?-?-?-?-?- SM- no vb lof go od fm 10/24/24 -?-?-?-?-?-?-?-?-?-?-?-?- 25w 2d 303 lb 2 oz 142/92 139/83 Negative -?-?-?-?-?-?-?-?-?-?-?-?- Negative 155 -?-?-?-?-?-?-?-?-?-?-?-?- KW- no vb/lof/ct x. good 28 week labs next week. Elevated BP today may need to start htn med if continue to be elevated. baseline pre e labs today KW- no vb/lof/ctx. good 2 8 week labs next visit. Elevated BP today may need to start htn med if continue to be elevated. baseline pre e labs today 11/15/24 -?-?-?-?-?-?-?-?-?-?-?-?- 28w 3d 306 lb 6 oz 130/74 Nega tive -?-?-?-?-?-?-?-?-?-?-?-?- Negative 146 29 -?-?-?-?-?-?-?-?-?-?-?-?- MH-No VB, LOF. G ood FM. Denies concerns. 28 wk labs. [facility] 11/28/24 -?-?-?-?-?-?-?-?-?-?-?-?- 30w 2d 308 lb 135/89 -?-?-?-?-?-?-?-?-?-?-?-?- 155 31 -?-?-?-?-?-?-?-?-?-?-?-?- KW- no vb/crampi ng. good fm. Has had ALBERT all weekend. Took BP at work and was elevated. Pre e labs sent. second BP was patients normal pressures. denies BV/dizziness, RUQ pain or swelling 12/02/24 -?-?-?-?-?-?-?-?-?-?-?-?- 30w 6d 311 lb 6 oz 137/85 Nega tive -?-?-?-?-?-?-?-?-?-?-?-?- Negative 145 31 -?-?-?-?-?-?-?-?-?-?-?-?- KW- no vb/lof/ct x. good fm. headache is better. labs reviewed. 12/13/24 -?-?-?-?-?-?-?-?-?-?-?-?- 32w 3d 309 lb 6 oz 149/89 -?-?-?-?-?-?-?-?-?-?-?-?- -?-?-?-?-?-?-?-?-?-?-?-?- [place] call [place] with oligohydramnios and IUGR. To for further eval with Dr Pérez Constitutional Constitutional: Reports systems reviewed and no addt'l complaints, except as documented Gastrointestinal Gastrointestinal: Denies bloating, constipation, cramping, diarrhea, nausea or vomiting Genitourinary Genitourinary: Reports other Details: Denies vaginal odor, vaginal bleeding, or vaginal discharge ; Denies difficulty urinating or flank pain Physical Exam HEENT normocephalic Resp normal respiratory effort and normal air movement no CVA tenderness Extremity normal to inspection General Extremity: edema bilateral (trace ) NST FHR Rate Baby A Baseline: 150 Variability:: Moderate Accelerations:: 15 x 15 Decelerations:: None NST Reactive:: Yes FHR Category:: Category I Assessment & Plan (1) Abnormal test: COMMENT: bpp 01/10- admit over night for continuous monitoring and repeat the bpp in the morning. RAMSEY now 7 (2) Oligohydramnios: QUALIFIERS: Fetus number: single or unspecified fetus Trimester: third trimester Qualified Code(s): O41.03X0 - Oligohydramnios, third trimester, not applicable or unspecified (3) Abnormal glucose in , antepartum: COMMENT: nl 3 hour (4) Elevated BP without diagnosis of hypertension: COMMENT: 10/24/24 Pre E labs nl (5) Obesity affecting : QUALIFIERS: Trimester: third trimester Obesity type affecting : unspecified obesity Qualified Code(s): O99.213 - Obesity complicating , third trimester COMMENT: BMI 41 HgbA1c nl. plan weekly NSTs after 34 and growth US 32 and 36. (6) Supervision of high-risk : QUALIFIERS: Trimester: third trimester Qualified Code(s): O09.93 - Supervision of high risk , unspecified, third trimester COMMENT: PRR, , ALAYNA 02/04/25, Soraida (7) : QUALIFIERS: Weeks of gestation: 32 weeks Qualified Code(s): Z3A.32 - 32 weeks gestation of COMMENT: discussed NIPT, ntd, & carrier testing- declined. nl anatomy Charges/Coding Multi Select Codes Visit Charges Office Visit/Consults: 31585 OV L3 Est 20min Urinary/Genital Urinary/Genital CPT Codes: 46325-11 non-stress test Interp 12/20/24 1645 <Electronically signed by Nenita Robin DO> Date _ Nenita Oliva DO Cosigner Signature (if applicable): Date CC: TIN-Se Cosby; Dr. Nenita Oliva DO ~ Signed [facility] Work Phone: [phone] History and physical note [facility] Medical Records Department [address] [place] [address] OB Triage Physician Note 12/20/24 1641 MR#: [id number] Acct: [id number] Name: BALTAZAR BLANCO Rep #:[id number] : 1995 29 From: Nenita Oliva DO PCP: GONZÁLEZ MontillaC Status:REG CL I Y Location: AK323-5 HPI - General HPI Narrative BALTAZAR BLANCO, is a 29 y/o @ 33 weeks 3 days who presents to L&D after wasfound to have abiophysical profile of /8. NST is reactive and she is being admitted for observation and continuous monitoring with the plan to repeat the bpp tomorrow. Maternal Data Information ALAYNA Calculator Estimated Delivery Date Method Current WG Current Estimate 02/04/25 LMP (Certain) 33w 3d Other Estimates 02/09/25 Ultrasound #1 32w 5d [facility] Medical History Irritable bowel syndrome Irregular menses Chemical Early stage of Asthma Home Medications ?Medication ?Instructions ?Recorded ?Last Taken ?Type aspirin 81 mg tablet,delayed 81 mg PO DAILY 12/13/24 0 12/19/24 10:00 History release omega-3 900 mg-dha 360 mg-epa 455 2 cap PO DAILY 12/1312/12/24 History mg-fish oil 1,000 mg capsule (Fish Oil) vit no.95-ferrous 1 tab PO DAILY 12/13/24 10:00 History fumarate 28 mg-folic acid 800 mcg tablet ( Formula) Allergy/AdvReac Type Severity Reaction Status Date / Time No Known Allergies Allergy Verified 12/20/24 13:33 Family History Grandmother Breast cancer Paternal Alzheimer's dementia Maternal Father High cholesterol TIA (transient ischemic attack) Grandfather Parkinsons disease Paternal Surgical History S/P tonsillectomy Social History adopted: No household members: spouse current occupational status: employed current occupation: [employer] pets and animals: Yes pets and animals: dog(s) history of recent travel: Yes ([place] in september) out of state: No out of country: Yes sexually active: Yes Smoking Status: Never smoker alcohol intake: current alcohol intake frequency: other details: once a month - Not while substance use type: does not use well-balanced diet: about half the time caffeine: Yes Type: coffee Number of servings: 1 eating out: 1-3 times/week during the past year weight has: remained stable what type of physical activity do you participate in: walking frequency: 1-2 times per week duration: 30-45 minutes/day yossi/confucianist: Yarsani seatbelt use: always do you feel safe at home: Yes additional social history: - Soraida History 2 Elective abortions Hx Para 0 Spontaneous abortions 1 Hx # Term Pregnancies Ectopic pregnancies Hx # Pregnancies Multiple births # of living children 0 Past Pregnancies Del. Date Name GA/Weeks Outcome Route Bth Weight Infant Gen Labor Lgth Anesthesia Del Jose De Jesusgulshan Provider FOB 03/21/24 chemical Visit Details Expected Delivery Route/Plan Labor Preferences- CB/BF classes: encouraged labor support person: Soraida labor intervention preferences: [] pain management options preferred: epidural cut cord/dad catch: yes : yes PP control planned: discussed discussed possible routes of delivery and associated risks: [] special requests: [] Plans Covid status: [] Flu vaccine: [] Tdap vaccine: [] Rhogam: na LARC form signed: yes Problem list reviewed and updated with the most current plan of care details and appropriate ordersplaced. Relevant counseling for the gestational age provided. Continue routine care and follow up unless otherwise noted in visit notes/problem list details OB Flowsheet Initial Weight: Not Recorded Date -?-?-?-?-?-?-?-?-?-?-?-?- EGA Weight BP Urine Prot -?-?-?-?-?-?-?-?-?-?-?-?- Glucose FHR FuHt Pres Dilation -?-?-?-?-?-?-?-?-?-?-?-?- Effaced St Visit Note 07/04/24 -?-?-?-?-?-?-?-?-?-?-?-?- 9w 2d 300 lb 4 oz 136/94 -?-?-?--?-?-?-?-?-?-?-?-?- 171 -?-?-?-?-?-?-?-?-?-?-?-?- JV- CRL 1.89 and off slightly from LMP however, unable to capture the entire CRL so will not chanege the due date. rpt scan next visit. declines NIPT. patient works here. 08/04/24 -?-?-?-?-?-?-?-?-?-?-?-?- 13w 5d 292 lb 139/75 Negative -?-?-?-?-?-?-?-?-?-?-?-?- Negative 150 -?-?-?-?-?-?-?-?-?-?-?-?- SM- no vb crmapi 08/29/24 -?-?-?-?-?-?-?-?-?-?-?-?- 17w 2d 292 lb 134/82 Negative -?-?-?-?-?-?-?-?-?-?-?--?- Negative 160 -?-?-?-?-?-?-?-?-?-?-?-?- SM- no vb crmapi 09/26/24 -?-?-?-?-?-?-?-?-?-?-?-?- 21w 2d 296 lb 137/83 Negative -?-?-?-?-?-?-?-?-?-?-?-?- Negative 145 -?-?-?-?-?-?-?-?-?-?-?-?- SM- no vb lof go od 10/24/24 -?-?-?-?-?-?-?-?-?-?-?-?- 25w 2d 303 lb 2 oz 142/92 139/83 Negative -?-?-?-?-?-?-?-?-?-?-?-?- Negative 155 -?-?-?-?-?-?-?-?-?-?-?-?- KW- no vb/lof/ct x. good fm 28 week labs next week. Elevated BP today may need to start htn med if continue to be elevated. baseline pre e labs today KW- no vb/lof/ctx. good fm 2 8 week labs next visit. Elevated BP today may need to start htn med if continue to be elevated. baseline pre e labs today 11/15/24 -?-?-?-?-?-?-?-?-?-?-?-?- 28w 3d 306 lb 6 oz 130/74 Nega tive -?-?-?-?-?-?-?-?-?-?-?-?- Negative 146 29 -?-?-?-?-?-?-?-?-?-?-?-?- MH-No VB, LOF. G ood FM. Denies concerns. 28 wk labs. [facility] 11/28/24 -?-?-?-?-?-?-?-?-?-?-?-?- 30w 2d 308 lb 135/89 -?-?-?-?-?-?-?-?-?-?-?-?- 155 31 -?-?-?-?-?-?-?-?-?-?-?-?- KW- no vb/crampi ng. good fm. Has had ALBERT all weekend. Took BP at work and was elevated. Pre e labs sent. second BP was patients normal pressures. denies BV/dizziness, RUQ pain or swelling 12/02/24 -?-?-?-?-?-?-?-?-?-?-?-?- 30w 6d 311 lb 6 oz 137/85 Nega tive -?-?-?-?-?-?-?-?-?-?-?-?- Negative 145 31 -?-?-?-?-?-?-?-?-?-?-?-?- KW- no vb/lof/ct x. good fm. headache is better. labs reviewed. 12/13/24 -?-?-?-?-?-?-?-?-?-?-?-?- 32w 3d 309 lb 6 oz 149/89 -?-?-?-?-?-?-?-?-?-?-?-?- -?-?-?-?-?-?-?-?-?-?-?-?- Phone call from [place] with oligohydramnios and IUGR. To for further eval with Dr Pérez Constitutional Constitutional: Reports systems reviewed and no addt'l complaints, except as documented Gastrointestinal Gastrointestinal: Denies bloating, constipation, cramping, diarrhea, nausea or vomiting Genitourinary Genitourinary: Reports other Details: Denies vaginal odor, vaginal bleeding, or vaginal discharge ; Denies difficulty urinating or flank pain Physical Exam HEENT normocephalic Resp normal respiratory effort and normal air movement no CVA tenderness Extremity normal to inspection General Extremity: edema bilateral (trace ) NST FHR Rate Baby A Baseline: 150 Variability:: Moderate Accelerations:: 15 x 15 Decelerations:: None NST Reactive:: Yes FHR Category:: Category I Assessment & Plan (1) Abnormal test: COMMENT: bpp 4/8- admit over night for continuous monitoring and repeat the bpp in the morning. AFInow 7 (2) Oligohydramnios: QUALIFIERS: Fetus number: single or unspecified fetus Trimester: third trimester Qualified Code(s):O41.03X0 - Oligohydramnios, third trimester, not applicable or unspecified (3) Abnormal glucose in , antepartum: COMMENT: nl 3 hour (4) Elevated BP without diagnosis of hypertension: COMMENT: 10/24/24 Pre E labs nl (5) Obesity affecting : QUALIFIERS: Trimester: third trimester Obesity type affecting : unspecified obesity Qualified Code(s): O99.213 - Obesity complicating , third trimester COMMENT: BMI 41 HgbA1c nl. plan weekly NSTs after 34 and growth US 32 and 36. (6) Supervision of high-risk : QUALIFIERS: Trimester: third trimester Qualified Code(s): O09.93 - Supervision of high risk , unspecified, third trimester COMMENT: PRR, , ALAYNA 02/04/25, Soraida (7) : QUALIFIERS: Weeks of gestation: 32 weeks Qualified Code(s): Z3A.32 - 32 weeks gestation of COMMENT: discussed NIPT, ntd, & carrier testing- declined. nl anatomy Charges/Coding Multi Select Codes Visit Charges Office Visit/Consults: 93729 OV L3 Est 20min Urinary/Genital Urinary/Genital CPT Codes: 76468-72 non-stress test Interp 12/20/24 1645 e Rissa DO> Date _ Nenita Oliva DO Cosigner Signature (if applicable): Date CC: SEASONING MIXER-C Clarissa Cosby; Dr. Nenita Oliva, ~ Signed [facility]03-18-2025 Radiology Diagnostic study note [facility] Imaging Services [address] [place] [id number] Biophysical Prof W/O Non Stres MR#: [id number] Acct: [id number] Name: FRANCISBALTAZAR RICHARD Rep #: [id number] : 1995 F 29 From: Kaitlin Smith MD PCP: JUAN Montilla Status: REG CL I Study:Biophysical Prof W/O Non Stres Date of Exam: 12/20/24 Exam# [id number] Ordering Dr: Belkis Gonzalez MD EXAM: US Second or Third Trimester , Transabdominal CLINICAL INDICATION: WELL BEING TECHNIQUE: Real-time transabdominal obstetrical ultrasound of the maternal pelvis and a second or third trimester with image documentation. COMPARISON: No relevant prior studies available. FINDINGS: FETUS: age 33 weeks and 3 days gestation. GENDER: Female gender. HEART RATE: heart rate 147 beats per minute. PRESENTATION: Cephalic presentation. PLACENTA: Placenta is not low lying anterior. No abruption. AMNIOTIC FLUID: RAMSEY 7.7. movement 0. Gross body movement 2. tone 0. Amniotic fluid 2. BPP 4/8. FREE FLUID: Largest pocket fluid is 3.2 cm. US/Biophysical Prof W/O Non Stres IMPRESSION: BPP 4/8. Reading Location: [facility] CC: JUAN Cosby; Dr. Belkis Pacheco MD ~ Clerical Investigator: Renetta [facility]03-14-2025 Hospital Discharge instructions* Discharge Instr - JACKY* Alva Parker RN - 12/16/2024 4:20 PM EDT Images from the original note were not included. Continuity of Care Form Patient Name: Baltazar Blanco : 1995 Admit date: 12/14/2024 Discharge date: Code Status Order: Full Code Advance Directives: N Admitting Physician: Thelma Ta DO PCP: No primary care provider on file. Discharging Nurse: Discharging Hospital Unit/Room#: H-2204/H-2204 A Discharging Unit Phone Number: Emergency Contact: Extended Emergency Contact Information Primary Emergency Contact: ZunigaIgor lotteron Mobile Relation: Spouse Preferred language: Mexican Administrative Underwriter needed? No Past Surgical History: Past Surgical History: Procedure Laterality Date TONSILLECTOMY Immunization History: Immunization History Administered Date(s) Administered Moderna SARS-CoV-2 Vaccination 09/04/2021, 10/02/2021 Active Problems: Medical Problems Problem List * (Principal) Oligohydramnios, third trimester, not applicable or unspecified Isolation/Infection: No active isolations No active infections Nurse Assessment: Last Vital Signs: BP 133/74 Pulse 92 Temp 36.6 C (97.8 F) (Temporal) Resp 18 Ht 1.803 m (5'11) Wt (!) 140 kg (309 lb) SpO2 98% BMI 43.10 kg/m Last documented pain score (0-10 scale): Last Weight: Wt Readings from Last 1 Encounters: 12/14/24 (!) 140 kg (309 lb) Mental Status: {JACKY Patient Mental Status:29200} IV Access: {JACKY IV Access:87254} Nursing Mobility/ADLs: Walking {MUNA ADL:10392::Independent} Transfer {MUNA ADL:68950::Independent} Bathing {MUNA ADL:89979::Independent} Dressing {MUNA ADL:75949::Independent} Toileting {MUNA ADL:75950::Independent} Feeding {MUNA ADL:::Independent} Diamond Merchant {MUNA ADL:::Independent} Med Delivery {yes/no:81499} Wound Care Documentation and Therapy: Elimination: Continence: Bowel: {yes/no:28587} Bladder: {yes/no:83643} Urinary Catheter: {JACKY Urinary Catheter:99971} Colostomy/Ileostomy/Ileal Conduit: {YES / NO:} Date of Last BM: No intake or output data in the 24 hours ending 12/16/24 1620 No intake/output data recorded. Safety Concerns: {JACKY Safety Concerns:23603} Impairments/Disabilities: {JACKY Impairments/Disabilities:85907} Nutrition Therapy: Current Nutrition Therapy: {JACKY Diet List:85809} Routes of Feeding: {routes of feedin} Liquids: {liquid consistency:25239} Daily Fluid Restriction: {daily fluid restriction:80392} Last Modified Barium Swallow with Video (Video Swallowing Test): {done not done:82066} Treatments at the Time of Hospital Discharge: Respiratory Treatments: Oxygen Therapy: {Therapy; copd oxygen:08896} Ventilator: {JACKY Ventilator:47771} Rehab Therapies: {GEN THERAPY DISCIPLINE SCAL:3982992} Weight Bearing Status/Restrictions: {POD WEIGHT BEARIN} Other Medical Equipment (for information only, NOT a DME order): {Assistive Devices DME:25363} Other Treatments: Patient's personal belongings (please select all that are sent with patient): {JACKY Patient Belongings:12072} RN SIGNATURE: {E-signature:15518} CASE MANAGEMENT/SOCIAL WORK SECTION Inpatient Status Date: Discharging to Facility/ Agency Name: Address: Phone: Fax: Dialysis Facility (if applicable) Name: Address: Dialysis Schedule: Phone: Fax: Human Resources Compliance Manager/Lecturer Of Portuguese signature: {E-signature:36444} PHYSICIAN SECTION Name: Baltazar Barrosalma delia Prognosis: {Rehab Prognosis:61293} Condition at Discharge: {Patient Condition:03902} Rehab Potential (if transferring to Rehab): {Rehab Prognosis:24145} Recommended Labs or Other Treatments After Discharge: The individual is being admitted to a nursing facility directly from an [facility] or a unit of a hospital that is not operated by or licensed by [facility] under section 5119.14 or 5160-3-15.1 5 The individual requires the level of services provided by a nursing facility for the condition for which he or she was treated in the hospital and, Physician Certification: I certify the above information and transfer of Baltazar Blanco is necessary for the continuing treatment of the diagnosis listed and that she requires {JACKY Level of Care:87144} for {greater less than:15576} 30 days. Update Admission H&P: {JACKY Changes in H&P:96717} PHYSICIAN SIGNATURE: {E-signature:15626} documented in this [facility]03-14-2025 [facility] Discharge Summary Admission on 12/14/2024 2:01 PM Baltazar Blanco is a 29 y.o. at 32w4d who presented to Labor and Delivery for oligohydramnios. She was sent in for direct admission. While admitted, speculum exam was performed that ruled out PPROM with nitrazine and ferning negative. While admitted, patient got a growth and BPP that showed baby measuring 1893g 38%tile, AC 46%tile. RAMSEY 4.9cm with DVP of 2.8 cm on 12/15 with BPP 8/8 . Repeat RAMSEY on 12/16 showed RAMSEY 5.7 cm with BPP 8/8. Due to her RAMSEY remaining stable, patient was deemed stable and discharged 12/16. She did receive betamethasone for lung maturity on 12/13-12/14. On discharge, it is recommended that patient performs light duty only for the safety of her . Meds: Medication List CONTINUE taking these medications aspirin 81 MG EC tablet omega-3 acid ethyl esters 1 g capsule Commonly known as: Lovaza 27-1 MG tablet Discharge to: Home Discharge date: 12/16/24 Discharge Dx: Oligohydramnios, cHTN, Abnormal Glucose, Hx PCOS, Asthma, Maternal Obesity Follow up appointment with your doctor/assembly technician - Keep next scheduled appointment Activity - Light duty Call your doctor/assembly technician if you have: - leaking fluid - vaginal bleeding - regular contractions: More than 6 contractions in one hour - decreased movement - worsening abdominal (belly) pain - headache, blurry vision, increased swelling, upper abdominal pain Sasha Barcenas DO 12/16/2024 3:13 [facility] [id number] Hospital course Narrative* Sasha Barcenas DO - 12/16/2024 4:00 PM EDT Images from the original note were not included. Department of Obstetrics and Gynecology [facility] Discharge Summary Admission on 12/14/2024 2:01 PM Baltazar Blanco is a 29 y.o. at 32w4d who presented to Labor and Delivery for oligohydramnios. She was sent in for direct admission. While admitted, speculum exam was performed that ruled out PPROM with nitrazine and ferning negative. While admitted, patient got a growth and BPP that showed baby measuring 1893g 38%tile, AC 46%tile. RAMSEY 4.9cm with DVP of 2.8 cm on 12/15 with BPP 8/8 . Repeat RAMSEY on 12/16 showed RAMSEY 5.7 cm with BPP 8/8. Due to her RAMSEY remaining stable, patient was deemed stable and discharged 12/16. She did receive betamethasone for lung maturity on 12/13-12/14. On discharge, it is recommended that patient performs light duty only for the safety of her . Meds: Medication List CONTINUE taking these medications aspirin 81 MG EC tablet omega-3 acid ethyl esters 1 g capsule Commonly known as: Lovaza 27-1 MG tablet Discharge to: Home Discharge date: 12/16/24 Discharge Dx: Oligohydramnios, cHTN, Abnormal Glucose, Hx PCOS, Asthma, Maternal Obesity Follow up appointment with your doctor/assembly technician - Keep next scheduled appointment Activity - Light duty Call your doctor/assembly technician if you have: - leaking fluid - vaginal bleeding - regular contractions: More than 6 contractions in one hour - decreased movement - worsening abdominal (belly) pain - headache, blurry vision, increased swelling, upper abdominal pain Sasha Barcenas DO 12/16/2024 3:13 PM Cosigned by Vianca Howell DO at 12/16/2024 5:16 PM EDT documented in this [facility]03-14-2025 History of Present illness Narrative* Unique Nolen - 12/16/2024 12:29 PM EDT Nutrition rescreen completed. Chart reviewed. Patient to be monitored and followed by the diet orthotics technician. Unique Nolen DT * Lucy Eller DO - 12/16/2024 6:30 AM EDT Images from the original note were not included. Maternal Medicine Service Resident Progress Note 12/16/2024 6:30 AM 12/14/2024 Hospital Day: 3 Baltazar Francis, 29 y.o. 32w6d Patient has been seen and examined. Pt doing well with no complaints this am. Positive movement Positive vaginal bleeding Positive LOF Negative Contractions Vitals: 12/15/24 0900 12/15/24 1212 12/15/24 1617 12/15/242021 BP: 129/61 115/62 122/71 Pulse: 80 98 80 83 Resp: 18 18 17 Temp: 36.6 C (97.8 F) 36.3 C (97.4 F) 36.7 C (98 F) TempSrc: Temporal Temporal Oral SpO2: 97% 97% Weight: Height: FHT: 150, moderate variability Accels: present Decels: absent Contractions: none Physical Exam: Gen: NAD, resting comfortably in bed HEENT: Normocephalic, Atraumatic Resp: No increased WOB, no respiratory distress Card: Regular rate Medications: Current Facility-Administered Medications Medication Dose Route Frequency Provider Last Rate Last Admin acetaminophen (Tylenol) tablet 650 mg 650 mg Oral q4h PRN Lucy Eller DO 650 mg at 12/14/24 1628 aspirin EC tablet 162 mg 162 mg Oral Daily Lucy Eller DO 162 mg at 03/13/25 0928 Lidocaine 4 % patch 1 patch 1 patch TransDERmal Daily Lucy Artwu, DO 1 patch at 12/15/24927 ondansetron ODT (Zofran-ODT) disintegrating tablet 4 mg 4 mg Oral q8h PRN Lucy Srinivasanu, DO Or ondansetron (Zofran) injection 4 mg 4 mg IntraVENous q6h PRN Lucy Artwu, DO vitamin tablet 1 tablet Oral Daily Lucyzach Artwu, DO 1 tablet at 12/15/24927 sodium chloride 0.9 % infusion 5-250 mL/hr IntraVENous PRN Lucy Srinivasanu, DO sodium chloride 0.9% (NS) flush 10 mL 10 mL IntraVENous 2 times per day Lucy Eller, DO 10 mL at 12/15/242021 sodium chloride 0.9% (NS) flush 10 mL 10 mL IntraVENous PRN Lucy Artwu, DO Assessment/Plan: Baltazar Blanco is a 29 y.o. female 32w6d Oligohydramnios - Transported from OSH secondary to new onset oligohydramnios - Patient was noted to have RAMSEY of 4.0 with negative ROM exam on 12/13 - Patient then had repeat RAMSEY 12/14 noted to have RAMSEY 2.6cm - Growth (12/13): 1795g +/- 269g , RAMSEY 4.3 - BPP (12/14): BPP 6/8 off for fluid. RAMSEY 4.8; Repeat RAMSEY 2.6cm - Repeat ROM exam in triage noted to be negative for pooling, ferning, and nitrazine - Patient admitted for Oligohydramnios - Growth/Anatomy/BPP (12/15): 1893 gm 4 lb 3 oz 38 % 46%, RAMSEY 4.9, DVP 2.8cm - S/P BMZ for lung protection on 12/13-12/14 - Plan for repeat RAMSEY this AM - Monitoring 1hr TID - NICU consult placed cHTN - Several elevated Bps upon review of appt before 20 weeks - BP mild range on 12/13 - Baseline PreE labs obtained on 12/13 WNL - PReE labs negative on admission - BP NT overnight - Asymptomatic Abnormal Glucose - Failed 1 hr, passed 3 hr Hx PCOS - Was on metformin, currently not taking Asthma - Childhood - No history of hospitalizations or intubations Maternal Obesity - BMI 42 - SCDs ordered IUP @ 32w6d - Dating by 9w2 US - Cephalic on 12/14 - Monitoring:CEFM - Diet:General - BMZ x2 on 12/12 - 12/13 Further plan pending d/w attending. Lucy Eller DO 12/16/2024, 6:30 AM Cosigned by Vianca Howell DO at 12/16/2024 4:42 PM EDT Associated attestation - Vianca Howell DO - 12/16/2024 4:42 PM EDT Hospital Care (Present): I was present with the MFM resident during my history and exam. I discussed the case with the resident and agree with the findings and plan as documented in the resident's note. 29 y.o. yo at 32w6d hospital day 2 with: Patient Active Problem List Diagnosis Oligohydramnios, third trimester, not applicable or unspecified Hx CHTN, one mild range since admission, the rest were <140/90. Medication not indicated at thistime. Improved RAMSEY 5.7cm, DVP 3.2cm. FHR tracing reassuring. Recommend outpt management with twice weekly testing including RAMSEY, daily kick counts. Return precautions reviewed (DVP < 2cm, LOF, VB, decreased movement). Chart review and preparation: 10 minutes. Face to face: 10 minutes. Documentation and care coordination: 10 minutes. Total time spent on patient care today: 30 minutes. * Sasha Barcenas DO - 12/15/2024 6:18 AM EDT Images from the original note were not included. Maternal Medicine Service Resident Progress Note 12/15/2024 6:19 AM 12/14/2024 Hospital Day: 2 Baltazar Blanco, 29 y.o. 32w5d Patient has been seen and examined. Pt is doing well this AM with no concerns. Positive movement Negative vaginal bleeding Negative LOF Negative Contractions Vitals: 12/14/24202812/14/24 2100 12/14/24 2200 12/14/24 2300 BP: 133/70 Pulse: 88 93 88 85 Resp: 16 Temp: 37.2 C (99 F) TempSrc: Temporal SpO2: 100% Weight: Height: Tracing reviewed from 6107-8161 FHT: 140, moderate variability Accels: present Decels: absent Contractions: none Physical Exam: Gen: NAD HEENT: Normocephalic, Atraumatic, EOMI, MMM Resp: Equal chest rise bilaterally Abd: soft, gravid, NTND, no rebound, no guarding. No fundal tenderness Ext: No LE edema, no calf tenderness or swelling Medications: Current Facility-Administered Medications Medication Dose Route Frequency Provider Last Rate Last Admin acetaminophen (Tylenol) tablet 650 mg 650 mg Oral q4h PRN Lucy Eller, DO 650 mg at 12/14/24 1628 aspirin EC tablet 162 mg 162 mg Oral Daily Lucy Eller, DO 162 mg at 12/14/24 1628 lactated Ringer's infusion 75 mL/hr IntraVENous Continuous Lucy Eller DO 75 mL/hr at 12/14/24 1658 75 mL/hr at 12/14/24 1658 Lidocaine 4 % patch 1 patch 1 patch TransDERmal Daily Lucy Eller, DO 1 patch at 12/14/24 1629 ondansetron ODT (Zofran-ODT) disintegrating tablet 4 mg 4 mg Oral q8h PRN Lucy Eller, DO Or ondansetron (Zofran) injection 4 mg 4 mg IntraVENous q6h PRN Lucy Srinivasanu, DO vitamin tablet 1 tablet Oral Daily Lucy Eller, DO 1 tablet at 12/14/24 1627 sodium chloride 0.9 % infusion 5-250 mL/hr IntraVENous PRN Lucy Eller, DO sodium chloride 0.9% (NS) flush 10 mL 10 mL IntraVENous 2 times per day Lucy Eller DO sodium chloride 0.9% (NS) flush 10 mL 10 mL IntraVENous PRN Lucy Eller DO Assessment/Plan: Baltazar Blanco is a 29 y.o. female 32w5d Oligohydramnios - Transported from OSH secondary to new onset oligohydramnios - Patient was noted to have RAMSEY of 4.0 with negative ROM exam on 12/13 - Patient then had repeat RAMSEY 12/14 noted to have RAMSEY 2.6cm - Growth (12/13): 1795g +/- 269g , RAMSEY 4.3 - BPP (12/14): BPP 6/8 off for fluid. RAMSEY 4.8; Repeat RAMSEY 2.6cm - Repeat ROM exam in triage noted to be negative for pooling, ferning, and nitrazine - Patient admitted for Oligohydramnios - Plan for formal anatomy, growth, BPP on 12/15 - Patient to be on CEFM; consider descalating this AM - S/P BMZ for lung protection on 12/13-12/14 - NICU consult placed cHTN - Several elevated Bps upon review of appt before 20 weeks - BP mild range on 12/13 - Baseline PreE labs obtained on 12/13 WNL - PReE labs negative on admission - BP NT overnight - Asymptomatic Abnormal Glucose - Failed 1 hr, passed 3 hr Hx PCOS - Was on metformin, currently not taking Asthma - Childhood - No history of hospitalizations or intubations Maternal Obesity - BMI 42 - SCDs ordered IUP @ 32w5d - Dating by 9w2d US - Cephalic on 12/14 - Monitoring:CEFM - Diet:General - BMZ x2 on 12/12 - 12/13 Further plan pending d/w attending. Sasha Barcenas DO 12/15/2024, 6:19 AM Cosigned by Vianca Howell DO at 12/15/2024 4:23 PM EDT Associated attestation - Vianca Howell DO - 12/15/2024 4:23 PM EDT Hospital Care (Present): I was present with the MFM resident during my history and exam. I discussed the case with the resident and agree with the findings and plan as documented in the resident's note. 29 y.o. yo at 32w5d hospital day 1 with: Patient Active Problem List Diagnosis Oligohydramnios, third trimester, not applicable or unspecified DVP> 2 cm. FHR reassuring. Plan for 1 hour FHR TID. Repeat RAMSEY tomorrow. If DVP > 2 cm and FHR remains reassuring, plan to dc to home with twice weekly outpt follow-up. IF no 2cm DVP or FHR concerns, will continue inpt management. Chart review and preparation: 10 minutes. Face to face: 13 minutes. Documentation and care coordination: 10 minutes. Total time spent on patient care today: 33 minutes. * Sasha Barcenas DO - 12/14/2024 3:06 PM EDT Images from the original note were not included. Department of Obstetrics and Gynecology Labor and Delivery Triage Note CHIEF COMPLAINT: Oligo HISTORY OF PRESENT ILLNESS: The patient is a 30 y.o. 32w4d. OB History 1 Para Term AB Living SAB IAB Ectopic Multiple Live Births Patient seen in triage for Oligohydramnios diagnosed on 12/13. Patient sent in for a direct admit. She was seen in OB triage first to rule out PPROM. Denies ongoing leakage of fluid, DFM, vaginal bleeding. Estimated Due Date: Estimated Date of Delivery: 02/04/25 REVIEW OF SYSTEMS: Pertinent items are noted in HPI. APPEARANCE: Pain: no PHYSICAL EXAM: Vital Signs: VS wnl-reviewed/Respirations normal effort Vitals: 12/14/24 1427 BP: 117/79 Pulse: 100 Resp: 16 Temp: 37 C (98.6 F) TempSrc: Oral SpO2: 97% Weight: (!) 309 lb (140 kg) Height: 5' 11 (1.803 m) Speculum Exam: no pooling of fluid seen, Nitrizine test is negative, Ferning test is negative heart rate: Category I Cervix: visually closed Membranes: Intact BSUS: vertex presentation IMPRESSION: Oligohydramnios DISCUSSED WITH PNC PROVIDER: Dr. Howell DISPOSITION: Admit to L&D Cosigned by Thelma Ta DO at 12/14/2024 6:54 PM EDT documented in this [facility]03-13-2025 Miscellaneous Notes* Care Coordination - Sandi Fine RN - 12/15/2024 2:12 PM EDT Date: 12/15/2024 Name: Baltazar Blanco : 1995 [facility] Patient Information Primary Caregiver: Self Accompanied by/Relationship: S/O;Family Marital Status: Support System: SO/Family Muslim/Cultural Factors: Yarsani Activities of Daily Living Communication: See demographics Living Arrangements Current Residence: Private residence Lives With: S/O; Family Support System: S/O; Family Income Information Income Source: Employed Financial Resource Strain How hard is it for you to pay for the very basics like food, housing, medical care and heating? N/A Housing Stability In the last 12 months, was there a time when you did not have a steady place to sleep or slept in ashelter (including now)? No Transportation Needs Has the lack of Transportation kept you from medical appointments? No In the past 12 months, has the lack of transportation kept you from meetings, work, or from gettingthings needed for daily living? No Food Insecurity Within the past 12 months, have you worried that your food would run out before you got the money to buy more? No Stress Do you feel stress - tense, restless, nervous, or anxious, or unable to sleep at night because you mind is troubled all the time? Mood stable Referral To Financial Resources: N/A Community Resources: PNU folder given upon admission to PNU Unit Social Work: N/A CLP: N/A Medical Information 29 year old admitted for oligohydramnios at 32/4 weeks. Transport Chronic hypertension Discharge Plan Home or Community Resources: PNU Admission folder given upon admission to unit Equipment: N/A Education Given: PNU admit folder and see Education Tab Additional Information: N/A Mental Health Services: N/A Developmental Delay: N/A Children's Services: N/A documented in this [facility]03-13-2025 Note* Care Coordination - Sandi Fine RN - 12/15/2024 2:12 PM EDT Date: 12/15/2024 Name: Baltazar Blanco : 1995 [facility] Information [place] Patient Information Primary Caregiver: Self Accompanied by/Relationship: S/O;Family Marital Status: Support System: SO/Family Muslim/Cultural Factors: Yarsani Activities of Daily Living Communication: See demographics Living Arrangements Current Residence: Private residence Lives With: S/O; Family Support System: S/O; Family Income Information Income Source: Employed Financial Resource Strain How hard is it for you to pay for the very basics like food, housing, medical care and heating? N/A Housing Stability In the last 12 months, was there a time when you did not have a steady place to sleep or slept in ashelter (including now)? No Transportation Needs Has the lack of Transportation kept you from medical appointments? No In the past 12 months, has the lack of transportation kept you from meetings, work, or from gettingthings needed for daily living? No Food Insecurity Within the past 12 months, have you worried that your food would run out before you got the money to buy more? No Stress Do you feel stress - tense, restless, nervous, or anxious, or unable to sleep at night because you mind is troubled all the time? Mood stable Referral To Financial Resources: N/A Community Resources: PNU folder given upon admission to PNU Unit Social Work: N/A CLP: N/A Medical Information 29 year old admitted for oligohydramnios at 32/4 weeks. Transport Chronic hypertension Discharge Plan Home or Community Resources: PNU Admission folder given upon admission to unit Equipment: N/A Education Given: PNU admit folder and see Education Tab Additional Information: N/A Mental Health Services: N/A Developmental Delay: N/A Children's Services: N/A [id number]* Care Coordination - Sandi Fine RN - 12/15/2024 2:12 PM EDT Date: 12/15/2024 Name: Baltazar Blanco : 1995 [facility] Information [place] Patient Information Primary Caregiver: Self Accompanied by/Relationship: S/O;Family Marital Status: Support System: SO/Family Muslim/Cultural Factors: Yarsani Activities of Daily Living Communication: See demographics Living Arrangements Current Residence: Private residence Lives With: S/O; Family Support System: S/O; Family Income Information Income Source: Employed Financial Resource Strain How hard is it for you to pay for the very basics like food, housing, medical care and heating? N/A Housing Stability In the last 12 months, was there a time when you did not have a steady place to sleep or slept in ashelter (including now)? No Transportation Needs Has the lack of Transportation kept you from medical appointments? No In the past 12 months, has the lack of transportation kept you from meetings, work, or from gettingthings needed for daily living? No Food Insecurity Within the past 12 months, have you worried that your food would run out before you got the money to buy more? No Stress Do you feel stress - tense, restless, nervous, or anxious, or unable to sleep at night because you mind is troubled all the time? Mood stable Referral To Financial Resources: N/A Community Resources: PNU folder given upon admission to PNU Unit Social Work: N/A CLP: N/A Medical Information 29 year old admitted for oligohydramnios at 32/4 weeks. Transport Chronic hypertension Discharge Plan Home or Community Resources: PNU Admission folder given upon admission to unit Equipment: N/A Education Given: PNU admit folder and see Education Tab Additional Information: N/A Mental Health Services: N/A Developmental Delay: N/A Children's Services: N/A [id number] History and physical note* Sasha Narinder, - 12/14/2024 2:15 PM EDT Department of Maternal Medicine History and Physical CHIEF COMPLAINT: Oligohydramnios HISTORY OF PRESENT ILLNESS: The patient is a 30 y.o. female at 32w4d. OB History 1 Para Term AB Living SAB IAB Ectopic Multiple Live Births Patient presents with a chief complaint as above and is being admitted for oligohydramnios. Patientseen in triage for Oligohydramnios diagnosed on 12/13. Patient sent in for a direct admit. She was seen in OB triage first to rule out PPROM. Denies ongoing leakage of fluid, DFM, vaginal bleeding. Patient reports several elevated Bps, but states that she was never diagnosed with tHTN, gHTN or cHTN. She denies ALBERT/VC/SOB/RUQ pain. Upon review of records, noted that patient had several elevated Bps before 20 weeks gestation. She did receive BMZ 12/13 and 12/14. She is taking bASA and PNV. No surgical history. Transport: Yes Prior Hospitalizations: No Estimated Due Date: Estimated Date of Delivery: 02/04/25 CARE: Complications: See below PAST OB HISTORY: OB History 1 Para Term AB Living SAB IAB Ectopic Multiple Live Births Detailed OB History SAB Current Past Medical History: History reviewed. No pertinent past medical history. Past Surgical History: History reviewed. No pertinent surgical history. Allergies: Patient has no known allergies. Social History: Social History Socioeconomic History Marital status: Spouse name: Not on file Number of children: Not on file Years of education: Not on file Highest education level: Not on file Occupational History Not on file Tobacco Use Smoking status: Never Smokeless tobacco: Never Vaping Use Vaping status: Never Used Substance and Sexual Activity Alcohol use: Not Currently Drug use: Never Sexual activity: Not on file Other Topics Concern Not on file Social History Narrative Not on file Social Drivers of Health Financial Resource Strain: Not on file Food Insecurity: Not on file Transportation Needs: Not on file Physical Activity: Not on file Stress: Not on file Social Connections: Not on file Intimate Partner Violence: Not on file Housing Stability: Not on file Family History: No family history on file. Medications Prior to Admission: Medications Prior to Admission Medication Sig Dispense Refill Last Dose/Taking aspirin 81 MG EC tablet Take 81 mg by mouth daily. Past Week omega-3 acid ethyl esters (Lovaza) 1 g capsule Take 1 g by mouth daily. Past Week 27-1 MG tablet Take 1 tablet by mouth daily. Past Week REVIEW OF SYSTEMS: Review of Systems Constitutional: Negative for chills and fever. Respiratory: Negative for apnea and shortness of breath. Cardiovascular: Negative for chest pain and palpitations. Gastrointestinal: Negative for abdominal pain, nausea and vomiting. Genitourinary: Negative for dysuria and hematuria. Psychiatric/Behavioral: Negative for agitation and confusion. Labs: CBC: No results found for: WBC, RBC, HGB, HCT, MCV, MCH, MCHC, RDW, PLT, MPV and CMP: No results found for: NA, K, CL, CO2, BUN, CREATININE, AGRATIO, LABGLOM, GLUCOSE, GLU, PROT, CALCIUM, BILITOT, ALKPHOS, AST, ALT PHYSICAL EXAM: Vitals: 12/14/24 1427 BP: 117/79 Pulse: 100 Resp: 16 Temp: 37 C (98.6 F) TempSrc: Oral SpO2: 97% Weight: (!) 309 lb (140 kg) Height: 5' 11 (1.803 m) General appearance: awake, alert, cooperative, no apparent distress, and appears stated age Neurologic: Awake, alert, oriented to name, place and time. Lungs: No increased work of breathing, good air exchange Abdomen: Soft, non tender, gravid, consistent with her gestational age Sterile Speculum Exam: Membranes: Intact HSV Lesions: not applicable Cervix: visually closed Contraction frequency: none Fetus: EFW: 12/13 1795g +/- 269g , RAMSEY 4.3 Presentation: vertex by U/S NST: Reactive BPP: Not Performed ASSESSMENT AND PLAN: LABOR DELIVERY ??? SCD's ONLY (labor through ambulation) SCD's PLUS Prophylactic Anticoagulation until discharge SCD's PLUS Prophylactic Anticoagulation for 6 weeks SCD's PLUS Therapeutic Anticoagulation for 6 weeks Vaginal Delivery [] BMI >= 40 kg/m2 Delivery All patients Vaginal Delivery [] BMI >= 40 kg/m2 AND [] Antepartum hospitalization >= 72 hours within the past month Delivery 1 Major Risk Factor: [] BMI >= 35 kg/m2 [] Low Risk Thrombophilia [] PPH+RBCs, IR, or operation [] Infection+Antibiotics [] Antepartum hospitalization >= 72 hours within the past month [] PMH: Sickle Cell, SLE, Cardiac Dz, Active IBD, Active Cancer, Nephrotic Syndrome OR 2 Minor Risk Factors: [] Multiple gestation [] Age > 40 [] PPH >= 1,000cc [] (+)FMH of VTE [] Smoker [] Preeclampsia [] BMI >= 40 kg/m2 AND [] Low Risk Thrombophilia OR ANY OF THE FOLLOWING: [] High Risk Thrombophilia without prior VTE [] Low Risk Thrombophilia with (+)FMH of VTE [] Any single prior VTE ANY OF THE FOLLOWING: [] Already on LMWH/UFH [] Multiple prior VTE [] High Risk Thrombophilia with prior VTE Low Risk Thrombophilia: FVL (heterozygous), Prothrombin (heterozygous), Protein C, Protein S High Risk Thrombophilia: FVL (homozygous), Prothrombin (homozygous), FVL+Prothrombin (heterozygous), Antithrombin III, APLS VTE Prophylaxis: SCDs Admission: Admit to Antepartum (PNU) FHR: Category 1, heart monitoring CEFM Labs: GBS collected GC/CT collected Urine collected FFN not obtained Type&Screen collected Serum Labs CBC, CMP Consults: Neonatology Imaging: Indicated/ordered Growth and BPP 12/15 Diet: General Testing: BPP twice weekly Timing and Route of Delivery: TBD Medications: Neuroprotection Not indicated Tocolysis Not indicated Antibiotics Not indicated Steroids: Betamethasone - Given 12/13-12/14 Oligohydramnios - Transported from OSH secondary to new onset oligohydramnios - Patient was noted to have RAMSEY of 4.0 with negative ROM exam on 12/13 - Patient then had repeat RAMSEY 12/14 noted to have RAMSEY 2.6cm - Growth (12/13): 1795g +/- 269g , RAMSEY 4.3 - BPP (12/14): BPP 6/8 off for fluid. RAMSEY 4.8; Repeat RAMSEY 2.6cm - Repeat ROM exam in triage noted to be negative for pooling, ferning, and nitrazine - Patient admitted for Oligohydramnios - Plan for formal anatomy, growth, BPP on 12/15 - Patient to be on CEFM - S/P BMZ for lung protection on 12/13-12/14 - NICU consult placed cHTN - Several elevated Bps upon review of appt before 20 weeks - BP mild range on 12/13 - Baseline PreE labs obtained on 12/13 WNL - PReE labs ordered on admission - BP NT on admission - Asymptomatic Abnormal Glucose - Failed 1 hr, passed 3 hr Hx PCOS - Was on metformin, currently not taking Asthma - Childhood - No history of hospitalizations or intubations Maternal Obesity - BMI 42 - SCDs ordered IUP @ 32w4d - Dating by 9w2d US - Cephalic on 12/14 - Monitoring:CEFM - Diet:General - BMZ x2 on 12/12 - 12/[address] Howell, who agrees with plan. Lucy Eller DO 12/14/2024, 3:09 PM Cc: Thelma Ta DO Cosigned by Vianca Howell DO at 12/15/2024 4:17 PM EDT Associated attestation - Vianca Howell DO - 12/15/2024 4:17 PM EDT Attending Supervising Physician's Attestation Statement Patient admitted while I was precision grinder. I discussed the management with the resident physician. I reviewed and agree with the findings and plan as documented in the note. [id number] Note Attestation signed by Vianca Howell DO at 12/15/2024 4:17 PM Attending Supervising Physician's Attestation Statement Patient admitted while I was precision grinder. I discussed the management with the resident physician. I reviewed and agree with the findings and plan as documented in the note. Department of Maternal Medicine History and Physical CHIEF COMPLAINT: Oligohydramnios HISTORY OF PRESENT ILLNESS: The patient is a 30 y.o. female at 32w4d. OB History 1 Para Term AB Living SAB IAB Ectopic Multiple Live Births Patient presents with a chief complaint as above and is being admitted for oligohydramnios. Patient seen in triage for Oligohydramnios diagnosed on 12/13. Patient sent in for a direct admit. She was seen in OB triage first to rule out PPROM. Denies ongoing leakage of fluid, DFM, vaginal bleeding. Patient reports several elevated Bps, but states that she was never diagnosed with tHTN, gHTN or cHTN. She denies ALBERT/VC/SOB/RUQ pain. Upon review of records, noted that patient had several elevated Bps before 20 weeks gestation. She did receive BMZ 12/13 and 12/14. She is taking bASA and PNV. No surgical history. Transport: Yes Prior Hospitalizations: No Estimated Due Date: Estimated Date of Delivery: 02/04/25 CARE: Complications: See below PAST OB HISTORY: OB History 1 Para Term AB Living SAB IAB Ectopic Multiple Live Births Detailed OB History SAB Current Past Medical History: History reviewed. No pertinent past medical history. Past Surgical History: History reviewed. No pertinent surgical history. Allergies: Patient has no known allergies. Social History: Social History Socioeconomic History Marital status: Spouse name: Not on file Number of children: Not on file Years of education: Not on file Highest education level: Not on file Occupational History Not on file Tobacco Use Smoking status: Never Smokeless tobacco: Never Vaping Use Vaping status: Never Used Substance and Sexual Activity Alcohol use: Not Currently Drug use: Never Sexual activity: Not on file Other Topics Concern Not on file Social History Narrative Not on file Social Drivers of Health Financial Resource Strain: Not on file Food Insecurity: Not on file Transportation Needs: Not on file Physical Activity: Not on file Stress: Not on file Social Connections: Not on file Intimate Partner Violence: Not on file Housing Stability: Not on file Family History: No family history on file. Medications Prior to Admission: Medications Prior to Admission Medication Sig Dispense Refill Last Dose/Taking aspirin 81 MG EC tablet Take 81 mg by mouth daily. Past Week omega-3 acid ethyl esters (Lovaza) 1 g capsule Take 1 g by mouth daily. Past Week 27-1 MG tablet Take 1 tablet by mouth daily. Past Week REVIEW OF SYSTEMS: Review of Systems Constitutional: Negative for chills and fever. Respiratory: Negative for apnea and shortness of breath. Cardiovascular: Negative for chest pain and palpitations. Gastrointestinal: Negative for abdominal pain, nausea and vomiting. Genitourinary: Negative for dysuria and hematuria. Psychiatric/Behavioral: Negative for agitation and confusion. Labs: CBC: No results found for: WBC, RBC, HGB, HCT, MCV, MCH, MCHC, RDW, PLT, MPV and CMP: No results found for: NA, K, CL, CO2, BUN, CREATININE, AGRATIO, LABGLOM, GLUCOSE, GLU, PROT, CALCIUM, BILITOT, ALKPHOS, AST, ALT PHYSICAL EXAM: Vitals: 12/14/24 1427 BP: 117/79 Pulse: 100 Resp: 16 Temp: 37 ?C (98.6 ?F) TempSrc: Oral SpO2: 97% Weight: (!) 309 lb (140 kg) Height: 5' 11 (1.803 m) General appearance: awake, alert, cooperative, no apparent distress, and appears stated age Neurologic: Awake, alert, oriented to name, place and time. Lungs: No increased work of breathing, good air exchange Abdomen: Soft, non tender, gravid, consistent with her gestational age Sterile Speculum Exam: Membranes: Intact HSV Lesions: not applicable Cervix: visually closed Contraction frequency: none Fetus: EFW: 12/13 1795g +/- 269g , RAMSEY 4.3 Presentation: vertex by U/S NST: Reactive BPP: Not Performed ASSESSMENT AND PLAN: LABOR DELIVERY ??? SCD's ONLY (labor through ambulation) SCD's PLUS Prophylactic Anticoagulation until discharge SCD's PLUS Prophylactic Anticoagulation for 6 weeks SCD's PLUS Therapeutic Anticoagulation for 6 weeks Vaginal Delivery [] BMI >= 40 kg/m2 Delivery All patients Vaginal Delivery [] BMI >= 40 kg/m2 AND (more content not included)...[facility]03-12-2025 History and physical note* Sasha Barcenas, DO - 12/14/2024 2:15 PM EDT Department of Maternal Medicine History and Physical CHIEF COMPLAINT: Oligohydramnios HISTORY OF PRESENT ILLNESS: The patient is a 30 y.o. female at 32w4d. OB History 1 Para Term AB Living SAB IAB Ectopic Multiple Live Births Patient presents with a chief complaint as above and is being admitted for oligohydramnios. Patientseen in triage for Oligohydramnios diagnosed on 12/13. Patient sent in for a direct admit. She was seen in OB triage first to rule out PPROM. Denies ongoing leakage of fluid, DFM, vaginal bleeding. Patient reports several elevated Bps, but states that she was never diagnosed with tHTN, gHTN or cHTN. She denies ALBERT/VC/SOB/RUQ pain. Upon review of records, noted that patient had several elevated Bps before 20 weeks gestation. She did receive BMZ 12/13 and 12/14. She is taking bASA and PNV. No surgical history. Transport: Yes Prior Hospitalizations: No Estimated Due Date: Estimated Date of Delivery: 02/04/25 CARE: Complications: See below PAST OB HISTORY: OB History 1 Para Term AB Living SAB IAB Ectopic Multiple Live Births Detailed OB History SAB Current Past Medical History: History reviewed. No pertinent past medical history. Past Surgical History: History reviewed. No pertinent surgical history. Allergies: Patient has no known allergies. Social History: Social History Socioeconomic History Marital status: Spouse name: Not on file Number of children: Not on file Years of education: Not on file Highest education level: Not on file Occupational History Not on file Tobacco Use Smoking status: Never Smokeless tobacco: Never Vaping Use Vaping status: Never Used Substance and Sexual Activity Alcohol use: Not Currently Drug use: Never Sexual activity: Not on file Other Topics Concern Not on file Social History Narrative Not on file Social Drivers of Health Financial Resource Strain: Not on file Food Insecurity: Not on file Transportation Needs: Not on file Physical Activity: Not on file Stress: Not on file Social Connections: Not on file Intimate Partner Violence: Not on file Housing Stability: Not on file Family History: No family history on file. Medications Prior to Admission: Medications Prior to Admission Medication Sig Dispense Refill Last Dose/Taking aspirin 81 MG EC tablet Take 81 mg by mouth daily. Past Week omega-3 acid ethyl esters (Lovaza) 1 g capsule Take 1 g by mouth daily. Past Week 27-1 MG tablet Take 1 tablet by mouth daily. Past Week REVIEW OF SYSTEMS: Review of Systems Constitutional: Negative for chills and fever. Respiratory: Negative for apnea and shortness of breath. Cardiovascular: Negative for chest pain and palpitations. Gastrointestinal: Negative for abdominal pain, nausea and vomiting. Genitourinary: Negative for dysuria and hematuria. Psychiatric/Behavioral: Negative for agitation and confusion. Labs: CBC: No results found for: WBC, RBC, HGB, HCT, MCV, MCH, MCHC, RDW, PLT, MPV and CMP: No results found for: NA, K, CL, CO2, BUN, CREATININE, AGRATIO, LABGLOM, GLUCOSE, GLU, PROT, CALCIUM, BILITOT, ALKPHOS, AST, ALT PHYSICAL EXAM: Vitals: 12/14/24 1427 BP: 117/79 Pulse: 100 Resp: 16 Temp: 37 C (98.6 F) TempSrc: Oral SpO2: 97% Weight: (!) 309 lb (140 kg) Height: 5' 11 (1.803 m) General appearance: awake, alert, cooperative, no apparent distress, and appears stated age Neurologic: Awake, alert, oriented to name, place and time. Lungs: No increased work of breathing, good air exchange Abdomen: Soft, non tender, gravid, consistent with her gestational age Sterile Speculum Exam: Membranes: Intact HSV Lesions: not applicable Cervix: visually closed Contraction frequency: none Fetus: EFW: 12/13 1795g +/- 269g , RAMSEY 4.3 Presentation: vertex by U/S NST: Reactive BPP: Not Performed ASSESSMENT AND PLAN: LABOR DELIVERY ??? SCD's ONLY (labor through ambulation) SCD's PLUS Prophylactic Anticoagulation until discharge SCD's PLUS Prophylactic Anticoagulation for 6 weeks SCD's PLUS Therapeutic Anticoagulation for 6 weeks Vaginal Delivery [] BMI >= 40 kg/m2 Delivery All patients Vaginal Delivery [] BMI >= 40 kg/m2 AND [] Antepartum hospitalization >= 72 hours within the past month Delivery 1 Major Risk Factor: [] BMI >= 35 kg/m2 [] Low Risk Thrombophilia [] PPH+RBCs, IR, or operation [] Infection+Antibiotics [] Antepartum hospitalization >= 72 hours within the past month [] PMH: Sickle Cell, SLE, Cardiac Dz, Active IBD, Active Cancer, Nephrotic Syndrome OR 2 Minor Risk Factors: [] Multiple gestation [] Age > 40 [] PPH >= 1,000cc [] (+)FMH of VTE [] Smoker [] Preeclampsia [] BMI >= 40 kg/m2 AND [] Low Risk Thrombophilia OR ANY OF THE FOLLOWING: [] High Risk Thrombophilia without prior VTE [] Low Risk Thrombophilia with (+)FMH of VTE [] Any single prior VTE ANY OF THE FOLLOWING: [] Already on LMWH/UFH [] Multiple prior VTE [] High Risk Thrombophilia with prior VTE Low Risk Thrombophilia: FVL (heterozygous), Prothrombin (heterozygous), Protein C, Protein S High Risk Thrombophilia: FVL (homozygous), Prothrombin (homozygous), FVL+Prothrombin (heterozygous), Antithrombin III, APLS VTE Prophylaxis: SCDs Admission: Admit to Antepartum (PNU) FHR: Category 1, heart monitoring CEFM Labs: GBS collected GC/CT collected Urine collected FFN not obtained Type&Screen collected Serum Labs CBC, CMP Consults: Neonatology Imaging: Indicated/ordered Growth and BPP 12/15 Diet: General Testing: BPP twice weekly Timing and Route of Delivery: TBD Medications: Neuroprotection Not indicated Tocolysis Not indicated Antibiotics Not indicated Steroids: Betamethasone - Given 12/13-12/14 Oligohydramnios - Transported from OSH secondary to new onset oligohydramnios - Patient was noted to have RAMSEY of 4.0 with negative ROM exam on 12/13 - Patient then had repeat RAMSEY 12/14 noted to have RAMSEY 2.6cm - Growth (12/13): 1795g +/- 269g , RAMSEY 4.3 - BPP (12/14): BPP 6/8 off for fluid. RAMSEY 4.8; Repeat RAMSEY 2.6cm - Repeat ROM exam in triage noted to be negative for pooling, ferning, and nitrazine - Patient admitted for Oligohydramnios - Plan for formal anatomy, growth, BPP on 12/15 - Patient to be on CEFM - S/P BMZ for lung protection on 12/13-12/14 - NICU consult placed cHTN - Several elevated Bps upon review of appt before 20 weeks - BP mild range on 12/13 - Baseline PreE labs obtained on 12/13 WNL - PReE labs ordered on admission - BP NT on admission - Asymptomatic Abnormal Glucose - Failed 1 hr, passed 3 hr Hx PCOS - Was on metformin, currently not taking Asthma - Childhood - No history of hospitalizations or intubations Maternal Obesity - BMI 42 - SCDs ordered IUP @ 32w4d - Dating by 9w2d US - Cephalic on 12/14 - Monitoring:CEFM - Diet:General - BMZ x2 on 12/12 - 12/[address] Howell, who agrees with plan. Lucy Eller DO 12/14/2024, 3:09 PM Cc: Thelma Ta DO Cosigned by Vianca Howell DO at 12/15/2024 4:17 PM EDT Associated attestation - Vianca Howell DO - 12/15/2024 4:17 PM EDT Attending Supervising Physician's Attestation Statement Patient admitted while I was precision grinder. I discussed the management with the resident physician. I reviewed and agree with the findings and plan as documented in the note. documented in this [facility]03-12-2025 Radiology Diagnostic study note [facility] Imaging Services [address] [place], [place] [address] Biophysical Prof W/O Non Stres MR#: [id number] Acct: [id number] Name: BALTAZAR BLANCO ANN Rep #: [id number] : 1995 F 29 From: Silvano Moreno MD PCP: JUAN Montilla Status: REG CL I Study:Biophysical Prof W/O Non Stres Date of Exam: 12/14/24 Exam# [id number] Ordering Dr: Nenita Booth DO PROCEDURE: BIOPHYSICAL PROF W/O NON STRES REASON FOR EXAM: OLIGO TECHNIQUE: Biophysical profile was obtained. COMPARISON: Comparison is made with prior study done yesterday. FINDINGS: position: Cephalic heart rate: 164 beats per minute Largest fluid pocket measures 3.18 cm: Amniotic Fluid index: 4.8 Biophysical profile: Breathing movements: 2 Gross body movements: 2 tone: 2 amniotic fluid volume: 0 Total score: 6/8 US/Biophysical Prof W/O Non Stres IMPRESSION: Biophysical profile score of 6/8 Oligohydramnios. Reading Location: [facility]-1 CC: JUAN Cosby; Dr. Nenita Oliva DO ~ Clerical Investigator: Signed [facility]03-12-2025 Radiology Diagnostic study note [facility] Imaging Services [address] [place], [place] [address] OB Limited (No Biometrics) MR#: [id number] Acct: [id number] Name: BALTAZAR BLANCO ANN Rep #: [id number] : 1995 F 29 From: Silvano Moreno MD PCP: JUAN Montilla Status: REG CL I Study:OB Limited (No Biometrics) Date of Exam : 12/14/24 Exam# [id number] Ordering Dr: Nenita Booth DO PROCEDURE: OB LIMITED (NO BIOMETRICS) REASON FOR EXAM: Oligohydramnios. COMPARISON: Comparison is made with prior study dated December 13, 2024. FINDINGS Number: 1 Position: Vertex Placental Position: Anterior and not low-lying. Placental Abnormalities: None. BIOPHYSICAL ASSESSMENT: Amniotic Fluid Volume: Oligohydramnios. Small pocket of fluid is seen in the left lower quadrant. Amniotic fluid index measures 2.6 cm. Amniotic Fluid Index: 2.6 cm (8-24 cm normal range) Cardiac Motion: 140 beats per minute (average) US/OB Limited (No Biometrics) IMPRESSION: Oligohydramnios. Amniotic fluid index measures 2.6 cm. The results were communicated to the referring physician. Reading Location: [facility] CC: JUAN Cosby; Dr. Nenita Oliva DO ~ Clerical Investigator: Signed [facility]03-11-2025 History and physical note Author Nenita Kwok [facility] Note Date/Time December 13, 2024 12: 41pm [facility] Medical Records Department [address] [place] [address] OB Triage Physician Note 12/13/24 0956 MR#: [id number] Acct: [id number] Name: BALTAZAR BLANCO ANN Rep #:[id number] : 1995 29 From: Nenita Oliva DO PCP: JUAN Montilla Status:REG CL I Y Location: [facility]-4 HPI - General HPI Narrative BALTAZAR BLANCO, is a 29 y/o @ 32 weeks 3 days who presents to L&D due to finding today on ultrasound of oligohydramnios. The overall percentile is normalat 18 and AC is 20gth%. She denies loss of fluid or contractions. Her blood pressure is slightly elevated, however she is crying and upset due to the news. Plan given to nurse to obtain PIH labs, ROM +, start fluids, and celestone. FINDINGS Number: 1 Position: Vertex Placental Position: Anterior Placental Abnormalities: None. DIMENSIONS: Biparietal Diameter: 7.6 cm: 30 weeks and 2 days: 3rd percentile/ Head Circumference: 28 cm: 30 weeks and 5 days: 0.8 percentile/ Abdominal Circumference: 27.3 cm: 31 weeks and 3 days: 20 percentile/ Femur Length: 6.2 cm: 32 weeks and 2 days: 34 percentile/ ESTIMATED WEIGHT: 1795 g plus/minus 269 g ESTIMATED WEIGHT PERCENTILE (24+ weeks): 18 ESTIMATED GESTATIONAL AGE: Baseline: 32 weeks and 3 days By Ultrasound: 31 weeks and 0 days ESTIMATED DATE OF DELIVERY: Baseline: February 04, 2025 By Ultrasound: February 14, 2025 BIOPHYSICAL ASSESSMENT: Amniotic Fluid Volume: Decreased Amniotic Fluid Index: 4.3 (8-24 cm normal range) Cardiac Motion: 145 beats per minute (average) Trunk and Limb Motion: Present. MATERNAL ANATOMY: Adnexa: Neither maternal ovary is successfully identified. US/OB Limited With Biometrics IMPRESSION: Single live intrauterine gestation with a mean gestational age of 31 weeks. Decreased amniotic fluid as well as amniotic fluid index. IUGR should be ruled out. The results were communicated to the referring physician. Maternal Data Information ALAYNA Calculator Estimated Delivery Date Method Current WG Current Estimate 02/04/25 LMP (Certain) 32w 3d Other Estimates 02/09/25 Ultrasound #1 31w 5d PFSH PFSH Medical History Irritable bowel syndrome Irregular menses Chemical Early stage of Asthma Home Medications ?Medication ?Instructions ?Recorded ?Last Taken ?Type aspirin 81 mg tablet,delayed 81 mg PO DAILY 12/13/24 U nknown History release doxylamine succinate 25 mg tablet 25 mg PO QHS PRN sle ep 12/13/24 12/12/24 History (Unisom (doxylamine)) omega-3 900 mg-dha 360 mg-epa 455 2 cap PO DAILY 12/1312/12/24 History mg-fish oil 1,000 mg capsule (Fish Oil) vit no.95-ferrous 1 tab PO DAILY 12/13/24 Unk nown History fumarate 28 mg-folic acid 800 mcg tablet ( Formula) Allergy/AdvReac Type Severity Reaction Status Date / Time No Known Allergies Allergy Verified 12/13/24 10:26 Family History Grandmother Breast cancer Paternal Alzheimer's dementia Maternal Father High cholesterol TIA (transient ischemic attack) Grandfather Parkinsons disease Paternal Surgical History S/P tonsillectomy Social History adopted: No household members: spouse current occupational status: employed current occupation: [employer] pets and animals: Yes pets and animals: dog(s) history of recent travel: Yes ([place] in september) out of state: No out of country: Yes sexually active: Yes Smoking Status: Never smoker alcohol intake: current alcohol intake frequency: other details: once a month - Not while substance use type: does not use well-balanced diet: about half the time caffeine: Yes Type: coffee Number of servings: 1 eating out: 1-3 times/week during the past year weight has: remained stable what type of physical activity do you participate in: walking frequency: 1-2 times per week duration: 30-45 minutes/day yossi/confucianist: Yarsani seatbelt use: always do you feel safe at home: Yes additional social history: - Soraida History 2 Elective abortions Hx Para 0 Spontaneous abortions 1 Hx # Term Pregnancies Ectopic pregnancies Hx # Pregnancies Multiple births # of living children 0 Past Pregnancies Del. Date Name GA/Weeks Outcome Route Bth Weight Infant Gen Labor Lgth Anesthesia Del [facility] Provider FOB 03/21/24 chemical Visit Details Expected Delivery Route/Plan Labor Preferences- CB/BF classes: encouraged labor support person: Soraida labor intervention preferences: [] pain management options preferred: epidural cut cord/dad catch: yes : yes PP control planned: discussed discussed possible routes of delivery and associated risks: [] special requests: [] Plans Covid status: [] Flu vaccine: [] Tdap vaccine: [] Rhogam: na LARC form signed: yes Problem list reviewed and updated with the most current plan of care details and appropriate orders placed. Relevant counseling for the gestational age provided. Continue routine care and follow up unless otherwise noted in visit notes/problem list details OB Flowsheet Initial Weight: Not Recorded Date -?-?-?-?-?-?-?-?-?-?-?-?- EGA Weight BP Urine Prot -?-?-?-?-?-?-?-?-?-?-?-?- Glucose FHR FuHt Pres Dilation -?-?-?-?-?-?-?-?-?-?-?-?- Effaced St Visit Note 07/04/24 -?-?-?-?-?-?-?-?-?-?-?-?- 9w 2d 300 lb 4 oz 136/94 -?-?-?-?-?-?-?-?-?-?-?-?- 171 -?-?-?-?-?-?-?-?-?-?-?-?- JV- CRL 1.89 and off slightly from LMP however, unable to capture the entire CRL so will not chanege the due date. rpt scan next visit. declines NIPT. patient works here. 08/04/24 -?-?-?-?-?-?-?-?-?-?-?-?- 13w 5d 292 lb 139/75 Negative -?-?-?-?-?-?-?-?-?-?-?-?- Negative 150 -?-?-?-?-?-?-?-?-?-?-?-?- SM- no vb crmapi ng 08/29/24 -?-?-?-?-?-?-?-?-?-?-?-?- 17w 2d 292 lb 134/82 Negative -?-?-?-?-?-?-?-?-?-?-?-?- Negative 160 -?-?-?-?-?-?-?-?-?-?-?-?- SM- no vb crmapi ng 09/26/24 -?-?-?-?-?-?-?-?-?-?-?-?- 21w 2d 296 lb 137/83 Negative -?-?-?-?-?-?-?-?-?-?-?-?- Negative 145 -?-?-?-?-?-?-?-?-?-?-?-?- SM- no vb lof go od fm 10/24/24 -?-?-?-?-?-?-?-?-?-?-?-?- 25w 2d 303 lb 2 oz 142/92 139/83 Negative -?-?-?-?-?-?-?-?-?-?-?-?- Negative 155 -?-?-?-?-?-?-?-?-?-?-?-?- KW- no vb/lof/ct x. good 28 week labs next week. Elevated BP today may need to start htn med if continue to be elevated. baseline pre e labs today KW- no vb/lof/ctx. good 2 8 week labs next visit. Elevated BP today may need to start htn med if continue to be elevated. baseline pre e labs today 11/15/24 -?-?-?-?-?-?-?-?-?-?-?-?- 28w 3d 306 lb 6 oz 130/74 Nega tive -?-?-?-?-?-?-?-?-?-?-?-?- Negative 146 29 -?-?-?-?-?-?-?-?-?-?-?-?- MH-No VB, LOF. G onani FM. Denies concerns. 28 wk labs. [facility] 11/28/24 -?-?-?-?-?-?-?-?-?-?-?-?- 30w 2d 308 lb 135/89 -?-?-?-?-?-?-?-?-?-?-?-?- 155 31 -?-?-?-?-?-?-?-?-?-?-?-?- KW- no vb/crampi ng. elsi . Has had ALBERT all weekend. Took BP at work and was elevated. Pre e labs sent. second BP was patients normal pressures. denies BV/dizziness, RUQ pain or swelling 12/02/24 -?-?-?-?-?-?-?-?-?-?-?-?- 30w 6d 311 lb 6 oz 137/85 Nega tive -?-?-?-?-?-?-?-?-?-?-?-?- Negative 145 31 -?-?-?-?-?-?-?-?-?-?-?-?- KW- no vb/lof/ct x. good fm. headache is better. labs reviewed. 12/13/24 -?-?-?-?-?-?-?-?-?-?-?-?- 32w 3d 309 lb 6 oz 149/89 -?-?-?-?-?-?-?-?-?-?-?-?- -?-?-?-?-?-?-?-?-?-?-?-?- Phone call from [place] with oligohydramnios and IUGR. To for further eval with Dr Oliva Assessment & Plan (1) Oligohydramnios: QUALIFIERS: Fetus number: single or unspecified fetus Trimester: third trimester Qualified Code(s): O41.03X0 - Oligohydramnios, third trimester, not applicable or unspecified (2) Abnormal glucose in , antepartum: COMMENT: nl 3 hour (3) Elevated BP without diagnosis of hypertension: COMMENT: 10/24/24 Pre E labs nl (4) Obesity affecting : QUALIFIERS: Trimester: third trimester Obesity type affecting : unspecified obesity Qualified Code(s): O99.213 - Obesity complicating , third trimester COMMENT: BMI 41 HgbA1c nl. plan weekly NSTs after 34 and growth US 32 and 36. (5) Supervision of high-risk : QUALIFIERS: Trimester: third trimester Qualified Code(s): O09.93 - Supervision of high risk , unspecified, third trimester COMMENT: PRR, , ALAYNA 02/04/25, Soraida (6) : QUALIFIERS: Weeks of gestation: 32 weeks Qualified Code(s): Z3A.32 - 32 weeks gestation of COMMENT: discussed NIPT, ntd, & carrier testing- declined. nl anatomy PLAN: Plan plan is to observe over night tonight with IV hydration. give second dose of celestone tomorrow at 24 hour gary and repeat the RAMSEY tomorrow if still low, will consult with MFM. 12/13/24 1241 <Electronically signed by Nenita Robin DO> Date _ Nenita Oliva DO Cosigner Signature (if applicable): Date CC: SEASONING MIXER-C Clarissa Cosby; Dr. Nenita Oliva DO ~ Signed [facility] Work Phone: 1(543) 723-817103-11-2025 History and physical note [facility] Medical Records Department [address] [place] [address] OB Triage Physician Note 12/13/24 0956 MR#: [id number] Acct: [id number] Name: BALTAZAR BLANCO ANN Rep #:[id number] : 1995 29 From: Nenita Oliva DO PCP: JUAN Montilla Status:REG CL I Y Location: CC372-3 HPI - General HPI Narrative BALTAZAR BLANCO, is a 29 y/o @ 32 weeks 3 days who presents to L&D due to finding today on ultrasound of oligohydramnios. The overall percentile is normalat 18 and AC is 20gth%. She denies loss of fluid or contractions. Her blood pressure is slightly elevated, however she is crying and upset due to the news. Plan given to nurse to obtain PIH labs, ROM +, start fluids, and celestone. FINDINGS Number: 1 Position: Vertex Placental Position: Anterior Placental Abnormalities: None. DIMENSIONS: Biparietal Diameter: 7.6 cm: 30 weeks and 2 days: 3rd percentile/ Head Circumference: 28 cm: 30 weeks and 5 days: 0.8 percentile/ Abdominal Circumference: 27.3 cm: 31 weeks and 3 days: 20 percentile/ Femur Length: 6.2 cm: 32 weeks and 2 days: 34 percentile/ ESTIMATED WEIGHT: 1795 g plus/minus 269 g ESTIMATED WEIGHT PERCENTILE (24+ weeks): 18 ESTIMATED GESTATIONAL AGE: Baseline: 32 weeks and 3 days By Ultrasound: 31 weeks and 0 days ESTIMATED DATE OF DELIVERY: Baseline: February 04, 2025 By Ultrasound: February 14, 2025 BIOPHYSICAL ASSESSMENT: Amniotic Fluid Volume: Decreased Amniotic Fluid Index: 4.3 (8-24 cm normal range) Cardiac Motion: 145 beats per minute (average) Trunk and Limb Motion: Present. MATERNAL ANATOMY: Adnexa: Neither maternal ovary is successfully identified. US/OB Limited With Biometrics IMPRESSION: Single live intrauterine gestation with a mean gestational age of 31 weeks. Decreased amniotic fluid as well as amniotic fluid index. IUGR should be ruled out. The results were communicated to the referring physician. Maternal Data Information ALAYNA Calculator Estimated Delivery Date Method Current WG Current Estimate 02/04/25 LMP (Certain) 32w 3d Other Estimates 02/09/25 Ultrasound #1 31w 5d PFSH PFSH Medical History Irritable bowel syndrome Irregular menses Chemical Early stage of Asthma Home Medications ?Medication ?Instructions ?Recorded ?Last Taken ?Type aspirin 81 mg tablet,delayed 81 mg PO DAILY 12/13/24 U nknown History release doxylamine succinate 25 mg tablet 25 mg PO QHS PRN sle ep 12/13/24 12/12/24 History (Unisom (doxylamine)) omega-3 900 mg-dha 360 mg-epa 455 2 cap PO DAILY 12/1312/12/24 History mg-fish oil 1,000 mg capsule (Fish Oil) vit no.95-ferrous 1 tab PO DAILY 12/13/24 Unk nown History fumarate 28 mg-folic acid 800 mcg tablet ( Formula) Allergy/AdvReac Type Severity Reaction Status Date / Time No Known Allergies Allergy Verified 12/13/24 10:26 Family History Grandmother Breast cancer Paternal Alzheimer's dementia Maternal Father High cholesterol TIA (transient ischemic attack) Grandfather Parkinsons disease Paternal Surgical History S/P tonsillectomy Social History adopted: No household members: spouse current occupational status: employed current occupation: [employer] pets and animals: Yes pets and animals: dog(s) history of recent travel: Yes ([place] in september) out of state: No out of country: Yes sexually active: Yes Smoking Status: Never smoker alcohol intake: current alcohol intake frequency: other details: once a month - Not while substance use type: does not use well-balanced diet: about half the time caffeine: Yes Type: coffee Number of servings: 1 eating out: 1-3 times/week during the past year weight has: remained stable what type of physical activity do you participate in: walking frequency: 1-2 times per week duration: 30-45 minutes/day yossi/confucianist: Yarsani seatbelt use: always do you feel safe at home: Yes additional social history: - Soraida History 2 Elective abortions Hx Para 0 Spontaneous abortions 1 Hx # Term Pregnancies Ectopic pregnancies Hx # Pregnancies Multiple births # of living children 0 Past Pregnancies Del. Date Name GA/Weeks Outcome Route Bth Weight Gen Labor Lgth Anesthesia Del Locatn Provider FOB 03/21/24 chemical Visit Details Expected Delivery Route/Plan Labor Preferences- CB/BF classes: encouraged labor support person: Soraida labor intervention preferences: [] pain management options preferred: epidural cut cord/dad catch: yes : yes PP control planned: discussed discussed possible routes of delivery and associated risks: [] special requests: [] Plans Covid status: [] Flu vaccine: [] Tdap vaccine: [] Rhogam: na LARC form signed: yes Problem list reviewed and updated with the most current plan of care details and appropriate ordersplaced. Relevant counseling for the gestational age provided. Continue routine care and follow up unless otherwise noted in visit notes/problem list details OB Flowsheet Initial Weight: Not Recorded Date -?-?-?-?-?-?-?-?-?-?-?-?- EGA Weight BP Urine Prot -?-?-?-?-?-?-?-?-?-?-?-?- Glucose FHR FuHt Pres Dilation -?-?-?-?-?-?-?-?-?-?-?-?- Effaced St Visit Note 07/04/24 -?-?-?-?-?-?-?-?-?-?-?-?- 9w 2d 300 lb 4 oz 136/94 -?-?-?-?-?-?-?-?-?-?-?-?- 171 -?-?-?-?-?-?-?-?-?-?-?-?- JV- CRL 1.89 and off slightly from LMP however, unable to capture the entire CRL so will not chanege the due date. rpt scan next visit. declines NIPT. patient works here. 08/04/24 -?-?-?-?-?-?-?-?-?-?-?-?- 13w 5d 292 lb 139/75 Negative -?-?-?-?-?-?-?-?-?-?-?-?- Negative 150 -?-?-?-?-?-?-?-?-?-?-?-?- SM- no vb crmapi 08/29/24 -?-?-?-?-?-?-?-?-?-?-?-?- 17w 2d 292 lb 134/82 Negative -?-?-?-?-?-?-?-?-?-?-?-?- Negative 160 -?-?-?-?-?-?-?-?-?-?-?-?- SM- no vb crmapi 09/26/24 -?-?-?-?-?-?-?-?-?-?-?-?- 21w 2d 296 lb 137/83 Negative -?-?-?-?-?-?-?-?-?-?-?-?- Negative 145 -?-?-?-?-?-?-?-?-?-?-?-?- SM- no vb lof go od fm 10/24/24 -?-?-?-?-?-?-?-?-?-?-?-?- 25w 2d 303 lb 2 oz 142/92 139/83 Negative -?-?-?-?-?-?-?-?-?-?-?-?- Negative 155 -?-?-?-?-?-?-?-?-?-?-?-?- KW- no vb/lof/ct x. good fm 28 week labs next week. Elevated BP today may need to start htn med if continue to be elevated. baseline pre e labs today KW- no vb/lof/ctx. good fm 2 8 week labs next visit. Elevated BP today may need to start htn med if continue to be elevated. baseline pre e labs today 11/15/24 -?-?-?-?-?-?-?-?-?-?-?-?- 28w 3d 306 lb 6 oz 130/74 Nega tive -?-?-?-?-?-?-?-?-?-?-?-?- Negative 146 29 -?-?-?-?-?-?-?-?-?-?-?-?- MH-No VB, LOF. G ood FM. Denies concerns. 28 wk labs. [facility] 11/28/24 -?-?-?-?-?-?-?-?-?-?-?-?- 30w 2d 308 lb 135/89 -?-?-?-?-?-?-?-?-?-?-?-?- 155 31 -?-?-?-?-?-?-?-?-?-?-?-?- KW- no vb/crampi ng. good fm. Has had ALBERT all weekend. Took BP at work and was elevated. Pre e labs sent. second BP was patients normal pressures. denies BV/dizziness, RUQ pain or swelling 12/02/24 -?-?-?-?-?-?-?-?-?-?-?-?- 30w 6d 311 lb 6 oz 137/85 Nega tive -?-?-?-?-?-?-?-?-?-?-?-?- Negative 145 31 -?-?-?-?-?-?-?-?-?-?-?-?- KW- no vb/lof/ct x. good fm. headache is better. labs reviewed. 12/13/24 -?-?-?-?-?-?-?-?-?-?-?-?- 32w 3d 309 lb 6 oz 149/89 -?-?-?-?-?-?-?-?-?-?-?-?- -?-?-?-?-?-?-?-?-?-?-?-?- Phone call from [place] with oligohydramnios and IUGR. To for further eval with Dr Oliva Assessment & Plan (1) Oligohydramnios: QUALIFIERS: Fetus number: single or unspecified fetus Trimester: third trimester Qualified Code(s):O41.03X0 - Oligohydramnios, third trimester, not applicable or unspecified (2) Abnormal glucose in , antepartum: COMMENT: nl 3 hour (3) Elevated BP without diagnosis of hypertension: COMMENT: 10/24/24 Pre E labs nl (4) Obesity affecting : QUALIFIERS: Trimester: third trimester Obesity type affecting : unspecified obesity Qualified Code(s): O99.213 - Obesity complicating , third trimester COMMENT: BMI 41 HgbA1c nl. plan weekly NSTs after 34 and growth US 32 and 36. (5) Supervision of high-risk : QUALIFIERS: Trimester: third trimester Qualified Code(s): O09.93 - Supervision of high risk , unspecified, third trimester COMMENT: PRR, , ALAYNA 02/04/25, Soraida (6) : QUALIFIERS: Weeks of gestation: 32 weeks Qualified Code(s): Z3A.32 - 32 weeks gestation of COMMENT: discussed NIPT, ntd, & carrier testing- declined. nl anatomy PLAN: Plan plan is to observe over night tonight with IV hydration. give second dose of celestone tomorrow at 24 hour gary and repeat the RAMSEY tomorrow if still low, will consult with MFM. 12/13/24 1241 jayleen Kwok DO> Date _ Nenita Oliva DO Cosigner Signature (if applicable): Date CC: JUAN Cosby; Dr. Nenita Oliva, DO ~ Signed [facility]03-11-2025 Radiology Diagnostic study note [facility] Imaging Services [address] [facility] [place] [address] OB Limited With Biometrics MR#: [id number] Acct: [id number] Name: BALTAZAR BLANCO ANN Rep #: [id number] : 1995 F 29 From: Silvano Moreno MD PCP: [place] Status: REG CLI Study:OB Limited With Biometrics Date of Exam : 12/13/24 Exam# [id number] Ordering Dr: Belkis Gonzalez MD PROCEDURE: OB LIMITED WITH BIOMETRICS REASON FOR EXAM: GROWTH COMPARISON: Comparison is made with prior study dated September 23, 2024. FINDINGS Number: 1 Position: Vertex Placental Position: Anterior Placental Abnormalities: None. DIMENSIONS: Biparietal Diameter: 7.6 cm: 30 weeks and 2 days: 3rd percentile/ Head Circumference: 28 cm: 30 weeks and 5 days: 0.8 percentile/ Abdominal Circumference: 27.3 cm: 31 weeks and 3 days: 20 percentile/ Femur Length: 6.2 cm: 32 weeks and 2 days: 34 percentile/ ESTIMATED WEIGHT: 1795 g plus/minus 269 g ESTIMATED WEIGHT PERCENTILE (24+ weeks): 18 ESTIMATED GESTATIONAL AGE: Baseline: 32 weeks and 3 days By Ultrasound: 31 weeks and 0 days ESTIMATED DATE OF DELIVERY: Baseline: February 04, 2025 By Ultrasound: February 14, 2025 BIOPHYSICAL ASSESSMENT: Amniotic Fluid Volume: Decreased Amniotic Fluid Index: 4.3 (8-24 cm normal range) Cardiac Motion: 145 beats per minute (average) Trunk and Limb Motion: Present. MATERNAL ANATOMY: Adnexa: Neither maternal ovary is successfully identified. US/OB Limited With Biometrics IMPRESSION: Single live intrauterine gestation with a mean gestational age of 31 weeks. Decreased amniotic fluid as well as amniotic fluid index. IUGR should be ruled out. The results were communicated to the referring physician. Reading Location: [place] [id number] CC: Dr. Belkis Pacheco MD; [place] ~ Clerical Investigator: Signed [facility]01-20-2025 Evaluation note* Diagnosis Onset Date Resolution Status Admit Date Elevated BP without diagnosi s of hypertension resolved October 24 11:18am Obesity affecting resolved October 24, 2024 11:18am resolved October 24, 2024 11:18am Supervision of high-risk resolved October 24 11:18am Elevated BP without diagnosi s of hypertension resolved November 15 1:36pm Obesity affecting resolved November 15, 2024 1:36pm resolved November 15, 2024 1:36pm Supervision of high-risk resolved November 15 1:36pm Abnormal glucose in pregnanc y, antepartum resolved November 28 9:39am Elevated BP without diagnosi s of hypertension resolved November 28 9:39am Obesity affecting resolved November 28, 2024 9:39am resolved November 28, 2024 9:39am Supervision of high-risk resolved November 28 9:39am Abnormal glucose in pregnanc y, antepartum resolved December 02 10:24am Elevated BP without diagnosi s of hypertension resolved December 02 10:24am Obesity affecting resolved December 02, 2024 10:24am resolved December 02, 2024 10:24am Supervision of high-risk resolved December 02 10:24am Abnormal glucose in pregnanc y, antepartum resolved December 13, 2024 9:21am Elevated BP without diagnosi s of hypertension resolved December 13, 2024 9:21am Obesity affecting resolved December 13, 2024 9:21am Oligohydramnios resolved December 9:21am resolved December 13 9:21am Supervision of high-risk resolved December 13, 2024 9:21am Abnormal glucose in pregnanc y, antepartum resolved December 13, 2024 9:25am Elevated BP without diagnosi s of hypertension resolved December 13, 2024 9:25am Obesity affecting resolved December 13, 2024 9:25am Oligohydramnios resolved December 9:25am resolved December 13 9:25am Supervision of high-risk resolved December 13, 2024 9:25am Abnormal test resolved 2024 11:59am Abnormal glucose in pregnanc y, antepartum resolved December 20, 2024 11:59am Elevated BP without diagnosi s of hypertension resolved December 20, 2024 11:59am Obesity affecting resolved December 20, 2024 11:59am Oligohydramnios resolved December 11:59am resolved December 20 11:59am Supervision of high-risk resolved December 20, 2024 11:59am Abnormal test resolved [facility] arch 2024 12:16pm Abnormal glucose in pregnanc y, antepartum resolved December 27, 2024 12:16pm Elevated BP without diagnosi s of hypertension resolved December 27, 2024 12:16pm Obesity affecting resolved December 27, 2024 12:16pm Oligohydramnios resolved December 12:16pm resolved December 27 12:16pm Supervision of high-risk resolved December 27, 2024 12:16pm Abnormal test resolved M arch 2024 10:01am Abnormal glucose in pregnanc y, antepartum resolved December 29, 2024 10:01am Elevated BP without diagnosi s of hypertension resolved December 29, 2024 10:01am Obesity affecting resolved December 29, 2024 10:01am Oligohydramnios resolved December 10:01am resolved December 29 10:01am Supervision of high-risk resolved December 29, 2024 10:01am Abnormal test resolved M arch 2024 1:00pm Abnormal glucose in pregnanc y, antepartum resolved December 30, 2024 1:00pm Elevated BP without diagnosi s of hypertension resolved December 30, 2024 1:00pm Obesity affecting resolved December 30, 2024 1:00pm Oligohydramnios resolved December 1:00pm resolved December 30 1:00pm Supervision of high-risk resolved December 30, 2024 1:00pm Abnormal test resolved M arch 2024 9:39am Abnormal glucose in pregnanc y, antepartum resolved January 02, 2025 9:39am Elevated BP without diagnosi s of hypertension resolved January 02, 2025 9:39am Obesity affecting resolved January 02, 2025 9:39am Oligohydramnios resolved December 9:39am resolved January 02 9:39am Supervision of high-risk resolved January 02, 2025 9:39am Abnormal test resolved A pril 2024 9:01am Vaginal delivery acute January 7:17pm Abnormal test resolved A pril 2024 7:17pm Abnormal glucose in pregnanc y, antepartum resolved January 07, 2025 7:17pm Elevated BP without diagnosi s of hypertension resolved January 07, 2025 7:17pm Encounter for induction of labor resolved January 07, 2025 7:17pm Obesity affecting resolved January 07, 2025 7:17pm Oligohydramnios resolved January 7:17pm resolved January 07 7:17pm Supervision of high-risk resolved January 07, 2025 7:17pm Routine Follow-Up noneact valeria February 20, 2025 10:45am [facility] Work Phone: [phone]) 680-628812-23-2024 Evaluation note* Diagnosis Onset Date Resolution Status Admit Date Obesity affecting acute September 26, 2024 10:10am acute September 26, 2024 10:10am Supervision of high-risk acute September 26 10:10am Elevated BP without diagnosi s of hypertension acute October 24 11:18am Obesity affecting acute October 24, 2024 11:18am acute October 24, 2024 11:18am Supervision of high-risk acute October 24 11:18am Elevated BP without diagnosi s of hypertension acute November 15, 025 1:36pm Obesity affecting acute November 15, 2024 1:36pm acute November 15, 2024 1:36pm Supervision of high-risk acute November 15, 025 1:36pm Abnormal glucose in pregnanc y, antepartum acute November 28 025 9:39am Elevated BP without diagnosi s of hypertension acute November 28 025 9:39am Obesity affecting acute November 28, 2024 9:39am acute November 28, 2024 9:39am Supervision of high-risk acute November 28 025 9:39am Abnormal glucose in pregnanc y, antepartum acute December 02 025 10:24am Elevated BP without diagnosi s of hypertension acute December 02 10:24am Obesity affecting acute December 02, 2024 10:24am acute December 02, 2024 10:24am Supervision of high-risk acute December 02 10:24am Abnormal glucose in pregnanc y, antepartum acute December 13, 2024 9:21am Elevated BP without diagnosi s of hypertension acute December 13, 2024 9:21am Obesity affecting acute December 13, 2024 9:21am Oligohydramnios acute December 9:21am acute December 13 9:21am Supervision of high-risk acute December 13, 2024 9:21am Abnormal glucose in pregnanc y, antepartum acute December 13, 2024 9:25am Elevated BP without diagnosi s of hypertension acute December 13, 2024 9:25am Obesity affecting acute December 13, 2024 9:25am Oligohydramnios acute December 9:25am acute December 13 9:25am Supervision of high-risk acute December 13, 2024 9:25am Abnormal test acute [facility] 2024 11:59am Abnormal glucose in pregnanc y, antepartum acute December 20, 2024 11:59am Elevated BP without diagnosi s of hypertension acute December 20, 2024 11:59am Obesity affecting acute December 20, 2024 11:59am Oligohydramnios acute December 11:59am acute December 20 11:59am Supervision of high-risk acute December 20, 2024 11:59am Abnormal test acute [facility] 2024 12:16pm Abnormal glucose in pregnanc y, antepartum acute December 27, 2024 12:16pm Elevated BP without diagnosi s of hypertension acute December 27, 2024 12:16pm Obesity affecting acute December 27, 2024 12:16pm Oligohydramnios acute December 12:16pm acute December 27 12:16pm Supervision of high-risk acute December 27, 2024 12:16pm Abnormal test acute [facility] 2024 10:01am Abnormal glucose in pregnanc y, antepartum acute December 29, 2024 10:01am Elevated BP without diagnosi s of hypertension acute December 29, 2024 10:01am Obesity affecting acute December 29, 2024 10:01am Oligohydramnios acute December 10:01am acute December 29 10:01am Supervision of high-risk acute December 29, 2024 10:01am Abnormal test acute 2024 1:00pm Abnormal glucose in pregnanc y, antepartum acute December 30, 2024 1:00pm Elevated BP without diagnosi s of hypertension acute December 30, 2024 1:00pm Obesity affecting acute December 30, 2024 1:00pm Oligohydramnios acute December 1:00pm acute December 30 1:00pm Supervision of high-risk acute December 30, 2024 1:00pm [facility] Work Phone: [phone]) 229-466212-23-2024 Evaluation note* Diagnosis Onset Date Resolution Status Admit Date Obesity affecting acute September 26, 2024 10:10am acute September 26, 2024 10:10am Supervision of high-risk acute September 26 10:10am Elevated BP without diagnosi s of hypertension acute October 24 11:18am Obesity affecting acute October 24, 2024 11:18am acute October 24, 2024 11:18am Supervision of high-risk acute October 24 11:18am Elevated BP without diagnosi s of hypertension acute November 15, 025 1:36pm Obesity affecting acute November 15, 2024 1:36pm acute November 15, 2024 1:36pm Supervision of high-risk acute November 15, 2 025 1:36pm Abnormal glucose in pregnanc y, antepartum acute November 28 025 9:39am Elevated BP without diagnosi s of hypertension acute November 28 025 9:39am Obesity affecting acute November 28, 2024 9:39am acute November 28, 2024 9:39am Supervision of high-risk acute November 28, 2 025 9:39am Abnormal glucose in pregnanc y, antepartum acute December 02 025 10:24am Elevated BP without diagnosi s of hypertension acute December 02 10:24am Obesity affecting acute December 02, 2024 10:24am acute December 02, 2024 10:24am Supervision of high-risk acute December 02 10:24am Abnormal glucose in pregnanc y, antepartum acute December 13, 2024 9:21am Elevated BP without diagnosi s of hypertension acute December 13, 2024 9:21am Obesity affecting acute December 13, 2024 9:21am Oligohydramnios acute December 9:21am acute December 13 9:21am Supervision of high-risk acute December 13, 2024 9:21am Abnormal glucose in pregnanc y, antepartum acute December 13, 2024 9:25am Elevated BP without diagnosi s of hypertension acute December 13, 2024 9:25am Obesity affecting acute December 13, 2024 9:25am Oligohydramnios acute December 9:25am acute December 13 9:25am Supervision of high-risk acute December 13, 2024 9:25am Abnormal test acute [facility] 2024 11:59am Abnormal glucose in pregnanc y, antepartum acute December 20, 2024 11:59am Elevated BP without diagnosi s of hypertension acute December 20, 2024 11:59am Obesity affecting acute December 20, 2024 11:59am Oligohydramnios acute December 11:59am acute December 20 11:59am Supervision of high-risk acute December 20, 2024 11:59am Abnormal test acute [facility] 2024 12:16pm Abnormal glucose in pregnanc y, antepartum acute December 27, 2024 12:16pm Elevated BP without diagnosi s of hypertension acute December 27, 2024 12:16pm Obesity affecting acute December 27, 2024 12:16pm Oligohydramnios acute December 12:16pm acute December 27 12:16pm Supervision of high-risk acute December 27, 2024 12:16pm Abnormal test acute [facility] 2024 10:01am Abnormal glucose in pregnanc y, antepartum acute December 29, 2024 10:01am Elevated BP without diagnosi s of hypertension acute December 29, 2024 10:01am Obesity affecting acute December 29, 2024 10:01am Oligohydramnios acute December 10:01am acute December 29 10:01am Supervision of high-risk acute December 29, 2024 10:01am Abnormal test acute 2024 1:00pm Abnormal glucose in pregnanc y, antepartum acute December 30, 2024 1:00pm Elevated BP without diagnosi s of hypertension acute December 30, 2024 1:00pm Obesity affecting acute December 30, 2024 1:00pm Oligohydramnios acute December 1:00pm acute December 30 1:00pm Supervision of high-risk acute December 30, 2024 1:00pm Abnormal test acute [facility] 2024 9:39am Abnormal glucose in pregnanc y, antepartum acute January 02, 2025 9:39am Elevated BP without diagnosi s of hypertension acute January 02, 2025 9:39am Obesity affecting acute January 02, 2025 9:39am Oligohydramnios acute December 9:39am acute January 02 9:39am Supervision of high-risk acute January 02, 2025 9:39am [facility] Work Phone: [phone]) 619-918712-23-2024 Evaluation note* Diagnosis Onset Date Resolution Status Admit Date Obesity affecting acute September 26, 2024 10:10am acute September 26, 2024 10:10am Supervision of high-risk acute September 26, 024 10:10am Elevated BP without diagnosi s of hypertension acute October 24 11:18am Obesity affecting acute October 24, 2024 11:18am acute October 24, 2024 11:18am Supervision of high-risk acute October 24 11:18am Elevated BP without diagnosi s of hypertension acute November 15 025 1:36pm Obesity affecting acute November 15, 2024 1:36pm acute November 15, 2024 1:36pm Supervision of high-risk acute November 15 1:36pm Abnormal glucose in pregnanc y, antepartum acute November 28 9:39am Elevated BP without diagnosi s of hypertension acute November 28 9:39am Obesity affecting acute November 28, 2024 9:39am acute November 28, 2024 9:39am Supervision of high-risk acute November 28 9:39am Abnormal glucose in pregnanc y, antepartum acute December 02 10:24am Elevated BP without diagnosi s of hypertension acute December 02 10:24am Obesity affecting acute December 02, 2024 10:24am acute December 02, 2024 10:24am Supervision of high-risk acute December 02 10:24am Abnormal glucose in pregnanc y, antepartum acute December 13, 2024 9:21am Elevated BP without diagnosi s of hypertension acute December 13, 2024 9:21am Obesity affecting acute December 13, 2024 9:21am Oligohydramnios acute December 9:21am acute December 13 9:21am Supervision of high-risk acute December 13, 2024 9:21am Abnormal glucose in pregnanc y, antepartum acute December 13, 2024 9:25am Elevated BP without diagnosi s of hypertension acute December 13, 2024 9:25am Obesity affecting acute December 13, 2024 9:25am Oligohydramnios acute December 9:25am acute December 13 9:25am Supervision of high-risk acute December 13, 2024 9:25am Abnormal test acute [facility] 2024 11:59am Abnormal glucose in pregnanc y, antepartum acute December 20, 2024 11:59am Elevated BP without diagnosi s of hypertension acute December 20, 2024 11:59am Obesity affecting acute December 20, 2024 11:59am Oligohydramnios acute December 11:59am acute December 20 11:59am Supervision of high-risk acute December 20, 2024 11:59am Abnormal test acute [facility] 2024 12:16pm Abnormal glucose in pregnanc y, antepartum acute December 27, 2024 12:16pm Elevated BP without diagnosi s of hypertension acute December 27, 2024 12:16pm Obesity affecting acute December 27, 2024 12:16pm Oligohydramnios acute December 12:16pm acute December 27 12:16pm Supervision of high-risk acute December 27, 2024 12:16pm Abnormal test acute [facility] 2024 10:01am Abnormal glucose in pregnanc y, antepartum acute December 29, 2024 10:01am Elevated BP without diagnosi s of hypertension acute December 29, 2024 10:01am Obesity affecting acute December 29, 2024 10:01am Oligohydramnios acute December 10:01am acute December 29 10:01am Supervision of high-risk acute December 29, 2024 10:01am Abnormal test acute [facility] 2024 1:00pm Abnormal glucose in pregnanc y, antepartum acute December 30, 2024 1:00pm Elevated BP without diagnosi s of hypertension acute December 30, 2024 1:00pm Obesity affecting acute December 30, 2024 1:00pm Oligohydramnios acute December 1:00pm acute December 30 1:00pm Supervision of high-risk acute December 30, 2024 1:00pm Abnormal test acute [facility] 2024 9:39am Abnormal glucose in pregnanc y, antepartum acute January 02, 2025 9:39am Elevated BP without diagnosi s of hypertension acute January 02, 2025 9:39am Obesity affecting acute January 02, 2025 9:39am Oligohydramnios acute December 9:39am acute January 02 9:39am Supervision of high-risk acute January 02, 2025 9:39am Abnormal test acute [facility] 2024 9:01am [facility] Work Phone: [phone]) 220-917412-23-2024 Evaluation note* Diagnosis Onset Date Resolution Status Admit Date Obesity affecting acute September 26, 2024 10:10am acute September 26, 2024 10:10am Supervision of high-risk acute September 26 10:10am Elevated BP without diagnosi s of hypertension acute October 24 11:18am Obesity affecting acute October 24, 2024 11:18am acute October 24, 2024 11:18am Supervision of high-risk acute October 24 11:18am Elevated BP without diagnosi s of hypertension acute November 15 1:36pm Obesity affecting acute November 15, 2024 1:36pm acute November 15, 2024 1:36pm Supervision of high-risk acute November 15 1:36pm Abnormal glucose in pregnanc y, antepartum acute November 28 9:39am Elevated BP without diagnosi s of hypertension acute November 28 9:39am Obesity affecting acute November 28, 2024 9:39am acute November 28, 2024 9:39am Supervision of high-risk acute November 28 9:39am Abnormal glucose in pregnanc y, antepartum acute December 02 10:24am Elevated BP without diagnosi s of hypertension acute December 02 10:24am Obesity affecting acute December 02, 2024 10:24am acute December 02, 2024 10:24am Supervision of high-risk acute December 02 10:24am Abnormal glucose in pregnanc y, antepartum acute December 13, 2024 9:21am Elevated BP without diagnosi s of hypertension acute December 13, 2024 9:21am Obesity affecting acute December 13, 2024 9:21am Oligohydramnios acute December 9:21am acute December 13 9:21am Supervision of high-risk acute December 13, 2024 9:21am Abnormal glucose in pregnanc y, antepartum acute December 13, 2024 9:25am Elevated BP without diagnosi s of hypertension acute December 13, 2024 9:25am Obesity affecting acute December 13, 2024 9:25am Oligohydramnios acute December 9:25am acute December 13 9:25am Supervision of high-risk acute December 13, 2024 9:25am Abnormal test acute [facility] 2024 11:59am Abnormal glucose in pregnanc y, antepartum acute December 20, 2024 11:59am Elevated BP without diagnosi s of hypertension acute December 20, 2024 11:59am Obesity affecting acute December 20, 2024 11:59am Oligohydramnios acute December 11:59am acute December 20 11:59am Supervision of high-risk acute December 20, 2024 11:59am Abnormal test acute [facility] 2024 12:16pm Abnormal glucose in pregnanc y, antepartum acute December 27, 2024 12:16pm Elevated BP without diagnosi s of hypertension acute December 27, 2024 12:16pm Obesity affecting acute December 27, 2024 12:16pm Oligohydramnios acute December 12:16pm acute December 27 12:16pm Supervision of high-risk acute December 27, 2024 12:16pm Abnormal test acute [facility] 2024 10:01am Abnormal glucose in pregnanc y, antepartum acute December 29, 2024 10:01am Elevated BP without diagnosi s of hypertension acute December 29, 2024 10:01am Obesity affecting acute December 29, 2024 10:01am Oligohydramnios acute December 10:01am acute December 29 10:01am Supervision of high-risk acute December 29, 2024 10:01am Abnormal test acute [facility] 2024 1:00pm Abnormal glucose in pregnanc y, antepartum acute December 30, 2024 1:00pm Elevated BP without diagnosi s of hypertension acute December 30, 2024 1:00pm Obesity affecting acute December 30, 2024 1:00pm Oligohydramnios acute December 1:00pm acute December 30 1:00pm Supervision of high-risk acute December 30, 2024 1:00pm Abnormal test acute [facility] 2024 9:39am Abnormal glucose in pregnanc y, antepartum acute January 02, 2025 9:39am Elevated BP without diagnosi s of hypertension acute January 02, 2025 9:39am Obesity affecting acute January 02, 2025 9:39am Oligohydramnios acute December 9:39am acute January 02 9:39am Supervision of high-risk acute January 02, 2025 9:39am Abnormal test acute A [facility] 2024 9:01am Abnormal test acute [facility] 2024 7:17pm Abnormal glucose in pregnanc y, antepartum acute January 07, 2025 7:17pm Elevated BP without diagnosi s of hypertension acute January 07, 2025 7:17pm Encounter for induction of labor acu te January 07, 2025 7:17pm Obesity affecting acute January 07, 2025 7:17pm Oligohydramnios acute January 7:17pm acute January 07 7:17pm Supervision of high-risk acute January 07, 2025 7:17pm [facility] Work Phone: [phone]) 768-637712-23-2024 Evaluation note* Diagnosis Onset Date Resolution Status Admit Date Obesity affecting acute September 26, 2024 10:10am acute September 26, 2024 10:10am Supervision of high-risk acute September 26, 10:10am Elevated BP without diagnosi s of hypertension acute October 24 11:18am Obesity affecting acute October 24, 2024 11:18am acute October 24, 2024 11:18am Supervision of high-risk acute October 24 11:18am Elevated BP without diagnosi s of hypertension acute November 15, 2 025 1:36pm Obesity affecting acute November 15, 2024 1:36pm acute November 15, 2024 1:36pm Supervision of high-risk acute November 15, 2 025 1:36pm Abnormal glucose in pregnanc y, antepartum acute November 28 2 025 9:39am Elevated BP without diagnosi s of hypertension acute November 28 2 025 9:39am Obesity affecting acute November 28, 2024 9:39am acute November 28, 2024 9:39am Supervision of high-risk acute November 28, 2 025 9:39am Abnormal glucose in pregnanc y, antepartum acute December 02, 2 025 10:24am Elevated BP without diagnosi s of hypertension acute December 02 10:24am Obesity affecting acute December 02, 2024 10:24am acute December 02, 2024 10:24am Supervision of high-risk acute December 02 10:24am Abnormal glucose in pregnanc y, antepartum acute December 13, 2024 9:21am Elevated BP without diagnosi s of hypertension acute December 13, 2024 9:21am Obesity affecting acute December 13, 2024 9:21am Oligohydramnios acute December 9:21am acute December 13 9:21am Supervision of high-risk acute December 13, 2024 9:21am Abnormal glucose in pregnanc y, antepartum acute December 13, 2024 9:25am Elevated BP without diagnosi s of hypertension acute December 13, 2024 9:25am Obesity affecting acute December 13, 2024 9:25am Oligohydramnios acute December 9:25am acute December 13 9:25am Supervision of high-risk acute December 13, 2024 9:25am Abnormal glucose in pregnanc y, antepartum acute December 20, 2024 11:59am Elevated BP without diagnosi s of hypertension acute December 20, 2024 11:59am Obesity affecting acute December 20, 2024 11:59am Oligohydramnios acute December 11:59am acute December 20 11:59am Supervision of high-risk acute December 20, 2024 11:59am Abnormal test resolved [facility] 2024 11:59am Abnormal glucose in pregnanc y, antepartum acute December 27, 2024 12:16pm Elevated BP without diagnosi s of hypertension acute December 27, 2024 12:16pm Obesity affecting acute December 27, 2024 12:16pm Oligohydramnios acute December 12:16pm acute December 27 12:16pm Supervision of high-risk acute December 27, 2024 12:16pm Abnormal test resolved [facility] 2024 12:16pm Abnormal glucose in pregnanc y, antepartum acute December 29, 2024 10:01am Elevated BP without diagnosi s of hypertension acute December 29, 2024 10:01am Obesity affecting acute December 29, 2024 10:01am Oligohydramnios acute December 10:01am acute December 29 10:01am Supervision of high-risk acute December 29, 2024 10:01am Abnormal test resolved [facility] 2024 10:01am Abnormal glucose in pregnanc y, antepartum acute December 30, 2024 1:00pm Elevated BP without diagnosi s of hypertension acute December 30, 2024 1:00pm Obesity affecting acute December 30, 2024 1:00pm Oligohydramnios acute December 1:00pm acute December 30 1:00pm Supervision of high-risk acute December 30, 2024 1:00pm Abnormal test resolved [facility] 2024 1:00pm Abnormal glucose in pregnanc y, antepartum acute January 02, 2025 9:39am Elevated BP without diagnosi s of hypertension acute January 02, 2025 9:39am Obesity affecting acute January 02, 2025 9:39am Oligohydramnios acute December 9:39am acute January 02 9:39am Supervision of high-risk acute January 02, 2025 9:39am Abnormal test resolved [facility] 2024 9:39am Abnormal test resolved [facility] 2024 9:01am Abnormal glucose in pregnanc y, antepartum acute January 07, 2025 7:17pm Elevated BP without diagnosi s of hypertension acute January 07, 2025 7:17pm Obesity affecting acute January 07, 2025 7:17pm Oligohydramnios acute January 7:17pm acute January 07 7:17pm Supervision of high-risk acute January 07, 2025 7:17pm Vaginal delivery acute January 7:17pm Abnormal test resolved A [facility] 2024 7:17pm Encounter for induction of labor resolved January 07, 2025 7:17pm [facility] Work Phone: [phone]) 487-861811-25-2024 Evaluation note* Diagnosis Onset Date Resolution Status Admit Date Obesity affecting acute August 29, 2024 1:18pm acute August 29, 2024 1:18pm Supervision of high-risk acute August 29, 2 024 1:18pm Obesity affecting acute September 26, 2024 10:10am acute September 26, 2024 10:10am Supervision of high-risk acute September 26, 024 10:10am Elevated BP without diagnosi s of hypertension acute October 24 11:18am Obesity affecting acute October 24, 2024 11:18am acute October 24, 2024 11:18am Supervision of high-risk acute October 24 11:18am Elevated BP without diagnosi s of hypertension acute November 15, 025 1:36pm Obesity affecting acute November 15, 2024 1:36pm acute November 15, 2024 1:36pm Supervision of high-risk acute November 15, 025 1:36pm Abnormal glucose in pregnanc y, antepartum acute November 28, 025 9:39am Elevated BP without diagnosi s of hypertension acute November 28, 025 9:39am Obesity affecting acute November 28, 2024 9:39am acute November 28, 2024 9:39am Supervision of high-risk acute November 28, 025 9:39am Abnormal glucose in pregnanc y, antepartum acute December 02, 025 10:24am Elevated BP without diagnosi s of hypertension acute December 02, 025 10:24am Obesity affecting acute December 02, 2024 10:24am acute December 02, 2024 10:24am Supervision of high-risk acute December 02, 025 10:24am [facility] Work Phone: 1(312) 165-758511-25-2024 Evaluation note* Diagnosis Onset Date Resolution Status Admit Date Obesity affecting acute August 29, 2024 1:18pm acute August 29, 2024 1:18pm Supervision of high-risk acute August 29, 2 024 1:18pm Obesity affecting acute September 26, 2024 10:10am acute September 26, 2024 10:10am Supervision of high-risk acute September 26, 024 10:10am Elevated BP without diagnosi s of hypertension acute October 24 11:18am Obesity affecting acute October 24, 2024 11:18am acute October 24, 2024 11:18am Supervision of high-risk acute October 24 11:18am Elevated BP without diagnosi s of hypertension acute November 15 1:36pm Obesity affecting acute November 15, 2024 1:36pm acute November 15, 2024 1:36pm Supervision of high-risk acute November 15 1:36pm Abnormal glucose in pregnanc y, antepartum acute November 28 9:39am Elevated BP without diagnosi s of hypertension acute November 28 9:39am Obesity affecting acute November 28, 2024 9:39am acute November 28, 2024 9:39am Supervision of high-risk acute November 28 9:39am Abnormal glucose in pregnanc y, antepartum acute December 02 10:24am Elevated BP without diagnosi s of hypertension acute December 02 10:24am Obesity affecting acute December 02, 2024 10:24am acute December 02, 2024 10:24am Supervision of high-risk acute December 02 10:24am Abnormal glucose in pregnanc y, antepartum acute December 13, 2024 9:21am Elevated BP without diagnosi s of hypertension acute December 13, 2024 9:21am Obesity affecting acute December 13, 2024 9:21am Oligohydramnios acute December 9:21am acute December 13 9:21am Supervision of high-risk acute December 13, 2024 9:21am Abnormal glucose in pregnanc y, antepartum acute December 13, 2024 9:25am Elevated BP without diagnosi s of hypertension acute December 13, 2024 9:25am Obesity affecting acute December 13, 2024 9:25am Oligohydramnios acute December 9:25am acute December 13 9:25am Supervision of high-risk acute December 13, 2024 9:25am [facility] Work Phone: 1(957) 504-777211-25-2024 Evaluation note* Diagnosis Onset Date Resolution Status Admit Date Obesity affecting acute August 29, 2024 1:18pm acute August 29, 2024 1:18pm Supervision of high-risk acute August 29, 2 024 1:18pm Obesity affecting acute September 26, 2024 10:10am acute September 26, 2024 10:10am Supervision of high-risk acute September 26, 2 024 10:10am Elevated BP without diagnosi s of hypertension acute October 24 11:18am Obesity affecting acute October 24, 2024 11:18am acute October 24, 2024 11:18am Supervision of high-risk acute October 24 11:18am Elevated BP without diagnosi s of hypertension acute November 15, 025 1:36pm Obesity affecting acute November 15, 2024 1:36pm acute November 15, 2024 1:36pm Supervision of high-risk acute November 15, 025 1:36pm Abnormal glucose in pregnanc y, antepartum acute November 28, 025 9:39am Elevated BP without diagnosi s of hypertension acute November 28, 025 9:39am Obesity affecting acute November 28, 2024 9:39am acute November 28, 2024 9:39am Supervision of high-risk acute November 28, 025 9:39am Abnormal glucose in pregnanc y, antepartum acute December 02 025 10:24am Elevated BP without diagnosi s of hypertension acute December 02, 025 10:24am Obesity affecting acute December 02, 2024 10:24am acute December 02, 2024 10:24am Supervision of high-risk acute December 02, 025 10:24am Abnormal glucose in pregnanc y, antepartum acute December 13, 2024 9:21am Elevated BP without diagnosi s of hypertension acute December 13, 2024 9:21am Obesity affecting acute December 13, 2024 9:21am Oligohydramnios acute December 9:21am acute December 13 9:21am Supervision of high-risk acute December 13, 2024 9:21am Abnormal glucose in pregnanc y, antepartum acute December 13, 2024 9:25am Elevated BP without diagnosi s of hypertension acute December 13, 2024 9:25am Obesity affecting acute December 13, 2024 9:25am Oligohydramnios acute December 9:25am acute December 13 9:25am Supervision of high-risk acute December 13, 2024 9:25am Abnormal test acute 2024 11:59am Abnormal glucose in pregnanc y, antepartum acute December 20, 2024 11:59am Elevated BP without diagnosi s of hypertension acute December 20, 2024 11:59am Obesity affecting acute December 20, 2024 11:59am Oligohydramnios acute December 11:59am acute December 20 11:59am Supervision of high-risk acute December 20, 2024 11:59am [facility] Work Phone: 1(284) 825-657011-25-2024 Evaluation note* Diagnosis Onset Date Resolution Status Admit Date Obesity affecting acute August 29, 2024 1:18pm acute August 29, 2024 1:18pm Supervision of high-risk acute August 29, 1:18pm Obesity affecting acute September 26, 2024 10:10am acute September 26, 2024 10:10am Supervision of high-risk acute September 26, 10:10am Elevated BP without diagnosi s of hypertension acute October 24 11:18am Obesity affecting acute October 24, 2024 11:18am acute October 24, 2024 11:18am Supervision of high-risk acute October 24 11:18am Elevated BP without diagnosi s of hypertension acute November 15, 025 1:36pm Obesity affecting acute November 15, 2024 1:36pm acute November 15, 2024 1:36pm Supervision of high-risk acute November 15, 025 1:36pm Abnormal glucose in pregnanc y, antepartum acute November 28 025 9:39am Elevated BP without diagnosi s of hypertension acute November 28 025 9:39am Obesity affecting acute November 28, 2024 9:39am acute November 28, 2024 9:39am Supervision of high-risk acute November 28, 025 9:39am Abnormal glucose in pregnanc y, antepartum acute December 02 025 10:24am Elevated BP without diagnosi s of hypertension acute December 02 10:24am Obesity affecting acute December 02, 2024 10:24am acute December 02, 2024 10:24am Supervision of high-risk acute December 02 10:24am Abnormal glucose in pregnanc y, antepartum acute December 13, 2024 9:21am Elevated BP without diagnosi s of hypertension acute December 13, 2024 9:21am Obesity affecting acute December 13, 2024 9:21am Oligohydramnios acute December 9:21am acute December 13 9:21am Supervision of high-risk acute December 13, 2024 9:21am Abnormal glucose in pregnanc y, antepartum acute December 13, 2024 9:25am Elevated BP without diagnosi s of hypertension acute December 13, 2024 9:25am Obesity affecting acute December 13, 2024 9:25am Oligohydramnios acute December 9:25am acute December 13 9:25am Supervision of high-risk acute December 13, 2024 9:25am Abnormal test acute 2024 11:59am Abnormal glucose in pregnanc y, antepartum acute December 20, 2024 11:59am Elevated BP without diagnosi s of hypertension acute December 20, 2024 11:59am Obesity affecting acute December 20, 2024 11:59am Oligohydramnios acute December 11:59am acute December 20 11:59am Supervision of high-risk acute December 20, 2024 11:59am Abnormal test acute 2024 12:16pm Abnormal glucose in pregnanc y, antepartum acute December 27, 2024 12:16pm Elevated BP without diagnosi s of hypertension acute December 27, 2024 12:16pm Obesity affecting acute December 27, 2024 12:16pm Oligohydramnios acute December 12:16pm acute December 27 12:16pm Supervision of high-risk acute December 27, 2024 12:16pm [facility] Work Phone: Chief complaint+Reason for visit Narrative* Chief Complaint COVID 19 TEST COVID-19 COVID-19 OBESITY OBESITY [facility] Work Phone: Evaluation noteNo assessment information available [facility] Work Phone: Evaluation note* Diagnosis Oligohydramnios, third trimester, not applicable or unspecified- Primary documented in this encounter [facility] Author Nenita Kwok [facility] Note Date/Time December 27, 2024 2:5 1pm [facility] Medical Records Department [address] [place] [address] OB Triage Physician Note 12/27/24 1448 MR#: [id number] Acct: [id number] Name: BALTAZAR BLANCO ANN Rep #:[id number] : 1995 29 From: Nenita Oliva DO PCP: GONZÁLEZ MontillaC Status:REG CL I Y [id number]PI - General HPI Narrative BALTAZAR BLANCO, is a 29 F who presents to L&D for an nst due to finding of oligohydramnios (deepest pocket of 5.35 cm.) She denies loss of fluid, vaginal bleeding, or dec fm. Maternal Data Information ALAYNA Calculator Estimated Delivery Date Method Current WG Current Estimate 02/04/25 LMP (Certain) 34w 3d Other Estimates 02/09/25 Ultrasound #1 33w 5d PFSH PFSH Medical History Irritable bowel syndrome Irregular menses Chemical Early stage of Asthma Home Medications ?Medication ?Instructions ?Recorded ?Last Taken ?Type aspirin 81 mg tablet,delayed 81 mg PO DAILY 12/13/24 0 12/19/24 10:00 History release omega-3 900 mg-dha 360 mg-epa 455 2 cap PO DAILY 12/1312/12/24 History mg-fish oil 1,000 mg capsule (Fish Oil) vit no.95-ferrous 1 tab PO DAILY 12/13/24 10:00 History fumarate 28 mg-folic acid 800 mcg tablet ( Formula) Allergy/AdvReac Type Severity Reaction Status Date / Time No Known Allergies Allergy Verified 12/20/24 13:33 Family History Grandmother Breast cancer Paternal Alzheimer's dementia Maternal Father High cholesterol TIA (transient ischemic attack) Grandfather Parkinsons disease Paternal Surgical History S/P tonsillectomy Social History adopted: No household members: spouse current occupational status: employed current occupation: [employer] pets and animals: Yes pets and animals: dog(s) history of recent travel: Yes ([place] in september) out of state: No out of country: Yes sexually active: Yes Smoking Status: Never smoker alcohol intake: current alcohol intake frequency: other details: once a month - Not while substance use type: does not use well-balanced diet: about half the time caffeine: Yes Type: coffee Number of servings: 1 eating out: 1-3 times/week during the past year weight has: remained stable what type of physical activity do you participate in: walking frequency: 1-2 times per week duration: 30-45 minutes/day yossi/confucianist: Yarsani seatbelt use: always do you feel safe at home: Yes additional social history: - Soraida History 2 Elective abortions Hx Para 0 Spontaneous abortions 1 Hx # Term Pregnancies Ectopic pregnancies Hx # Pregnancies Multiple births # of living children 0 Past Pregnancies Del. Date Name GA/Weeks Outcome Route Bth Weight Gen Labor Lgth Anesthesia Del [facility] Provider FOB 03/21/24 chemical Visit Details Expected Delivery Route/Plan Labor Preferences- CB/BF classes: encouraged labor support person: Soraida labor intervention preferences: [] pain management options preferred: epidural cut cord/dad catch: yes : yes PP control planned: discussed discussed possible routes of delivery and associated risks: [] special requests: [] Plans Covid status: [] Flu vaccine: [] Tdap vaccine: [] Rhogam: na LARC form signed: yes Problem list reviewed and updated with the most current plan of care details and appropriate orders placed. Relevant counseling for the gestational age provided. Continue routine care and follow up unless otherwise noted in visit notes/problem list details OB Flowsheet Initial Weight: Not Recorded Date -?-?-?-?-?-?-?-?-?-?-?-?- EGA Weight BP Urine Prot -?-?-?-?-?-?-?-?-?-?-?-?- Glucose FHR FuHt Pres Dilation -?-?-?-?-?-?-?-?-?-?-?-?- Effaced St Visit Note 07/04/24 -?-?-?-?-?-?-?-?-?-?-?-?- 9w 2d 300 lb 4 oz 136/94 -?-?-?-?-?-?-?-?-?-?-?-?- 171 -?-?-?-?-?-?-?-?-?-?-?-?- JV- CRL 1.89 and off slightly from LMP however, unable to capture the entire CRL so will not chanege the due date. rpt scan next visit. declines NIPT. patient works here. 08/04/24 -?-?-?-?-?-?-?-?-?-?-?-?- 13w 5d 292 lb 139/75 Negative -?-?-?-?-?-?-?-?-?-?-?-?- Negative 150 -?-?-?-?-?-?-?-?-?-?-?-?- SM- no vb crmapi ng 08/29/24 -?-?-?-?-?-?-?-?-?-?-?-?- 17w 2d 292 lb 134/82 Negative -?-?-?-?-?-?-?-?-?-?-?-?- Negative 160 -?-?-?-?-?-?-?-?-?-?-?-?- SM- no vb crmapi ng 09/26/24 -?-?-?-?-?-?-?-?-?-?-?-?- 21w 2d 296 lb 137/83 Negative -?-?-?-?-?-?-?-?-?-?-?-?- Negative 145 -?-?-?-?-?-?-?-?-?-?-?-?- SM- no vb lof go od fm 10/24/24 -?-?-?-?-?-?-?-?-?-?-?-?- 25w 2d 303 lb 2 oz 142/92 139/83 Negative -?-?-?-?-?-?-?-?-?-?-?-?- Negative 155 -?-?-?-?-?-?-?-?-?-?-?-?- KW- no vb/lof/ct x. good 28 week labs next week. Elevated BP today may need to start htn med if continue to be elevated. baseline pre e labs today KW- no vb/lof/ctx. good 2 8 week labs next visit. Elevated BP today may need to start htn med if continue to be elevated. baseline pre e labs today 11/15/24 -?-?-?-?-?-?-?-?-?-?-?-?- 28w 3d 306 lb 6 oz 130/74 Nega tive -?-?-?-?-?-?-?-?-?-?-?-?- Negative 146 29 -?-?-?-?-?-?-?-?-?-?-?-?- MH-No VB, LOF. G onani FM. Denies concerns. 28 wk labs. [facility] 11/28/24 -?-?-?-?-?-?-?-?-?-?-?-?- 30w 2d 308 lb 135/89 -?-?-?-?-?-?-?-?-?-?-?-?- 155 31 -?-?-?-?-?-?-?-?-?-?-?-?- KW- no vb/crampi ng. elsi . Has had ALBERT all weekend. Took BP at work and was elevated. Pre e labs sent. second BP was patients normal pressures. denies BV/dizziness, RUQ pain or swelling 12/02/24 -?-?-?-?-?-?-?-?-?-?-?-?- 30w 6d 311 lb 6 oz 137/85 Nega tive -?-?-?-?-?-?-?-?-?-?-?-?- Negative 145 31 -?-?-?-?-?-?-?-?-?-?-?-?- KW- no vb/lof/ct x. good fm. headache is better. labs reviewed. 12/13/24 -?-?-?-?-?-?-?-?-?-?-?-?- 32w 3d 309 lb 6 oz 149/89 -?-?-?-?-?-?-?-?-?-?-?-?- -?-?-?-?-?-?-?-?-?-?-?-?- [place] call [place] with oligohydramnios and IUGR. To for further eval with Dr Pérez Constitutional Constitutional: Reports systems reviewed and no addt'l complaints, except as documented Gastrointestinal Gastrointestinal: Denies bloating, constipation, cramping, diarrhea, nausea or vomiting Genitourinary Genitourinary: Reports other Details: Denies vaginal odor, vaginal bleeding, or vaginal discharge ; Denies difficulty urinating or flank pain Physical Exam HEENT normocephalic Resp normal respiratory effort and normal air movement no CVA tenderness Extremity normal to inspection General Extremity: edema bilateral (trace ) NST FHR Rate Baby A Baseline: 140 Variability:: Moderate Accelerations:: 15 x 15 Decelerations:: None NST Reactive:: Yes FHR Category:: Category I Assessment & Plan (1) Abnormal test: COMMENT: initial bpp 6/10 no 8/10 2 off for breathing, reassuring tracing overnight (2) Abnormal glucose in , antepartum: COMMENT: nl 3 hour (3) Oligohydramnios: QUALIFIERS: Fetus number: single or unspecified fetus Trimester: third trimester Qualified Code(s): O41.03X0 - Oligohydramnios, third trimester, not applicable or unspecified COMMENT: deliver at 36 weeks PLAN: return to office for an nst continue bpp's on tuesdays and fridays and delivery at 36 weeks (4) Elevated BP without diagnosis of hypertension: COMMENT: 10/24/24 Pre E labs nl (5) Obesity affecting : QUALIFIERS: Trimester: third trimester Obesity type affecting : unspecified obesity Qualified Code(s): O99.213 - Obesity complicating , third trimester COMMENT: BMI 41 HgbA1c nl. plan weekly NSTs after 34 and growth US 32 and 36. (6) Supervision of high-risk : QUALIFIERS: Trimester: third trimester Qualified Code(s): O09.93 - Supervision of high risk , unspecified, third trimester COMMENT: PRR, , ALAYNA 02/04/25, Soraida (7) : QUALIFIERS: Weeks of gestation: 32 weeks Qualified Code(s): Z3A.32 - 32 weeks gestation of COMMENT: discussed NIPT, ntd, & carrier testing- declined. nl anatomy Charges/Coding Multi Select Codes Visit Charges Office Visit/Consults: 61032 OV L3 Est 20min Urinary/Genital Urinary/Genital CPT Codes: 76273-17 non-stress test Interp 12/27/24 1451 <Electronically signed by Nenita Robin DO> Date _ Nenita Oliva DO Cosigner Signature (if applicable): Date CC: TIN-C Clarissa Cosby; Dr. Nenita Oliva, ~ Signed [facility] Work Phone: History and physical note Author Bella Berumen [facility] Note Date/Time January 06, 2025 10:4 3am [facility] Medical Records Department [address] [place] [address] OB Triage Physician Note 01/06/25 1039 MR#: [id number] Acct: [id number] Name: BALTAZAR BLANCO Rep #:[id number] : 1995 29 From: Bella Berumen CNM PCP: JUAN Montilla Status:REG CL I Y Location: [place] [id number] HPI - General General Chief Complaint: abnormal test HPI Narrative BALTAZAR BLANCO, is a 29 F who presents at 35.6 for 6/8 BPP 2 off for breathing. known oligohydramnios, Maternal Data Information ALAYNA Calculator Estimated Delivery Date Method Current WG Current Estimate 02/04/25 LMP (Certain) 35w 6d Other Estimates 02/09/25 Ultrasound #1 35w 1d Final ALAYNA: 01/06/25 Gestational age: 35.6 PFSH PFSH Medical History Irritable bowel syndrome Irregular menses Chemical Early stage of Asthma Home Medications ?Medication ?Instructions ?Recorded ?Last Taken ?Type aspirin 81 mg tablet,delayed 81 mg PO DAILY 12/13/24 0 01/04/25 History release vit no.95-ferrous 1 tab PO DAILY 12/13/2412/27 History fumarate 28 mg-folic acid 800 mcg tablet ( Formula) Allergy/AdvReac Type Severity Reaction Status Date / Time No Known Allergies Allergy Verified 01/06/25 10:28 Family History Grandmother Breast cancer Paternal Alzheimer's dementia Maternal Father High cholesterol TIA (transient ischemic attack) Grandfather Parkinsons disease Paternal Surgical History S/P tonsillectomy Social History adopted: No household members: spouse current occupational status: employed current occupation: [employer] pets and animals: Yes pets and animals: dog(s) history of recent travel: Yes ([place] in september) out of state: No out of country: Yes sexually active: Yes Smoking Status: Never smoker alcohol intake: current alcohol intake frequency: other details: once a month - Not while substance use type: does not use well-balanced diet: about half the time caffeine: Yes Type: coffee Number of servings: 1 eating out: 1-3 times/week during the past year weight has: remained stable what type of physical activity do you participate in: walking frequency: 1-2 times per week duration: 30-45 minutes/day yossi/confucianist: Yarsani seatbelt use: always do you feel safe at home: Yes additional social history: - [place]yn History 2 Elective abortions Hx Para 0 Spontaneous abortions 1 Hx # Term Pregnancies Ectopic pregnancies Hx # Pregnancies Multiple births # of living children 0 Past Pregnancies Del. Date Name GA/Weeks Outcome Route Bth Weight Infant Gen Labor Lgth Anesthesia Del [facility] Provider FOB 03/21/24 chemical Visit Details Expected Delivery Route/Plan Labor Preferences- CB/BF classes: encouraged labor support person: Soraida labor intervention preferences: [] pain management options preferred: epidural cut cord/dad catch: yes : yes PP control planned: discussed discussed possible routes of delivery and associated risks: [] special requests: [] Plans Covid status: [] Flu vaccine: [] Tdap vaccine: [] Rhogam: na LARC form signed: yes Problem list reviewed and updated with the most current plan of care details and appropriate orders placed. Relevant counseling for the gestational age provided. Continue routine care and follow up unless otherwise noted in visit notes/problem list details OB Flowsheet Initial Weight: Not Recorded Date -?-?-?-?-?-?-?-?-?-?-?-?- EGA Weight BP Urine Prot -?-?-?-?-?-?-?-?-?-?-?-?- Glucose FHR FuHt Pres Dilation -?-?-?-?-?-?-?-?-?-?-?-?- Effaced St Visit Note 07/04/24 -?-?-?-?-?-?-?-?-?-?-?-?- 9w 2d 300 lb 4 oz 136/94 -?-?-?-?-?-?-?-?-?-?-?-?- 171 -?-?-?-?-?-?-?-?-?-?-?-?- JV- CRL 1.89 and off slightly from LMP however, unable to capture the entire CRL so will not chanege the due date. rpt scan next visit. declines NIPT. patient works here. 08/04/24 -?-?-?-?-?-?-?-?-?-?-?-?- 13w 5d 292 lb 139/75 Negative -?-?-?-?-?-?-?-?-?-?-?-?- Negative 150 -?-?-?-?-?-?-?-?-?-?-?-?- SM- no vb crmapi ng 08/29/24 -?-?--?-?-?-?-?-?-?-?-?-?- 17w 2d 292 lb 134/82 Negative -?-?-?-?-?-?-?-?-?-?-?-?- Negative 160 -?-?-?-?-?-?-?-?-?-?-?-?- SM- no vb crmapi ng 09/26/24 -?-?-?-?-?-?-?-?-?-?-?-?- 21w 2d 296 lb 137/83 Negative -?-?-?-?-?-?-?-?-?-?-?-?- Negative 145 -?-?-?-?-?-?-?-?-?-?-?-?- SM- no vb lof go od fm 10/24/24 -?-?-?-?-?-?-?-?-?-?-?-?- 25w 2d 303 lb 2 oz 142/92 139/83 Negative -?-?-?-?-?-?-?-?-?-?-?-?- Negative 155 -?-?-?-?-?-?-?-?-?-?-?-?- KW- no vb/lof/ct x. good 28 week labs next week. Elevated BP today may need to start htn med if continue to be elevated. baseline pre e labs today KW- no vb/lof/ctx. good 2 8 week labs next visit. Elevated BP today may need to start htn med if continue to be elevated. baseline pre e labs today 11/15/24 -?-?-?-?-?-?-?-?-?-?-?-?- 28w 3d 306 lb 6 oz 130/74 Nega tive -?-?-?-?-?-?-?-?-?-?-?-?- Negative 146 29 -?-?-?-?-?-?-?-?-?-?-?-?- -No VB, LOF. G ood FM. Denies concerns. 28 wk labs. Larc 11/28/24 -?-?-?-?-?-?-?-?-?-?-?-?- 30w 2d 308 lb 135/89 -?-?-?-?-?-?-?-?-?-?-?-?- 155 31 -?-?-?-?-?-?-?-?-?-?-?-?- KW- no vb/crampi ng. good fm. Has had ALBERT all weekend. Took BP at work and was elevated. Pre e labs sent. second BP was patients normal pressures. denies BV/dizziness, RUQ pain or swelling 12/02/24 -?-?-?-?-?-?-?-?-?-?-?-?- 30w 6d 311 lb 6 oz 137/85 Nega tive -?-?-?-?-?-?-?-?-?-?-?-?- Negative 145 31 -?-?-?-?-?-?-?-?-?-?-?-?- KW- no vb/lof/ct x. good fm. headache is better. labs reviewed. 12/13/24 -?-?-?-?-?-?-?-?-?-?-?-?- 32w 3d 309 lb 6 oz 149/89 -?-?-?-?-?-?-?-?-?-?-?-?- -?-?-?-?-?-?-?-?-?-?-?-?- Phone call from [place] with oligohydramnios and IUGR. To for further eval with Dr Oliva 12/29/24 -?-?-?-?-?-?-?-?-?-?-?-?- 34w 5d 310 lb 2 oz 134/76 Nega tive -?-?-?-?-?-?-?-?-?-?-?-?- Negative 150 -?-?-?-?-?-?-?-?-?-?-?-?- -NST only reac tive. Has BPP tomorrow 12/30/24 -?-?-?-?-?-?-?-?-?-?-?-?- 34w 6d 310 lb 8 oz 139/84 Nega tive -?-?-?-?-?-?-?-?-?-?-?-?- Negative 155 -?-?-?-?-?-?-?-?-?-?-?-?- JV- oligo persis ts. planning 36 week IOL. continue close monitoring. bpp was technically 8/8 due to ramsey of 5.22 and normal movement, tone, etc. JV- oligo persists. planning 36 week IOL. GBS collected. continue close monitoring. bpp was technically 8/8 due to ramsey of 5.22 and normal movement, tone, etc. 01/02/25 -?-?-?-?-?-?-?-?-?-?-?-?- 35w 2d 312 lb 8 oz 124/75 Nega tive -?-?-?-?-?-?-?-?-?-?-?-?- Negative 145 Cephalic 0 -?-?-?-?-?-?-?-?-?-?-?-?- KW- reactive NST . good fm. BPPs tues and fri this week. IOL for sat at 7pm. Physical Exam Const alert, oriented x3 and no apparent distress Resp normal respiratory effort, normal air movement, no retractions and no use of accessory muscles GI soft to palpation and non-tender Inspection: Palpation: soft Rectal Exam: deferred Extremity normal to inspection and full ROM NST FHR Rate Baby A Baseline: 130 Variability:: Moderate Accelerations:: 15 x 15 Decelerations:: None NST Reactive:: Yes FHR Category:: Category I Assessment & Plan (1) Abnormal test: COMMENT: initial bpp 6/10 no 8/10 2 off for breathing, reassuring tracing. plans iol tomorrow. PLAN: Plan Patient presents for triage evaluation secondary to 6/8 BPP, reactive nst. RAMSEY 5.5 today on us with MVP>2. FHT: Moderate variability reactive no decelerations category I tracing [place]: irreg Contractions Assessment and plan: Reactive NST, reassuring maternal and status patient discharged to home to follow-up tomorrow for IOL. See problem list details for additional plan information. c/w Dr. pacheco concures with plan of care Charges/Coding Visit Charges Office Visits / Consults: 33950 OV L3 Est 20min Procedures Urinary/Genital 52xxx-59xxx: [id number] non-stress test Interp 01/06/25 1043 <Electronically signed by Bella galeano CNM> Date _ Bella Berumen CNM Cosigner Signature (if applicable): Date CC: SABAS Berumen; SEASONING MIXER-C Clarissa Cosby ~ Signed [facility] Work Phone: Progress note Author Sariah Cobb [facility] Note Date/Time February 20, 2025 11:03 am [facility] [address] [place] [address], [address] [place] [address] OFFICE VISIT Date of Service: 02/20/25 MR#: [id number] Acct: [id number] Name: BALTAZAR BLANCO ANN Rep #: [id number] : 1995 Provider: SABAS Cobb Age/Sex: 29/F [place] [facility] Status: Signed Intake Vital Signs 01/07/25 19:47 02/20/25 10:47 Height 5 ft 11 in 5 ft 11 in Weight: 306 lb 8 oz BMI 42.7 BP 127/82 H Intake Visit Reasons: visit (obstetrics) Chief Complaint: Visit Administrative Underwriter Required: No Is patient in pain?: No Allergies No Known Allergies Allergy (Verified 02/20/25 10:50) Medications ?Medication ?Instructions ?Recorded ?Confirmed ?Type lactobacillus combination no.8 3 cell PO 02/20/2502/02 History billion cell capsule : No [facility] Medical History PCOS (polycystic ovarian syndrome) Oligohydramnios Chemical Early stage of Asthma Irritable bowel syndrome Irregular menses Surgical History S/P tonsillectomy Family History Grandmother Breast cancer Paternal Alzheimer's dementia Maternal Father High cholesterol TIA (transient ischemic attack) Grandfather Parkinsons disease Paternal Social History adopted: No household members: spouse current occupational status: employed current occupation: [employer] pets and animals: Yes pets and animals: dog(s) history of recent travel: Yes ([place] in september) out of state: No out of country: Yes sexually active: Yes Smoking Status: Never smoker alcohol intake: current alcohol intake frequency: other details: once a month - Not while substance use type: does not use well-balanced diet: about half the time caffeine: Yes Type: coffee Number of servings: 1 eating out: 1-3 times/week during the past year weight has: remained stable what type of physical activity do you participate in: walking frequency: 1-2 times per week duration: 30-45 minutes/day yossi/confucianist: Yarsani seatbelt use: always do you feel safe at home: Yes additional social history: - Keenann History 2 Elective abortions Hx Para 1 Spontaneous abortions 1 Hx # Term Pregnancies Ectopic pregnancies Hx # Pregnancies 1 Multiple births # of living children 1 Past Pregnancies Del. Date Name GA/Weeks Outcome Route Bth Weight Infant Gen Labor Lgth Anesthesia Del Locatn Provider FOB 03/21/24 chemical 01/09/25 Rajan 36 live - 5lb 8oz Female epid ural [employer] KW Kameryn Delivery Date: 01/09/25 Last Updated by: Dena Broderick, RN See problem list for complications and KW IOL - oligohydramnios Girl Depression Screen PHQ-2/9 PHQ-2 Over the last 2 weeks, how often have you been bothered by any of the following problems? 1. Little interest or pleasure in doing things: not at all 2. Feeling down, depressed, or hopeless: not at all Total score: 0 Post HPI Routine Follow-Up: Details: BALTAZAR BLANCO is a 29 year old who presents for her post visit. Pumping only and giving via bottle. Had mastitis but has cleared Infant Feeding: Breast (pumping) Menses resumed: No [place] since delivery: No Emotional Support: Yes Last Pap:: 2021 Control Method: condoms ROS Const All systems reviewed & are unremarkable except as noted in H Reports system reviewed and no additional complaints, except as documented Card Reports system reviewed and no additional complaints, except as documented GI Reports system reviewed and no additional complaints, except as documented Neuro Yes system reviewed and no additional complaints, except as documented Psych Reports system reviewed and no additional complaints, except as documented, Denies anhedonia, Denies depression, Denies homicidal ideation and Denies suicidal ideation Exam Const General: cooperative, healthy appearing and comfortable Nutritional Appearance: average body habitus Orientation: alert, awake and oriented x3 Neck Neck: normal visual inspection and full ROM Resp Effort & Inspection: normal respiratory effort, able to speak in complete sentences and symmetric chest movement GI Inspection: normal to inspection Palpation: soft External Female Exam: normal external appearance and normal appearance of the urethra Urethra: normal appearance of the urethra Speculum Exam - Vagina: normal appearance of the vagina and normal vaginal discharge Bimanual Exam- Vagina & Uterus: normal bimanual exam, normal palpation and uterine size normal Bimanual Exam- Adnexa, other: normal adnexae and normal Pelvic Support: normal Neuro General: patient alert, patient awake, patient oriented x3 and moves all extremities Psych Appearance: grossly normal and well kempt Mental Status: mental status grossly normal Affect: normal affect Speech and Movement: speech and movement normal Attitude: cooperative Thought Process: normal Thought Content: normal Judgment: judgment good Coding Level of Care Code No Charge Diagnoses Routine Follow-Up Z39.2 Assessment and Plan Assessment and Plan (1) Routine Follow-Up: Plan Details Additional Comments: Cervical cancer screening: up to date Contraceptive plans: condoms Complications: see list Follow up for annual exams or sooner if indicated. 02/20/25 1103 <Electronically signed by Sariah chacon CNM> Date _ Sariah Cobb CNM Cosigner Signature: Date (if applicable) CC: ~ [facility] Work Phone: Progress note Author Kavya Diez [facility] Note Date/Time May 02, 2025 11:5 7am [facility] [address] [place] [address], [address] [place] [address] OFFICE VISIT Date of Service: 05/02/25 MR#: [id number] Acct: [id number] Name: BALTAZAR BLANCO ANN Rep #: [id number] : 1995 Provider: JUAN Diez Age/Sex: 30/F [place] [facility] Status: Signed Intake Vital Signs 02/20/25 10:47 05/02/25 11:42 05/02/25 11:50 Height 5 ft 11 in 5 ft 11 in 5 ft 11 in Weight: 306 lb 8 oz 283 lb BMI 42.7 39.4 BP 127/82 H 122/84 H Intake Visit Reasons: Poss. BV *copay $20 Chief Complaint: Poss. BV Administrative Underwriter Required: No Is patient in pain?: No Allergies No Known Allergies Allergy (Verified 05/02/25 11:42) Medications ?Medication ?Instructions ?Recorded ?Confirmed ?Type lactobacillus combination no.8 3 cell PO 02/20/2504/05 History billion cell capsule Is last menstrual period known: No Post menopausal: No Patient : No : [facility] History (Updated 05/02/25 @ 11:56 by Kavya Diez SEASONING MIXER, GONZÁLEZC) Vaginal delivery PCOS (polycystic ovarian syndrome) Oligohydramnios Chemical Early stage of Asthma Irritable bowel syndrome Irregular menses Surgical History S/P tonsillectomy Family History Grandmother Breast cancer Paternal Alzheimer's dementia Maternal Father High cholesterol TIA (transient ischemic attack) Grandfather Parkinsons disease Paternal Social History adopted: No household members: spouse current occupational status: employed current occupation: [employer] pets and animals: Yes pets and animals: dog(s) history of recent travel: Yes ([place] in september) out of state: No out of country: Yes sexually active: Yes Smoking Status: Never smoker alcohol intake: current alcohol intake frequency: other details: once a month - Not while substance use type: does not use well-balanced diet: about half the time caffeine: Yes Type: coffee Number of servings: 1 eating out: 1-3 times/week during the past year weight has: remained stable what type of physical activity do you participate in: walking frequency: 1-2 times per week duration: 30-45 minutes/day yossi/confucianist: Yarsani seatbelt use: always do you feel safe at home: Yes additional social history: - Keenann HPI Poss. BV *copay $20 Details: BALTAZAR BLANCO is a 30 year old who presents for vaginal odor. Delivered January 2025. Condoms for contraception. History 2 2 Elective abortions Hx Para 1 Spontaneous abortions 1 Hx # Term Pregnancies Ectopic pregnancies Hx # Pregnancies 1 Multiple births # of living children 1 Past Pregnancies Del. Date Name GA/Weeks Outcome Route Bth Weight Gen Labor Lgth Anesthesia Del Locatn Provider FOB 03/21/24 chemical 01/09/25 Rajan 36 live - 5lb 8oz Female epid ural [facility] KW Keenann Delivery Date: 01/09/25 Last Updated by: Dena Broderick RN See problem list for complications and KW IOL - oligohydramnios Girl ROS Const Constitutional: Reports system reviewed and no additional complaints, except as documented Eyes Eyes: Reports system reviewed and no additional complaints, except as documented GI GI: Denies abdominal pain or change in bowel habits : Reports as per HPI Exam Const General: cooperative and no acute distress Orientation: oriented x3 General: bladder normal to palpation External Female Exam: normal external appearance and normal appearance of the urethra Urethra: normal appearance of the urethra Speculum Exam - Vagina: normal appearance of the vagina, normal vaginal discharge, no lesions and nontender Speculum Exam - Cervix: normal appearance of the cervix Bimanual Exam- Vagina & Uterus: normal bimanual exam, uterine size normal, bladder normal to palpation, uterine shape normal, uterine mobility normal and non- tender Bimanual Exam- Adnexa, other: normal adnexae, no masses and non-tender Coding Level of Care Code Off vis,est,level 3 Diagnoses Vaginal odor N89.8 Assessment and Plan Assessment and Plan (1) Vaginal odor: Plan ANTHONY BV and comp vag culture-call positive 05/02/25 1157 <Electronically signed by Kavya chacon SEASONING MIXER SEASONING MIXER-C> Date _ Kavya Diez SEASONING MIXER SEASONING MIXER-C Cosigner Signature: Date (if applicable) CC: ~ [facility] Work Phone: Reason for referral (narrative)No reason for referral information availableWOhio[facility] Work Phone: Summary Purpose Family History No Family History Records Found Relationship Condition Age at Onset Recorded Date/T donovan grandmother Malignant neoplasm of breast Unknown Alzheimer's dementia Unknown father High blood cholesterol Unknown Transient ischemic attack Unknown grandfather Parkinson's disease Unknown Advance Directives No Advanced Directives Records Found Date Activated Date Inactivated Comments 12/14/2024 3:01 PM 12/16/2024 6:26 PM Advance Directive Response Recorded Date/ Time Living Will No January 07, 2025 7:45pm Do you have a Healthcare Power of Semiconductor Processing Technician? No January 07, 2025 7:45pm Chief Complaint and Reason for Visit Chief Complaint Admit Date 17 WK OB August 29, 2024 1:18pm ANATOMY September 23, 2024 8:01am 21 WK OB September 26, 2024 10:10am 25 wk ob October 24, 2024 1 1:18am 28 wk ob/glucose November 15, 2024 1:36pm Abnormal glucose complicating November 21, 2024 6:59am 30W HTN, H/A November 28, 2024 9:39am 30 WK OB December 02, 2024 10:24am Reason for Visit Admit Date Obesity affecting August 1:18pm August 29, 2024 1:18pm Supervision of high-risk Novem 2023 1:18pm Obesity affecting September 10:10am September 26, 2024 10:10am Supervision of high-risk Decem 2023 10:10am Elevated BP without diagnosis of hyperte nsion October 24, 2024 11:18am Obesity affecting October 11:18am October 24, 2024 1 1:18am Supervision of high-risk Janua 2024 11:18am Elevated BP without diagnosis of hyperte nsion November 15, 2024 1:36pm Obesity affecting November 1:36pm November 15, 2024 1:36pm Supervision of high-risk Febr 2024 1:36pm Abnormal glucose in , antepartu November 28, 2024 9:39am Elevated BP without diagnosis of hyperte nsion November 28, 2024 9:39am Obesity affecting November 9:39am November 28, 2024 9:39am Supervision of high-risk [facility] 2024 9:39am Abnormal glucose in , antepartu December 02, 2024 10:24am Elevated BP without diagnosis of hyperte nsion December 02, 2024 10:24am Obesity affecting November 10:24am December 02, 2024 10:24am Supervision of high-risk [facility] 2024 10:24am Chief Complaint Admit Date 17 WK OB August 29, 2024 1:18pm ANATOMY September 23, 2024 8:01am 21 WK OB September 26, 2024 10:10am 25 wk ob October 24, 2024 1 1:18am 28 wk ob/glucose November 15, 2024 1:36pm Abnormal glucose complicating November 21, 2024 6:59am 30W HTN, H/A November 28, 2024 9:39am 30 WK OB December 02, 2024 10:24am GROWTH December 13, 2024 7:4 2am 32 WK OB December 13, 2024 9:2 1am RULE OUT PRE-E December 13, 2024 9:2 5am RULE OUT PRE-E December 13, 2024 9:5 6am Reason for Visit Admit Date Obesity affecting August 1:18pm August 29, 2024 1:18pm Supervision of high-risk Novem 2023 1:18pm Obesity affecting September 10:10am September 26, 2024 10:10am Supervision of high-risk Dece 2023 10:10am Elevated BP without diagnosis of hyperte nsion October 24, 2024 11:18am Obesity affecting October 11:18am October 24, 2024 1 1:18am Supervision of high-risk Janua 2024 11:18am Elevated BP without diagnosis of hyperte nsion November 15, 2024 1:36pm Obesity affecting November 1:36pm November 15, 2024 1:36pm Supervision of high-risk [facility] 2024 1:36pm Abnormal glucose in , [facility] November 28, 2024 9:39am Elevated BP without diagnosis of hyperte nsion November 28, 2024 9:39am Obesity affecting November 9:39am November 28, 2024 9:39am Supervision of high-risk [facility]2024 9:39am Abnormal glucose [facility] December 02, 2024 10:24am Elevated BP without diagnosis of hyperte nsion December 02, 2024 10:24am Obesity affecting November 10:24am December 02, 2024 10:24am Supervision of high-risk [facility] 2024 10:24am Abnormal glucose in , [facility] December 13, 2024 9:21am Elevated BP without diagnosis of hyperte nsion December 13, 2024 9:21am Obesity affecting December 13, 2024 9:21am Oligohydramnios December 13, 2024 9:2 1am December 13, 2024 9:2 1am Supervision of high-risk December 13, 2024 9:21am Abnormal glucose in , antepartu m December 13, 2024 9:25am Elevated BP without diagnosis of hyperte nsion December 13, 2024 9:25am Obesity affecting December 13, 2024 9:25am Oligohydramnios December 13, 2024 9:2 5am December 13, 2024 9:2 5am Supervision of high-risk December 13, 2024 9:25am Chief Complaint Admit Date 17 WK OB August 29, 2024 1:18pm ANATOMY September 23, 2024 8:01am 21 WK OB September 26, 2024 10:10am 25 wk ob October 24, 2024 1 1:18am 28 wk ob/glucose November 15, 2024 1:36pm Abnormal glucose complicating November 21, 2024 6:59am 30W HTN, H/A November 28, 2024 9:39am 30 WK OB December 02, 2024 10:24am GROWTH December 13, 2024 7:4 2am 32 WK OB December 13, 2024 9:2 1am RULE OUT PRE-E December 13, 2024 9:2 5am RULE OUT PRE-E December 13, 2024 9:5 6am FETA WELL [employer]ING December 20, 2024 11: 59am FETA WE[employer]ING December 20, 2024 4:4 1pm Reason for Visit Admit Date Obesity affecting August 1:18pm August 29, 2024 1:18pm Supervision of high-risk Novem 2023 1:18pm Obesity affecting September 10:10am September 26, 2024 10:10am Supervision of high-risk Decem 2023 10:10am Elevated BP without diagnosis of hyperte nsion October 24, 2024 11:18am Obesity affecting October 11:18am October 24, 2024 1 1:18am Supervision of high-risk Janua 2024 11:18am Elevated BP without diagnosis of hyperte nsion November 15, 2024 1:36pm Obesity affecting November 1:36pm November 15, 2024 1:36pm Supervision of high-risk [facility]2024 1:36pm Abnormal glucose in , [facility] November 28, 2024 9:39am Elevated BP without diagnosis of hyperte nsion November 28, 2024 9:39am Obesity affecting November 9:39am November 28, 2024 9:39am Supervision of high-risk [facility]2024 9:39am Abnormal glucose in , [facility] December 02, 2024 10:24am Elevated BP without diagnosis of hyperte nsion December 02, 2024 10:24am Obesity affecting November 10:24am December 02, 2024 10:24am Supervision of high-risk [facility] 2024 10:24am Abnormal glucose in , [facility] December 13, 2024 9:21am Elevated BP without diagnosis of hyperte nsion December 13, 2024 9:21am Obesity affecting December 13, 2024 9:21am Oligohydramnios December 13, 2024 9:2 1am December 13, 2024 9:2 1am Supervision of high-risk December 13, 2024 9:21am Abnormal glucose in , [facility] December 13, 2024 9:25am Elevated BP without diagnosis of hyperte nsion December 13, 2024 9:25am Obesity affecting December 13, 2024 9:25am Oligohydramnios December 13, 2024 9:2 5am December 13, 2024 9:2 5am Supervision of high-risk December 13, 2024 9:25am Abnormal test December 20, 2024 11:59am Abnormal glucose in , [facility] December 20, 2024 11:59am Elevated BP without diagnosis of hyperte nsion December 20, 2024 11:59am Obesity affecting December 20, 2024 11:59am Oligohydramnios December 20, 2024 11: 59am December 20, 2024 11: 59am Supervision of high-risk December 20, 2024 11:59am Chief Complaint Admit Date 17 WK OB August 29, 2024 1:18pm ANATOMY September 23, 2024 8:01am 21 WK OB September 26, 2024 10:10am 25 wk ob October 24, 2024 1 1:18am 28 wk ob/glucose November 15, 2024 1:36pm Abnormal glucose complicating November 21, 2024 6:59am 30W HTN, H/A November 28, 2024 9:39am 30 WK OB December 02, 2024 10:24am GROWTH December 13, 2024 7:4 2am 32 WK OB December 13, 2024 9:2 1am RULE OUT PRE-E December 13, 2024 9:2 5am RULE OUT PRE-E December 13, 2024 9:5 6am FETA WELL BEING December 20, 2024 11: 59am FETA WELL BEING December 20, 2024 4:4 1pm FETA WE[employer] BEING December 21, 2024 10: 05am Chief Complaint Admit Date 17 WK OB August 29, 2024 1:18pm ANATOMY September 23, 2024 8:01am 21 WK OB September 26, 2024 10:10am 25 wk ob October 24, 2024 1 1:18am 28 wk ob/glucose November 15, 2024 1:36pm Abnormal glucose complicating November 21, 2024 6:59am 30W HTN, H/A November 28, 2024 9:39am 30 WK OB December 02, 2024 10:24am GROWTH December 13, 2024 7:4 2am 32 WK OB December 13, 2024 9:2 1am RULE OUT PRE-E December 13, 2024 9:2 5am RULE OUT PRE-E December 13, 2024 9:5 6am FETA WE[employer] BEING December 20, 2024 11: 59am FETA WE[employer] BEING December 20, 2024 4:4 1pm FETA WELL BEING December 21, 2024 10: 05am FETA WELL BEING December 23, 2024 12: 33pm LOW FLUID AND WELL BEING December 12:16pm LOW FLUID AND WELL BEING December 2:48pm Reason for Visit Admit Date Obesity affecting August 1:18pm August 29, 2024 1:18pm Supervision of high-risk Novem 2023 1:18pm Obesity affecting September 10:10am September 26, 2024 10:10am Supervision of high-risk Decem 2023 10:10am Elevated BP without diagnosis of hyperte nsion October 24, 2024 11:18am Obesity affecting October 11:18am October 24, 2024 1 1:18am Supervision of high-risk Janua 2024 11:18am Elevated BP without diagnosis of hyperte nsion November 15, 2024 1:36pm Obesity affecting November 1:36pm November 15, 2024 1:36pm Supervision of high-risk [facility] 2024 1:36pm Abnormal glucose in , [facility] November 28, 2024 9:39am Elevated BP without diagnosis of hyperte nsion November 28, 2024 9:39am Obesity affecting November 9:39am November 28, 2024 9:39am Supervision of high-risk [facility] 2024 9:39am Abnormal glucose in , [facility] December 02, 2024 10:24am Elevated BP without diagnosis of hyperte nsion December 02, 2024 10:24am Obesity affecting November 10:24am December 02, 2024 10:24am Supervision of high-risk [facility] 2024 10:24am Abnormal glucose in , [facility] December 13, 2024 9:21am Elevated BP without diagnosis of hyperte nsion December 13, 2024 9:21am Obesity affecting December 13, 2024 9:21am Oligohydramnios December 13, 2024 9:2 1am December 13, 2024 9:2 1am Supervision of high-risk December 13, 2024 9:21am Abnormal glucose in , [facility] December 13, 2024 9:25am Elevated BP without diagnosis of hyperte nsion December 13, 2024 9:25am Obesity affecting December 13, 2024 9:25am Oligohydramnios December 13, 2024 9:2 5am December 13, 2024 9:2 5am Supervision of high-risk December 13, 2024 9:25am Abnormal test December 20, 2024 11:59am Abnormal glucose in , antepartu m December 20, 2024 11:59am Elevated BP without diagnosis of hyperte nsion December 20, 2024 11:59am Obesity affecting December 20, 2024 11:59am Oligohydramnios December 20, 2024 11: 59am December 20, 2024 11: 59am Supervision of high-risk December 20, 2024 11:59am Abnormal test December 27, 2024 12:16pm Abnormal glucose in , antepartu m December 27, 2024 12:16pm Elevated BP without diagnosis of hyperte nsion December 27, 2024 12:16pm Obesity affecting December 27, 2024 12:16pm Oligohydramnios December 27, 2024 12: 16pm December 27, 2024 12: 16pm Supervision of high-risk December 27, 2024 12:16pm Chief Complaint Admit Date ANATOMY September 23, 2024 8:01am 21 WK OB September 26, 2024 10:10am 25 wk ob October 24, 2024 1 1:18am 28 wk ob/glucose November 15, 2024 1:36pm Abnormal glucose complicating November 21, 2024 6:59am 30W HTN, H/A November 28, 2024 9:39am 30 WK OB December 02, 2024 10:24am GROWTH December 13, 2024 7:4 2am 32 WK OB December 13, 2024 9:2 1am RULE OUT PRE-E December 13, 2024 9:2 5am RULE OUT PRE-E December 13, 2024 9:5 6am FETA WELL BEING December 20, 2024 11: 59am FETA WELL BEING December 20, 2024 4:4 1pm FETA WELL BEING December 21, 2024 10: 05am FETA WELL BEING December 23, 2024 12: 33pm LOW FLUID AND WELL BEING December 12:16pm LOW FLUID AND WELL BEING December 2:48pm 34 wk NST ONLY December 29, 2024 10: 01am FETA WELL BEING December 30, 2024 11: 33am 34 WK OB December 30, 2024 1:0 0pm Reason for Visit Admit Date Obesity affecting September 10:10am September 26, 2024 10:10am Supervision of high-risk Dece 2023 10:10am Elevated BP without diagnosis of hyperte nsion October 24, 2024 11:18am Obesity affecting October 11:18am October 24, 2024 1 1:18am Supervision of high-risk Janua 2024 11:18am Elevated BP without diagnosis of hyperte nsion November 15, 2024 1:36pm Obesity affecting November 1:36pm November 15, 2024 1:36pm Supervision of high-risk [facility]2024 1:36pm Abnormal glucose in , [facility] November 28, 2024 9:39am Elevated BP without diagnosis of hyperte nsion November 28, 2024 9:39am Obesity affecting November 9:39am November 28, 2024 9:39am Supervision of high-risk [facility] 2024 9:39am Abnormal glucose in , [facility] December 02, 2024 10:24am Elevated BP without diagnosis of hyperte nsion December 02, 2024 10:24am Obesity affecting November 10:24am December 02, 2024 10:24am Supervision of high-risk [facility] 2024 10:24am Abnormal glucose in , [facility] December 13, 2024 9:21am Elevated BP without diagnosis of hyperte nsion December 13, 2024 9:21am Obesity affecting December 13, 2024 9:21am Oligohydramnios December 13, 2024 9:2 1am December 13, 2024 9:2 1am Supervision of high-risk December 13, 2024 9:21am Abnormal glucose in , [facility] December 13, 2024 9:25am Elevated BP without diagnosis of hyperte nsion December 13, 2024 9:25am Obesity affecting December 13, 2024 9:25am Oligohydramnios December 13, 2024 9:2 5am December 13, 2024 9:2 5am Supervision of high-risk December 13, 2024 9:25am Abnormal test December 20, 2024 11:59am Abnormal glucose in , antepartu m December 20, 2024 11:59am Elevated BP without diagnosis of hyperte nsion December 20, 2024 11:59am Obesity affecting December 20, 2024 11:59am Oligohydramnios December 20, 2024 11: 59am December 20, 2024 11: 59am Supervision of high-risk December 20, 2024 11:59am Abnormal test December 27, 2024 12:16pm Abnormal glucose in , antepartu m December 27, 2024 12:16pm Elevated BP without diagnosis of hyperte nsion December 27, 2024 12:16pm Obesity affecting December 27, 2024 12:16pm Oligohydramnios December 27, 2024 12: 16pm December 27, 2024 12: 16pm Supervision of high-risk December 27, 2024 12:16pm Abnormal test December 29, 2024 10:01am Abnormal glucose in , antepartu m December 29, 2024 10:01am Elevated BP without diagnosis of hyperte nsion December 29, 2024 10:01am Obesity affecting December 29, 2024 10:01am Oligohydramnios December 29, 2024 10: 01am December 29, 2024 10: 01am Supervision of high-risk December 29, 2024 10:01am Abnormal test December 30, 2024 1:00pm Abnormal glucose in , antepartu m December 30, 2024 1:00pm Elevated BP without diagnosis of hyperte nsion December 30, 2024 1:00pm Obesity affecting December 30, 2024 1:00pm Oligohydramnios December 30, 2024 1:0 0pm December 30, 2024 1:0 0pm Supervision of high-risk December 30, 2024 1:00pm Chief Complaint Admit Date ANATOMY September 23, 2024 8:01am 21 WK OB September 26, 2024 10:10am 25 wk ob October 24, 2024 1 1:18am 28 wk ob/glucose November 15, 2024 1:36pm Abnormal glucose complicating November 21, 2024 6:59am 30W HTN, H/A November 28, 2024 9:39am 30 WK OB December 02, 2024 10:24am GROWTH December 13, 2024 7:4 2am 32 WK OB December 13, 2024 9:2 1am RULE OUT PRE-E December 13, 2024 9:2 5am RULE OUT PRE-E December 13, 2024 9:5 6am [employer] December 20, 2024 11: 59am [employer] December 20, 2024 4:4 1pm [employer] December 21, 2024 10: 05am [employer] December 23, 2024 12: 33pm LOW FLUID AND [employer] December 12:16pm LOW FLUID AND [employer]ING December 2:48pm 34 wk NST ONLY December 29, 2024 10: 01am [employer] December 30, 2024 11: 33am 34 WK OB December 30, 2024 1:0 0pm 35 WK OB/NST January 02, 2025 9:3 9am Reason for Visit Admit Date Obesity affecting September 10:10am September 26, 2024 10:10am Supervision of high-risk Dece 2023 10:10am Elevated BP without diagnosis of hyperte nsion October 24, 2024 11:18am Obesity affecting October 11:18am October 24, 2024 1 1:18am Supervision of high-risk Janua 2024 11:18am Elevated BP without diagnosis of hyperte nsion November 15, 2024 1:36pm Obesity affecting November 1:36pm November 15, 2024 1:36pm Supervision of high-risk Febru alec 2024 1:36pm Abnormal glucose in , antepartu m November 28, 2024 9:39am Elevated BP without diagnosis of hyperte nsion November 28, 2024 9:39am Obesity affecting November 9:39am November 28, 2024 9:39am Supervision of high-risk [email or web address] 9:39am Abnormal glucose in , [facility] December 02, 2024 10:24am Elevated BP without diagnosis of hyperte nsion December 02, 2024 10:24am Obesity affecting November 10:24am December 02, 2024 10:24am Supervision of high-risk [facility] 2024 10:24am Abnormal glucose in , roxane December 13, 2024 9:21am Elevated BP without diagnosis of hyperte nsion December 13, 2024 9:21am Obesity affecting December 13, 2024 9:21am Oligohydramnios December 13, 2024 9:2 1am December 13, 2024 9:2 1am Supervision of high-risk December 13, 2024 9:21am Abnormal glucose in , roxane December 13, 2024 9:25am Elevated BP without diagnosis of hyperte nsion December 13, 2024 9:25am Obesity affecting December 13, 2024 9:25am Oligohydramnios December 13, 2024 9:2 5am December 13, 2024 9:2 5am Supervision of high-risk December 13, 2024 9:25am Abnormal test December 20, 2024 11:59am Abnormal glucose in , roxane December 20, 2024 11:59am Elevated BP without diagnosis of hyperte nsion December 20, 2024 11:59am Obesity affecting December 20, 2024 11:59am Oligohydramnios December 20, 2024 11: 59am December 20, 2024 11: 59am Supervision of high-risk December 20, 2024 11:59am Abnormal test December 27, 2024 12:16pm Abnormal glucose in , roxane December 27, 2024 12:16pm Elevated BP without diagnosis of hyperte nsion December 27, 2024 12:16pm Obesity affecting December 27, 2024 12:16pm Oligohydramnios December 27, 2024 12: 16pm December 27, 2024 12: 16pm Supervision of high-risk December 27, 2024 12:16pm Abnormal test December 29, 2024 10:01am Abnormal glucose in , antepartu m December 29, 2024 10:01am Elevated BP without diagnosis of hyperte nsion December 29, 2024 10:01am Obesity affecting December 29, 2024 10:01am Oligohydramnios December 29, 2024 10: 01am December 29, 2024 10: 01am Supervision of high-risk December 29, 2024 10:01am Abnormal test December 30, 2024 1:00pm Abnormal glucose in , antepartu m December 30, 2024 1:00pm Elevated BP without diagnosis of hyperte nsion December 30, 2024 1:00pm Obesity affecting December 30, 2024 1:00pm Oligohydramnios December 30, 2024 1:0 0pm December 30, 2024 1:0 0pm Supervision of high-risk December 30, 2024 1:00pm Abnormal test January 02, 2025 9:39am Abnormal glucose in , antepartu m January 02, 2025 9:39am Elevated BP without diagnosis of hyperte nsion January 02, 2025 9:39am Obesity affecting January 02, 2025 9:39am Oligohydramnios January 02, 2025 9:3 9am January 02, 2025 9:3 9am Supervision of high-risk January 02, 2025 9:39am Chief Complaint Admit Date ANATOMY September 23, 2024 8:01am 21 WK OB September 26, 2024 10:10am 25 wk ob October 24, 2024 1 1:18am 28 wk ob/glucose November 15, 2024 1:36pm Abnormal glucose complicating November 21, 2024 6:59am 30W HTN, H/A November 28, 2024 9:39am 30 WK OB December 02, 2024 10:24am GROWTH December 13, 2024 7:4 2am 32 WK OB December 13, 2024 9:2 1am RULE OUT PRE-E December 13, 2024 9:2 5am RULE OUT PRE-E December 13, 2024 9:5 6am [employer] December 20, 2024 11: 59am [employer] December 20, 2024 4:4 1pm [employer] December 21, 2024 10: 05am [employer] December 23, 2024 12: 33pm L[employer] December 12:16pm LOW FLUID [employer] December 2:48pm 34 wk NST ONLY December 29, 2024 10: 01am [employer] December 30, 2024 11: 33am 34 WK OB December 30, 2024 1:0 0pm 35 WK OB/NST January 02, 2025 9:3 9am [employer] January 03, 2025 12:1 9pm [employer] January 06, 2025 9:01 am [employer] January 06, 2025 10:3 9am Reason for Visit Admit Date Obesity affecting September 10:10am September 26, 2024 10:10am Supervision of high-risk Dece 2023 10:10am Elevated BP without diagnosis of hyperte nsion October 24, 2024 11:18am Obesity affecting October 11:18am October 24, 2024 1 1:18am Supervision of high-risk Janua 2024 11:18am Elevated BP without diagnosis of hyperte nsion November 15, 2024 1:36pm Obesity affecting November 1:36pm November 15, 2024 1:36pm Supervision of high-risk [facility] 2024 1:36pm Abnormal glucose in , antepartu November 28, 2024 9:39am Elevated BP without diagnosis of hyperte nsion November 28, 2024 9:39am Obesity affecting November 9:39am November 28, 2024 9:39am Supervision of high-risk Febru alec 2024 9:39am Abnormal glucose in , antepartu December 02, 2024 10:24am Elevated BP without diagnosis of hyperte nsion December 02, 2024 10:24am Obesity affecting November 10:24am December 02, 2024 10:24am [facility] Abnormal glucose in , ant[facility]u December 13, 2024 9:21am Elevated BP without diagnosis of hyperte nsion December 13, 2024 9:21am Obesity affecting December 13, 2024 9:21am Oligohydramnios December 13, 2024 9:2 1am December 13, 2024 9:2 1am Supervision of high-risk December 13, 2024 9:21am Abnormal glucose in , [facility] December 13, 2024 9:25am Elevated BP without diagnosis of hyperte nsion December 13, 2024 9:25am Obesity affecting December 13, 2024 9:25am Oligohydramnios December 13, 2024 9:2 5am December 13, 2024 9:2 5am Supervision of high-risk December 13, 2024 9:25am Abnormal test December 20, 2024 11:59am [facility] glucose [facility] 20, [facility] 11:59am Elevated BP without diagnosis of hyperte nsion December 20, 2024 11:59am Obesity affecting December 20, 2024 11:59am Oligohydramnios December 20, 2024 11: 59am December 20, 2024 11: 59am Supervision of high-risk December 20, 2024 11:59am Abnormal test December 27, 2024 12:16pm Abnormal glucose in [facility] 27, 2024 12:16pm Elevated BP without diagnosis of hyperte nsion December 27, 2024 12:16pm Obesity affecting December 27, 2024 12:16pm Oligohydramnios December 27, 2024 12: 16pm December 27, 2024 12: 16pm Supervision of high-risk December 27, 2024 12:16pm Abnormal test December 29, 2024 10:01am Abnormal glucose in , [facility] December 29, 2024 10:01am Elevated BP without diagnosis of hyperte nsion December 29, 2024 10:01am Obesity affecting December 29, 2024 10:01am Oligohydramnios December 29, 2024 10: 01am December 29, 2024 10: 01am Supervision of high-risk December 29, 2024 10:01am Abnormal test December 30, 2024 1:00pm Abnormal glucose in , antepartu m December 30, 2024 1:00pm Elevated BP without diagnosis of hyperte nsion December 30, 2024 1:00pm Obesity affecting December 30, 2024 1:00pm Oligohydramnios December 30, 2024 1:0 0pm December 30, 2024 1:0 0pm Supervision of high-risk December 30, 2024 1:00pm Abnormal test January 02, 2025 9:39am Abnormal glucose in , antepartu m January 02, 2025 9:39am Elevated BP without diagnosis of hyperte nsion January 02, 2025 9:39am Obesity affecting January 02, 2025 9:39am Oligohydramnios January 02, 2025 9:3 9am January 02, 2025 9:3 9am Supervision of high-risk January 02, 2025 9:39am Abnormal test January 06, 2025 9:01am Chief Complaint Admit Date ANATOMY September 23, 2024 8:01am 21 WK OB September 26, 2024 10:10am 25 wk ob October 24, 2024 1 1:18am 28 wk ob/glucose November 15, 2024 1:36pm Abnormal glucose complicating November 21, 2024 6:59am 30W HTN, H/A November 28, 2024 9:39am 30 WK OB December 02, 2024 10:24am GROWTH December 13, 2024 7:4 2am 32 WK OB December 13, 2024 9:2 1am RULE OUT PRE-E December 13, 2024 9:2 5am RULE OUT PRE-E December 13, 2024 9:5 6am [employer] December 20, 2024 11: 59am [employer] December 20, 2024 4:4 1pm [employer] December 21, 2024 10: 05am [employer] December 23, 2024 12: 33pm L[employer] FLUID [employer] December 12:16pm LOW FLUID [employer] December 2:48pm 34 wk NST ONLY December 29, 2024 10: 01am [employer] December 30, 2024 11: 33am 34 WK OB December 30, 2024 1:0 0pm 35 WK OB/NST January 02, 2025 9:3 9am [employer] January 03, 2025 12:1 9pm [employer] January 06, 2025 9:01 am [employer] January 06, 2025 10:3 9am INDUCTION January 07, 2025 7:17 pm INDUCTION January 08, 2025 8:10 am INDUCTION January 09, 2025 7:58 am Reason for Visit Admit Date Obesity affecting September 10:10am September 26, 2024 10:10am Supervision of high-risk [facility] 2023 10:10am Elevated BP without diagnosis of hyperte nsion October 24, 2024 11:18am Obesity affecting October 11:18am October 24, 2024 1 1:18am Supervision of high-risk Jan 2024 11:18am Elevated BP without diagnosis of hyperte nsion November 15, 2024 1:36pm Obesity affecting November 1:36pm November 15, 2024 1:36pm Supervision of high-risk [facility] 2024 1:36pm Abnormal glucose in , [facility] November 28, 2024 9:39am Elevated BP without diagnosis of hyperte nsion November 28, 2024 9:39am Obesity affecting November 9:39am November 28, 2024 9:39am Supervision of high-risk [facility] 2024 9:39am Abnormal glucose in , [facility] December 02, 2024 10:24am Elevated BP without diagnosis of hyperte nsion December 02, 2024 10:24am Obesity affecting November 10:24am December 02, 2024 10:24am Supervision of high-risk [facility] 2024 10:24am Abnormal glucose in , [facility] December 13, 2024 9:21am Elevated BP without diagnosis of hyperte nsion December 13, 2024 9:21am Obesity affecting December 13, 2024 9:21am Oligohydramnios December 13, 2024 9:2 1am December 13, 2024 9:2 1am Supervision of high-risk December 13, 2024 9:21am Abnormal glucose in , antepartu m December 13, 2024 9:25am Elevated BP without diagnosis of hyperte nsion December 13, 2024 9:25am Obesity affecting December 13, 2024 9:25am Oligohydramnios December 13, 2024 9:2 5am December 13, 2024 9:2 5am Supervision of high-risk December 13, 2024 9:25am Abnormal test December 20, 2024 11:59am Abnormal glucose in , antepartu December 20, 2024 11:59am Elevated BP without diagnosis of hyperte nsion December 20, 2024 11:59am Obesity affecting December 20, 2024 11:59am Oligohydramnios December 20, 2024 11: 59am December 20, 2024 11: 59am Supervision of high-risk December 20, 2024 11:59am Abnormal test December 27, 2024 12:16pm Abnormal glucose in , antepartu December 27, 2024 12:16pm Elevated BP without diagnosis of hyperte nsion December 27, 2024 12:16pm Obesity affecting December 27, 2024 12:16pm Oligohydramnios December 27, 2024 12: 16pm December 27, 2024 12: 16pm Supervision of high-risk December 27, 2024 12:16pm Abnormal test December 29, 2024 10:01am Abnormal glucose in , antepartu December 29, 2024 10:01am Elevated BP without diagnosis of hyperte nsion December 29, 2024 10:01am Obesity affecting December 29, 2024 10:01am Oligohydramnios December 29, 2024 10: 01am December 29, 2024 10: 01am Supervision of high-risk December 29, 2024 10:01am Abnormal test December 30, 2024 1:00pm Abnormal glucose in , antepartu December 30, 2024 1:00pm Elevated BP without diagnosis of hyperte nsion December 30, 2024 1:00pm Obesity affecting December 30, 2024 1:00pm Oligohydramnios December 30, 2024 1:0 0pm December 30, 2024 1:0 0pm Supervision of high-risk December 30, 2024 1:00pm Abnormal test January 02, 2025 9:39am Abnormal glucose in , antepartu m January 02, 2025 9:39am Elevated BP without diagnosis of hyperte nsion January 02, 2025 9:39am Obesity affecting January 02, 2025 9:39am Oligohydramnios January 02, 2025 9:3 9am January 02, 2025 9:3 9am Supervision of high-risk January 02, 2025 9:39am Abnormal test January 06, 2025 9:01am Abnormal test January 07, 2025 7:17pm Abnormal glucose in , antepartu m January 07, 2025 7:17pm Elevated BP without diagnosis of hyperte nsion January 07, 2025 7:17pm Encounter for induction of labor January [id number] 7:17pm Obesity affecting January 07, 2 025 7:17pm Oligohydramnios January 07, 2025 7:17 pm January 07, 2025 7:17 pm Supervision of high-risk January 07, 2025 7:17pm Chief Complaint Admit Date ANATOMY September 23, 2024 8:01am 21 WK OB September 26, 2024 10:10am 25 wk ob October 24, 2024 1 1:18am 28 wk ob/glucose November 15, 2024 1:36pm Abnormal glucose complicating November 21, 2024 6:59am 30W HTN, H/A November 28, 2024 9:39am 30 WK OB December 02, 2024 10:24am GROWTH December 13, 2024 7:4 2am 32 WK OB December 13, 2024 9:2 1am RULE OUT PRE-E December 13, 2024 9:2 5am RULE OUT PRE-E December 13, 2024 9:5 6am [employer] December 20, 2024 11: 59am [employer] December 20, 2024 4:4 1pm [employer] December 21, 2024 10: 05am [employer] December 23, 2024 12: 33pm L[employer] FLUID [employer] December 12:16pm LOW FLUID [employer] December 2:48pm 34 wk NST ONLY December 29, 2024 10: 01am [employer] December 30, 2024 11: 33am 34 WK OB December 30, 2024 1:0 0pm 35 WK OB/NST January 02, 2025 9:3 9am [employer] January 03, 2025 12:1 9pm [employer] January 06, 2025 9:01 am [employer] January 06, 2025 10:3 9am INDUCTION January 07, 2025 7:17 pm INDUCTION January 08, 2025 8:10 am INDUCTION January 09, 2025 7:58 am INDUCTION January 10, 2025 12:5 7pm INDUCTION January 11, 2025 8:13 am Reason for Visit Admit Date Obesity affecting September 10:10am September 26, 2024 10:10am Supervision of high-risk Dece 2023 10:10am Elevated BP without diagnosis of hyperte nsion October 24, 2024 11:18am Obesity affecting October 11:18am October 24, 2024 1 1:18am Supervision of high-risk Janua 2024 11:18am Elevated BP without diagnosis of hyperte nsion November 15, 2024 1:36pm Obesity affecting November 1:36pm November 15, 2024 1:36pm Supervision of high-risk Febru 2024 1:36pm Abnormal glucose in , antepartu November 28, 2024 9:39am Elevated BP without diagnosis of hyperte nsion November 28, 2024 9:39am Obesity affecting November 9:39am November 28, 2024 9:39am Supervision of high-risk Febru alec 2024 9:39am Abnormal glucose in , antepartu m December 02, 2024 10:24am Elevated BP without diagnosis of hyperte nsion December 02, 2024 10:24am Obesity affecting November 10:24am December 02, 2024 10:24am [email or web address] Abnormal glucose in , [facility] December 13, 2024 9:21am Elevated BP without diagnosis of hyperte nsion December 13, 2024 9:21am Obesity affecting December 13, 2024 9:21am Oligohydramnios December 13, 2024 9:2 1am December 13, 2024 9:2 1am Supervision of high-risk December 13, 2024 9:21am Abnormal glucose in , antepartu December 13, 2024 9:25am Elevated BP without diagnosis of hyperte nsion December 13, 2024 9:25am Obesity affecting December 13, 2024 9:25am Oligohydramnios December 13, 2024 9:2 5am December 13, 2024 9:2 5am Supervision of high-risk December 13, 2024 9:25am Abnormal glucose in , [facility] December 20, 2024 11:59am Elevated BP without diagnosis of hyperte nsion December 20, 2024 11:59am Obesity affecting December 20, 2024 11:59am Oligohydramnios December 20, 2024 11: 59am December 20, 2024 11: 59am Supervision of high-risk December 20, 2024 11:59am Abnormal test December 20, 2024 11:59am Abnormal glucose in , [facility] December 27, 2024 12:16pm Elevated BP without diagnosis of hyperte nsion December 27, 2024 12:16pm Obesity affecting December 27, 2024 12:16pm Oligohydramnios December 27, 2024 12: 16pm December 27, 2024 12: 16pm Supervision of high-risk December 27, 2024 12:16pm Abnormal test December 27, 2024 12:16pm Abnormal glucose in , antepartu December 29, 2024 10:01am Elevated BP without diagnosis of hyperte nsion December 29, 2024 10:01am Obesity affecting December 29, 2024 10:01am Oligohydramnios December 29, 2024 10: 01am December 29, 2024 10: 01am Supervision of high-risk December 29, 2024 10:01am Abnormal test December 29, 2024 10:01am Abnormal glucose in , antepartu m December 30, 2024 1:00pm Elevated BP without diagnosis of hyperte nsion December 30, 2024 1:00pm Obesity affecting December 30, 2024 1:00pm Oligohydramnios December 30, 2024 1:0 0pm December 30, 2024 1:0 0pm Supervision of high-risk December 30, 2024 1:00pm Abnormal test December 30, 2024 1:00pm Abnormal glucose in , antepartu m January 02, 2025 9:39am Elevated BP without diagnosis of hyperte nsion January 02, 2025 9:39am Obesity affecting January 02, 2025 9:39am Oligohydramnios January 02, 2025 9:3 9am January 02, 2025 9:3 9am Supervision of high-risk January 02, 2025 9:39am Abnormal test January 02, 2025 9:39am Abnormal test January 06, 2025 9:01am Abnormal glucose in , antepartu m January 07, 2025 7:17pm Elevated BP without diagnosis of hyperte nsion January 07, 2025 7:17pm Obesity affecting January 07, 025 7:17pm Oligohydramnios January 07, 2025 7:17 pm January 07, 2025 7:17 pm Supervision of high-risk January 07, 2025 7:17pm Vaginal delivery January 07, 2025 7:17 pm Abnormal test January 07, 2025 7:17pm Encounter for induction of labor January [id number] 7:17pm Chief Complaint Admit Date 25 wk ob October 24, 2024 1 1:18am 28 wk ob/glucose November 15, 2024 1:36pm Abnormal glucose complicating November 21, 2024 6:59am 30W HTN, H/A November 28, 2024 9:39am 30 WK OB December 02, 2024 10:24am GROWTH December 13, 2024 7:4 2am 32 WK OB December 13, 2024 9:2 1am RULE OUT PRE-E December 13, 2024 9:2 5am RULE OUT PRE-E December 13, 2024 9:5 6am [employer] December 20, 2024 11: 59am [employer] December 20, 2024 4:4 1pm [employer] December 21, 2024 10: 05am [employer] December 23, 2024 12: 33pm LOW FLUID [employer] December 12:16pm LOW FLUID [employer] December 2:48pm 34 wk NST ONLY December 29, 2024 10: 01am [employer] December 30, 2024 11: 33am 34 WK OB December 30, 2024 1:0 0pm 35 WK OB/NST January 02, 2025 9:3 9am [employer] January 03, 2025 12:1 9pm [employer] January 06, 2025 9:01 am [employer] January 06, 2025 10:3 9am INDUCTION January 07, 2025 7:17 pm INDUCTION January 08, 2025 8:10 am INDUCTION January 09, 2025 7:58 am INDUCTION January 10, 2025 12:5 7pm INDUCTION January 11, 2025 8:13 am GROWTH January 12, 2025 11: 39am visit (obstetrics) February 20, 2025 10:45am Reason for Visit Admit Date Elevated BP without diagnosis of hyperte nsion October 24, 2024 11:18am Obesity affecting October 11:18am October 24, 2024 1 1:18am Supervision of high-risk Janua 2024 11:18am Elevated BP without diagnosis of hyperte nsion November 15, 2024 1:36pm Obesity affecting November 1:36pm November 15, 2024 1:36pm Supervision of high-risk Febru 2024 1:36pm Abnormal glucose in , antepartu m November 28, 2024 9:39am Elevated BP without diagnosis of hyperte nsion November 28, 2024 9:39am Obesity affecting November 9:39am November 28, 2024 9:39am Supervision of high-risk Febru alec 2024 9:39am Abnormal glucose in , [facility] December 02, 2024 10:24am Elevated BP without diagnosis of hyperte nsion December 02, 2024 10:24am Obesity affecting November 10:24am December 02, 2024 10:24am [email or web address] Ab[facility] , [facility] December 13, 2024 9:21am Elevated BP without diagnosis of hyperte nsion December 13, 2024 9:21am Obesity affecting December 13, 2024 9:21am Oligohydramnios December 13, 2024 9:2 1am December 13, 2024 9:2 1am Supervision of high-risk December 13, 2024 9:21am Abnormal glucose in , [facility] December 13, 2024 9:25am Elevated BP without diagnosis of hyperte nsion December 13, 2024 9:25am Obesity affecting December 13, 2024 9:25am Oligohydramnios December 13, 2024 9:2 5am December 13, 2024 9:2 5am Supervision of high-risk December 13, 2024 9:25am Abnormal test December 20, 2024 11:59am Abnormal glucose in , [facility] December 20, 2024 11:59am Elevated BP without diagnosis of hyperte nsion December 20, 2024 11:59am Obesity affecting December 20, 2024 11:59am Oligohydramnios December 20, 2024 11: 59am December 20, 2024 11: 59am Supervision of high-risk December 20, 2024 11:59am Abnormal test December 27, 2024 12:16pm Abnormal glucose in , [facility] December 27, 2024 12:16pm Elevated BP without diagnosis of hyperte nsion December 27, 2024 12:16pm Obesity affecting December 27, 2024 12:16pm Oligohydramnios December 27, 2024 12: 16pm December 27, 2024 12: 16pm Supervision of high-risk December 27, 2024 12:16pm Abnormal test December 29, 2024 10:01am Abnormal glucose in , [facility] December 29, 2024 10:01am Elevated BP without diagnosis of hyperte nsion December 29, 2024 10:01am Obesity affecting December 29, 2024 10:01am Oligohydramnios December 29, 2024 10: 01am December 29, 2024 10: 01am Supervision of high-risk December 29, 2024 10:01am Abnormal test December 30, 2024 1:00pm Abnormal glucose in , antepartu m December 30, 2024 1:00pm Elevated BP without diagnosis of hyperte nsion December 30, 2024 1:00pm Obesity affecting December 30, 2024 1:00pm Oligohydramnios December 30, 2024 1:0 0pm December 30, 2024 1:0 0pm Supervision of high-risk December 30, 2024 1:00pm Abnormal test January 02, 2025 9:39am Abnormal glucose in , antepartu m January 02, 2025 9:39am Elevated BP without diagnosis of hyperte nsion January 02, 2025 9:39am Obesity affecting January 02, 2025 9:39am Oligohydramnios January 02, 2025 9:3 9am January 02, 2025 9:3 9am Supervision of high-risk January 02, 2025 9:39am Abnormal test January 06, 2025 9:01am Vaginal delivery January 07, 2025 7:17 pm Abnormal test January 07, 2025 7:17pm Abnormal glucose in , antepartu m January 07, 2025 7:17pm Elevated BP without diagnosis of hyperte nsion January 07, 2025 7:17pm Encounter for induction of labor January 072024 7:17pm Obesity affecting January 07, 025 7:17pm Oligohydramnios January 07, 2025 7:17 pm January 07, 2025 7:17 pm Supervision of high-risk January 07, 2025 7:17pm Routine Follow-Up February 20, 2 025 10:45am Chief Complaint Admit Date 35 WK OB/NST January 02, 2025 9:3 9am FETA WELL BEING January 03, 2025 12:1 9pm FETA WELL BEING January 06, 2025 9:01 am FETA WELL BEING January 06, 2025 10:3 9am INDUCTION January 07, 2025 7:17 pm INDUCTION January 08, 2025 8:10 am INDUCTION January 09, 2025 7:58 am INDUCTION January 10, 2025 12:5 7pm INDUCTION January 11, 2025 8:13 am GROWTH January 12, 2025 11: 39am visit (obstetrics) February 20, 2025 10:45am Poss. BV *copay $May 02, 2025 11:4 0am Reason for Visit Admit Date Abnormal test January 02, 2025 9:39am Abnormal glucose in , antepartu m January 02, 2025 9:39am Elevated BP without diagnosis of hyperte nsion January 02, 2025 9:39am Obesity affecting January 02, 2025 9:39am Oligohydramnios January 02, 2025 9:3 9am January 02, 2025 9:3 9am Supervision of high-risk January 02, 2025 9:39am Abnormal test January 06, 2025 9:01am Abnormal test January 07, 2025 7:17pm Abnormal glucose in , antepartu m January 07, 2025 7:17pm Elevated BP without diagnosis of hyperte nsion January 07, 2025 7:17pm Encounter for induction of labor January 072024 7:17pm Obesity affecting January 07, 025 7:17pm Oligohydramnios January 07, 2025 7:17 pm January 07, 2025 7:17 pm Supervision of high-risk January 07, 2025 7:17pm Vaginal delivery January 07, 2025 7:17 pm Routine Follow-Up February 20, 025 10:45am Vaginal odor May 02, 2025 11:4 0am Chief Complaint Admit Date INDUCTION January 07, 2025 7:17 pm INDUCTION January 08, 2025 8:10 am INDUCTION January 09, 2025 7:58 am INDUCTION January 10, 2025 12:5 7pm INDUCTION January 11, 2025 8:13 am GROWTH January 12, 2025 11: 39am visit (obstetrics) February 20, 2025 10:45am Poss. BV *copay $May 02, 2025 11:4 0am Reason for Visit Admit Date Abnormal test January 07, 2025 7:17pm Abnormal glucose in , antepartu m January 07, 2025 7:17pm Elevated BP without diagnosis of hyperte nsion January 07, 2025 7:17pm Encounter for induction of labor January 072024 7:17pm Obesity affecting January 07, 025 7:17pm Oligohydramnios January 07, 2025 7:17 pm January 07, 2025 7:17 pm Supervision of high-risk January 07, 2025 7:17pm Vaginal delivery January 07, 2025 7:17 pm Routine Follow-Up February 20 025 10:45am Vaginal odor May 02, 2025 11:4 0am Additional Source Comments INFORMATION SOURCE (unrecogn ized section and content) DATE CREATED AUTHOR 03/30/2018 [facility] Ce nina Stovallon DATE CREATED AUTHOR AUTHOR'S ORGANIZ ATION 05/05/2018 [facility] ([place]) DATE CREATED AUTHOR AUTHOR'S ORGANIZ ATION 12/17/2024 [facility] DATE CREATED AUTHOR AUTHOR'S ORGANIZ ATION 06/30/2025 [facility] Goals (unrecognized section and content) Goals may be documented in a n alternate sectionGoals may be documented in an alternate sectionGoals may be documented in an alternate sectionGoals may be documented in an alternate sectionGoals may be documented in an alternate sectionGoals may be documented in an alternate sectionGoals may be documented in an alternate sectionGoals may be documented in an alternate sectionGoals may be documented in an alternate section Reason for Visit (unrecogniz ed section and content) Reason Comments Non-stress Test Extended monitoring/ admission for oligohydramnios Specialty Diagnoses / Procedures Referred By Aletha t Referred To Contact Diagnoses Oligohydramnios antepartum, third trimester, fetus 1 Procedures - Thelma Ta W, DO [address] [address] Phone: tel: fax: [facility] [address] [facility] [place] [address] Phone: tel: Referral ID Status Reason Start Date Expiration Date Visits Re quested Visits Authorized [id number] 1 1 Scheduled Active and Recently Administ ered Medications (unrecognized section and content) Medication Order 12/14/2024 12/15/2024 12/16/2024 aspirin EC tablet 162 mg 162 mg, Oral, Daily, First dose on Thu12/14/24 at 1515, Do not crush, chew, or split. 1628 (Given - Provider: Wilma Forbes RN) 0928 (Given - Provider: Vidya Bender, BLOSSOM) 0827 (Given - Provider: Alva Parker, RN) Lidocaine 4 % patch 1 patch 1 patch, TransDERmal, Administer over 12 Hours, Daily, First dose on Thu12/14/24 at 1615, Apply patch to affected area. Patch may remain in place for up to 12 hours in any 24 hour period. 1629 (Medication Applied - Provider: Wilma Forbes RN) 0429 (Medication Removed - Provider: Berenice Rascon RN)0928 (Medication Applied - Provider: Vidya Bender RN)2128 (Medication Removed - Provider: Heriberto Giraldo, BLOSSOM) 0900 (Not Given - Provider: Alva Parker RN - Reason: Other) vitamin tablet 1 tablet, Oral, Daily, First dose on Thu12/14/24 at 1515 1627 (Given - Provider: Wilma Forbes RN) 0928 (Given - Provider: Vidya Bender, BLOSSOM) 0827 (Given - Provider: Alva Parker RN) sodium chloride 0.9% (NS) flush 10 mL 10 mL, IntraVENous, Every 12 hours scheduled (2 times per day), First dose on Thu12/14/24 at 2100 2100 (Not Given - Provider: Doug Akers RN - Reason: IV Fluids Infusing) 0900 (Not Given - Provider: Vidya Bender RN - Reason: IV Fluids Infusing)2021 (Given - Provider: Heriberto Giraldo, BLOSSOM) 0828 (Given - Provider: Alva Parker RN) Continuous Medication Order 12/14/2024 12/15/2024 12/16/2024 lactated Ringer's infusion (CANCELED) 75 mL/hr, IntraVENous, Continuous, Starting on Thu12/14/24 at 1600 1658 (New Bag - Provider: Reinaldo Scott, BLOSSOM) 0626 (New Bag - Provider: Maura Christie RN)1626 (Stopped - Provider: Vidya Bender, BLOSSOM) PRN Medication Order 12/14/2024 12/15/2024 12/16/2024 acetaminophen (Tylenol) tablet 650 mg 650 mg, Oral, Every 4 hours PRN, mild pain (1-3), Fever GREATER than 100.5 F (38 C), Starting on Thu12/14/24 at 1445, Maximum dose of acetaminophen is 4000 mg from all sources in 24 hours. 1628 (Given - Provider: Wilma Forbes, RN) ondansetron (Zofran) injection 4 mg(Linked Group 1) 4 mg, IntraVENous, Every 6 hours PRN, nausea, vomiting, Starting on Thu12/14/24 at 1445, 1st Line. Give IV if patient is unable to take orally. If inadequate response within 60 minutes, proceed to next-line agent or contact provider if no further options ordered. ondansetron ODT (Zofran-ODT) disintegrating tablet 4 mg(Linked Group 1) 4 mg, Oral, Every 8 hours PRN, nausea, vomiting, Starting on Thu12/14/24 at 1445, 1st Line. If inadequate response within 60 minutes, proceed to next-line agent or contact provider if no further options ordered. Patient should allow tablet to dissolve on tongue. Do not remove from blister pack until just before administering. sodium chloride 0.9 % infusion 5-250 mL/hr, IntraVENous, PRN, if patient receiving piggyback infusions and maintenance fluids are not ordered OR KVO fluids to protect IV site / prevent frequent line interruptions/ long duration, Starting on Thu12/14/24 at 1445, For piggyback infusion, administer at same rate as piggyback for a total of 25 mL. Enter 25 mL into dose field and piggyback rate into rate field of order. If piggyback is infusing at a rate less than 100 mL/hr, enter 25 mL into dose field and 100 mL/hr into rate field of order. For KVO fluids, enter rate of 20 mL/hr or less into rate field of order. sodium chloride 0.9% (NS) flush 10 mL 10 mL, IntraVENous, PRN, line care, Starting on Thu12/14/24 at 1445, After every IV line use Linked Groups Order Group 1: ondansetron ODT (Zofran-ODT) disintegrating tablet 4 mgJump to med 4 mg, Oral, Every 8 hours PRN, nausea, vomiting, Starting on Thu12/14/24 at 1445, 1st Line. If inadequate response within 60 minutes, proceed to next-line agent or contact provider if no further options ordered. Patient should allow tablet to dissolve on tongue. Do not remove from blister pack until just before administering. Or ondansetron (Zofran) injection 4 mgJump to med 4 mg, IntraVENous, Every 6 hours PRN, nausea, vomiting, Starting on Thu12/14/24 at 1445, 1st Line. Give IV if patient is unable to take orally. If inadequate response within 60 minutes, proceed to next-line agent or contact provider if no further options ordered. Care Teams (unrecognized sec tion and content) Team Status: Active Member Role Status Dates JUAN Montilla Primary Care Provider Active Team Status: Inactive Member Role Status Dates JUAN Montilla Primary Care Provider Active Start: August 29, 2024 End: August 29, 2024 JUAN Montilla Referring Provider Active S tart: August 29, 2024 End: August 29, 2024 Dr. Belkis Pacheco MD Attending Provider Active Start: August 29, 2024 End: August 29, 2024 Team Status: Inactive Member Role Status Dates JUAN Montilla Primary Care Provider Active Start: September 23, 2024 End: September 23, 2024 Dr. Belkis Pacheco MD Attending Provider Active Start: September 23, 2024 End: September 23, 2024 Dr. Belkis Pacheco MD Referring Provider Active Start: September 23, 2024 End: September 23, 2024 Team Status: Inactive Member Role Status Dates JUAN Montilla Primary Care Provider Active Start: September 26, 2024 End: September 26, 2024 JUAN Montilla Referring Provider Active S tart: September 26, 2024 End: September 26, 2024 Dr. Belkis Pacheco MD Attending Provider Active Start: September 26, 2024 End: September 26, 2024 Team Status: Inactive Member Role Status Dates JUAN Montilla Primary Care Provider Active Start: October 24, 2024 End: October 24, 2024 Clarissa Cosby [employer] Referring Provider Active S tart: October 24, 2024 End: October 24, 2024 Sariah Cobb CNM Attending Provider Active S tart: October 24, 2024 End: October 24, 2024 Team Status: Inactive Member Role Status Dates Clarissa Cosby [employer] Primary Care Provider Active Start: October 24, 2024 End: October 24, 2024 Sariah Cobb CNM Attending Provider Active S tart: October 24, 2024 End: October 24, 2024 Sariah Cobb CNM Referring Provider Active S tart: October 24, 2024 End: October 24, 2024 Team Status: Inactive Member Role Status Dates CLARISSA LEANNASHELLY Primary Care Provider Active Star t: November 15, 2024 End: November 15, 2024 Dr. Belkis Pacheco MD Attending Provider Active Start: November 15, 2024 End: November 15, 2024 Dr. Belkis Pacheco MD Referring Provider Active Start: November 15, 2024 End: November 15, 2024 Team Status: Inactive Member Role Status Dates Clarissa Cosby [employer] Referring Provider Active S tart: November 15, 2024 End: November 15, 2024 Kavya Diez NP, [employer] Attending Provider Active Start: November 15, 2024 End: November 15, 2024 CLARISSA, LEANNASHELLY Primary Care Provider Active Star t: November 15, 2024 End: November 15, 2024 Team Status: Inactive Member Role Status Dates CLARISSA, LEANNASHELLY Primary Care Provider Active Star t: November 21, 2024 End: November 21, 2024 Dr. Belkis Pacheco MD Attending Provider Active Start: November 21, 2024 End: November 21, 2024 Dr. Belkis Pacheco MD Referring Provider Active Start: November 21, 2024 End: November 21, 2024 Team Status: Inactive Member Role Status Dates Dr. Nenita Oliva DO Attending Provider Activ e Start: November 28, 2024 End: November 28, 2024 Dr. Nenita Oliva DO Referring Provider Activ e Start: November 28, 2024 End: November 28, 2024 Team Status: Inactive Member Role Status Dates Sariah Cobb CNM Attending Provider Active S tart: November 28, 2024 End: November 28, 2024 Team Status: Inactive Member Role Status Dates Clarissa Cosby [employer] Referring Provider Active S tart: December 02, 2024 End: December 02, 2024 Sariah Cobb CNM Attending Provider Active S tart: December 02, 2024 End: December 02, 2024 Team Status: Active Member Role Status Dates Dr. Belkis Pacheco MD Attending Provider Active Start: December 13, 2024 Dr. Belkis Pacheco MD Referring Provider Active Start: December 13, 2024 Clarissa Cosby , [employer] Primary Care Provider Active Start: December 13, 2024 Team Status: Inactive Member Role Status Dates Clarissa Cosby [employer] Primary Care Provider Active Start: December 13, 2024 End: December 13, 2024 Clarissa Cosby , [employer] Referring Provider Active S tart: December 13, 2024 End: December 13, 2024 Kavya Diez NP, [employer] Attending Provider Active Start: December 13, 2024 End: December 13, 2024 Team Status: Inactive Member Role Status Dates Clarissa Cosby , [employer] Primary Care Provider Active Start: December 13, 2024 End: December 14, 2024 Dr. Nenita Oliva , DO Attending Provider Activ e Start: December 13, 2024 End: December 14, 2024 Dr. Nenita Oliva DO Referring Provider Activ e Start: December 13, 2024 End: December 14, 2024 Team Status: Active Member Role Status Dates Clarissa Cosby [employer] Primary Care Provider Active Start: December 13, 2024 Dr. Nenita Oliva DO Attending Provider Activ e Start: December 13, 2024 Dr. Nenita Oliva DO Referring Provider Activ e Start: December 13, 2024 Dr. Nenita Oliva DO Other Provider Active Start: December 13, 2024 Team Status: Inactive Member Role Status Dates Clarissa Cosby , [employer] Primary Care Provider Active Start: December 20, 2024 End: December 21, 2024 Dr. Belkis Pacheco MD Referring Provider Active Start: December 20, 2024 End: December 21, 2024 Dr. Nenita Oliva DO Attending Provider Activ e Start: December 20, 2024 End: December 21, 2024 Team Status: Active Member Role Status Dates Clarissa Cosby [employer] Primary Care Provider Active Start: December 20, 2024 Dr. Belkis Pacheco MD Referring Provider Active Start: December 20, 2024 Dr. Nenita Oliva DO Attending Provider Activ e Start: December 20, 2024 Dr. Nenita Oliva DO Other Provider Active Start: December 20, 2024 Team Status: Inactive Member Role Status Dates Dr. Belkis Pacheco MD Attending Provider Active Start: December 13, 2024 End: December 13, 2024 Dr. Belkis Pacheco MD Referring Provider Active Start: December 13, 2024 End: December 13, 2024 Clarissa Cosby [employer] Primary Care Provider Active Start: December 13, 2024 End: December 13, 2024 Team Status: Active Member Role Status Dates Clarissa Cosby [employer] Primary Care Provider Active Start: December 21, 2024 Dr. Belkis Pacheco MD Attending Provider Active Start: December 21, 2024 Dr. Belkis Pacheco MD Referring Provider Active Start: December 21, 2024 Dr. Nenita Oliva DO Other Provider Active Start: December 21, 2024 Team Status: Active Member Role Status Dates Clarissa Cosby [employer] Primary Care Provider Active Start: December 23, 2024 Dr. Belkis Pacheco MD Attending Provider Active Start: December 23, 2024 Dr. Belkis Pacheco MD Referring Provider Active Start: December 23, 2024 Team Status: Inactive Member Role Status Dates Clarissa Cosby [employer] Primary Care Provider Active Start: December 27, 2024 End: December 27, 2024 Dr. Belkis Pacheco MD Attending Provider Active Start: December 27, 2024 End: December 27, 2024 Dr. Belkis Pacheco MD Referring Provider Active Start: December 27, 2024 End: December 27, 2024 Team Status: Active Member Role Status Dates Clarissa Cosby [employer] Primary Care Provider Active Start: December 27, 2024 Dr. Belkis Pacheco MD Referring Provider Active Start: December 27, 2024 Dr. Belkis Pacheco MD Other Provider Active Start: December 27, 2024 Dr. Nenita Oliva DO Attending Provider Activ e Start: December 27, 2024 Team Status: Inactive Member Role Status Dates Clarissa Cosby [employer] Primary Care Provider Active Start: December 23, 2024 End: December 23, 2024 Dr. Belkis Pacheco MD Attending Provider Active Start: December 23, 2024 End: December 23, 2024 Dr. Belkis Pacheco MD Referring Provider Active Start: December 23, 2024 End: December 23, 2024 Team Status: Inactive Member Role Status Dates Clarissa Cosby [employer] Primary Care Provider Active Start: December 29, 2024 End: December 29, 2024 Clarissa Cosby , [employer] Referring Provider Active S tart: December 29, 2024 End: December 29, 2024 Kavya Diez NP, [employer] Attending Provider Active Start: December 29, 2024 End: December 29, 2024 Team Status: Active Member Role Status Dates Clarissa Cosby , [employer] Primary Care Provider Active Start: December 30, 2024 Dr. Belkis Pacheco MD Attending Provider Active Start: December 30, 2024 Dr. Belkis Pacheco MD Referring Provider Active Start: December 30, 2024 Team Status: Inactive Member Role Status Dates Clarissa Cosby , [employer] Primary Care Provider Active Start: December 30, 2024 End: December 30, 2024 Clarissa Cosby [employer] Referring Provider Active S tart: December 30, 2024 End: December 30, 2024 Dr. Nenita Oliva DO Attending Provider Activ e Start: December 30, 2024 End: December 30, 2024 Team Status: Inactive Member Role Status Dates Clarissa Cosby [employer] Primary Care Provider Active Start: December 30, 2024 End: December 30, 2024 Dr. Belkis Pacheco MD Attending Provider Active Start: December 30, 2024 End: December 30, 2024 Dr. Belkis Pacheco MD Referring Provider Active Start: December 30, 2024 End: December 30, 2024 Team Status: Inactive Member Role Status Dates Clarissa Cosby [employer] Primary Care Provider Active Start: January 02, 2025 End: January 02, 2025 GONZÁLEZ MontillaC Referring Provider Active S tart: January 02, 2025 End: January 02, 2025 Sariah Cobb CNM Attending Provider Active S tart: January 02, 2025 End: January 02, 2025 Team Status: Active Member Role Status Dates Clarissa Cosby NP-C Primary Care Provider Active Start: January 03, 2025 Dr. Belkis Pacheco MD Attending Provider Active Start: January 03, 2025 Dr. Belkis Pacheco MD Referring Provider Active Start: January 03, 2025 Team Status: Inactive Member Role Status Dates Clarissa Cosby NP-C Primary Care Provider Active Start: January 06, 2025 End: January 06, 2025 Dr. Belkis Pacheco MD Other Provider Active Start: January 06, 2025 End: January 06, 2025 Bella Berumen CNM Attending Provider Active Start: January 06, 2025 End: January 06, 2025 Bella Berumen CNM Referring Provider Active Start: January 06, 2025 End: January 06, 2025 Team Status: Active Member Role Status Dates Clarissa Cosby NP-C Primary Care Provider Active Start: January 06, 2025 Dr. Belkis Pacheco MD Other Provider Active Start: January 06, 2025 Bella Berumen CNM Attending Provider Active Start: January 06, 2025 Bella Berumen CNM Referring Provider Active Start: January 06, 2025 Bella Berumen CNM Other Provider Active Star t: January 06, 2025 Team Status: Inactive Member Role Status Dates Clarissa Cosby [employer] Primary Care Provider Active Start: January 03, 2025 End: January 03, 2025 Dr. Belkis Pacheco MD Attending Provider Active Start: January 03, 2025 End: January 03, 2025 Dr. Belkis Pacheco MD Referring Provider Active Start: January 03, 2025 End: January 03, 2025 Team Status: Active Member Role Status Dates Clarissa Cosby [employer] Primary Care Provider Active Start: January 07, 2025 Bella Berumen CNM Admit Provider Active Star t: January 07, 2025 Bella Berumen CNM Attending Provider Active Start: January 07, 2025 Team Status: Active Member Role Status Dates Clarissa Cosby [employer] Primary Care Provider Active Start: January 08, 2025 Bella Berumen CNM Admit Provider Active Star t: January 08, 2025 Bella Berumen CNM Attending Provider Active Start: January 08, 2025 Bella Berumen CNM Other Provider Active Star t: January 08, 2025 Team Status: Active Member Role Status Dates Clarissa Cosby [employer] Primary Care Provider Active Start: January 09, 2025 Bella Berumen CNM Admit Provider Active Star t: January 09, 2025 Bella Berumen CNM Other Provider Active Star t: January 09, 2025 Sariah Cobb CNM Attending Provider Active S tart: January 09, 2025 Team Status: Inactive Member Role Status Dates Clarissa Cosby [employer] Primary Care Provider Active Start: January 07, 2025 End: January 11, 2025 Sariah Cobb CNM Admit Provider Active Start : January 07, 2025 End: January 11, 2025 Sariah Cobb CNM Attending Provider Active S tart: January 07, 2025 End: January 11, 2025 Team Status: Active Member Role Status Dates Clarissa Cosby [employer] Primary Care Provider Active Start: January 10, 2025 Sariah Cobb CNM Admit Provider Active Start : January 10, 2025 Sariah Cobb CNM Other Provider Active Start : January 10, 2025 Dr. Belkis Pacheco MD Attending Provider Active Start: January 10, 2025 Team Status: Active Member Role Status Dates Clarissa Cosby [employer] Primary Care Provider Active Start: January 11, 2025 Sariah Cobb CNM Admit Provider Active Start : January 11, 2025 Sariah Cobb CNM Other Provider Active Start : January 11, 2025 Kavya Diez NP, [employer] Attending Provider Active Start: January 11, 2025 Team Status: Active Member Role Status Dates Clarissa Cosby [employer] Primary Care Provider Active Start: January 12, 2025 Dr. Belkis Pacheco MD Referring Provider Active Start: January 12, 2025 Dr. Belkis Pacheco MD Other Provider Active Start: January 12, 2025 Kavya Diez NP, [employer] Attending Provider Active Start: January 12, 2025 Team Status: Inactive Member Role Status Dates Clarissa Cosby [employer] Primary Care Provider Active Start: February 20, 2025 End: February 20, 2025 Clarissa Cosby [employer] Referring Provider Active S tart: February 20, 2025 End: February 20, 2025 Sariah Cobb CNM Attending Provider Active S tart: February 20, 2025 End: February 20, 2025 Team Status: Active Member Role/Relationship Status Dates Clarissa Cosby [employer] Primary Care Provider Active Team Status: Inactive Member Role/Relationship Status Dates Clarissa Cosby [employer] Primary Care Provider Active Start: January 02, 2025 End: January 02, 2025 Clarissa Cosby [employer] Referring Provider Active S tart: January 02, 2025 End: January 02, 2025 Sariah Cobb CNM Attending Provider Active S tart: January 02, 2025 End: January 02, 2025 Team Status: Inactive Member Role/Relationship Status Dates Clarissa Cosby [employer] Primary Care Provider Active Start: January 03, 2025 End: January 03, 2025 Dr. Belkis Pacheco MD Attending Provider Active Start: January 03, 2025 End: January 03, 2025 Dr. Belkis Pacheco MD Referring Provider Active Start: January 03, 2025 End: January 03, 2025 Team Status: Inactive Member Role/Relationship Status Dates Clarissa Cosby [employer] Primary Care Provider Active Start: January 06, 2025 End: January 06, 2025 Dr. Belkis Pacheco MD Other Provider Active Start: January 06, 2025 End: January 06, 2025 Bella Berumen CNM Attending Provider Active Start: January 06, 2025 End: January 06, 2025 Bella Berumen CNM Referring Provider Active Start: January 06, 2025 End: January 06, 2025 Team Status: Active Member Role/Relationship Status Dates Clarissa Cosby [employer] Primary Care Provider Active Start: January 06, 2025 Dr. Belkis Pacheco MD Other Provider Active Start: January 06, 2025 Bella Berumen CNM Attending Provider Active Start: January 06, 2025 Bella Berumen CNM Referring Provider Active Start: January 06, 2025 Bella Berumen CNM Other Provider Active Star t: January 06, 2025 Team Status: Inactive Member Role/Relationship Status Dates Clarissa Cosby [employer] Primary Care Provider Active Start: January 07, 2025 End: January 11, 2025 Sariah Cobb CNM Admit Provider Active Start : January 07, 2025 End: January 11, 2025 Sariah Cobb CNM Attending Provider Active S tart: January 07, 2025 End: January 11, 2025 Team Status: Active Member Role/Relationship Status Dates Clarissa Cosby [employer] Primary Care Provider Active Start: January 08, 2025 CONNIE IglesiasM Admit Provider Active Star t: January 08, 2025 Bella Berumen CNM Attending Provider Active Start: January 08, 2025 Bella Berumen CNM Other Provider Active Star t: January 08, 2025 Team Status: Active Member Role/Relationship Status Dates Clarissa Cosby [employer]-C Primary Care Provider Active Start: January 09, 2025 Bella Berumen CNM Admit Provider Active Star t: January 09, 2025 Bella Berumen CNM Other Provider Active Star t: January 09, 2025 Sariah Cobb CNM Attending Provider Active S tart: January 09, 2025 Team Status: Active Member Role/Relationship Status Dates Clarissa Cosby [employer]-C Primary Care Provider Active Start: January 10, 2025 Sariah Cobb CNM Admit Provider Active Start : January 10, 2025 Sariah Cobb CNM Other Provider Active Start : January 10, 2025 Dr. Belkis Pacheco MD Attending Provider Active Start: January 10, 2025 Team Status: Active Member Role/Relationship Status Dates Clarissa Cosby [employer]-C Primary Care Provider Active Start: January 11, 2025 Sariah Cobb CNM Admit Provider Active Start : January 11, 2025 Sariah Cobb CNM Other Provider Active Start : January 11, 2025 Kavya Diez NP, [employer]-C Attending Provider Active Start: January 11, 2025 Team Status: Active Member Role/Relationship Status Dates Clarissa Cosby [employer]-C Primary Care Provider Active Start: January 12, 2025 Dr. Belkis Pacheco MD Referring Provider Active Start: January 12, 2025 Dr. Belkis Pacheco MD Other Provider Active Start: January 12, 2025 Kavya Diez NP, [employer]-C Attending Provider Active Start: January 12, 2025 Team Status: Inactive Member Role/Relationship Status Dates Clarissa Cosby [employer]-C Primary Care Provider Active Start: February 20, 2025 End: February 20, 2025 Clarissa Cosby [employer]-C Referring Provider Active S tart: February 20, 2025 End: February 20, 2025 Sariah Cobb CNM Attending Provider Active S tart: February 20, 2025 End: February 20, 2025 Team Status: Inactive Member Role/Relationship Status Dates Clarissa Cosby [employer]-C Primary Care Provider Active Start: May 02, 2025 End: May 02, 2025 Clarissa Cosby [employer]-C Referring Provider Active S tart: May 02, 2025 End: May 02, 2025 Kavya Diez NP, [employer]-C Attending Provider Active Start: May 02, 2025 End: May 02, 2025 Team Status: Inactive Member Role/Relationship Status Dates Clarissa Cosby [employer]-C Primary Care Provider Active Start: January 07, 2025 End: January 11, 2025 Sariah Cobb CNM Admit Provider Active Start : January 07, 2025 End: January 11, 2025 Sariah Cobb CNM Attending Provider Active S tart: January 07, 2025 End: January 11, 2025 Team Status: Active Member Role/Relationship Status Dates Clarissa Cosby [employer]-C Primary Care Provider Active Start: January 08, 2025 Bella Berumen CNM Admit Provider Active Star t: January 08, 2025 Bella Berumen CNM Attending Provider Active Start: January 08, 2025 Bella Berumen CNM Other Provider Active Star t: January 08, 2025 Team Status: Active Member Role/Relationship Status Dates Clarissa Cosby [employer]-C Primary Care Provider Active Start: January 09, 2025 Bella Berumen CNM Admit Provider Active Star t: January 09, 2025 Bella Berumen CNM Other Provider Active Star t: January 09, 2025 Sariah Cobb CNM Attending Provider Active S tart: January 09, 2025 Team Status: Active Member Role/Relationship Status Dates Clarissa Cosby [employer] Primary Care Provider Active Start: January 10, 2025 Sariha Cobb CNM Admit Provider Active Start : January 10, 2025 Sariah Cobb CNM Other Provider Active Start : January 10, 2025 Dr. Belkis Pacheco MD Attending Provider Active Start: January 10, 2025 Team Status: Active Member Role/Relationship Status Dates Clarissa Cosby NP-C Primary Care Provider Active Start: January 11, 2025 Sariah Cobb CNM Admit Provider Active Start : January 11, 2025 Sariah Cobb CNM Other Provider Active Start : January 11, 2025 Kavya Diez NP, [employer]-C Attending Provider Active Start: January 11, 2025 Team Status: Active Member Role/Relationship Status Dates Clarissa Cosby NP-C Primary Care Provider Active Start: January 12, 2025 Dr. Belkis Pacheco MD Referring Provider Active Start: January 12, 2025 Dr. Belkis Pacheco MD Other Provider Active Start: January 12, 2025 Kavya Diez NP, [employer]-C Attending Provider Active Start: January 12, 2025 Team Status: Inactive Member Role/Relationship Status Dates Clarissa Cosby [employer] Primary Care Provider Active Start: February 20, 2025 End: February 20, 2025 Clarissa Cosby NP-C Referring Provider Active S tart: February 20, 2025 End: February 20, 2025 Sariah Cobb CNM Attending Provider Active S tart: February 20, 2025 End: February 20, 2025 Team Status: Inactive Member Role/Relationship Status Dates Clarissa Cosby [employer] Primary Care Provider Active Start: May 02, 2025 End: May 02, 2025 Clarissa Cosby [employer]-C Referring Provider Active S tart: May 02, 2025 End: May 02, 2025 Kavya Diez NP, [employer]-C Attending Provider Active Start: May 02, 2025 End: May 02, 2025 Team Status: Inactive Member Role/Relationship Status Dates Clarissa Cosby [employer]-C Primary Care Provider Active Start: May 02, 2025 End: May 02, 2025 Kavya Diez NP, [employer]ING [employer]-C Attending Provider Active Start: May 02, 2025 End: May 02, 2025 FOR RECORDS PERTAINING TO PATIENTS WHO ARE [...] BE BASED ON THE PRIMARY CLINICAL RECORDS. [facility]. provides no warranty or guarantee of the accuracy or completeness of information in this document.
== END | disposition home or self-care (01) ==
LOC: US 07:28
PROVIDERS: PCP Nurse Practitioner; Referring Provider Family Medicine; Visit Provider Family Medicine
DX: R10.10 Upper abdominal pain, unspecified (principal)
CPT/HCPCS: 76705